=== PATIENT | male | born 1955 | race American Indian/Alaskan Native ===

== ENCOUNTER 2019-01-18 18:49 | Inpatient (IN) | payer MEDICARE, OTHER ==
--- NOTE | 2019-01-18 19:01 | Emergency Department Report ---
HPI - General Time Seen by Provider: 01/18/19 18:52 - HPI HPI: Charge nurse triage The patient is a 76-vich-[age]mu-year-old male presenting with chief complaint of right-sided weakness. Per EMS the patient's friend left the house at 08:00 and returned approximately 30 minutes prior to arrival find the patient with right- sided weakness and difficulty speaking. Her EMS the patient is unable to verbalize his answers but acknowledges his symptoms began around 13:00-14:00 today. Location: Right side Duration: [See above] Quality: Weakness Severity: Severe Modifying factors: [see above] Context: [see above] Mode of transportation: [not driving] ED Past Medical Hx - Past Medical History Hx Hypertension: Yes Hx Diabetes: Yes Additional medical history: Coronary artery disease - Family History Family history: no significant ED Review of Systems ROS: Stated complaint: CVA Other details as noted in HPI Comment: Unobtainable due to pts medical conditions Physical Exam - Physical Exam Physical Exam: GENERAL: The patient is well-developed well-nourished male lying on stretcher a phasic did not appear to be in acute distress. [] HEENT: Normocephalic. Atraumatic. Extraocular motions are intact. Patient has moist mucous membranes. NECK: Supple. Trachea midline CHEST/LUNGS: Clear to auscultation. There is no respiratory distress noted. HEART/CARDIOVASCULAR: Regular. There is no tachycardia. There is no gallop rub or murmur. ABDOMEN: Abdomen is soft, nontender. Patient has normal bowel sounds. There is no abdominal distention. SKIN: There is no rash. There is no edema. There is no diaphoresis. NEURO: The patient is awake and alert. The patient is cooperative. The patient has a dense right hemiparesis. The patient does not speak. MUSCULOSKELETAL: There is no evidence of acute injury. NIHSS= 18 LOC a. Alert= 0 Not alert but arousable to minor stimuli=1 Not alert requires repeated or strong stimuli to move= 2 Responds only reflex motor or unresponsive=3 b. asks month and age answers both correctly= 0 answers one correctly= 1 (+)answers neither correctly= 2 Best Gaze normal= 0 abnormal in one or both but forced deviation or total paresis absent= 1 forced deviation or total gaze paresis= 2 Visual no visual loss= 0 (+)partial hemianopia= 1 complete hemianopia= 2 bilateral hemianopia= 3 Facial Palsy normal= 0 minor paralysis= 1 partial paralysis= 2 complete paralysis= 3 Motor Arm no drift= 0 drift before 10 secs but doesnt hit bed= 1 some effort against gravity= 2 no effort against gravity= 3 (+)no movement= 4 Motor leg no drift= 0 drift before 5 secs but doesnt hit bed= 1 drifts to bed before 5 secs= 2 no effort against gravity= 3 (+)no movement= 4 Limb ataxia absent=0 present in one limb= 1 (+)present in two limbs= 2 Sensory normal= 0 mild sensory loss= 1 (+)severe (unaware of being touched)= 2 Best language mild/some loss of fluency= 1 severe= 2 (+)mute= 3 Dysarthria normal= 0 slurs some words= 1 severe/unintelligible= 2 Extinction and Inattention no abnormality= 0 visual, tactile, auditory or personal inattention= 1 profound (doesnt recognize own hand or orients to only one side= 2 ED Course - Consultations Consultation #1: 01/18/19 19:13 Case discussed with tele-neurologist - outside window for TPA. Recommend CTA brain and neck to rule out large vessel occlusion Consultation #2: 01/18/19 20:34 Case discussed with [facility] neurologist Dr. Nolan-awaiting CTAs 01/18/19 20:[address] Reich states patient is not a candidate for interv ention ED Medical Decision Making - Lab Data Result diagrams: 01/18/19 19:14 01/18/19 19:14 Laboratory Tests 01/18/19 01/18/19 01/18/19 19:14 19:14 19:14 WBC 17.2 H RBC 4.55 Hgb 14.2 Hct 43.7 MCV 96 H MCH 31 MCHC 33 RDW 15.5 H Plt Count 380 Lymph % (Auto) 7.9 L [place] % (Auto) 7.9 H Eos % (Auto) 0.0 Baso % (Auto) 0.7 Lymph # 1.4 [place] # 1.4 H Eos # 0.0 Baso # 0.1 Seg Neutrophils % 83.5 H Seg Neutrophils # 14.3 H PT 15.5 H INR 1.16 H APTT 31.7 Thrombin Time Sodium 153 H Potassium 3.4 L Chloride 103.1 Carbon Dioxide 26 Anion Gap 27 BUN 24 H Creatinine 1.0 Estimated GFR > 60 BUN/Creatinine Ratio 24 Glucose 159 H Calcium 10.3 H Troponin T 0.368 H* Triglycerides 140 Cholesterol 157 LDL Cholesterol Direct 98 HDL Cholesterol 35 L Cholesterol/HDL Ratio 4.48 01/18/19 19:14 WBC RBC Hgb Hct MCV MCH MCHC RDW Plt Count Lymph % (Auto) [place] % (Auto) Eos % (Auto) Baso % (Auto) Lymph # [place] # Eos # Baso # Seg Neutrophils % Seg Neutrophils # PT INR APTT Thrombin Time 16.2 Sodium Potassium Chloride Carbon Dioxide Anion Gap BUN Creatinine Estimated GFR BUN/Creatinine Ratio Glucose Calcium Troponin T Triglycerides Cholesterol LDL Cholesterol Direct HDL Cholesterol Cholesterol/HDL Ratio - EKG Data -: EKG Interpreted by Mo EKG shows normal: sinus rhythm Rate: normal (94 bpm) - EKG Data When compared to previous EKG there are: previous EKG unavailable Interpretation: nonspecific ST-T wave lisseth - Radiology Data Radiology results: pending (CT angiogram neck and brain), report reviewed (CT head), image reviewed (CT head) [place] [address] Cat Scan Report Signed with Addenda Patient: LESIA PHELPS MR#: [id number] : 1955 Acct:[id number] Age/Sex: 63 / M ADM Date: 01/18/19 Loc: ED Attending Dr: Ordering Physician: ANAID PARKER MD Date of Service: 01/18/19 Procedure(s): CT head/brain wo con Accession Number(s): [id number] cc: ANAID PARKER MD ADDENDUM ADDENDUM: Findings were discussed with Dr. Parker 7:34 PM EST on January 18, 2019 This document is electronically signed by Bolivar Delacruz MD., January 18 2019 07:35:46 PM ET Addendum Transcribed By: SILVESTRE Addendum Dictated By: MELINDA DELACRUZ MD Addendum Electronically Authenticated By: MELINDA DELACRUZ MD Addendum Signed Date/Time: 01/18/191937 DD/ TD/TT: 01/18/19 PROCEDURE: CT HEAD/BRAIN WO CON TECHNIQUE: CT head without contrast HISTORY: neuro deficits <6hrs or sx present upon awakening COMPARISONS: FINDINGS: There is focal hypodensity left posterior frontal/temporal region extending through the mckeon-white matter junction with effacement of adjacent sulci. No evidence for midline shift or mass effect. No acute intra or extra-axial hemorrhage identified. No evidence for midline shift or mass effect. Ventricles and sulci are within normal limits. There is patchy hypodensity supratentorial white matter most consistent with chronic small vessel ischemic change. IMPRESSION: Left frontal/temporal focal hypodensity most consistent in appearance with acute infarct which is likely acute to subacute. This document is electronically signed by Bolivar Delacruz MD., January 18 2019 07:29:55 PM ET Transcribed By: SILVESTRE Dictated By: MELINDA DELACRUZ MD Electronically Authenticated By: MELINDA DELACRUZ MD Signed Date/Time: 01/18/191931 DD/ 02 TD/TT: 01/18/191903 - Differential Diagnosis CVA, ICH Critical care attestation.: If time is entered above; I have spent that time in minutes in the direct care of this critically ill patient, excluding procedure time. ED Disposition Clinical Impression: CVA (cerebral vascular accident) Qualifiers: CVA mechanism: occlusion Precerebral and cerebral artery: middle cerebral artery Laterality of affected vessel: left Qualified Code(s): I63.512 - Cerebral infarction due to unspecified occlusion or stenosis of left middle cerebral artery Disposition: -09 OP ADMIT IP TO THIS HOSP Is pt being admited?: Yes Does the pt Need Aspirin: Yes Condition: Serious Time of Disposition: 21:26 (hospitalist notified (Dr. Sandra Braswell))
--- NOTE | 2019-01-18 19:02 | Consultation ---
History of Present Illness Consult date: 01/18/19 Reason for Consult: stroke Medications and Allergies Allergies Allergy/AdvReac Type Severity Reaction Status Date / Time Unable to Assess Allergy Unverified 01/18/19 18:52 - Level of Consciousness 1a. Level of Consciousness: alert/keenly responsive - LOC Questions 1b. LOC Questions: aphasic - LOC Command 1c. LOC Commands: performs no tasks correctly - Best Gaze 2. Best Gaze: normal - Visual 3. Visual: complete hemianopia - Facial Palsy 4. Facial Palsy: minor paralysis - Motor Arm 5a. Motor Arm Left: no drift 5b. Motor Arm Right: no movement - Motor Leg 6a. Motor Leg Left: no drift 6b. Motor Leg Right: no movement - Limb Ataxia 7. Limb Ataxia: absent - Sensory 8. Sensory: severe/total sensory loss - Best Language 9. Best Language: mute/global aphasia - Dysarthria 10. Dysarthria: mute/anarrthric - Extinction and Inattention 11. Extinction/Inattention: no abnormality - Scoring Total Score: 22 Stroke Severity: Severe Stroke Assessment and Plan Date of Service 01/18/2019 [facility] Consult Services Comments: Last time known well: _ unclear but more than 5 hours prior to presentation, last seen well was 8AM, patient somehow communicated to EMS that symptoms started 5-6 hours prior to their arrival (is globally aphasic in the ER so this information cannot be confirmed) Door time: _ 1847 [facility] contacted: _ 1844 [facility] at bedside: _1846 NIHSS assessment time: _1849 consult end time: _1911 Impression: Consistent with Acute Ischemic Stroke Does meet Large Vessel Occlusion (LVO) screening criteria (aphasia, neglect, gaze deviation, dense hemiparesis, or visual field deficits on exam), therefore advanced imaging (CTA head and neck and CTP brain) is indicated. Differential Diagnosis: 1. Cardioembolic stroke 2. Small vessel disease/ lacune 3. Thromboembolic, [id number] mechanism 4. Hypercoagulable state-related infarct 5. Transient ischemic attack 6. Thrombotic mechanism, large artery disease ------- ---- tPA decision and other recommendations: _ Patient is not a tPA candidate Head CT did not show any acute hemorrhage. reviewed report (if available) and images; head CT already shows a large hypodensity in left MCA territory Reason: _ last time known well>4.5 hours ago If Large Vessel Occlusion is proven on head CTA then should be transferred for CTP brain and possible mechanical thrombectomy Recommendations dysphagia screen ASA if no contraindications head of bed flat IV fluids NS Stroke work up with: noncontrast brain MRI, head and neck MRA (or CTA), 2D ECHO, lipid panel, HbA1c (Goal LDL<70, HbA1c<7) inpatient neurology consultation Inpatient stroke evaluation as per Neurology/ Internal Medicine Discussed with ED physician/medical staff Reason for Stroke Alert and History of Present Illness: _ Patient is a 63 years old male , with history of hypertension, Diabetes Mellitus last known well: unclear but more than 5 hours ago about 18:20 was found with right sided weakness, aphasia Blood Pressure:167/115 Review of Systems: Constitutional: Negative except as documented in history of present illness. Eye: Negative except as documented in history of present illness. Ear/Nose/Mouth/Throat: Negative except as documented in history of present illness. Respiratory: Negative except as documented in history of present illness. Cardiovascular: Negative except as documented in history of present illness. Gastrointestinal: Negative except as documented in history of present illness. Musculoskeletal: Negative except as documented in history of present illness. Neurologic: Negative except as documented in history of present illness. Examination: NIHSS Details documented below 22 Medical Decision Making: - Extensive number of diagnosis or management options are considered above. - Extensive amount of complex data reviewed. - High risk of complication and/or morbidity or mortality are associated with differential diagnostic considerations above. - There may be Uncertain outcome and increased probability of prolonged functional impairment or high probability of severe prolonged functional impairment associated with some of these differential diagnoses. Medical Data Reviewed: 1.Data reviewed include clinical labs, radiology, Medical Tests; 2.Tests results discussed w/performing or interpreting physician; 3.Obtaining/reviewing old medical records; 4.Obtaining case history from another source; 5.Independent review of image, tracing or specimen. When possible Patient/family were informed the Neurology Consult would happen via telehealth (remote video) and consented to receiving care in this manner. Case discussed with the Medical staff. Critical Care notation: I was called to see this critical patient emergently. I personally evaluated this critical patient for acute stroke evaluation and determining their eligibility for IV Alteplase and interventional therapies. I have spent approximately _26_ minutes with the patient, including time at bedside, time discussing the case with other physicians, reviewing plan of care, and time independently reviewing the records and scans. - Patient Problems (1) Stroke Status: Acute Qualifiers: CVA mechanism: occlusion Precerebral and cerebral artery: middle cerebral artery Laterality of affected vessel: left Qualified Code(s): I63.512 - Cerebral infarction due to unspecified occlusion or stenosis of left middle cerebral artery
[2019-01-18] MEDS ORDERED: ASPIRIN PR ONE (19:12)
--- NOTE | 2019-01-18 19:32 | Cat Scan Report ---
PROCEDURE: CT HEAD/BRAIN WO CON TECHNIQUE: CT head without contrast HISTORY: neuro deficits <6hrs or sx present upon awakening COMPARISONS: FINDINGS: There is focal hypodensity left posterior frontal/temporal region extending through the mckeon-white ma tter junction with effacement of adjacent sulci. No evidence for midline shift or mass effect. No acute intra or extra-axial hemorrhage identified. No evidence for midline shift or mass effect. Ve ntricles and sulci are within normal limits. There is patchy hypodensity supratentorial white matter most consistent with chronic small vessel ischemic change. IMPRESSION: Left frontal/temporal focal hypodensity most consistent in appearance with acute infarct which is lik marco acute to subacute. This document is electronically signed by Bolivar Cartagena MD., January 18 2019 07:29:55 PM ET
[2019-01-18 19:37] LABS: Basophils # (Auto) 0.1 K/mm3 (0.0-0.1); Basophils % (Auto) 0.7 % (0.0-1.8); Hematocrit 43.7 % (35.5-45.6); Hemoglobin 14.2 gm/dl (11.8-15.2); Lymphocytes # (Auto) 1.4 K/mm3 (1.2-5.4); Lymphocytes % (Auto) 7.9 % (13.4-35.0); Mean Corpuscular HGB Conc 33 % (32-34); Mean Corpuscular Volume 96 fl (84-94); Monocytes # (Auto) 1.4 K/mm3 (0.0-0.8); Monocytes % (Auto) 7.9 % (0.0-7.3); Platelet Count 380 K/mm3 (140-440); Red Blood Count 4.55 M/mm3 (3.65-5.03); Red Cell Distribution Width 15.5 % (13.2-15.2)
[2019-01-18 19:48] LABS: INR 1.16 (0.87-1.13)
[2019-01-18 19:49] LABS: Partial Thromboplastin Time 31.7 Sec. (24.2-36.6)
[2019-01-18 19:54] LABS: BUN/Creatinine Ratio 24; Blood Urea Nitrogen 24 mg/dL (9-20); Calcium 10.3 mg/dL (8.4-10.2); Hemolysis Index 20
[2019-01-18] MEDS ORDERED: NACL 0.9% 1000 ML 1,000 ML IV ONE (19:54)
[2019-01-18 20:17] LABS: Chol/HDL Ratio 4.48 %; HDL Cholesterol 35 mg/dL (40-59); LDL Cholesterol,Direct 98 mg/dL (50-130)
--- NOTE | 2019-01-18 21:40 | Cat Scan Report ---
PROCEDURE: CT angiogram head with contrast. TECHNIQUE: Computerized tomographic angiography of the head was performed after the IV injection of iodinated nonionic contrast including image processing. The image data was postprocessed using 2-dim ensional multiplanar reformatted (MPR) and 3-dimensional (MIP and/or volume rendered) techniques. CT DOSE LENGTH PRODUCT: Not provided mGycm HISTORY: aphasia, right hemiparesis COMPARISONS: None. FINDINGS: Both distal internal carotid arteries are patent. Both anterior cerebral arteries are patent. The ant erior communicating artery is probably patent. Both middle cerebral arteries are patent. The posterio r communicating arteries are not definitely present. Both distal vertebral arteries are patent. Both posterior inferior cerebellar arteries are patent. The basilar artery is patent. The right anterior i nferior cerebellar artery is faintly visible. The left AICA is not definitely visible. Both superior cerebellar and both posterior cerebral arteries are patent. There are no signs of aneurysm disease. T here is no evidence of a vasculitis. There is an area of low-attenuation involving the lateral portio n of the left frontal lobe. This could represent a subacute infarct. There is no abnormal enhancement within the brain parenchyma. IMPRESSION: No significant arterial abnormality. Probable subacute infarct in the left frontal lobe. This document is electronically signed by Isaiah Major MD., January 18 2019 09:38:08 PM ET
--- NOTE | 2019-01-18 22:05 | Cat Scan Report ---
PROCEDURE: CT ANGIO NECK TECHNIQUE: Computerized tomographic angiography of the neck was performed after the IV injection of iodinated nonionic contrast including image processing. The image data was postprocessed using 2-dime nsional multiplanar reformatted (MPR) and 3-dimensional (MIP and/or volume rendered) techniques. CT DOSE LENGTH PRODUCT: mGycm HISTORY: aphasia, right hemiparesis COMPARISONS: None . Note: Assessment of carotid artery stenosis is based on measurement of the distal internal carotid a rtery diameter as the denominator for stenosis calculations and the [place] Symptomatic Caroti d Endarterectomy Trial (NASCET) stenosis criteria. FINDINGS: Aortic arch: There is calcified plaque in the thoracic aorta. There is no aneurysm or dissection. Right carotid artery: There is calcified and soft plaque of the right common carotid artery with mil d narrowing. There is no significant stenosis or dissection. The right carotid bulb is unremarkable. There is tortuous elongation of the right cervical internal carotid artery. There is a 6 mm diverticu lum or ulcerated plaque with calcification of the midportion of the right internal carotid artery. Th ere is no significant stenosis or evidence of dissection. Left carotid artery: There is calcified plaque and soft plaque of the left common carotid artery wit hout stenosis. The left carotid bulb is unremarkable. There is tortuous elongation of the left cervic al internal carotid artery without stenosis, dissection or occlusion. Vertebral arteries: Normal . IMPRESSION: There is calcified and soft plaque of the right common carotid artery with mild narrowing. There is n o significant stenosis or dissection. The right carotid bulb is unremarkable. There is tortuous elongation of the right cervical internal carotid artery. There is a 6 mm diverticu lum or ulcerated plaque with calcification of the midportion of the right internal carotid artery. Th ere is no significant stenosis or evidence of dissection. There is calcified plaque and soft plaque of the left common carotid artery without stenosis. The lef t carotid bulb is unremarkable. There is tortuous elongation of the left cervical internal carotid artery without stenosis, dissectio n or occlusion. The vertebral arteries are patent and normal in caliber. This document is electronically signed by Waylon Tolliver MD., January 18 2019 10:02:46 PM ET
[2019-01-18] MEDS ORDERED: ZOFRAN IV PRN (22:08)
[2019-01-18] MEDS ORDERED: SODIUM CHLORIDE FLUSH SYRINGE 10 ML IV PRN (22:08)
[2019-01-18] MEDS ORDERED: SODIUM CHLORIDE FLUSH SYRINGE 10 ML INJ PRN (22:08)
--- NOTE | 2019-01-18 22:17 | History and Physical Report ---
History of Present Illness Date of examination: 01/18/19 History of present illness: 63 year old man with no known medical problem, hasnt seen a physician in years was brought to the emergency room for evaluation of right-sided weakness and difficulty speaking. He was outside the window for TPA, review of system is on obtainable, patient is aphasic. Histories per the family at bedside PAST MEDICAL HISTORY:None PAST SURGICAL HISTORY: None SOCIAL HISTORY: + alcohol, no drugs, +tobacco FAMILY HISTORY: Hypertension Medications and Allergies Allergies Allergy/AdvReac Type Severity Reaction Status Date / Time Unable to Assess Allergy Unverified 01/18/19 18:52 Active Meds: Active Medications Acetaminophen (Tylenol) [address] Q4H PRN PRN Reason: Pain MILD(1-3)/Fever >100.5/PEARL Aspirin (Aspirin) [address] QDAY YESICA Enoxaparin Sodium (Lovenox) 30 mg SUB-Q QDAY YESICA Hydralazine HCl (Apresoline) 5 mg IV Q6H PRN PRN Reason: Hypertension Dextrose/Sodium Chloride (D5/0.45ns) 1,000 mls @ 100 mls/hr IV DIRECT YESICA Piperacillin Sod/Tazobactam Sod (Zosyn/Ns 3.375gm/50ml) 3.375 gm in 50 mls @ 100 mls/hr IV Q8HR YESICA Ondansetron HCl (Zofran) 4 mg IV Q4H PRN PRN Reason: Nausea And Vomiting Sodium Chloride (Sodium Chloride Flush Syringe 10 Ml) 10 ml IV BID YESICA Sodium Chloride (Sodium Chloride Flush Syringe 10 Ml) 10 ml IV PRN PRN PRN Reason: LINE FLUSH Sodium Chloride (Sodium Chloride Flush Syringe 10 Ml) 10 ml INJ PRN PRN PRN Reason: LINE FLUSH Exam - Physical Exam Narrative exam: General Apperance: The patient lying in bed, breathing comfortable HEENT: Normocephalic, atraumatic. Pupils equally round and reactive to light, EOMI, no sclericterus or JVD or thyromegaly or nodule. , no carotid bruit, mucous membranes moist, no exudate or erythema Heart: S1-S2, regular is rhythm Lungs: Clear to auscultation bilaterally, breathing comfortable Abdomen: Positive bowel sounds, soft, nontender, nondistended, no organomegaly Extremities:right leg larger than left, No edema cyanosis clubbing Skin: no rash, nodule, warm and dry Neuro:aphasic, right UE/LE 2/5, difficult to assess rest of neuro exam - Constitutional Vitals: Temp Pulse Resp BP Pulse Ox 97.7 F 94 H 16 187/99 97 01/18/19 19:16 01/18/19 19:16 01/18/19 19:53 01/18/19 19:16 01/18/19 19:53 Results - Labs CBC & Chem 7: 01/18/19 19:14 01/18/19 19:14 Labs: Abnormal lab results 01/18/19 01/18/19 01/18/19 Range/Units 19:14 19:14 19:14 WBC 17.2 H (4.5-11.0) K/mm3 MCV 96 H (84-94) fl RDW 15.5 H (13.2-15.2) % Lymph % (Auto) 7.9 L (13.4-35.0) % [place] % (Auto) 7.9 H (0.0-7.3) % [place] # 1.4 H (0.0-0.8) K/mm3 Seg Neutrophils % 83.5 H (40.0-70.0) % Seg Neutrophils # 14.3 H (1.8-7.7) K/mm3 PT 15.5 H (12.2-14.9) Sec. INR 1.16 H (0.87-1.13) Sodium 153 H (137-145) mmol/L Potassium 3.4 L (3.6-5.0) mmol/L BUN 24 H (9-20) mg/dL Glucose 159 H (75-100) mg/dL Calcium 10.3 H (8.4-10.2) mg/dL Troponin T 0.368 H* (0.00-0.029) ng/mL HDL Cholesterol 35 L (40-59) mg/dL - Imaging and Cardiology CT Scan - head: report reviewed Assessment and Plan CTA head and neck reviewed Assessment Acute CVA SIRS Hypernatremia Dehydration Abnormal cardiac enzymes Large right leg Plan Admit to medicine Obtain MRI of the head, echo Do neuro checks, swallo screen Start aspirin now, statin if pass swaloow eval Consult neurology, PT, OT and speech Start IV fluids, monitor sodium, start IV Zosyn Obtain blood cultures, chest x-ray, urinalysis DVT prophylaxis, check level of the lower extremity, rule out DVT
[2019-01-18] MEDS ORDERED: HABITROL TD ONE (22:24)
[2019-01-18] MEDS ORDERED: KCL 10MEQ/100ML 10 MEQ/100 ML BAG IV ONE ×2 (22:24→22:35)
[2019-01-18] MEDS ORDERED: APRESOLINE ONE (22:52)
[2019-01-18] MEDS: APRESOLINE IV PRN (22:54)
[2019-01-18 23:14] LABS: Creatine Kinase MB 3.1 ng/mL (0.0-4.0)
--- NOTE | 2019-01-18 23:17 | XRay Report ---
EXAM: XR CHEST 1V AP HISTORY: leukocytosis TECHNIQUE: AP CXR dated 01/18/2019 at 10:42 PM. COMPARISON: None available. FINDINGS: The heart size and mediastinum are within normal limits. The lung bo and costophrenic angles are clear. There is no acute parenchymal infiltrate, pleural effusion, or pneumothorax seen. The visua lized bony structures are within normal limits. IMPRESSION: 1. No evidence for acute cardiopulmonary disease seen. This document is electronically signed by Byron Strickland MD., January 18 2019 11:15:48 PM ET
[2019-01-19] MEDS: D5/0.45NS 1,000 ML IV SCH ×3 (00:23→21:32)
[2019-01-19] MEDS: ZOSYN/NS 3.375GM/50ML 3.375 GM/50 ML BAG IV SCH ×3 (00:23→21:29)
[2019-01-19] MEDS: APRESOLINE IV PRN ×3 (00:37→17:52)
[2019-01-19 01:13] LABS: BUN/Creatinine Ratio 31; Blood Urea Nitrogen 25 mg/dL (9-20); Calcium 9.8 mg/dL (8.4-10.2); Hemolysis Index 4
[2019-01-19 06:11] LABS: Creatine Kinase MB 3.2 ng/mL (0.0-4.0)
[2019-01-19] MEDS: ASPIRIN PR SCH (09:26)
[2019-01-19] MEDS: SODIUM CHLORIDE FLUSH SYRINGE 10 ML IV SCH ×2 (09:26→21:29)
[2019-01-19] MEDS ORDERED: LOVENOX SUB-Q SCH ×3 (10:00→22:00)
--- NOTE | 2019-01-19 15:06 | Progress Note ---
Assessment and Plan Assessment and plan: Acute CVA with right-sided weakness. CT scan reveals subacute left frontal lobe infarct. Neurology evaluation pending. Follow-up MRI/MRA head and echocardiogram. PT/OT/ST. SIRS. Patient meets criteria given the fever and tachycardia. No evidence of obvious infection. Continue empiric antibiotics with Zosyn. Follow blood cultures. Hypernatremia. Etiology likely secondary to dehydration/volume depletion. Continue D5 half normal saline IV fluids. Follow-up BMP in morning. Elevated troponin. Follow echocardiogram. Cardiology consultation. History Interval history: No new issues overnight. Patient still with right-sided weakness. Hospitalist Physical - Constitutional Vitals: Temp Pulse Resp BP Pulse Ox 98.1 F 95 H 14 166/90 99 01/19/19 12:00 01/19/19 13:11 01/19/19 13:11 01/19/19 13:11 01/19/19 13:43 General appearance: Present: no acute distress, well-nourished - EENT Eyes: Present: PERRL, EOM intact ENT: hearing intact, clear oral mucosa, dentition normal - Neck Neck: Present: supple, normal ROM - Respiratory Respiratory effort: normal Respiratory: bilateral: CTA - Cardiovascular Rhythm: regular Heart Sounds: Present: S1 & S2. Absent: gallop, rub - Extremities Extremities: no ischemia, No edema, Full ROM - Abdominal General gastrointestinal: soft, non-tender, non-distended, normal bowel sounds - Integumentary Integumentary: Present: clear, warm, dry - Neurologic Neurologic: CNII-XII intact, moves all extremities Results - Labs CBC & Chem 7: 01/18/19 19:14 01/19/19 00:15 Labs: Laboratory Last Values WBC 17.2 K/mm3 (4.5-11.0) H 01/18/19 19:14 RBC 4.55 M/mm3 (3.65-5.03) 01/18/19 19:14 Hgb 14.2 gm/dl (11.8-15.2) 01/18/19 19:14 Hct 43.7 % (35.5-45.6) 01/18/19 19:14 MCV 96 fl (84-94) H 01/18/19 19:14 MCH 31 pg (28-32) 01/18/19 19:14 MCHC 33 % (32-34) 01/18/19 19:14 RDW 15.5 % (13.2-15.2) H 01/18/19 19:14 Plt Count 380 K/mm3 (140-440) 01/18/19 19:14 Lymph % (Auto) 7.9 % (13.4-35.0) L 01/18/19 19:14 [place] % (Auto) 7.9 % (0.0-7.3) H 01/18/19 19:14 Eos % (Auto) 0.0 % (0.0-4.3) 01/18/19 19:14 Baso % (Auto) 0.7 % (0.0-1.8) 01/18/19 19:14 Lymph # 1.4 K/mm3 (1.2-5.4) 01/18/19 19:14 [place] # 1.4 K/mm3 (0.0-0.8) H 01/18/19 19:14 Eos # 0.0 K/mm3 (0.0-0.4) 01/18/19 19:14 Baso # 0.1 K/mm3 (0.0-0.1) 01/18/19 19:14 Seg Neutrophils % 83.5 % (40.0-70.0) H 01/18/19 19:14 Seg Neutrophils # 14.3 K/mm3 (1.8-7.7) H 01/18/19 19:14 PT 15.5 Sec. (12.2-14.9) H 01/18/19 19:14 INR 1.16 (0.87-1.13) H 01/18/19 19:14 APTT 31.7 Sec. (24.2-36.6) 01/18/19 19:14 Thrombin Time 16.2 Sec. (15.1-19.6) 01/18/19 19:14 Sodium 151 mmol/L (137-145) H 01/19/19 00:15 Potassium 3.2 mmol/L (3.6-5.0) L 01/19/19 00:15 Chloride 104.5 mmol/L (98-107) 01/19/19 00:15 Carbon Dioxide 24 mmol/L (22-30) 01/19/19 00:15 Anion Gap 26 mmol/L 01/19/19 00:15 BUN 25 mg/dL (9-20) H 01/19/19 00:15 Creatinine 0.8 mg/dL (0.8-1.5) 01/19/19 00:15 Estimated GFR > 60 ml/min 01/19/19 00:15 BUN/Creatinine Ratio 31 % 01/19/19 00:15 Glucose 130 mg/dL (75-100) H 01/19/19 00:15 Calcium 9.8 mg/dL (8.4-10.2) 01/19/19 00:15 Total Creatine Kinase 419 units/L (55-170) H 01/19/19 05:07 CK-MB (CK-2) 3.2 ng/mL (0.0-4.0) 01/19/19 05:07 CK-MB (CK-2) Rel Index 0.7 (0-4) 01/19/19 05:07 Troponin T 0.273 ng/mL (0.00-0.029) H* 01/19/19 05:07 Triglycerides 140 mg/dL (2-149) 01/18/19 19:14 Cholesterol 157 mg/dL (50-199) 01/18/19 19:14 LDL Cholesterol Direct 98 mg/dL (50-130) 01/18/19 19:14 HDL Cholesterol 35 mg/dL (40-59) L 01/18/19 19:14 Cholesterol/HDL Ratio 4.48 % 01/18/19 19:14 Active Medications - Current Medications Current Medications: Generic Name Dose Route Start Last Admin Trade Name Freq PRN Reason Stop Dose Admin Acetaminophen 650 mg 01/18/19 22:08 Tylenol NV Q4H PRN Pain MILD(1-3)/Fever >100.5/PEARL Aspirin 300 mg 01/19/19 10:00 01/19/19 09:26 Aspirin NV 300 mg QDAY YESICA Administration Enoxaparin Sodium 40 mg 01/19/19 10:00 01/19/19 09:25 Lovenox SUB-Q 40 mg QDAY@1000 YESICA Administration Hydralazine HCl 5 mg 01/18/19 22:13 01/19/19 06:14 Apresoline IV 5 mg Q6H PRN Administration Hypertension Dextrose/Sodium Chloride 1,000 mls @ 100 mls/hr 01/18/19 23:00 01/19/19 11:49 D5/0.45ns IV 100 mls/hr DIRECT YESICA Administration Piperacillin Sod/Tazobactam Sod 3.375 gm in 50 mls @ 100 mls/hr 01/18/19 23:00 01/19/19 13:33 Zosyn/Ns 3.375gm/50ml IV 100 mls/hr Q8HR YESICA Administration Ondansetron HCl 4 mg 01/18/19 22:08 Zofran IV Q4H PRN Nausea And Vomiting Sodium Chloride 10 ml 01/19/19 10:00 01/19/19 09:26 Sodium Chloride Flush Syringe 10 Ml IV 10 ml BID YESICA Administration Sodium Chloride 10 ml 01/18/19 22:08 Sodium Chloride Flush Syringe 10 Ml IV PRN PRN LINE FLUSH Nutrition/Malnutrition Assess - Dietary Evaluation Nutrition/Malnutrition Findings: Nutrition Notes Start: 01/19/19 13:52 Freq: Status: Active Protocol: Document 01/19/19 13:52 RD (Rec: 01/19/19 14:25 RD [email or web address]) Co-Sign 01/19/19 13:52 RM Nutrition Notes Need for Assessment generated from: manager of clinical Initial or Follow up Assessment Other Pertinent Diagnosis stroke, CVA Current Diet NPO Labs/Tests Na 151 BUN 25 Pertinent Medications Reviewed Height 5 ft 10 in Weight 70.76 kg [place] Body Weight (kg) 75.45 BMI 22.4 Subjective/Other Information RD screen for Hx difficulty chewing and skin risk assessment. David score = 17. Observed swallow eval, per Speech pt will remain NPO for now. Percent of energy/protein needs met: 0%/0% Burn Absent Trauma Absent #1 Nutrition Diagnosis Inadequate oral intake Etiology Swallowing difficulty As Evidenced by Signs and Symptoms NPO status, failed swallow eval Is patient on ventilator? No Is Patient Ambulatory and/or Out of Bed No REE-([facility]-confined to bed) 9030.700 Calculation Used for Recommendations [facility] Additional Notes Protein needs: (1-1.2g/kg) 71- 85g Fluid needs: 1mL/kcal Nutrition Intervention Change Diet Order: Per speech therapy Goal #1 Advance diet when medically feasible Anticipated Discharge Needs: Unable to determine at this time. Follow-Up By: 01/23/19 Additional Comments f/u: speech eval
--- NOTE | 2019-01-19 15:38 | Vascular Lab Report ---
PROCEDURE: VL VENOUS DUPLEX LE BILAT TECHNIQUE: Grayscale and color and spectral doppler ultrasound imaging of the bilateral lower extrem ity venous system was performed. HISTORY: eval for dvt COMPARISONS: None. 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 The right common femoral and superficial femoral veins are patent with normal compressibility and normal color flow. Left lower extremity: Thrombus is seen within one of the posterior tibial veins and peroneal vein. No evidence of thrombus within the left common femoral, superficial femoral and popliteal veins. IMPRESSION: Positive for bilateral lower extremity DVT. Findings were discussed with WALT Rushing at 12:32 pm PST on 01/19/2019. This document is electronically signed by Shea Haynes., January 19 2019 03:35:39 PM ET
--- NOTE | 2019-01-19 18:13 | Consultation ---
History of Present Illness Consult date: 01/19/19 Requesting physician: GALI CHAVEZ Reason for Consult: stroke Chief complaint: stroke History of present illness: This 63-year-old -Filipino male cannot give a history due to aphasia. However he was apparently able to state that his symptoms have begun around 1:30 yesterday in the afternoon. He was outside the TPA window. He had a right hemiplegia. He seems to nod his head yes to the question of headache but shakes his head no to dizziness. CT scan shows large acute left mid frontal and temporal lobe stroke, old cerebellar infarcts left and perhaps right. Echocardiogram shows enlarged left ventricle with only 25-30% ejection fraction but negative bubble study. CT angiogram of the neck showed ulceration in the right internal carotid artery with elongated artery and left ICA showed just elongated artery. CT angiogram head is negative or normal. Past History Past Medical History: other (cannot give past medical history or surgical history) Past Surgical History: No surgical history (cannot be obtained) Social history: smoking (seems to indicate about a pack a day of cigarettes), alcohol abuse (indicates she does drink alcohol), IV drug use (unknown, seems to indicate yes to use of cocaine). denies: prescription drug abuse Family history: other (cannot obtain) Medications and Allergies Allergies Allergy/AdvReac Type Severity Reaction Status Date / Time Unable to Assess Allergy Unverified 01/18/19 18:52 Active Meds: Active Medications Acetaminophen (Tylenol) 650 mg [place] Q4H PRN PRN Reason: Pain MILD(1-3)/Fever >100.5/PEARL Aspirin (Aspirin) 300 mg [place] QDAY YESICA Last Admin: 01/19/19 09:26 Dose: 300 mg Documented by: Enoxaparin Sodium (Lovenox) 70 mg 1 mg/kg (70 mg) SUB-Q Q12HR YESICA Hydralazine HCl (Apresoline) 5 mg IV Q6H PRN PRN Reason: Hypertension Last Admin: 01/19/19 17:52 Dose: 5 mg Documented by: Dextrose/Sodium Chloride (D5/0.45ns) 1,000 mls @ 100 mls/hr IV DIRECT YESICA Last Admin: 01/19/19 11:49 Dose: 100 mls/hr Documented by: Piperacillin Sod/Tazobactam Sod (Zosyn/Ns 3.375gm/50ml) 3.375 gm in 50 mls @ 100 mls/hr IV Q8HR [facility] Last Admin: 01/19/19 13:33 Dose: 100 mls/hr Documented by: Ondansetron HCl (Zofran) 4 mg IV Q4H PRN PRN Reason: Nausea And Vomiting Sodium Chloride (Sodium Chloride Flush Syringe 10 Ml) 10 ml IV BID [facility] Last Admin: 01/19/19 09:26 Dose: 10 ml Documented by: Sodium Chloride (Sodium Chloride Flush Syringe 10 Ml) 10 ml IV PRN PRN PRN Reason: LINE FLUSH Review of Systems ROS unobtainable: due to mental status Physical Examination - Vital Signs Vital Signs: Vital Signs BP 187/99 01/18/19 19:05 - Physical Exam Narrative exam: General Appearance: well developed well nourished (per BMI) early 60s - Filipino male in [facility]. HEENT: atraumatic, normocephalic; no bruits, 2+ Rafy without soreness or induration or enlargement, sclerae nonicteric. Oropharynx pink and moist. No TMJ click, no TMJ or sinus soreness to pressure or percussion. Neck: supple, no bruits. Heart: no murmur or extra sounds. Extremities: no clubbing, cyanosis or edema. 2+ posterior tibial/dorsalis pedis pulses bilaterally. Neurologic Exam: Mental Status: Awake, alert, not oriented to multiple choice questions by nodding his head or shaking his head though he says "yeah" when asked to be knows where he is unable to nod appropriately to hospital versus school, speech is confined to "yeah", cannot name pen or count fingers or nod to multiple oices for president. Cranial Nerves: bo show right field cut, no papilledema, SVPs present, PERR LA, EOMs full without nystagmus or diplopia, facial sensation intact to pinprick and light touch, I'll do right facial weakness, Hanna is midline, palate rises symmetrically to phonation OR gags are positive, shoulder shrug is 5 X 2, tongue protrudes midline. Cerebellar: finger to nose intact left without tremor but cannot do on the right, cannot do heel to quiroz. Sensory: Cannot assess light touch, pinprick and vibrations are intact. Double simultaneous stimulation is intact. Motor Exam Upper Extremities: no drift or pronation, Zackery intact. Mathematics Professor are 4+ to 5- left but plegic on the right, tone is increased on the right. No atrophy or fasciculations are noted visually. Motor Exam Lower Extremities: Plegic on the right; iliopsoas is 4, quadriceps is 4-, anterior tibials and gastrocnemius are apraxic but 3+ to 4- on the left. Zackery intact for toe wiggling on the left but no motion on the right. Tone is normal. No atrophy or fasciculations are noted visually. Reflexes: Palmomental is slightly positive on the left, snout and jaw jerk are negative. Triceps are 2 right and trace left, biceps are 3 right and trace left and brachioradialis are 2 right and trace left bilaterally. Gio's is positive right and negative left. Knee jerks are 1+ right and 2 left and ankle jerks are trace right and 1 left without clonus. Toes are mute right and downgoing left to Babinski testing. Results - Laboratory Findings CBC and BMP: 01/18/19 19:14 01/19/19 00:15 Abnormal Lab Findings: Abnormal Labs 01/18/19 01/18/19 01/18/19 19:14 19:14 19:14 WBC 17.2 H MCV 96 H RDW 15.5 H Lymph % (Auto) 7.9 L [facility] % (Auto) 7.9 H [facility] # 1.4 H Seg Neutrophils % 83.5 H Seg Neutrophils # 14.3 H PT 15.5 H INR 1.16 H Sodium 153 H Potassium 3.4 L BUN 24 H Glucose 159 H Calcium 10.3 H Total Creatine Kinase Troponin T 0.368 H* HDL Cholesterol 35 L 01/18/19 01/19/19 01/19/19 22:33 00:15 05:07 WBC MCV RDW Lymph % (Auto) [facility] % (Auto) [facility] # Seg Neutrophils % Seg Neutrophils # PT INR Sodium 151 H Potassium 3.2 L BUN 25 H Glucose 130 H Calcium Total Creatine Kinase 491 H 419 H Troponin T 0.291 H* D 0.273 H* HDL Cholesterol Assessment and Plan Impression: 1. Left MCA stroke, embolic 2. Cardiomyopathy Plan: 1. Should be on aspirin or clopidogrel. 2. After 2 weeks, could begin warfarin buildup starting with perhaps 5 mg, based on cardiomyopathy, unless he has hemorrhagic transformation of his stroke. 3. If choices made to give him a NOAC would wait 3 weeks before starting since those are quicker acting. 4. Should elevate right arm and leg above heart. Should get Isotoner glove on the right from OT to reduce edema and pneumatic TEDs. 5. Later learned he has bilateral DVT. Suggest vena caval filter since too early for anticoagulation. Spoke to Dr. Chavez regarding this recommendation. 50 minutes spent including discussion with Dr. Chavez as above and review of multiple CT scan images. Thank you for an interesting consultation on this unfortunate early 60s male. Someone should try to get further history from family as to whether cocaine was being used or not. No toxic screen was done.
[2019-01-20] MEDS: APRESOLINE IV PRN ×2 (04:43→21:11)
[2019-01-20] MEDS: ZOSYN/NS 3.375GM/50ML 3.375 GM/50 ML BAG IV SCH ×3 (05:09→22:12)
[2019-01-20] MEDS: ASPIRIN PR SCH (10:03)
--- NOTE | 2019-01-20 12:40 | Consultation ---
History of Present Illness - Reason for Consult Consult date: 01/20/19 IVC filter - History of Present Illness 63-year-old -[place] male cannot give a history due to aphasia. However he was apparently able to state that his symptoms have begun around 1:30 yesterday in the afternoon. He was outside the TPA window. He had a right hemiplegia. He seems to nod his head yes to the question of headache but shakes his head no to dizziness. CT scan shows large acute left mid frontal and temporal lobe stroke, old cerebellar infarcts left and perhaps right. Echocardiogram shows enlarged left ventricle with only 25-30% ejection fraction but negative bubble study. CT angiogram of the neck showed ulceration in the right internal carotid artery with elongated artery and left ICA showed just elongated artery. CT angiogram head is negative or normal. The patient was found to have DVT of the bilateral lower extremities with extension to the popliteal vein. Patient cannot be anticoagulated due to recent stroke. Past History Past Medical History: other (cannot give past medical history or surgical history) Past Surgical History: No surgical history (cannot be obtained) Social history: smoking (seems to indicate about a pack a day of cigarettes), alcohol abuse (indicates she does drink alcohol), IV drug use (unknown, seems to indicate yes to use of cocaine). denies: prescription drug abuse Family history: other (cannot obtain) Medications and Allergies Allergies Allergy/AdvReac Type Severity Reaction Status Date / Time Unable to Assess Allergy Unverified 01/18/19 18:52 Active Meds: Active Medications Acetaminophen (Tylenol) 650 mg [place] Q4H PRN PRN Reason: Pain MILD(1-3)/Fever >100.5/PEARL Aspirin (Aspirin) 300 mg [place] QDAY YESICA Last Admin: 01/20/19 10:03 Dose: 300 mg Documented by: Hydralazine HCl (Apresoline) 5 mg IV Q6H PRN PRN Reason: Hypertension Last Admin: 01/20/19 04:43 Dose: 5 mg Documented by: Dextrose/Sodium Chloride (D5/0.45ns) 1,000 mls @ 100 mls/hr IV DIRECT YESICA Last Admin: 01/19/19 21:32 Dose: 100 mls/hr Documented by: Piperacillin Sod/Tazobactam Sod (Zosyn/Ns 3.375gm/50ml) 3.375 gm in 50 mls @ 100 mls/hr IV Q8HR [facility] Last Admin: 01/20/19 05:09 Dose: 100 mls/hr Documented by: Ondansetron HCl (Zofran) 4 mg IV Q4H PRN PRN Reason: Nausea And Vomiting Sodium Chloride (Sodium Chloride Flush Syringe 10 Ml) 10 ml IV BID [facility] Last Admin: 01/19/19 21:29 Dose: 10 ml Documented by: Sodium Chloride (Sodium Chloride Flush Syringe 10 Ml) 10 ml IV PRN PRN PRN Reason: LINE FLUSH Review of Systems All systems: negative (see HPI) Exam - Constitutional Vitals: Temp Pulse Resp BP Pulse Ox 98.2 F 78 27 H 184/78 98 01/19/19 18:13 01/20/19 04:43 01/20/19 04:00 01/20/19 04:43 01/20/19 10:00 Results - Labs CBC & Chem 7: 01/18/19 19:14 01/19/19 00:15 Assessment and Plan 63-year-old male who suffered ischemic stroke with lower extremity DVTs and inability to anticoagulate. IVC filter requested by neurology. We'll place IVC filter later today. Discussed with family that anticoagulation should be commenced as soon as cleared by neurology to prevent extension from the lower extremity DVT. Recommend OTILIA hose to prevent extension of DVT. Provided card. Discussed with family that we should remove the IVC filter in 3 months.
--- NOTE | 2019-01-20 12:59 | Consultation ---
History of Present Illness Consult date: 01/20/19 Consult reason: elevated troponin History of present illness: Patient is a 63 year old male with a history of hypertension, diabetes and hyperlipidemia. Patient also smokes tobacco. He was is admitted 01/18 with embolic CVA and has right sided hemiplegia. Echocardiogram shows enlarged left ventricle with only 25-30% ejection fraction but negative bubble study. The duration of his cardiomyopathy is uncertain. History taking is limited due to a phagia. Patient has been evaluated by neurology who has recommended anticoagulation with warfarin after 2 weeks. He nod his head no to the question of chest pain and shortness of breath. 12 lead ECG shows sinus rhythm with ST abnormalities. There is no prior ECG for comparison. Past History Past Medical History: other (cannot give past medical history or surgical history) Past Surgical History: No surgical history (cannot be obtained) Social history: smoking (seems to indicate about a pack a day of cigarettes), alcohol abuse (indicates she does drink alcohol), IV drug use (unknown, seems to indicate yes to use of cocaine). denies: prescription drug abuse Family history: other (cannot obtain) Medications and Allergies Allergies Allergy/AdvReac Type Severity Reaction Status Date / Time Unable to Assess Allergy Unverified 01/18/19 18:52 Active Meds: Active Medications Acetaminophen (Tylenol) 650 mg [place] Q4H PRN PRN Reason: Pain MILD(1-3)/Fever >100.5/PEARL Aspirin (Aspirin) 300 mg [place] QDAY [facility] Last Admin: 01/20/19 10:03 Dose: 300 mg Documented by: Hydralazine HCl (Apresoline) 5 mg IV Q6H PRN PRN Reason: Hypertension Last Admin: 01/20/19 04:43 Dose: 5 mg Documented by: Dextrose/Sodium Chloride (D5/0.45ns) 1,000 mls @ 100 mls/hr IV DIRECT [facility] Last Admin: 01/19/19 21:32 Dose: 100 mls/hr Documented by: Piperacillin Sod/Tazobactam Sod (Zosyn/Ns 3.375gm/50ml) 3.375 gm in 50 mls @ 100 mls/hr IV Q8HR YESICA Last Admin: 01/20/19 05:09 Dose: 100 mls/hr Documented by: Ondansetron HCl (Zofran) 4 mg IV Q4H PRN PRN Reason: Nausea And Vomiting Sodium Chloride (Sodium Chloride Flush Syringe 10 Ml) 10 ml IV BID YESICA Last Admin: 01/19/19 21:29 Dose: 10 ml Documented by: Sodium Chloride (Sodium Chloride Flush Syringe 10 Ml) 10 ml IV PRN PRN PRN Reason: LINE FLUSH Physical Examination Vital Signs BP 187/99 01/18/19 19:05 Results 01/18/19 19:14 01/19/19 00:15 Assessment and Plan Embolic CVA -pt has been evaluated by neurology who has recommended anticoagu lation with warfarin after 2 weeks. Hhypertension Diabetes Hyperlipidemia Tobacco abuse Elevated troponin Echocardiogram shows enlarged left ventricle with only 25-30% ejection fraction but negative bubble study. The duration of his cardiomyopathy is uncertain.
--- NOTE | 2019-01-20 13:06 | Progress Note ---
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 CT scan reveals subacute left frontal lobe infarct. Neurology evaluation pending. Follow-up MRI/MRA head and echocardiogram shows enlarged left ventricle with only 25-30% ejection fraction but negative bubble study. CT angiogram of the neck showed ulceration in the right internal carotid artery with elongated artery and left ICA showed just elongated artery. CT angiogram head is negative or normal.. PT/OT/ST. Accelerated hypertension. Start hydralazine 25 mg 3 times a day Bilateral lower extremity DVT. IR consultation for IVC filter placement. SIRS. Patient meets criteria given the fever and tachycardia. No evidence of obvious infection. Continue empiric antibiotics with Zosyn. Follow blood cultures. Hypernatremia. Etiology likely secondary to dehydration/volume depletion. Continue D5 half normal saline IV fluids. Follow-up BMP in morning. Elevated troponin. Cardiology consultation pending. History Interval history: No new issues overnight. Patient still with right-sided weakness. Hospitalist Physical - Constitutional Vitals: Temp Pulse Resp BP Pulse Ox 98.2 F 78 27 H 184/78 98 01/19/19 18:13 01/20/19 04:43 01/20/19 04:00 01/20/19 04:43 01/20/19 10:00 General appearance: Present: no acute distress, well-nourished - EENT Eyes: Present: PERRL, EOM intact ENT: hearing intact, clear oral mucosa, dentition normal - Neck Neck: Present: supple, normal ROM - Respiratory Respiratory effort: normal Respiratory: bilateral: CTA - Cardiovascular Rhythm: regular Heart Sounds: Present: S1 & S2. Absent: gallop, rub - Extremities Extremities: no ischemia, No edema, Full ROM - Abdominal General gastrointestinal: soft, non-tender, non-distended, normal bowel sounds - Integumentary Integumentary: Present: clear, warm, dry - Neurologic Neurologic: CNII-XII intact, moves all extremities Results - Labs CBC & Chem 7: 01/18/19 19:14 01/19/19 00:15 Labs: Laboratory Last Values WBC 17.2 K/mm3 (4.5-11.0) H 01/18/19 19:14 RBC 4.55 M/mm3 (3.65-5.03) 01/18/19 19:14 Hgb 14.2 gm/dl (11.8-15.2) 01/18/19 19:14 Hct 43.7 % (35.5-45.6) 01/18/19 19:14 MCV 96 fl (84-94) H 01/18/19 19:14 MCH 31 pg (28-32) 01/18/19 19:14 MCHC 33 % (32-34) 01/18/19 19:14 RDW 15.5 % (13.2-15.2) H 01/18/19 19:14 Plt Count 380 K/mm3 (140-440) 01/18/19 19:14 Lymph % (Auto) 7.9 % (13.4-35.0) L 01/18/19 19:14 Emmons % (Auto) 7.9 % (0.0-7.3) H 01/18/19 19:14 Eos % (Auto) 0.0 % (0.0-4.3) 01/18/19 19:14 Baso % (Auto) 0.7 % (0.0-1.8) 01/18/19 19:14 Lymph # 1.4 K/mm3 (1.2-5.4) 01/18/19 19:14 Emmons # 1.4 K/mm3 (0.0-0.8) H 01/18/19 19:14 Eos # 0.0 K/mm3 (0.0-0.4) 01/18/19 19:14 Baso # 0.1 K/mm3 (0.0-0.1) 01/18/19 19:14 Seg Neutrophils % 83.5 % (40.0-70.0) H 01/18/19 19:14 Seg Neutrophils # 14.3 K/mm3 (1.8-7.7) H 01/18/19 19:14 PT 15.5 Sec. (12.2-14.9) H 01/18/19 19:14 INR 1.16 (0.87-1.13) H 01/18/19 19:14 APTT 31.7 Sec. (24.2-36.6) 01/18/19 19:14 Thrombin Time 16.2 Sec. (15.1-19.6) 01/18/19 19:14 Sodium 151 mmol/L (137-145) H 01/19/19 00:15 Potassium 3.2 mmol/L (3.6-5.0) L 01/19/19 00:15 Chloride 104.5 mmol/L (98-107) 01/19/19 00:15 Carbon Dioxide 24 mmol/L (22-30) 01/19/19 00:15 Anion Gap 26 mmol/L 01/19/19 00:15 BUN 25 mg/dL (9-20) H 01/19/19 00:15 Creatinine 0.8 mg/dL (0.8-1.5) 01/19/19 00:15 Estimated GFR > 60 ml/min 01/19/19 00:15 BUN/Creatinine Ratio 31 % 01/19/19 00:15 Glucose 130 mg/dL (75-100) H 01/19/19 00:15 Calcium 9.8 mg/dL (8.4-10.2) 01/19/19 00:15 Total Creatine Kinase 419 units/L (55-170) H 01/19/19 05:07 CK-MB (CK-2) 3.2 ng/mL (0.0-4.0) 01/19/19 05:07 CK-MB (CK-2) Rel Index 0.7 (0-4) 01/19/19 05:07 Troponin T 0.273 ng/mL (0.00-0.029) H* 01/19/19 05:07 Triglycerides 140 mg/dL (2-149) 01/18/19 19:14 Cholesterol 157 mg/dL (50-199) 01/18/19 19:14 LDL Cholesterol Direct 98 mg/dL (50-130) 01/18/19 19:14 HDL Cholesterol 35 mg/dL (40-59) L 01/18/19 19:14 Cholesterol/HDL Ratio 4.48 % 01/18/19 19:14 Active Medications - Current Medications Current Medications: Generic Name Dose Route Start Last Admin Trade Name Freq PRN Reason Stop Dose Admin Acetaminophen 650 mg 01/18/19 22:08 Tylenol MD Q4H PRN Pain MILD(1-3)/Fever >100.5/PEARL Aspirin 300 mg 01/19/19 10:00 01/20/19 10:03 Aspirin MD 300 mg QDAY YESICA Administration Hydralazine HCl 5 mg 01/18/19 22:13 01/20/19 04:43 Apresoline IV 5 mg Q6H PRN Administration Hypertension Dextrose/Sodium Chloride 1,000 mls @ 100 mls/hr 01/18/19 23:00 01/19/19 21:32 D5/0.45ns IV 100 mls/hr DIRECT YESICA Administration Piperacillin Sod/Tazobactam Sod 3.375 gm in 50 mls @ 100 mls/hr 01/18/19 23:00 01/20/19 05:09 Zosyn/Ns 3.375gm/50ml IV 100 mls/hr Q8HR YESICA Administration Ondansetron HCl 4 mg 01/18/19 22:08 Zofran IV Q4H PRN Nausea And Vomiting Sodium Chloride 10 ml 01/19/19 10:00 01/19/19 21:29 Sodium Chloride Flush Syringe 10 Ml IV 10 ml BID YESICA Administration Sodium Chloride 10 ml 01/18/19 22:08 Sodium Chloride Flush Syringe 10 Ml IV PRN PRN LINE FLUSH Nutrition/Malnutrition Assess - Dietary Evaluation Nutrition/Malnutrition Findings: Nutrition Notes Start: 01/19/19 13:52 Freq: Status: Active Protocol: Document 01/19/19 13:52 RD (Rec: 01/19/19 14:25 RD [email or web address]) Co-Sign 01/19/19 13:52 RM Nutrition Notes 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 David score = 17. Observed swallow eval, per Speech pt will remain NPO for now. Percent of energy/protein needs met: 0%/0% Burn Absent Trauma Absent #1 Nutrition Diagnosis Inadequate oral intake Etiology Swallowing difficulty As Evidenced by Signs and Symptoms NPO status, failed swallow eval Is patient on ventilator? No Is Patient Ambulatory and/or Out of Bed No REE-([facility]-confined to bed) 0990.513 Calculation Used for Recommendations [facility] Additional Notes Protein needs: (1-1.2g/kg) 71- 85g Fluid needs: 1mL/kcal Nutrition Intervention Change Diet Order: Per speech therapy Goal #1 Advance diet when medically feasible Anticipated Discharge Needs: Unable to determine at this time. Follow-Up By: 01/23/19 Additional Comments f/u: speech eval
--- NOTE | 2019-01-20 14:31 | Magnetic Resonance Report ---
MRI OF THE BRAIN WITHOUT CONTRAST: HISTORY: Stroke PROCEDURE: Multiplanar, multisequence MR imaging of the brain without IV contrast was performed. FINDINGS: Compared to the CT head performed 01/18/19. MRI demonstrates a moderate-sized area of diffusion restriction in the left MCA distribution measuring 6.0 x 4.0 cm in axial plane. There is subtle petechial hemorrhage in this area on the T1 images but no uncontained hemorrhage is identified. There is a questionable punctate focus of diffusion restriction in the right posterior frontal lobe on diffusion image 25. This may represent a second focal area of subacute ischemia. Diffuse volume loss and chronic white matter changes are identified. Chronic infarct is appreciated. No extra-axial fluid collection. The midline structures are central. The basal cisterns are patent. Normal ventricular size. The orbital cavities and sella turcica demonstrate no abnormality. The visualized paranasal sinuses and mastoid air cells are well aerated. IMPRESSION: Subacute left MCA infarct as described above with evidence of petechial hemorrhage. Questionable punctate focus of diffusion restriction in the right posterior frontal lobe. Volume loss. Chronic white matter changes.
[2019-01-20] MEDS ORDERED: HEPARIN/NS 5000 UNIT/500ML(CATH LAB) 500 ML IR ONE (14:48)
[2019-01-20] MEDS ORDERED: XYLOCAINE 2% INFILTRATI ONE (14:48)
[2019-01-20] MEDS ORDERED: XYLOCAINE 1%/ EPI 1:100,000 INFILTRATI ONE (15:02)
[2019-01-20] MEDS ORDERED: NACL 0.9% 500 ML 500 ML ONE (15:04)
[2019-01-20] MEDS ORDERED: ANCEF/STERILE WATER 2 GM/20 ML 2 GM/20 ML SYRINGE IV ONE (15:07)
[2019-01-20] MEDS: VERSED ONE ×3 (15:22→15:34)
[2019-01-20] MEDS: SUBLIMAZE ONE ×3 (15:22→15:34)
--- NOTE | 2019-01-20 15:42 | Operative Report ---
Operative Report Operative Report: EXAM: 1. Ultrasound guided access of the right internal jugular 2. IVC filter placement and inferior venacava venography DATE: 01/20/19 INDICATION: Stroke with inability to anticoagulate and DVTs. MEDICATIONS: Continuous cardiopulmonary monitoring was performed during this procedure. Please review the nursing record for a list of all medications. DEVICES: Retrievable Bard [place] IVC filter. ENTRY MANAGER: JUAN JOSÉ HUBER MD CONTRAST: Please see medical lab assistant report for full details. PROCEDURE: The risks, benefits, and alternatives were discussed; written informed consent was obtained. The patient was transported to the angiography suite in stable condition. The patient was transported on the table and the right internal jugular was assessed with ultrasound to ensure patency. The patient was prepped and draped in a sterile fashion. The right internal jugular vein was accessed with an 21-gauge needle under direct ultrasound guidance. 0.018 inch wire was advanced through the needle and the needle was exchanged for a transitional dilation. Inner dilator and wire was removed. 0.035 inch wire was passed into the inferior vena cava. The transitional dilator was exchanged for a 5 Palauan sheath and a 5 Palauan pigtail catheter was advanced over the wire and passed into the inferior vena cava. The table was locked. Digital subtraction venography was performed. The pigtail was removed over a 0.035 inch wire and the sheath was removed over the wire. The IVC filter sheath and introducer were advanced over the wire under direct fluoroscopic guidance. The wire and introducer were removed. The IVC filter deployment system was advanced through the sheath and properly positioned under fluoroscopic guidance. The IVC filter was deployed under direct fluoroscopic guidance. Venography was performed through the sheath to confirm position. The deployment system, and sheath were removed. Pressure was held until hemostasis was achieved. The patient was transferred from the angiography suite in stable condition. FIINDINGS: 1. Under direct ultrasound guidance, the right internal jugular vein was accessed with a 21-gauge needle. Right internal jugular vein is patent. 2. Digital subtraction venography of the inferior vena cava demonstrates no evidence of inferior vena cava thrombus. The inferior vena cava is normal in size. Renal vein inflow is visualized. The inferior vena cava is adequate to accommodate an IVC filter. 3. [place] IVC filter is properly positioned, below the renal veins and above the iliocaval confluence. IMPRESSION: Successful placement of a retrievable [place] IVC filter. No evidence of caval thrombus.
[2019-01-20] MEDS: APRESOLINE PO SCH (19:04)
[2019-01-20] MEDS ORDERED: PROzac FEEDTUBE ONE (20:00)
--- NOTE | 2019-01-20 20:41 | Progress Note ---
Assessment and Plan Impression: 1. Left MCA stroke, presumably embolic 2. Petechial cortical hemorrhage 3. Cardiomyopathy Plan: 1. See my previous recommendations regarding anticoagulation. 2. Vena cava filter has been placed. 3. Ordered repeat CT to check for post stroke edema Wednesday. May need 3% saline perhaps 100 ml per day if severe enough. 4. Call Dr. Ora Mcdonnell Wednesday after CT is available, for further instructions. 5. Dobhoff feeding tube ordered by me for meds, could be used for tube feeds. May need PEG tube since swallowing recovery likely to take months. 6. Ordered liquid fluoxetine via the feeding tube, to help motor and perhaps speech recovery. Later memantine could be added or even modafinil. Would avoid donepezil and stronger stimulants such as methylphenidate or dexedrine due to risk of seizures, geena with the petechial cortical hemorrhage. 30 min spent including review of hundreds of MRI images. Subjective Date of service: 01/20/19 Principal diagnosis: stroke Interval history: HPI: This 63-year-old -[place] male is seen in follow-up for moderate size left middle cerebral artery territory frontotemporal stroke. MRI shows no significant edema as yet but does show a layer of petechial hemorrhage at the cortical surface (seen as white stippling on T1, can't be seen on GRE yet) as confirmed for me by Dr. Mane of radiology. Due to this and due to the size of the stroke, I advised Dr. Chavez to arrange for a vena cava filter since it is too soon for him to be anticoagulated for his cardiomyopathy as likely source of a clot causing the stroke. He cannot seem to understand to nod yes or no for headache though the nurse states he makes more "noises" though not words. General appearance: well-developed well-nourished (per BMI) early 60s - [place] male in NAD. Neurologic Exam: Mental Status: But not oriented, cannot nod yes or no to location being school versus hospital, speech is mumbling and incoherent but perhaps says "yeah" once, cannot name pen or count fingers though tries to obey some commands by imitation. Cranial Nerves: Right field cut to threat, PERRL, EOMs full without nystagmus or diplopia, right facial weakness with delayed forehead wrinkle on the right, cannot assess hearing well though he seems to respond to voice, cannot cooperate for shoulder shrug testing, apraxic for tongue protrusion. Cerebellar: finger to nose intact by imitation on the left but plegic on the right, cannot cooperate for [id number] testing on the left and plegic on the right. Motor Exam Upper Extremities: Plegic on the right with increased tone, court deputy is 3+ to 4- on the left but no court deputy on the right. Cannot cooperate for rapid alternating movements on the left and plegic on the right. Motor Exam Lower Extremities: lifts left leg well off the bed spontaneously, anterior tibials 4+ on the left and gastrocnemius is 4+ on the left but cannot do on the right. Withdraws right knee to plantar stimulation however. Cannot cooperate for rapid alternating movements on the left and plegic on the right. Objective - Vital Sign Vital Signs - 12hr 01/20/19 01/20/19 01/20/19 08:41 08:50 09:00 Temperature Pulse Rate 93 H 88 89 Pulse Rate [ From Monitor] Respiratory 23 18 19 Rate Blood Pressure 170/91 170/91 179/77 O2 Sat by Pulse 99 99 99 Oximetry 01/20/19 01/20/19 01/20/19 09:11 09:21 09:31 Temperature Pulse Rate 87 89 87 Pulse Rate [ From Monitor] Respiratory 23 25 H 21 Rate Blood Pressure 170/91 170/91 170/91 O2 Sat by Pulse 100 98 99 Oximetry 01/20/19 01/20/19 01/20/19 09:41 09:51 10:00 Temperature Pulse Rate 76 98 H 90 Pulse Rate [ From Monitor] Respiratory 25 H 24 25 H Rate Blood Pressure 170/91 170/91 155/82 O2 Sat by Pulse 100 97 99 Oximetry 01/20/19 01/20/19 01/20/19 10:11 10:21 10:31 Temperature Pulse Rate 88 86 91 H Pulse Rate [ From Monitor] Respiratory 21 19 21 Rate Blood Pressure 179/77 179/77 179/77 O2 Sat by Pulse 99 100 100 Oximetry 01/20/19 01/20/19 01/20/19 10:41 10:51 11:00 Temperature Pulse Rate 98 H 99 H 103 H Pulse Rate [ From Monitor] Respiratory 22 20 24 Rate Blood Pressure 179/77 179/77 165/90 O2 Sat by Pulse 100 98 100 Oximetry 01/20/19 01/20/19 01/20/19 11:11 11:21 11:31 Temperature Pulse Rate 112 H 106 H 93 H Pulse Rate [ From Monitor] Respiratory 27 H 20 17 Rate Blood Pressure 155/82 155/82 155/82 O2 Sat by Pulse 100 100 Oximetry 01/20/19 01/20/19 01/20/19 11:41 11:51 12:00 Temperature Pulse Rate 98 H 104 H 89 Pulse Rate [ 90 From Monitor] Respiratory 20 19 24 Rate Blood Pressure 165/90 165/90 165/90 O2 Sat by Pulse 100 100 100 Oximetry 01/20/19 01/20/19 01/20/19 12:11 12:21 12:31 Temperature Pulse Rate 95 H 94 H 101 H Pulse Rate [ From Monitor] Respiratory 22 16 22 Rate Blood Pressure 147/91 147/91 147/91 O2 Sat by Pulse 100 100 100 Oximetry 01/20/19 01/20/19 01/20/19 12:41 12:51 16:00 Temperature Pulse Rate 101 H 95 H Pulse Rate [ 97 H From Monitor] Respiratory 19 21 20 Rate Blood Pressure 147/91 147/91 O2 Sat by Pulse 100 98 100 Oximetry 01/20/19 01/20/19 01/20/19 16:21 16:31 16:41 Temperature Pulse Rate 107 H 96 H 107 H Pulse Rate [ From Monitor] Respiratory 31 H 30 H 22 Rate Blood Pressure 167/77 167/77 167/77 O2 Sat by Pulse 98 97 Oximetry 01/20/19 01/20/19 01/20/19 16:51 17:00 17:11 Temperature Pulse Rate 103 H 102 H 103 H Pulse Rate [ From Monitor] Respiratory 27 H 36 H 27 H Rate Blood Pressure 167/77 165/89 165/89 O2 Sat by Pulse 99 98 Oximetry 01/20/19 01/20/19 01/20/19 17:21 17:31 17:41 Temperature Pulse Rate 105 H 105 H Pulse Rate [ From Monitor] Respiratory 19 34 H Rate Blood Pressure 165/89 165/89 165/89 O2 Sat by Pulse 98 95 97 Oximetry 01/20/19 01/20/19 01/20/19 17:51 18:00 18:11 Temperature Pulse Rate 100 H 102 H 100 H Pulse Rate [ From Monitor] Respiratory 28 H 27 H 21 Rate Blood Pressure 165/89 157/97 157/97 O2 Sat by Pulse 98 99 99 Oximetry 01/20/19 01/20/19 01/20/19 18:21 18:31 18:41 Temperature Pulse Rate 98 H 94 H 87 Pulse Rate [ From Monitor] Respiratory 26 H 28 H 29 H Rate Blood Pressure 157/97 157/97 157/97 O2 Sat by Pulse 99 97 97 Oximetry 01/20/19 01/20/19 01/20/19 18:51 19:00 19:04 Temperature Pulse Rate 88 90 89 Pulse Rate [ From Monitor] Respiratory 13 30 H Rate Blood Pressure 157/97 160/89 174/83 O2 Sat by Pulse 98 97 Oximetry 01/20/19 01/20/19 01/20/19 19:11 19:21 19:54 Temperature 98.8 F Pulse Rate 99 H 91 H Pulse Rate [ From Monitor] Respiratory 18 28 H Rate Blood Pressure 160/89 160/89 O2 Sat by Pulse 98 98 Oximetry - Laboratory Findings CBC and BMP: 01/18/19 19:14 01/19/19 00:15 Abnormal Lab Findings: Abnormal Labs 01/18/19 01/18/19 01/18/19 19:14 19:14 19:14 WBC 17.2 H MCV 96 H RDW 15.5 H Lymph % (Auto) 7.9 L Cascade % (Auto) 7.9 H Cascade # 1.4 H Seg Neutrophils % 83.5 H Seg Neutrophils # 14.3 H PT 15.5 H INR 1.16 H Sodium 153 H Potassium 3.4 L BUN 24 H Glucose 159 H Calcium 10.3 H Total Creatine Kinase Troponin T 0.368 H* HDL Cholesterol 35 L 01/18/19 01/19/19 01/19/19 22:33 00:15 05:07 WBC MCV RDW Lymph % (Auto) Cascade % (Auto) Cascade # Seg Neutrophils % Seg Neutrophils # PT INR Sodium 151 H Potassium 3.2 L BUN 25 H Glucose 130 H Calcium Total Creatine Kinase 491 H 419 H Troponin T 0.291 H* D 0.273 H* HDL Cholesterol
[2019-01-20] MEDS: D5/0.45NS 1,000 ML IV SCH (21:26)
[2019-01-20] MEDS: SODIUM CHLORIDE FLUSH SYRINGE 10 ML IV SCH (22:16)
--- NOTE | 2019-01-21 00:53 | XRay Report ---
PROCEDURE: XR ABDOMEN 1V AP TECHNIQUE: Abdominal radiograph, single view. HISTORY: dobbhoff/placement COMPARISONS: None . FINDINGS: Bowel gas pattern: Nonobstructive . Masses or calcifications: There is an inferior vena cava filter noted . Bony structures: No significant abnormality . Other: The feeding tube appears to be curled in the mid esophagus. The tip is not identified . IMPRESSION: The feeding tube appears to be curled within the mid esophagus. The tip is not identifie d. This tube will need to be repositioned before use. This document is electronically signed by Shanelle Guerin DO., January 21 2019 12:51:30 AM ET
[2019-01-21] MEDS: APRESOLINE PO SCH ×3 (02:54→15:32)
[2019-01-21] MEDS: APRESOLINE IV PRN ×2 (06:23→15:30)
[2019-01-21] MEDS: ZOSYN/NS 3.375GM/50ML 3.375 GM/50 ML BAG IV SCH ×3 (06:23→22:35)
[2019-01-21] MEDS: ASPIRIN PR SCH (11:01)
--- NOTE | 2019-01-21 12:09 | Progress Note ---
Assessment and Plan 1. Acute embolic left sided CVA with right hemiplegia. 2. Dilated cardiomyopathy with severe left ventricular global hypokinesis LVEF 25-30% 3. Essential hypertension 4. Type 2 diabetes mellitus 5. Hyperlipidemia Plan. Patient on pre-and after load reduction. Anticoagulation as pain recommendation Subjective Date of service: 01/21/19 Principal diagnosis: stroke Interval history: Non verbal or communicative Objective Vital Signs Temp Pulse Pulse Resp BP Pulse Ox 01/21/19 06:23 84 183/82 01/21/19 06:00 70 25 H 183/82 01/21/19 05:51 83 27 H 183/85 01/21/19 05:41 87 23 183/85 01/21/19 05:31 88 19 183/85 01/21/19 05:21 88 17 183/85 01/21/19 05:11 80 17 183/85 01/21/19 05:00 78 22 183/85 01/21/19 04:51 86 23 159/83 01/21/19 04:41 85 28 H 159/83 01/21/19 04:31 87 14 159/83 01/21/19 04:21 85 22 159/83 01/21/19 04:11 86 17 184/85 01/21/19 04:00 97.8 F 83 87 19 184/85 96 01/21/19 03:51 85 20 159/83 01/21/19 03:41 84 21 159/83 01/21/19 03:31 90 12 159/83 01/21/19 03:21 95 H 25 H 159/83 96 01/21/19 03:11 91 H 14 159/83 97 01/21/19 03:00 92 H 21 159/83 94 01/21/19 02:51 92 H 27 H 160/78 97 01/21/19 02:41 91 H 25 H 160/78 98 01/21/19 02:31 92 H 25 H 160/78 96 01/21/19 02:21 89 22 160/78 97 01/21/19 02:11 94 H 26 H 160/78 96 01/21/19 02:00 93 H 27 H 160/78 95 01/21/19 01:51 96 H 18 161/82 99 01/21/19 01:41 88 19 161/82 98 01/21/19 01:31 95 H 18 161/82 97 01/21/19 01:21 95 H 21 161/82 98 01/21/19 01:11 94 H 23 161/82 97 01/21/19 01:00 95 H 23 161/82 94 01/21/19 00:51 96 H 25 H 153/74 98 01/21/19 00:41 97 H 20 153/74 98 01/21/19 00:31 98 H 24 153/74 98 01/21/19 00:21 98 H 21 153/74 98 01/21/19 00:11 96 H 23 153/74 98 01/21/19 00:00 95 H 92 H 26 H 153/74 96 01/20/19 23:51 101 H 20 158/89 96 01/20/19 23:41 95 H 20 158/89 97 01/20/19 23:31 96 H 17 158/89 98 01/20/19 23:27 98.6 F 01/20/19 23:21 101 H 18 158/89 98 01/20/19 23:11 103 H 23 169/83 98 01/20/19 23:00 102 H 22 169/83 95 01/20/19 22:50 86 20 158/89 99 01/20/19 22:40 89 22 158/89 99 01/20/19 22:31 91 H 23 158/89 97 01/20/19 22:21 92 H 18 158/89 98 01/20/19 22:11 86 22 158/89 98 01/20/19 22:00 90 25 H 190/85 98 01/20/19 21:50 85 25 H 190/85 98 01/20/19 21:41 99 H 22 190/85 98 01/20/19 21:31 91 H 21 190/85 98 01/20/19 21:21 81 27 H 190/85 99 01/20/19 21:11 78 190/85 01/20/19 21:10 91 H 33 H 190/85 98 01/20/19 21:00 78 26 H 190/85 95 01/20/19 20:51 89 28 H 169/99 97 01/20/19 20:41 83 26 H 169/99 99 01/20/19 20:31 81 30 H 169/99 99 01/20/19 20:21 90 23 169/99 97 01/20/19 20:11 85 26 H 169/99 99 01/20/19 20:00 91 H 88 26 H 169/99 98 01/20/19 19:54 98.8 F 01/20/19 19:51 91 H 30 H 160/89 97 01/20/19 19:41 96 H 33 H 160/89 99 01/20/19 19:31 85 28 H 160/89 98 01/20/19 19:27 88 26 H 160/89 98 01/20/19 19:21 91 H 28 H 160/89 98 01/20/19 19:12 95 H 35 H 160/89 99 01/20/19 19:11 99 H 18 160/89 98 01/20/19 19:04 89 174/83 01/20/19 19:00 90 30 H 160/89 97 01/20/19 18:51 88 13 157/97 98 01/20/19 18:41 87 29 H 157/97 97 01/20/19 18:31 94 H 28 H 157/97 97 01/20/19 18:21 98 H 26 H 157/97 99 01/20/19 18:11 100 H 21 157/97 99 01/20/19 18:00 102 H 27 H 157/97 99 01/20/19 17:51 100 H 28 H 165/89 98 01/20/19 17:41 105 H 34 H 165/89 97 01/20/19 17:31 165/89 95 01/20/19 17:21 105 H 19 165/89 98 01/20/19 17:11 103 H 27 H 165/89 98 01/20/19 17:00 102 H 36 H 165/89 01/20/19 16:51 103 H 27 H 167/77 99 01/20/19 16:41 107 H 22 167/77 97 01/20/19 16:31 96 H 30 H 167/77 98 01/20/19 16:21 107 H 31 H 167/77 01/20/19 16:00 97 H 20 100 01/20/19 12:51 95 H 21 147/91 98 01/20/19 12:41 101 H 19 147/91 100 01/20/19 12:31 101 H 22 147/91 100 01/20/19 12:21 94 H 16 147/91 100 01/20/19 12:11 95 H 22 147/91 100 - Physical Examination General: Appears Well, No Apparent Distress HEENT: Positive: PERRL. Negative: Normocephaly Neck: Positive: neck supple, trachea midline. Negative: JVD/HJR Cardiac: Positive: Reg Rate and Rhythm, Regular Rate, S1/S2, S3, PMI, Dilated, Laterally Displaced Lungs: Positive: clear to auscultation, No Wheeze, Rales, Rhonchi Neuro: Positive: Other (aphasia, right hemiplegia) Abdomen: Positive: Unremarkable, Active Bowel Sounds Extremities: Absent: edema
--- NOTE | 2019-01-21 12:30 | Progress Note ---
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 CT scan reveals subacute left frontal lobe infarct. Neurology evaluation pending. Follow-up MRI/MRA head and echocardiogram shows enlarged left ventricle with only 25-30% ejection fraction but negative bubble study. CT angiogram of the neck showed ulceration in the right internal carotid artery with elongated artery and left ICA showed just elongated artery. CT angiogram head is negative or normal. PT/OT/ST. Dilated cardiomyopathy with severe left ventricular global hypokinesis. EF 25- 30% as noted above. No anticoagulation given increased risk for hemorrhagic conversion with CVA. Accelerated hypertension. Increase hydralazine to 100 mg 3 times a day. Bilateral lower extremity DVT. IVC filter placement. No anticoagulation given increased risk for hemorrhagic conversion with CVA. SIRS. Patient meets criteria given the fever and tachycardia. No evidence of obvious infection. Continue empiric antibiotics with Zosyn. Follow blood cultures. Hypernatremia. Etiology likely secondary to dehydration/volume depletion. Continue D5 half normal saline IV fluids. Follow-up BMP in morning. Elevated troponin. Cardiology following History Interval history: No new issues overnight. Patient still with right-sided weakness. Hospitalist Physical - Constitutional Vitals: Temp Pulse Resp BP Pulse Ox 97.8 F 84 25 H 183/82 96 01/21/19 04:00 01/21/19 06:23 01/21/19 06:00 01/21/19 06:23 01/21/19 04:00 General appearance: Present: no acute distress, well-nourished - EENT Eyes: Present: PERRL, EOM intact ENT: hearing intact, clear oral mucosa, dentition normal - Neck Neck: Present: supple, normal ROM - Respiratory Respiratory effort: normal Respiratory: bilateral: CTA - Cardiovascular Rhythm: regular Heart Sounds: Present: S1 & S2. Absent: gallop, rub - Extremities Extremities: no ischemia, No edema, Full ROM - Abdominal General gastrointestinal: soft, non-tender, non-distended, normal bowel sounds - Integumentary Integumentary: Present: clear, warm, dry - Neurologic Neurologic: CNII-XII intact, moves all extremities Results - Labs CBC & Chem 7: 01/18/19 19:14 01/19/19 00:15 Labs: Laboratory Last Values WBC 17.2 K/mm3 (4.5-11.0) H 01/18/19 19:14 RBC 4.55 M/mm3 (3.65-5.03) 01/18/19 19:14 Hgb 14.2 gm/dl (11.8-15.2) 01/18/19 19:14 Hct 43.7 % (35.5-45.6) 01/18/19 19:14 MCV 96 fl (84-94) H 01/18/19 19:14 MCH 31 pg (28-32) 01/18/19 19:14 MCHC 33 % (32-34) 01/18/19 19:14 RDW 15.5 % (13.2-15.2) H 01/18/19 19:14 Plt Count 380 K/mm3 (140-440) 01/18/19 19:14 Lymph % (Auto) 7.9 % (13.4-35.0) L 01/18/19 19:14 [place] % (Auto) 7.9 % (0.0-7.3) H 01/18/19 19:14 Eos % (Auto) 0.0 % (0.0-4.3) 01/18/19 19:14 Baso % (Auto) 0.7 % (0.0-1.8) 01/18/19 19:14 Lymph # 1.4 K/mm3 (1.2-5.4) 01/18/19 19:14 [place] # 1.4 K/mm3 (0.0-0.8) H 01/18/19 19:14 Eos # 0.0 K/mm3 (0.0-0.4) 01/18/19 19:14 Baso # 0.1 K/mm3 (0.0-0.1) 01/18/19 19:14 Seg Neutrophils % 83.5 % (40.0-70.0) H 01/18/19 19:14 Seg Neutrophils # 14.3 K/mm3 (1.8-7.7) H 01/18/19 19:14 PT 15.5 Sec. (12.2-14.9) H 01/18/19 19:14 INR 1.16 (0.87-1.13) H 01/18/19 19:14 APTT 31.7 Sec. (24.2-36.6) 01/18/19 19:14 Thrombin Time 16.2 Sec. (15.1-19.6) 01/18/19 19:14 Sodium 151 mmol/L (137-145) H 01/19/19 00:15 Potassium 3.2 mmol/L (3.6-5.0) L 01/19/19 00:15 Chloride 104.5 mmol/L (98-107) 01/19/19 00:15 Carbon Dioxide 24 mmol/L (22-30) 01/19/19 00:15 Anion Gap 26 mmol/L 01/19/19 00:15 BUN 25 mg/dL (9-20) H 01/19/19 00:15 Creatinine 0.8 mg/dL (0.8-1.5) 01/19/19 00:15 Estimated GFR > 60 ml/min 01/19/19 00:15 BUN/Creatinine Ratio 31 % 01/19/19 00:15 Glucose 130 mg/dL (75-100) H 01/19/19 00:15 Calcium 9.8 mg/dL (8.4-10.2) 01/19/19 00:15 Total Creatine Kinase 419 units/L (55-170) H 01/19/19 05:07 CK-MB (CK-2) 3.2 ng/mL (0.0-4.0) 01/19/19 05:07 CK-MB (CK-2) Rel Index 0.7 (0-4) 01/19/19 05:07 Troponin T 0.273 ng/mL (0.00-0.029) H* 01/19/19 05:07 Triglycerides 140 mg/dL (2-149) 01/18/19 19:14 Cholesterol 157 mg/dL (50-199) 01/18/19 19:14 LDL Cholesterol Direct 98 mg/dL (50-130) 01/18/19 19:14 HDL Cholesterol 35 mg/dL (40-59) L 01/18/19 19:14 Cholesterol/HDL Ratio 4.48 % 01/18/19 19:14 Active Medications - Current Medications Current Medications: Generic Name Dose Route Start Last Admin Trade Name Freq PRN Reason Stop Dose Admin Acetaminophen 650 mg 01/18/19 22:08 Tylenol [place] Q4H PRN Pain MILD(1-3)/Fever >100.5/PEARL Aspirin 300 mg 01/19/19 10:00 01/21/19 11:01 Aspirin GA Not Given QDAY YESICA Hydralazine HCl 5 mg 01/18/19 22:13 01/21/19 06:23 Apresoline IV 5 mg Q6H PRN Administration Hypertension Hydralazine HCl 50 mg 01/20/19 14:00 01/21/19 07:06 Apresoline PO Not Given Q8HR YESICA Dextrose/Sodium Chloride 1,000 mls @ 100 mls/hr 01/18/19 23:00 01/20/19 21:26 D5/0.45ns IV 100 mls/hr DIRECT YESICA Administration Piperacillin Sod/Tazobactam Sod 3.375 gm in 50 mls @ 100 mls/hr 01/18/19 23:00 01/21/19 06:23 Zosyn/Ns 3.375gm/50ml IV 100 mls/hr Q8HR YESICA Administration Ondansetron HCl 4 mg 01/18/19 22:08 Zofran IV Q4H PRN Nausea And Vomiting Sodium Chloride 10 ml 01/19/19 10:00 01/20/19 22:16 Sodium Chloride Flush Syringe 10 Ml IV 10 ml BID YESICA Administration Sodium Chloride 10 ml 01/18/19 22:08 Sodium Chloride Flush Syringe 10 Ml IV PRN PRN LINE FLUSH Nutrition/Malnutrition Assess - Dietary Evaluation Nutrition/Malnutrition Findings: Nutrition Notes Start: 01/19/19 13:52 Freq: Status: Active Protocol: Document 01/19/19 13:52 RD (Rec: 01/19/19 14:25 RD [email or web address]) Co-Sign 01/19/19 13:52 RM Nutrition Notes Need for Assessment generated from: transonic engineer Initial or Follow up Assessment Other Pertinent Diagnosis stroke, CVA Current Diet NPO Labs/Tests Na 151 BUN 25 Pertinent Medications Reviewed Height 5 ft 10 in Weight 70.76 kg [place] Body Weight (kg) 75.45 BMI 22.4 Subjective/Other Information RD screen for Hx difficulty chewing and skin risk assessment. David score = 17. Observed swallow eval, per Speech pt will remain NPO for now. Percent of energy/protein needs met: 0%/0% Burn Absent Trauma Absent #1 Nutrition Diagnosis Inadequate oral intake Etiology Swallowing difficulty As Evidenced by Signs and Symptoms NPO status, failed swallow eval Is patient on ventilator? No Is Patient Ambulatory and/or Out of Bed No REE-([facility]-confined to bed) 9745.816 Calculation Used for Recommendations [facility] Additional Notes Protein needs: (1-1.2g/kg) 71- 85g Fluid needs: 1mL/kcal Nutrition Intervention Change Diet Order: Per speech therapy Goal #1 Advance diet when medically feasible Anticipated Discharge Needs: Unable to determine at this time. Follow-Up By: 01/23/19 Additional Comments f/u: speech eval
[2019-01-21] MEDS: SODIUM CHLORIDE FLUSH SYRINGE 10 ML IV SCH ×2 (15:31→15:32)
[2019-01-22] MEDS: APRESOLINE PO SCH ×2 (02:38→18:27)
[2019-01-22] MEDS: SODIUM CHLORIDE FLUSH SYRINGE 10 ML IV SCH ×2 (02:39→10:50)
[2019-01-22] MEDS: D5/0.45NS 1,000 ML IV SCH (02:40)
[2019-01-22 06:02] LABS: Basophils # (Auto) 0.1 K/mm3 (0.0-0.1); Basophils % (Auto) 0.8 % (0.0-1.8); Eosinophils # (Auto) 0.2 K/mm3 (0.0-0.4); Eosinophils % (Auto) 1.5 % (0.0-4.3); Hematocrit 35.9 % (35.5-45.6); Hemoglobin 11.8 gm/dl (11.8-15.2); Lymphocytes # (Auto) 1.1 K/mm3 (1.2-5.4); Lymphocytes % (Auto) 8.6 % (13.4-35.0); Mean Corpuscular HGB Conc 33 % (32-34); Mean Corpuscular Volume 96 fl (84-94); Monocytes # (Auto) 1.1 K/mm3 (0.0-0.8); Monocytes % (Auto) 9.1 % (0.0-7.3); Platelet Count 278 K/mm3 (140-440); Red Blood Count 3.75 M/mm3 (3.65-5.03); Red Cell Distribution Width 15.6 % (13.2-15.2)
[2019-01-22 06:23] LABS: BUN/Creatinine Ratio 13; Blood Urea Nitrogen 12 mg/dL (9-20); Calcium 9.1 mg/dL (8.4-10.2); Hemolysis Index 0
[2019-01-22] MEDS: ZOSYN/NS 3.375GM/50ML 3.375 GM/50 ML BAG IV SCH ×3 (07:07→22:34)
--- NOTE | 2019-01-22 10:48 | Progress Note ---
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 CT scan reveals subacute left frontal lobe infarct. Neurology evaluation pending. Follow-up MRI/MRA head and echocardiogram shows enlarged left ventricle with only 25-30% ejection fraction but negative bubble study. CT angiogram of the neck showed ulceration in the right internal carotid artery with elongated artery and left ICA showed just elongated artery. CT angiogram head is negative or normal. PT/OT/ST. Dilated cardiomyopathy with severe left ventricular global hypokinesis. EF 25- 30% as noted above. No anticoagulation given increased risk for hemorrhagic conversion with CVA. Accelerated hypertension. Increase hydralazine to 100 mg 3 times a day. Bilateral lower extremity DVT. IVC filter placement. No anticoagulation given increased risk for hemorrhagic conversion with CVA. SIRS. Patient meets criteria given the fever and tachycardia. No evidence of obvious infection. Continue empiric antibiotics with Zosyn. Follow blood cultures. Hypernatremia. Etiology likely secondary to dehydration/volume depletion. Change D5 half normal saline IV fluids to D5 W with 40 mEq KCl. Follow-up BMP in morning. Hypokalemia. Replete potassium as noted above. Elevated troponin. Cardiology following History Interval history: No new issues overnight. Patient still with right-sided weakness. Hospitalist Physical - Constitutional Vitals: Temp Pulse Resp BP Pulse Ox 98.5 F 72 32 H 178/71 99 01/22/19 07:00 01/22/19 10:40 01/22/19 10:40 01/22/19 10:40 01/22/19 10:40 General appearance: Present: no acute distress, well-nourished - EENT Eyes: Present: PERRL, EOM intact ENT: hearing intact, clear oral mucosa, dentition normal - Neck Neck: Present: supple, normal ROM - Respiratory Respiratory effort: normal Respiratory: bilateral: CTA - Cardiovascular Rhythm: regular Heart Sounds: Present: S1 & S2. Absent: gallop, rub - Extremities Extremities: no ischemia, No edema, Full ROM - Abdominal General gastrointestinal: soft, non-tender, non-distended, normal bowel sounds - Integumentary Integumentary: Present: clear, warm, dry - Neurologic Neurologic: CNII-XII intact, moves all extremities Results - Labs CBC & Chem 7: 01/22/19 05:16 01/22/19 05:16 Labs: Laboratory Last Values WBC 12.5 K/mm3 (4.5-11.0) H 01/22/19 05:16 RBC 3.75 M/mm3 (3.65-5.03) 01/22/19 05:16 Hgb 11.8 gm/dl (11.8-15.2) 01/22/19 05:16 Hct 35.9 % (35.5-45.6) 01/22/19 05:16 MCV 96 fl (84-94) H 01/22/19 05:16 MCH 31 pg (28-32) 01/22/19 05:16 MCHC 33 % (32-34) 01/22/19 05:16 RDW 15.6 % (13.2-15.2) H 01/22/19 05:16 Plt Count 278 K/mm3 (140-440) 01/22/19 05:16 Lymph % (Auto) 8.6 % (13.4-35.0) L 01/22/19 05:16 [place] % (Auto) 9.1 % (0.0-7.3) H 01/22/19 05:16 Eos % (Auto) 1.5 % (0.0-4.3) 01/22/19 05:16 Baso % (Auto) 0.8 % (0.0-1.8) 01/22/19 05:16 Lymph # 1.1 K/mm3 (1.2-5.4) L 01/22/19 05:16 [place] # 1.1 K/mm3 (0.0-0.8) H 01/22/19 05:16 Eos # 0.2 K/mm3 (0.0-0.4) 01/22/19 05:16 Baso # 0.1 K/mm3 (0.0-0.1) 01/22/19 05:16 Seg Neutrophils % 80.0 % (40.0-70.0) H 01/22/19 05:16 Seg Neutrophils # 10.0 K/mm3 (1.8-7.7) H 01/22/19 05:16 PT 15.5 Sec. (12.2-14.9) H 01/18/19 19:14 INR 1.16 (0.87-1.13) H 01/18/19 19:14 APTT 31.7 Sec. (24.2-36.6) 01/18/19 19:14 Thrombin Time 16.2 Sec. (15.1-19.6) 01/18/19 19:14 Sodium 156 mmol/L (137-145) H 01/22/19 05:16 Potassium 2.8 mmol/L (3.6-5.0) L* 01/22/19 05:16 Chloride 118.5 mmol/L (98-107) H 01/22/19 05:16 Carbon Dioxide 24 mmol/L (22-30) 01/22/19 05:16 Anion Gap 16 mmol/L 01/22/19 05:16 BUN 12 mg/dL (9-20) 01/22/19 05:16 Creatinine 0.9 mg/dL (0.8-1.5) 01/22/19 05:16 Estimated GFR > 60 ml/min 01/22/19 05:16 BUN/Creatinine Ratio 13 % 01/22/19 05:16 Glucose 159 mg/dL (75-100) H 01/22/19 05:16 Calcium 9.1 mg/dL (8.4-10.2) 01/22/19 05:16 Total Creatine Kinase 419 units/L (55-170) H 01/19/19 05:07 CK-MB (CK-2) 3.2 ng/mL (0.0-4.0) 01/19/19 05:07 CK-MB (CK-2) Rel Index 0.7 (0-4) 01/19/19 05:07 Troponin T 0.273 ng/mL (0.00-0.029) H* 01/19/19 05:07 Triglycerides 140 mg/dL (2-149) 01/18/19 19:14 Cholesterol 157 mg/dL (50-199) 01/18/19 19:14 LDL Cholesterol Direct 98 mg/dL (50-130) 01/18/19 19:14 HDL Cholesterol 35 mg/dL (40-59) L 01/18/19 19:14 Cholesterol/HDL Ratio 4.48 % 01/18/19 19:14 Active Medications - Current Medications Current Medications: Generic Name Dose Route Start Last Admin Trade Name Freq PRN Reason Stop Dose Admin Acetaminophen 650 mg 01/18/19 22:08 Tylenol [place] Q4H PRN Pain MILD(1-3)/Fever >100.5/PEARL Aspirin 300 mg 01/19/19 10:00 01/21/19 11:01 Aspirin [place] Not Given QDAY YESICA Hydralazine HCl 5 mg 01/18/19 22:13 01/21/19 15:30 Apresoline IV 5 mg Q6H PRN Administration Hypertension Hydralazine HCl 100 mg 01/21/19 14:00 01/22/19 02:38 Apresoline PO Not Given Q8HR YESICA Dextrose/Sodium Chloride 1,000 mls @ 100 mls/hr 01/18/19 23:00 01/22/19 02:40 D5/0.45ns IV 100 mls/hr DIRECT YESICA Administration Piperacillin Sod/Tazobactam Sod 3.375 gm in 50 mls @ 100 mls/hr 01/18/19 23:00 01/22/19 07:07 Zosyn/Ns 3.375gm/50ml IV 100 mls/hr Q8HR YESICA Administration Ondansetron HCl 4 mg 01/18/19 22:08 Zofran IV Q4H PRN Nausea And Vomiting Sodium Chloride 10 ml 01/19/19 10:00 01/22/19 02:39 Sodium Chloride Flush Syringe 10 Ml IV Not Given BID YESICA Sodium Chloride 10 ml 01/18/19 22:08 Sodium Chloride Flush Syringe 10 Ml IV PRN PRN LINE FLUSH Nutrition/Malnutrition Assess - Dietary Evaluation Nutrition/Malnutrition Findings: Nutrition Notes Start: 01/19/19 13:52 Freq: Status: Active Protocol: Document 01/19/19 13:52 RD (Rec: 01/19/19 14:25 RD [email or web address]) Co-Sign 01/19/19 13:52 RM Nutrition Notes Need for Assessment generated from: prosthetic lab technician Initial or Follow up Assessment Other Pertinent Diagnosis stroke, CVA Current Diet NPO Labs/Tests Na 151 BUN 25 Pertinent Medications Reviewed Height 5 ft 10 in Weight 70.76 kg [place] Body Weight (kg) 75.45 BMI 22.4 Subjective/Other Information RD screen for Hx difficulty chewing and skin risk assessment. David score = 17. Observed swallow eval, per Speech pt will remain NPO for now. Percent of energy/protein needs met: 0%/0% Burn Absent Trauma Absent #1 Nutrition Diagnosis Inadequate oral intake Etiology Swallowing difficulty As Evidenced by Signs and Symptoms NPO status, failed swallow eval Is patient on ventilator? No Is Patient Ambulatory and/or Out of Bed No REE-([facility]-confined to bed) 9565.816 Calculation Used for Recommendations [facility] Additional Notes Protein needs: (1-1.2g/kg) 71- 85g Fluid needs: 1mL/kcal Nutrition Intervention Change Diet Order: Per speech therapy Goal #1 Advance diet when medically feasible Anticipated Discharge Needs: Unable to determine at this time. Follow-Up By: 01/23/19 Additional Comments f/u: speech eval
[2019-01-22] MEDS: ASPIRIN PR SCH (10:50)
[2019-01-22] MEDS: APRESOLINE IV PRN (13:34)
[2019-01-22] MEDS: KCL 40 MEQ in D5W 1,000 ML IV SCH (13:34)
--- NOTE | 2019-01-22 13:56 | Progress Note ---
Assessment and Plan 1. Acute embolic left sided CVA with right hemiplegia. 2. Dilated cardiomyopathy with severe left ventricular global hypokinesis LVEF 25-30% 3. Essential hypertension 4. Type 2 diabetes mellitus 5. Hyperlipidemia Plan. Patient on pre-and after load reduction. Anticoagulation as per Neuro recommendation Subjective Date of service: 01/22/19 Principal diagnosis: stroke Interval history: Non verbal or communicative Objective Vital Signs Temp Pulse Pulse Resp BP Pulse Ox 01/22/19 13:34 83 193/97 01/22/19 12:00 98.6 F 01/22/19 10:40 72 32 H 178/71 99 01/22/19 10:30 75 26 H 178/71 100 01/22/19 10:20 79 19 178/71 100 01/22/19 10:10 84 23 178/71 100 01/22/19 10:00 70 16 178/71 98 01/22/19 09:50 67 23 182/67 100 01/22/19 09:40 83 25 H 182/67 100 01/22/19 09:30 84 25 H 182/67 100 01/22/19 09:20 70 26 H 182/67 99 01/22/19 09:10 71 25 H 182/67 99 01/22/19 09:00 81 25 H 150/60 98 01/22/19 08:50 116 H 19 150/60 100 01/22/19 08:40 76 21 150/60 100 01/22/19 08:30 83 30 H 150/60 100 01/22/19 08:20 86 33 H 150/60 100 01/22/19 08:10 83 20 150/60 01/22/19 08:00 74 84 13 159/89 97 01/22/19 07:50 70 24 159/89 92 01/22/19 07:40 84 15 159/89 01/22/19 07:30 90 18 100 01/22/19 07:20 82 15 159/89 97 01/22/19 07:10 78 21 159/89 59 L 01/22/19 07:00 98.5 F 83 26 H 159/89 64 L 01/22/19 06:51 81 29 H 192/99 66 L 01/22/19 06:41 70 14 192/99 01/22/19 06:31 82 27 H 192/99 01/22/19 06:21 79 23 192/99 01/22/19 06:11 79 27 H 192/99 01/22/19 06:00 79 18 192/99 01/22/19 05:51 77 24 178/97 01/22/19 05:41 66 19 178/97 01/22/19 05:31 70 24 178/97 01/22/19 05:21 81 21 178/97 01/22/19 05:11 69 27 H 178/97 01/22/19 05:01 81 15 178/97 01/22/19 04:51 82 32 H 184/89 01/22/19 04:41 75 19 184/89 01/22/19 04:31 83 28 H 184/89 01/22/19 04:21 70 30 H 184/89 01/22/19 04:11 75 25 H 184/89 01/22/19 04:00 81 84 27 H 184/89 97 01/22/19 03:51 85 20 176/90 01/22/19 03:41 77 23 176/90 01/22/19 03:31 87 19 176/90 01/22/19 03:21 74 20 176/90 01/22/19 03:11 85 14 176/90 01/22/19 03:01 88 22 176/90 01/22/19 02:51 83 19 162/70 01/22/19 02:41 80 17 162/70 01/22/19 02:31 83 17 162/70 01/22/19 02:21 84 21 169/73 01/22/19 02:11 85 26 H 169/73 01/22/19 02:00 81 22 169/73 01/22/19 01:51 84 17 162/70 01/22/19 01:41 86 30 H 162/70 01/22/19 01:31 85 25 H 162/70 01/22/19 01:21 87 13 162/70 99 01/22/19 01:11 83 24 162/70 98 01/22/19 01:00 80 22 162/70 95 01/22/19 00:51 82 29 H 175/75 100 01/22/19 00:41 90 26 H 175/75 98 01/22/19 00:31 82 28 H 175/75 99 01/22/19 00:21 82 18 175/75 69 L 01/22/19 00:11 81 25 H 175/75 01/22/19 00:00 99.7 F H 85 81 26 H 175/75 97 01/21/19 23:51 81 24 179/74 01/21/19 23:41 89 17 179/74 01/21/19 23:31 78 26 H 179/74 01/21/19 23:21 77 26 H 179/74 01/21/19 23:17 88 17 179/74 01/21/19 23:11 89 29 H 179/74 01/21/19 23:00 80 20 179/74 01/21/19 22:51 93 H 20 177/74 01/21/19 22:41 79 18 177/74 01/21/19 22:31 84 26 H 177/74 01/21/19 22:21 85 29 H 177/74 01/21/19 22:10 84 23 177/74 01/21/19 22:00 74 26 H 177/74 01/21/19 21:51 80 23 180/85 01/21/19 21:41 89 24 180/85 01/21/19 21:31 90 17 180/85 01/21/19 21:20 93 H 18 180/85 01/21/19 21:11 89 26 H 180/85 01/21/19 21:09 99 01/21/19 21:00 87 20 180/85 01/21/19 20:51 88 20 167/69 01/21/19 20:41 84 25 H 167/69 01/21/19 20:31 89 22 167/69 01/21/19 20:21 84 22 167/69 01/21/19 20:11 85 18 167/69 01/21/19 20:00 99.6 F 87 89 16 167/69 97 01/21/19 19:51 87 13 169/67 01/21/19 19:41 86 19 169/67 01/21/19 19:31 83 14 169/67 01/21/19 19:21 72 26 H 169/67 01/21/19 19:11 71 26 H 169/67 01/21/19 19:01 69 25 H 169/67 01/21/19 18:51 68 21 137/81 01/21/19 18:41 75 25 H 137/81 01/21/19 18:31 72 17 137/81 03/23/19 18:21 91 H 18 137/81 01/21/19 18:11 72 24 137/81 01/21/19 18:00 89 26 H 137/81 01/21/19 17:51 89 27 H 144/68 01/21/19 17:41 90 13 144/68 01/21/19 17:31 81 15 144/68 01/21/19 17:21 85 24 144/68 01/21/19 17:11 81 19 144/68 01/21/19 17:00 89 29 H 154/65 01/21/19 16:51 87 19 191/94 01/21/19 16:41 86 24 191/94 01/21/19 16:31 82 22 191/94 01/21/19 16:21 88 25 H 191/94 01/21/19 16:11 83 19 191/94 01/21/19 16:00 82 87 19 154/65 96 01/21/19 15:51 87 23 191/94 01/21/19 15:41 88 26 H 191/94 01/21/19 15:31 84 17 191/94 01/21/19 15:21 80 21 191/94 01/21/19 15:11 79 19 191/94 01/21/19 15:00 77 17 191/94 01/21/19 14:51 68 21 173/89 01/21/19 14:41 79 26 H 173/89 01/21/19 14:31 64 24 173/89 01/21/19 14:21 64 28 H 173/89 01/21/19 14:11 83 26 H 173/89 01/21/19 14:01 68 20 173/89 - Physical Examination General: Appears Well, No Apparent Distress HEENT: Positive: PERRL. Negative: Normocephaly Neck: Positive: neck supple, trachea midline. Negative: JVD/HJR Cardiac: Positive: Regular Rate, S1/S2, PMI, Laterally Displaced Lungs: Positive: clear to auscultation, No Wheeze, Rales, Rhonchi Neuro: Positive: Other (aphasia, right hemiplegia) Abdomen: Positive: Unremarkable, Active Bowel Sounds Extremities: Absent: edema - Labs and Meds CBC 01/22/19 Range/Units 05:16 WBC 12.5 H (4.5-11.0) K/mm3 RBC 3.75 (3.65-5.03) M/mm3 Hgb 11.8 (11.8-15.2) gm/dl Hct 35.9 (35.5-45.6) % Plt Count 278 (140-440) K/mm3 Lymph # 1.1 L (1.2-5.4) K/mm3 [place] # 1.1 H (0.0-0.8) K/mm3 Eos # 0.2 (0.0-0.4) K/mm3 Baso # 0.1 (0.0-0.1) K/mm3 Comprehensive Metabolic Panel 01/22/19 Range/Units 05:16 Sodium 156 H (137-145) mmol/L Potassium 2.8 L* (3.6-5.0) mmol/L Chloride 118.5 H (98-107) mmol/L Carbon Dioxide 24 (22-30) mmol/L BUN 12 (9-20) mg/dL Creatinine 0.9 (0.8-1.5) mg/dL Glucose 159 H (75-100) mg/dL Calcium 9.1 (8.4-10.2) mg/dL
[2019-01-23] MEDS: KCL 40 MEQ in D5W 1,000 ML IV SCH ×2 (02:28→16:26)
[2019-01-23] MEDS: APRESOLINE PO SCH ×4 (02:30→22:16)
[2019-01-23 04:38] LABS: Basophils # (Auto) 0.1 K/mm3 (0.0-0.1); Basophils % (Auto) 0.7 % (0.0-1.8); Eosinophils # (Auto) 0.1 K/mm3 (0.0-0.4); Eosinophils % (Auto) 0.8 % (0.0-4.3); Hematocrit 36.9 % (35.5-45.6); Hemoglobin 12.1 gm/dl (11.8-15.2); Lymphocytes # (Auto) 0.9 K/mm3 (1.2-5.4); Lymphocytes % (Auto) 6.2 % (13.4-35.0); Mean Corpuscular HGB Conc 33 % (32-34); Mean Corpuscular Volume 95 fl (84-94); Monocytes # (Auto) 1.3 K/mm3 (0.0-0.8); Monocytes % (Auto) 9.1 % (0.0-7.3); Platelet Count 281 K/mm3 (140-440); Red Cell Distribution Width 15.5 % (13.2-15.2)
[2019-01-23 04:57] LABS: BUN/Creatinine Ratio 11; Blood Urea Nitrogen 10 mg/dL (9-20); Calcium 9.3 mg/dL (8.4-10.2); Hemolysis Index 6
[2019-01-23] MEDS: ZOSYN/NS 3.375GM/50ML 3.375 GM/50 ML BAG IV SCH ×4 (06:19→22:18)
[2019-01-23] MEDS: ASPIRIN PR SCH (11:40)
[2019-01-23] MEDS: SODIUM CHLORIDE FLUSH SYRINGE 10 ML IV SCH ×2 (11:42→22:24)
--- NOTE | 2019-01-23 12:14 | Cat Scan Report ---
CT HEAD WITHOUT CONTRAST: HISTORY: . TECHNIQUE: Sequential 2.5mm CT images. COMPARISON: 01/20/19, 12/2618. FINDINGS: Cerebral Parenchyma: The ischemic infarct in the left MCA distribution is evolving. The infarct appears unchanged in size since the previous MR brain measuring approximately 6 x 4 cm in axial plane. The previously described subtle petechial hemorrhage seen on MRI is not demonstrated on CT. No uncontained hemorrhage is present on today's exam. No new areas of diminished attenuation of developed. The remaining brain parenchyma demonstrates mild cortical volume loss and mild nonspecific chronic white matter changes. Cerebellum: Within normal limits. Brainstem: Within normal limits. Ventricles: Normal. Sella: Normal. Extra-axial spaces: Normal. Basal Cisterns: Normal. Intracranial Hemorrhage: None. Midline Shift: None. Calvarium: Normal. Sinuses: Normal. Mastoid Air Cells: Normal. Visualized Orbits: Normal. IMPRESSION: Evolving left MCA infarct as described. No evidence for hemorrhage on CT.
[2019-01-23] MEDS ORDERED: PROVENTIL IH ONE (12:36)
--- NOTE | 2019-01-23 12:42 | Progress Note ---
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 Hypertension Diabetes Hyperlipidemia Tobacco abuse Elevated troponin Dilated cardiomyopathy Echocardiogram shows enlarged left ventricle with only 25-30% ejection fraction but negative bubble study. The duration of his cardiomyopathy is uncertain. Recommendations: Medical therapy for dilated cardiomyopathy. Eventual cardiac ischemic evaluation as outpatient. Start anticoagulation with coumadin in 2 weeks or DOAC in 3 weeks per neuro recommendations. Otherwise, conservative management. Subjective Date of service: 01/23/19 Principal diagnosis: stroke Interval history: No cardiac events overnight. Objective Vital Signs Temp Pulse Pulse Resp BP Pulse Ox 01/23/19 08:20 93 H 11 L 175/92 100 01/23/19 08:10 91 H 17 175/92 100 01/23/19 08:00 84 24 175/92 97 01/23/19 07:50 78 30 H 174/99 98 01/23/19 07:40 86 18 174/99 99 01/23/19 07:30 87 21 174/99 99 01/23/19 07:20 89 24 174/99 99 01/23/19 07:10 87 24 174/99 100 01/23/19 07:00 88 35 H 174/99 97 01/23/19 06:50 94 H 27 H 177/91 100 01/23/19 06:40 90 15 177/91 99 01/23/19 06:30 80 29 H 177/91 100 01/23/19 06:20 83 21 177/91 100 01/23/19 06:10 92 H 25 H 177/91 97 01/23/19 06:00 86 25 H 177/91 98 01/23/19 05:50 89 19 170/92 98 01/23/19 05:40 83 21 170/92 99 01/23/19 05:30 85 13 170/92 98 01/23/19 05:20 89 23 170/92 100 01/23/19 05:10 92 H 24 170/92 99 01/23/19 05:00 109 H 32 H 168/71 99 01/23/19 04:50 100 H 30 H 168/71 97 01/23/19 04:40 108 H 29 H 168/71 99 01/23/19 04:30 99 H 37 H 168/71 99 01/23/19 04:20 94 H 19 168/71 99 01/23/19 04:10 95 H 26 H 161/88 98 01/23/19 04:00 100.0 F H 93 H 95 H 25 H 168/71 100 01/23/19 03:50 104 H 17 168/71 99 01/23/19 03:40 99 H 18 168/71 99 01/23/19 03:30 99 H 13 168/71 99 01/23/19 03:20 93 H 22 168/71 99 01/23/19 03:10 96 H 26 H 168/71 99 01/23/19 03:00 98 H 21 206/103 99 01/23/19 02:50 99 H 19 206/103 90 01/23/19 02:40 104 H 26 H 206/103 100 01/23/19 02:30 100 H 27 H 206/103 99 01/23/19 02:20 99 H 25 H 170/74 99 01/23/19 02:10 87 23 170/74 100 01/23/19 02:00 91 H 21 187/95 95 01/23/19 01:50 92 H 25 H 170/74 99 01/23/19 01:40 92 H 14 170/74 100 01/23/19 01:30 84 15 172/72 99 01/23/19 01:20 91 H 23 172/72 99 01/23/19 01:10 94 H 16 172/72 99 01/23/19 01:00 87 23 170/74 99 01/23/19 00:50 90 15 172/72 100 01/23/19 00:40 93 H 22 172/72 100 01/23/19 00:30 84 13 172/72 100 01/23/19 00:20 94 H 13 172/72 99 01/23/19 00:10 87 28 H 172/72 99 01/23/19 00:00 100.2 F H 85 83 26 H 172/72 97 01/22/19 23:50 91 H 23 169/77 100 01/22/19 23:40 94 H 21 169/77 99 01/22/19 23:30 95 H 23 169/77 99 01/22/19 23:20 105 H 13 169/77 99 01/22/19 23:10 104 H 16 169/77 100 01/22/19 23:00 94 H 15 169/77 95 01/22/19 22:50 100 H 17 188/97 01/22/19 22:40 94 H 17 188/97 99 01/22/19 22:30 90 21 188/97 99 01/22/19 22:20 79 18 202/89 100 01/22/19 22:10 81 20 171/80 100 01/22/19 22:00 83 24 186/124 97 01/22/19 21:50 83 22 179/73 100 01/22/19 21:40 82 14 179/73 100 01/22/19 21:30 82 16 179/73 100 01/22/19 21:20 81 10 L 179/73 100 01/22/19 21:10 78 12 179/73 99 01/22/19 21:00 82 12 179/73 100 01/22/19 20:50 79 30 H 179/73 99 01/22/19 20:40 76 15 179/73 100 01/22/19 20:30 84 33 H 179/73 100 01/22/19 20:20 85 22 179/73 100 01/22/19 20:10 86 23 179/73 99 01/22/19 20:00 100.0 F H 72 88 22 179/73 97 01/22/19 19:50 80 18 176/83 100 01/22/19 19:40 87 28 H 176/83 99 01/22/19 19:30 84 21 176/83 100 01/22/19 19:20 75 24 176/83 100 01/22/19 19:10 89 11 L 176/83 100 01/22/19 19:00 78 27 H 176/83 99 01/22/19 18:50 70 25 H 173/69 100 01/22/19 18:40 84 22 173/69 100 01/22/19 18:30 92 H 15 173/69 98 01/22/19 18:20 90 22 178/97 100 01/22/19 18:10 80 34 H 178/97 99 01/22/19 18:00 84 28 H 178/97 98 01/22/19 16:40 71 28 H 161/79 99 01/22/19 16:30 83 30 H 161/79 100 01/22/19 16:20 82 29 H 161/79 100 01/22/19 16:10 86 18 161/79 99 01/22/19 16:00 89 84 30 H 161/79 97 01/22/19 15:50 85 24 181/77 97 01/22/19 15:40 92 H 15 181/77 99 01/22/19 15:30 89 18 181/77 99 01/22/19 15:20 85 19 181/77 100 01/22/19 15:10 87 26 H 181/77 99 01/22/19 15:00 98.9 F 79 26 H 181/77 97 01/22/19 14:50 75 27 H 175/93 100 01/22/19 14:40 77 18 175/93 100 01/22/19 14:30 91 H 30 H 175/93 100 01/22/19 14:20 76 27 H 175/93 99 01/22/19 14:10 82 18 175/93 100 01/22/19 14:00 90 36 H 175/93 98 01/22/19 13:50 74 32 H 177/87 99 01/22/19 13:40 69 33 H 177/87 100 01/22/19 13:34 83 193/97 01/22/19 13:30 74 22 177/87 99 01/22/19 13:20 82 24 177/87 100 01/22/19 13:10 77 17 177/87 99 01/22/19 13:00 75 23 177/87 98 01/22/19 12:50 78 26 H 164/93 100 - Physical Examination General: No Apparent Distress HEENT: Positive: PERRL Neck: Positive: trachea midline Cardiac: Positive: Reg Rate and Rhythm Lungs: Positive: Decreased Breath Sounds Neuro: Positive: Other (aphasia, right hemiplegia) Extremities: Absent: edema - Labs and Meds CBC 01/23/19 Range/Units 04:27 WBC 13.9 H (4.5-11.0) K/mm3 RBC 3.90 (3.65-5.03) M/mm3 Hgb 12.1 (11.8-15.2) gm/dl Hct 36.9 (35.5-45.6) % Plt Count 281 (140-440) K/mm3 Lymph # 0.9 L (1.2-5.4) K/mm3 [place] # 1.3 H (0.0-0.8) K/mm3 Eos # 0.1 (0.0-0.4) K/mm3 Baso # 0.1 (0.0-0.1) K/mm3 Comprehensive Metabolic Panel 01/23/19 Range/Units 04:27 Sodium 151 H (137-145) mmol/L Potassium 3.5 L D (3.6-5.0) mmol/L Chloride 113.8 H (98-107) mmol/L Carbon Dioxide 25 (22-30) mmol/L BUN 10 (9-20) mg/dL Creatinine 0.9 (0.8-1.5) mg/dL Glucose 163 H (75-100) mg/dL Calcium 9.3 (8.4-10.2) mg/dL
[2019-01-23] MEDS ORDERED: AMIDATE IV ONE (13:05)
[2019-01-23] MEDS ORDERED: QUELICIN ONE (13:05)
[2019-01-23] MEDS ORDERED: VERSED IV ONE (13:05)
--- NOTE | 2019-01-23 13:41 | Event Note ---
Date: 01/23/19 (ICU Intubation) Called to ICU regarding patient with acute CVA now with worsening mentation and concern for impending respiratory failure. On arrival, patient spontaneously ventilating with RT assisting with AMBU, SpO2 100%, low grade tachycardia and hypertension. GRIDDLE COOK and MD at bedside. Anesthesia induced with etomidate 10mg IV and succinylcholine 80mg IV. Intubation achieved with glidescope 3, grade 2 view with BURP maneuver, 8.0 oETT secured at 24cm @ the lip. 1 attempt, atruamatic. Placement confirmed with bilateral breath sounds, +CO2 color change. Placed on ventilator by RT. CXR ordered. VS stable throughout. Times 1315 - 1323.
--- NOTE | 2019-01-23 13:59 | Progress Note ---
Assessment and Plan Assessment and plan: Acute hypoxic respiratory failure. Patient emergently intubated secondary to labored respirations/airway protection. Pulmonary consultation. ? Aspiration. Follow-up chest x-ray post intubation. Mucus plugging. Continue suction. 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 CT scan reveals subacute left frontal lobe infarct. Neurology following. MRI head reveals subacute left MCA infarct with evidence of petechial hemorrhage. Echocardiogram shows enlarged left ventricle with only 25-30% ejection fraction but negative bubble study. CT angiogram of the neck showed ulceration in the right internal carotid artery with elongated artery and left ICA showed just elongated artery. CT angiogram head is negative or normal. PT/OT/ST. repeat CT head pending. Dilated cardiomyopathy with severe left ventricular global hypokinesis. EF 25- 30% as noted above. No anticoagulation given increased risk for hemorrhagic conversion with CVA. Accelerated hypertension. Increase hydralazine to 100 mg 3 times a day. Bilateral lower extremity DVT. IVC filter placement. No anticoagulation given increased risk for hemorrhagic conversion with CVA. SIRS. No evidence of obvious infection. Continue empiric antibiotics with Zosyn. Follow blood cultures. Hypernatremia. Etiology likely secondary to dehydration/volume depletion. Change D5 half normal saline IV fluids to D5 W with 40 mEq KCl. Follow-up BMP in morning. Hypokalemia. Replete potassium as noted above. Elevated troponin. Cardiology following History Interval history: Patient went down for repeat CT scan this morning and developed labored respirations. Patient was suctioned with thick mucous plugs. Decision was made to intubate to protect airway and labor breathing. Anesthesiology intubated without difficulty. Hospitalist Physical - Constitutional Vitals: Temp Pulse Resp BP Pulse Ox 99.5 F 93 H 11 L 175/92 100 01/23/19 12:00 01/23/19 08:20 01/23/19 08:20 01/23/19 08:20 01/23/19 08:20 General appearance: Present: severe distress, well-nourished, other (accessory muscle use with respirations) - EENT Eyes: Present: PERRL, EOM intact ENT: hearing intact, clear oral mucosa, dentition normal - Neck Neck: Present: supple, normal ROM - Respiratory Respiratory effort: labored, accessory muscle use Respiratory: bilateral: CTA - Cardiovascular Rhythm: regular Heart Sounds: Present: S1 & S2. Absent: gallop, rub - Extremities Extremities: no ischemia, No edema, Full ROM - Abdominal General gastrointestinal: soft, non-tender, non-distended, normal bowel sounds - Integumentary Integumentary: Present: clear, warm, dry - Neurologic Neurologic: CNII-XII intact, moves all extremities Results - Labs CBC & Chem 7: 01/23/19 04:27 01/23/19 04:27 Labs: Laboratory Last Values WBC 13.9 K/mm3 (4.5-11.0) H 01/23/19 04:27 RBC 3.90 M/mm3 (3.65-5.03) 01/23/19 04:27 Hgb 12.1 gm/dl (11.8-15.2) 01/23/19 04:27 Hct 36.9 % (35.5-45.6) 01/23/19 04:27 MCV 95 fl (84-94) H 01/23/19 04:27 MCH 31 pg (28-32) 01/23/19 04:27 MCHC 33 % (32-34) 01/23/19 04:27 RDW 15.5 % (13.2-15.2) H 01/23/19 04:27 Plt Count 281 K/mm3 (140-440) 01/23/19 04:27 Lymph % (Auto) 6.2 % (13.4-35.0) L 01/23/19 04:27 [place] % (Auto) 9.1 % (0.0-7.3) H 01/23/19 04:27 Eos % (Auto) 0.8 % (0.0-4.3) 01/23/19 04:27 Baso % (Auto) 0.7 % (0.0-1.8) 01/23/19 04:27 Lymph # 0.9 K/mm3 (1.2-5.4) L 01/23/19 04:27 [place] # 1.3 K/mm3 (0.0-0.8) H 01/23/19 04:27 Eos # 0.1 K/mm3 (0.0-0.4) 01/23/19 04:27 Baso # 0.1 K/mm3 (0.0-0.1) 01/23/19 04:27 Seg Neutrophils % 83.2 % (40.0-70.0) H 01/23/19 04:27 Seg Neutrophils # 11.6 K/mm3 (1.8-7.7) H 01/23/19 04:27 PT 15.5 Sec. (12.2-14.9) H 01/18/19 19:14 INR 1.16 (0.87-1.13) H 01/18/19 19:14 APTT 31.7 Sec. (24.2-36.6) 01/18/19 19:14 Thrombin Time 16.2 Sec. (15.1-19.6) 01/18/19 19:14 POC ABG pH 7.395 (7.35-7.45) 01/23/19 13:11 POC ABG pCO2 40.3 (35-45) 01/23/19 13:11 POC ABG pO2 282 (80-105) H 01/23/19 13:11 POC ABG HCO3 24.7 (22-26 mml/L) 01/23/19 13:11 POC ABG Total CO2 26 (23-27mmol/L) 01/23/19 13:11 POC ABG O2 Sat 100 01/23/19 13:11 POC ABG Base Excess 0 ((-2) - (+3)mmol/L) 01/23/19 13:11 FiO2 100 % 01/23/19 13:11 Sodium 151 mmol/L (137-145) H 01/23/19 04:27 Potassium 3.5 mmol/L (3.6-5.0) L D 01/23/19 04:27 Chloride 113.8 mmol/L (98-107) H 01/23/19 04:27 Carbon Dioxide 25 mmol/L (22-30) 01/23/19 04:27 Anion Gap 16 mmol/L 01/23/19 04:27 BUN 10 mg/dL (9-20) 01/23/19 04:27 Creatinine 0.9 mg/dL (0.8-1.5) 01/23/19 04:27 Estimated GFR > 60 ml/min 01/23/19 04:27 BUN/Creatinine Ratio 11 % 01/23/19 04:27 Glucose 163 mg/dL (75-100) H 01/23/19 04:27 Calcium 9.3 mg/dL (8.4-10.2) 01/23/19 04:27 Total Creatine Kinase 419 units/L (55-170) H 01/19/19 05:07 CK-MB (CK-2) 3.2 ng/mL (0.0-4.0) 01/19/19 05:07 CK-MB (CK-2) Rel Index 0.7 (0-4) 01/19/19 05:07 Troponin T 0.273 ng/mL (0.00-0.029) H* 01/19/19 05:07 Triglycerides 140 mg/dL (2-149) 01/18/19 19:14 Cholesterol 157 mg/dL (50-199) 01/18/19 19:14 LDL Cholesterol Direct 98 mg/dL (50-130) 01/18/19 19:14 HDL Cholesterol 35 mg/dL (40-59) L 01/18/19 19:14 Cholesterol/HDL Ratio 4.48 % 01/18/19 19:14 Active Medications - Current Medications Current Medications: Generic Name Dose Route Start Last Admin Trade Name Freq PRN Reason Stop Dose Admin Acetaminophen 650 mg 01/18/19 22:08 Tylenol MI Q4H PRN Pain MILD(1-3)/Fever >100.5/PEARL Aspirin 300 mg 01/19/19 10:00 01/23/19 11:40 Aspirin MI 300 mg QDAY YESICA Administration Hydralazine HCl 5 mg 01/18/19 22:13 01/22/19 13:34 Apresoline IV 5 mg Q6H PRN Administration Hypertension Hydralazine HCl 100 mg 01/21/19 14:00 01/23/19 06:16 Apresoline PO Not Given Q8HR YESICA Piperacillin Sod/Tazobactam Sod 3.375 gm in 50 mls @ 100 mls/hr 01/18/19 23:00 01/23/19 06:27 Zosyn/Ns 3.375gm/50ml IV 100 mls/hr Q8HR YESICA Administration Potassium Chloride 40 meq/ 1,020 mls @ 75 mls/hr 01/22/19 12:30 01/23/19 02:28 Dextrose IV 75 mls/hr DIRECT YESICA Administration Ondansetron HCl 4 mg 01/18/19 22:08 Zofran IV Q4H PRN Nausea And Vomiting Sodium Chloride 10 ml 01/19/19 10:00 01/23/19 11:42 Sodium Chloride Flush Syringe 10 Ml IV 10 ml BID YESICA Administration Sodium Chloride 10 ml 01/18/19 22:08 Sodium Chloride Flush Syringe 10 Ml IV PRN PRN LINE FLUSH Nutrition/Malnutrition Assess - Dietary Evaluation Nutrition/Malnutrition Findings: Nutrition Notes Start: 01/19/19 13:52 Freq: Status: Active Protocol: Document 01/19/19 13:52 RD (Rec: 01/19/19 14:25 RD [email or web address]) Co-Sign 01/19/19 13:52 RM Nutrition Notes 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 David score = 17. Observed swallow eval, per Speech pt will remain NPO for now. Percent of energy/protein needs met: 0%/0% Burn Absent Trauma Absent #1 Nutrition Diagnosis Inadequate oral intake Etiology Swallowing difficulty As Evidenced by Signs and Symptoms NPO status, failed swallow eval Is patient on ventilator? No Is Patient Ambulatory and/or Out of Bed No REE-([facility]-confined to bed) 4507.466 Calculation Used for Recommendations [facility] Additional Notes Protein needs: (1-1.2g/kg) 71- 85g Fluid needs: 1mL/kcal Nutrition Intervention Change Diet Order: Per speech therapy Goal #1 Advance diet when medically feasible Anticipated Discharge Needs: Unable to determine at this time. Follow-Up By: 01/23/19 Additional Comments f/u: speech eval
--- NOTE | 2019-01-23 14:21 | XRay Report ---
AP CHEST: HISTORY: intubation AP view of the chest demonstrates a normal mediastinal and cardiac contour with clear lungs and normal bony and soft tissue structures.The intubation tube terminates 4 cm superior to the car. IMPRESSION: Unremarkable AP chest.
--- NOTE | 2019-01-23 17:04 | XRay Report ---
PROCEDURE: XR ABDOMEN 1V AP TECHNIQUE: Single frontal view of the upper abdomen HISTORY: dobhoff confirmation COMPARISONS: 01/20/2019 FINDINGS: Enteric tube is not visualized within the field of view and may be within the upper esophagus. Inferi or vena cava filter is in place. No acute bony or soft tissue abnormality. IMPRESSION: Enteric tube is not visualized within the field of view and may be within the upper esophagus. This document is electronically signed by Linette Valentine MD., January 23 2019 05:02:46 PM ET
[2019-01-23] MEDS: APRESOLINE IV PRN (19:15)
[2019-01-24] MEDS: ZOSYN/NS 3.375GM/50ML 3.375 GM/50 ML BAG IV SCH ×5 (05:14→22:15)
[2019-01-24] MEDS: APRESOLINE PO SCH ×3 (06:35→21:42)
[2019-01-24 08:09] LABS: BUN/Creatinine Ratio 14; Blood Urea Nitrogen 14 mg/dL (9-20); Calcium 8.9 mg/dL (8.4-10.2); Hemolysis Index 6
[2019-01-24] MEDS: KCL 40 MEQ in D5W 1,000 ML IV SCH ×2 (08:30→21:41)
[2019-01-24] MEDS: ASPIRIN PR SCH (09:40)
[2019-01-24] MEDS: PEPCID IV SCH ×3 (09:40→21:58)
[2019-01-24] MEDS: SODIUM CHLORIDE FLUSH SYRINGE 10 ML IV SCH ×2 (10:16→21:43)
--- NOTE | 2019-01-24 12:43 | Consultation ---
History of Present Illness Consult date: 01/24/19 Requesting physician: GALI LEVIN Reason for consult: other (Inability to protect airway) History of present illness: 63 y/o male with recent acute MCA stroke, developed respiratory distress secondary to thick secretions. Patient with muscular weakness and decreased muscle tone from stroke so not able to clear airway. Patient intubated for airway protection. Past History Past Medical History: other (cannot give past medical history or surgical history) Past Surgical History: No surgical history (cannot be obtained) Social history: smoking (seems to indicate about a pack a day of cigarettes), alcohol abuse (indicates she does drink alcohol), IV drug use (unknown, seems to indicate yes to use of cocaine). denies: prescription drug abuse Family history: other (cannot obtain) Medications and Allergies Allergies Allergy/AdvReac Type Severity Reaction Status Date / Time No Known Allergies Allergy Verified 01/21/19 07:09 Home Medications Medication Instructions Recorded Confirmed Last Taken Type No Known Home Medications [No 01/21/19 01/21/19 Unknown History Reported Home Medications] Active Meds: Active Medications Acetaminophen (Tylenol) 650 mg TN Q4H PRN PRN Reason: Pain MILD(1-3)/Fever >100.5/PEARL Albuterol (Proventil) 2.5 mg IH Q4HRT PRN PRN Reason: Shortness Of Breath Aspirin (Aspirin) 300 mg TN QDAY [facility] Last Admin: 01/24/19 09:40 Dose: 300 mg Documented by: Atorvastatin Calcium (Lipitor) 40 mg PO QHS [facility] Famotidine (Pepcid) 20 mg IV BID [facility] Last Admin: 01/24/19 09:40 Dose: 20 mg Documented by: Hydralazine HCl (Apresoline) 5 mg IV Q6H PRN PRN Reason: Hypertension Last Admin: 01/23/19 19:15 Dose: 5 mg Documented by: Hydralazine HCl (Apresoline) 100 mg PO Q8HR [facility] Last Admin: 01/24/19 06:35 Dose: Not Given Documented by: Piperacillin Sod/Tazobactam Sod (Zosyn/Ns 3.375gm/50ml) 3.375 gm in 50 mls @ 100 mls/hr IV Q8HR [facility] Last Admin: 01/24/19 05:14 Dose: 100 mls/hr Documented by: Potassium Chloride 40 meq/ (Dextrose) 1,020 mls @ 75 mls/hr IV DIRECT [facility] Last Admin: 01/24/19 08:30 Dose: 75 mls/hr Documented by: Ondansetron HCl (Zofran) 4 mg IV Q4H PRN PRN Reason: Nausea And Vomiting Sodium Chloride (Sodium Chloride Flush Syringe 10 Ml) 10 ml IV BID [facility] Last Admin: 01/23/19 22:24 Dose: 10 ml Documented by: Sodium Chloride (Sodium Chloride Flush Syringe 10 Ml) 10 ml IV PRN PRN PRN Reason: LINE FLUSH Review of Systems ROS unobtainable: due to endotracheal tube Physical Examination Vital signs: Vital Signs BP 187/99 01/18/19 19:05 General appearance: no acute distress, alert Eyes: non-icteric ENT: other (orally intubated, not on sedation) Neck: supple Effort: normal Ascultation: Bilateral: clear Percussion: Bilateral: not dull Cardiovascular: regular rate and rhythm Gastrointestinal: normoactive bowel sounds Extremities: no edema other (weakness of right) Results - Laboratory Findings CBC and BMP: 01/23/19 04:27 01/24/19 07:41 ABG POC ABG pH 7.418 (7.35-7.45) 01/24/19 04:17 POC ABG pCO2 36.8 (35-45) 01/24/19 04:17 POC ABG pO2 148 (80-105) H 01/24/19 04:17 POC ABG HCO3 23.7 (22-26 mml/L) 01/24/19 04:17 POC ABG Total CO2 25 (23-27mmol/L) 01/24/19 04:17 POC ABG O2 Sat 99 01/24/19 04:17 PT/INR, D-dimer PT 15.5 Sec. (12.2-14.9) H 01/18/19 19:14 INR 1.16 (0.87-1.13) H 01/18/19 19:14 Abnormal lab findings: Abnormal Labs 01/18/19 01/18/19 01/18/19 19:14 19:14 19:14 WBC 17.2 H MCV 96 H RDW 15.5 H Lymph % (Auto) 7.9 L [place] % (Auto) 7.9 H Lymph # Kerr # 1.4 H Seg Neutrophils % 83.5 H Seg Neutrophils # 14.3 H PT 15.5 H INR 1.16 H POC ABG pO2 Sodium 153 H Potassium 3.4 L Chloride BUN 24 H Glucose 159 H POC Glucose Calcium 10.3 H Total Creatine Kinase Troponin T 0.368 H* HDL Cholesterol 35 L 01/18/19 01/19/19 01/19/19 22:33 00:15 05:07 WBC MCV RDW Lymph % (Auto) Kerr % (Auto) Lymph # Kerr # Seg Neutrophils % Seg Neutrophils # PT INR POC ABG pO2 Sodium 151 H Potassium 3.2 L Chloride BUN 25 H Glucose 130 H POC Glucose Calcium Total Creatine Kinase 491 H 419 H Troponin T 0.291 H* D 0.273 H* HDL Cholesterol 01/22/19 01/22/19 01/23/19 05:16 05:16 04:27 WBC 12.5 H 13.9 H MCV 96 H 95 H RDW 15.6 H 15.5 H Lymph % (Auto) 8.6 L 6.2 L Kerr % (Auto) 9.1 H 9.1 H Lymph # 1.1 L 0.9 L Kerr # 1.1 H 1.3 H Seg Neutrophils % 80.0 H 83.2 H Seg Neutrophils # 10.0 H 11.6 H PT INR POC ABG pO2 Sodium 156 H Potassium 2.8 L* Chloride 118.5 H BUN Glucose 159 H POC Glucose Calcium Total Creatine Kinase Troponin T HDL Cholesterol 01/23/19 01/23/19 01/23/19 04:27 13:11 14:59 WBC MCV RDW Lymph % (Auto) Kerr % (Auto) Lymph # Kerr # Seg Neutrophils % Seg Neutrophils # PT INR POC ABG pO2 282 H 205 H Sodium 151 H Potassium 3.5 L D Chloride 113.8 H BUN Glucose 163 H POC Glucose Calcium Total Creatine Kinase Troponin T HDL Cholesterol 01/23/19 01/24/19 01/24/19 18:36 04:17 07:41 WBC MCV RDW Lymph % (Auto) Kerr % (Auto) Lymph # Kerr # Seg Neutrophils % Seg Neutrophils # PT INR POC ABG pO2 148 H Sodium 149 H Potassium Chloride 113.5 H BUN Glucose 153 H POC Glucose 141 H Calcium Total Creatine Kinase Troponin T HDL Cholesterol Assessment and Plan 63 y/o male with acute respiratory failure secondary to inability to protect airway secondary to stroke. 1. Continue mechanical vent support for now. Secretions have improved but remain thick. Hold on anticholinergic therapy for now. Secreations are huang, but no green or blood 2. PSV trials and leave on as tolerated 3. PT 4. Will likely attempt extubation tomorrow 5. Nursing to attempt smaller OG tube placement and feed CCT 31 minutes.
--- NOTE | 2019-01-24 14:17 | Progress Note ---
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 Hypertension Diabetes Hyperlipidemia Tobacco abuse Elevated troponin Dilated cardiomyopathy Echocardiogram shows enlarged left ventricle with only 25-30% ejection fraction but negative bubble study. The duration of his cardiomyopathy is uncertain. Recommendations: Medical therapy for dilated cardiomyopathy. Eventual cardiac ischemic evaluation as outpatient. Start anticoagulation with coumadin in 2 weeks or DOAC in 3 weeks per neuro recommendations. Conservative management. Subjective Date of service: 01/24/19 Principal diagnosis: stroke Interval history: Patient developed respiratory distress transferred to CCU. Currently he is sedated, intubated on the vent. Objective Vital Signs Temp Pulse Pulse Resp BP Pulse Ox 01/24/19 14:00 64 20 134/73 100 01/24/19 13:51 67 19 137/80 100 01/24/19 13:41 74 15 137/80 100 01/24/19 13:30 67 12 137/80 100 01/24/19 13:21 67 21 138/79 100 01/24/19 13:11 65 19 138/79 100 01/24/19 13:00 67 24 138/79 100 01/24/19 12:51 67 24 143/84 100 01/24/19 12:41 73 21 143/84 100 01/24/19 12:30 71 17 143/84 100 01/24/19 12:21 67 15 145/83 100 01/24/19 12:11 65 20 145/83 100 01/24/19 12:00 98.3 F 74 74 21 145/83 100 01/24/19 11:51 61 20 142/81 100 01/24/19 11:41 63 20 142/81 100 01/24/19 11:32 68 142/81 100 01/24/19 11:30 71 19 142/81 100 01/24/19 11:21 76 21 140/79 100 01/24/19 11:11 70 20 140/79 100 01/24/19 11:00 71 20 140/79 100 01/24/19 10:51 74 19 131/75 100 01/24/19 10:41 68 20 131/75 100 01/24/19 10:30 75 21 131/75 100 01/24/19 10:21 76 21 127/70 100 01/24/19 10:11 73 21 127/70 100 01/24/19 10:00 80 12 127/70 100 01/24/19 09:51 76 8 L 138/73 100 01/24/19 09:41 75 18 138/73 100 01/24/19 09:30 76 21 138/73 100 01/24/19 09:21 78 22 122/73 100 01/24/19 09:11 81 21 122/73 100 01/24/19 09:00 79 20 122/73 100 01/24/19 08:51 81 25 H 128/78 100 01/24/19 08:41 81 21 128/78 100 01/24/19 08:30 78 20 128/78 100 01/24/19 08:21 82 22 138/71 100 01/24/19 08:11 80 20 138/71 100 01/24/19 08:00 98.0 F 84 84 24 136/77 100 01/24/19 07:51 84 24 138/71 100 01/24/19 07:41 79 22 138/71 100 01/24/19 07:30 79 22 138/71 100 01/24/19 07:21 81 22 125/72 100 01/24/19 07:11 83 21 125/72 100 01/24/19 07:00 80 20 134/71 100 01/24/19 06:51 80 25 H 125/72 100 01/24/19 06:41 80 22 125/72 100 01/24/19 06:30 77 24 125/72 100 01/24/19 06:21 81 22 130/68 100 01/24/19 06:11 80 21 130/68 100 01/24/19 06:00 77 20 130/68 100 01/24/19 05:59 100 01/24/19 05:51 82 21 131/67 100 01/24/19 05:41 80 22 131/67 100 01/24/19 05:30 83 22 131/67 100 01/24/19 05:21 81 20 129/69 100 01/24/19 05:11 86 27 H 129/69 100 01/24/19 05:00 80 22 129/69 100 01/24/19 04:51 83 21 136/71 100 01/24/19 04:41 83 20 136/71 100 01/24/19 04:30 86 22 136/71 100 01/24/19 04:21 81 22 132/72 100 01/24/19 04:12 78 132/72 100 01/24/19 04:11 78 22 132/72 100 01/24/19 04:00 79 20 132/72 100 01/24/19 03:51 79 22 141/75 100 01/24/19 03:41 81 22 141/75 100 01/24/19 03:33 100.9 F H 01/24/19 03:30 83 21 141/75 100 01/24/19 03:21 76 20 132/73 100 01/24/19 03:15 79 100 01/24/19 03:11 79 20 132/73 100 01/24/19 03:00 84 22 132/73 100 01/24/19 02:51 88 16 141/79 100 01/24/19 02:41 91 H 22 141/79 100 01/24/19 02:30 92 H 23 141/79 100 01/24/19 02:21 84 22 136/72 100 01/24/19 02:11 86 21 136/72 100 01/24/19 02:00 85 21 136/72 100 01/24/19 01:51 88 22 126/72 100 01/24/19 01:41 81 22 126/72 100 01/24/19 01:30 86 22 126/72 100 01/24/19 01:25 75 100 01/24/19 01:21 86 21 142/76 100 01/24/19 01:11 81 16 142/76 100 01/24/19 01:00 88 13 142/76 100 01/24/19 00:51 85 20 134/74 100 01/24/19 00:41 78 14 134/74 100 01/24/19 00:30 70 21 134/74 100 01/24/19 00:21 75 20 128/73 100 01/24/19 00:15 77 23 128/73 100 01/24/19 00:11 75 23 128/73 100 01/24/19 00:01 83 22 128/73 100 01/23/19 23:51 69 20 141/76 100 01/23/19 23:41 74 20 141/76 100 01/23/19 23:40 76 141/76 100 01/23/19 23:30 70 19 141/76 100 01/23/19 23:21 71 20 135/75 100 01/23/19 23:11 70 20 135/75 100 01/23/19 23:00 74 20 135/75 100 01/23/19 22:58 99.7 F H 01/23/19 22:51 76 18 154/79 100 01/23/19 22:41 71 20 154/79 100 01/23/19 22:30 77 18 154/79 100 01/23/19 22:21 73 19 135/78 100 01/23/19 22:11 77 20 135/78 100 01/23/19 22:01 72 20 135/78 100 01/23/19 21:51 74 19 136/75 100 01/23/19 21:41 79 17 136/75 100 01/23/19 21:30 79 20 136/75 100 01/23/19 21:21 87 18 134/84 100 01/23/19 21:11 84 21 134/84 100 01/23/19 21:00 79 20 134/84 100 01/23/19 20:51 78 20 143/69 100 01/23/19 20:41 82 18 143/69 100 01/23/19 20:30 78 22 143/69 100 01/23/19 20:21 77 19 142/76 100 01/23/19 20:11 79 20 142/76 100 01/23/19 20:00 76 19 142/76 100 01/23/19 19:59 98.2 F 01/23/19 19:52 79 139/79 100 01/23/19 19:51 82 20 100 01/23/19 19:41 79 20 100 01/23/19 19:36 81 21 100 01/23/19 19:25 81 100 01/23/19 19:00 20 130/69 100 01/23/19 18:00 19 168/85 100 01/23/19 17:00 20 154/76 100 01/23/19 16:33 80 40 H 01/23/19 16:00 99.3 F 100 01/23/19 14:59 80 126/76 100 - Physical Examination General: Other (intubated on the vent) Cardiac: Positive: Reg Rate and Rhythm - Labs and Meds Comprehensive Metabolic Panel 01/24/19 Range/Units 07:41 Sodium 149 H (137-145) mmol/L Potassium 3.6 (3.6-5.0) mmol/L Chloride 113.5 H (98-107) mmol/L Carbon Dioxide 22 (22-30) mmol/L BUN 14 (9-20) mg/dL Creatinine 1.0 (0.8-1.5) mg/dL Glucose 153 H (75-100) mg/dL Calcium 8.9 (8.4-10.2) mg/dL
[2019-01-24] MEDS ORDERED: SIMPLE SYRUP FEEDTUBE PRN ×2 (15:00)
[2019-01-24] MEDS ORDERED: PANCREAZE DR 10,500 UNIT FEEDTUBE PRN (15:00)
[2019-01-24] MEDS ORDERED: SODIUM BICARBONATE FEEDTUBE PRN (15:00)
--- NOTE | 2019-01-24 16:30 | Progress Note ---
Assessment and Plan Assessment and plan: Acute hypoxic respiratory failure. Patient emergently intubated secondary to labored respirations/airway protection. Pulmonary consultation. Aspiration Vs mucus plug. Mucus plugging. Continue suction. 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 CT scan reveals subacute left frontal lobe infarct. Neurology following. MRI head reveals subacute left MCA infarct with evidence of petechial hemorrhage. Echocardiogram shows enlarged left ventricle with only 25-30% ejection fraction but negative bubble study. CT angiogram of the neck showed ulceration in the right internal carotid artery wit h elongated artery and left ICA showed just elongated artery. CT angiogram head is negative or normal. PT/OT/ST. repeat CT head pending. Dilated cardiomyopathy with severe left ventricular global hypokinesis. EF 25- 30% as noted above. No anticoagulation given increased risk for hemorrhagic conversion with CVA. Accelerated hypertension. Increase hydralazine to 100 mg 3 times a day. Bilateral lower extremity DVT. IVC filter placement. No anticoagulation given increased risk for hemorrhagic conversion with CVA. SIRS. No evidence of obvious infection. Continue empiric antibiotics with Zosyn. Follow blood cultures. Hypernatremia. Etiology likely secondary to dehydration/volume depletion. Change D5 half normal saline IV fluids to D5 W with 40 mEq KCl. Follow-up BMP in morning. Hypokalemia. Replete potassium as noted above. Elevated troponin. Cardiology following History Interval history: Patient was seen during morning rounds, patient was intubated, and was not able to talk but was alert. Hospitalist Physical - Physical exam Narrative exam: Patient was intubated, and on breathing trial. The patient appeared well nourished and normally developed. Vital signs as documented. Head exam is unremarkable. No scleral icterus . Neck is without jugular venous distension, thyromegaly, or carotid bruits. Lungs are clear to auscultation. Cardiac exam reveals regular rate and Rhythm. Abdominal exam reveals normal bowel sounds. Extremities are nonedematous. CTC OPERATOR: Alert. right sided weakness. - Constitutional Vitals: Temp Pulse Resp BP Pulse Ox 98.3 F 73 24 132/77 100 01/24/19 12:00 01/24/19 16:00 01/24/19 16:00 01/24/19 16:00 01/24/19 16:00 General appearance: Present: severe distress, well-nourished, other (accessory muscle use with respirations) Results - Labs CBC & Chem 7: 01/23/19 04:27 01/24/19 07:41 Labs: Laboratory Last Values WBC 13.9 K/mm3 (4.5-11.0) H 01/23/19 04:27 RBC 3.90 M/mm3 (3.65-5.03) 01/23/19 04:27 Hgb 12.1 gm/dl (11.8-15.2) 01/23/19 04:27 Hct 36.9 % (35.5-45.6) 01/23/19 04:27 MCV 95 fl (84-94) H 01/23/19 04:27 MCH 31 pg (28-32) 01/23/19 04:27 MCHC 33 % (32-34) 01/23/19 04:27 RDW 15.5 % (13.2-15.2) H 01/23/19 04:27 Plt Count 281 K/mm3 (140-440) 01/23/19 04:27 Lymph % (Auto) 6.2 % (13.4-35.0) L 01/23/19 04:27 [place] % (Auto) 9.1 % (0.0-7.3) H 01/23/19 04:27 Eos % (Auto) 0.8 % (0.0-4.3) 01/23/19 04:27 Baso % (Auto) 0.7 % (0.0-1.8) 01/23/19 04:27 Lymph # 0.9 K/mm3 (1.2-5.4) L 01/23/19 04:27 [place] # 1.3 K/mm3 (0.0-0.8) H 01/23/19 04:27 Eos # 0.1 K/mm3 (0.0-0.4) 01/23/19 04:27 Baso # 0.1 K/mm3 (0.0-0.1) 01/23/19 04:27 Seg Neutrophils % 83.2 % (40.0-70.0) H 01/23/19 04:27 Seg Neutrophils # 11.6 K/mm3 (1.8-7.7) H 01/23/19 04:27 PT 15.5 Sec. (12.2-14.9) H 01/18/19 19:14 INR 1.16 (0.87-1.13) H 01/18/19 19:14 APTT 31.7 Sec. (24.2-36.6) 01/18/19 19:14 [place] Time 16.2 Sec. (15.1-19.6) 01/18/19 19:14 POC ABG pH 7.418 (7.35-7.45) 01/24/19 04:17 POC ABG pCO2 36.8 (35-45) 01/24/19 04:17 POC ABG pO2 148 (80-105) H 01/24/19 04:17 POC ABG HCO3 23.7 (22-26 mml/L) 01/24/19 04:17 POC ABG Total CO2 25 (23-27mmol/L) 01/24/19 04:17 POC ABG O2 Sat 99 01/24/19 04:17 POC ABG Base Excess -1 ((-2) - (+3)mmol/L) 01/24/19 04:17 FiO2 30 % 01/24/19 04:17 Sodium 149 mmol/L (137-145) H 01/24/19 07:41 Potassium 3.6 mmol/L (3.6-5.0) 01/24/19 07:41 Chloride 113.5 mmol/L (98-107) H 01/24/19 07:41 Carbon Dioxide 22 mmol/L (22-30) 01/24/19 07:41 Anion Gap 17 mmol/L 01/24/19 07:41 BUN 14 mg/dL (9-20) 01/24/19 07:41 Creatinine 1.0 mg/dL (0.8-1.5) 01/24/19 07:41 Estimated GFR > 60 ml/min 01/24/19 07:41 BUN/Creatinine Ratio 14 % 01/24/19 07:41 Glucose 153 mg/dL (75-100) H 01/24/19 07:41 POC Glucose 141 (70-105) H 01/23/19 18:36 Calcium 8.9 mg/dL (8.4-10.2) 01/24/19 07:41 Total Creatine Kinase 419 units/L (55-170) H 01/19/19 05:07 CK-MB (CK-2) 3.2 ng/mL (0.0-4.0) 01/19/19 05:07 CK-MB (CK-2) Rel Index 0.7 (0-4) 01/19/19 05:07 Troponin T 0.273 ng/mL (0.00-0.029) H* 01/19/19 05:07 Triglycerides 140 mg/dL (2-149) 01/18/19 19:14 Cholesterol 157 mg/dL (50-199) 01/18/19 19:14 LDL Cholesterol Direct 98 mg/dL (50-130) 01/18/19 19:14 HDL Cholesterol 35 mg/dL (40-59) L 01/18/19 19:14 Cholesterol/HDL Ratio 4.48 % 01/18/19 19:14 Active Medications - Current Medications Current Medications: Generic Name Dose Route Start Last Admin Trade Name Freq PRN Reason Stop Dose Admin Acetaminophen 650 mg 01/18/19 22:08 Tylenol [place] Q4H PRN Pain MILD(1-3)/Fever >100.5/PEARL Albuterol 2.5 mg 01/23/19 15:41 Proventil IH Q4HRT PRN Shortness Of Breath Lipase/Protease/Amylase 1 each 01/24/19 15:00 Pancreaze 10,500 Unit FEEDTUBE PRN PRN For Clogged Feeding Tube Aspirin 300 mg 01/19/19 10:00 01/24/19 09:40 Aspirin [place] 300 mg QDAY YESICA Administration Atorvastatin Calcium 40 mg 01/24/19 22:00 Lipitor PO QHS YESICA Famotidine 20 mg 01/24/19 10:00 01/24/19 09:40 Pepcid IV 20 mg BID YESICA Administration Hydralazine HCl 5 mg 01/18/19 22:13 01/23/19 19:15 Apresoline IV 5 mg Q6H PRN Administration Hypertension Hydralazine HCl 100 mg 01/21/19 14:00 01/24/19 14:17 Apresoline PO Not Given Q8HR YESICA Piperacillin Sod/Tazobactam Sod 3.375 gm in 50 mls @ 100 mls/hr 01/18/19 23:00 01/24/19 14:13 Zosyn/Ns 3.375gm/50ml IV 100 mls/hr Q8HR YESICA Administration Potassium Chloride 40 meq/ 1,020 mls @ 75 mls/hr 01/22/19 12:30 01/24/19 08:30 Dextrose IV 75 mls/hr DIRECT YESICA Administration Ondansetron HCl 4 mg 01/18/19 22:08 Zofran IV Q4H PRN Nausea And Vomiting Simple Syrup 15 ml 01/24/19 15:00 Simple Syrup FEEDTUBE PRN PRN Hypoglycemia Simple Syrup 30 ml 01/24/19 15:00 Simple Syrup FEEDTUBE PRN PRN Hypoglycemia Sodium Bicarbonate 325 mg 01/24/19 15:00 Sodium Bicarbonate FEEDTUBE PRN PRN For Clogged Feeding Tube Sodium Chloride 10 ml 01/19/19 10:00 01/24/19 10:16 Sodium Chloride Flush Syringe 10 Ml IV 10 ml BID YESICA Administration Sodium Chloride 10 ml 01/18/19 22:08 01/24/19 14:17 Sodium Chloride Flush Syringe 10 Ml IV 10 ml PRN PRN Administration LINE FLUSH Nutrition/Malnutrition Assess - Dietary Evaluation Nutrition/Malnutrition Findings: Nutrition Notes Start: 01/19/19 13:52 Freq: Status: Active Protocol: Document 01/24/19 10:11 CP (Rec: 01/24/19 10:12 CP [id number]) Co-Sign 01/24/19 10:11 LP Nutrition Notes Need for Assessment generated from: MD Order Initial or Follow up Reassessment Current Diagnosis Diabetes,Hypertension, Respiratory Failure,Stroke, Hyperlipidemia Other Pertinent Diagnosis SIRS, bilateral lower extremity DVT Current Diet NPO Labs/Tests Na 149 BG 153 Pertinent Medications Reviewed Height 5 ft 10 in Weight 77.8 kg [place] Body Weight (kg) 75.45 BMI 24.6 Subjective/Other Information MD screen for TF. Awaiting NG tube/dobhoff placement to start TF as discussed in rounds. Percent of energy/protein needs met: 0%/0% Burn Absent Trauma Absent #1 Nutrition Diagnosis Inadequate oral intake As Evidenced by Signs and Symptoms pt NPO Diagnosis Progress(for reassessment Continues documentation) Is patient on ventilator? Yes Is Patient Ambulatory and/or Out of Bed No REE-([facility] Jevt-confined to bed) [phone] Calculation Used for Recommendations [facility] Additional Notes Pro needs 1.2-2g/k-142g/ day Fluid needs 1ml/kcal Nutrition Intervention Change Diet Order: Start TF Nutrition Support: Vital AF at 65 mL/hr Kcal 1,872 Protein (gm) 117 Fluid (mL) 1,265 Goal #1 TF to start Goal #2 TF tolerance Anticipated Discharge Needs: Unable to identify at this time Follow-Up By: 01/26/19 Additional Comments F/U: TF to start/TF tolerance
[2019-01-25 04:52] LABS: Basophils # (Auto) 0.1 K/mm3 (0.0-0.1); Basophils % (Auto) 0.8 % (0.0-1.8); Eosinophils # (Auto) 0.2 K/mm3 (0.0-0.4); Hematocrit 32.7 % (35.5-45.6); Hemoglobin 10.8 gm/dl (11.8-15.2); Mean Corpuscular HGB Conc 33 % (32-34); Mean Corpuscular Volume 95 fl (84-94); Monocytes # (Auto) 1.1 K/mm3 (0.0-0.8); Monocytes % (Auto) 10.5 % (0.0-7.3); Platelet Count 239 K/mm3 (140-440); Red Blood Count 3.46 M/mm3 (3.65-5.03); Red Cell Distribution Width 15.3 % (13.2-15.2)
[2019-01-25 05:14] LABS: BUN/Creatinine Ratio 13; Blood Urea Nitrogen 12 mg/dL (9-20); Calcium 9.1 mg/dL (8.4-10.2); Hemolysis Index 10
[2019-01-25] MEDS: ZOSYN/NS 3.375GM/50ML 3.375 GM/50 ML BAG IV SCH ×2 (05:21→21:57)
[2019-01-25] MEDS: APRESOLINE PO SCH ×3 (06:11→21:54)
[2019-01-25] MEDS: ASPIRIN PR SCH (11:15)
[2019-01-25] MEDS: PEPCID IV SCH ×2 (11:15→22:00)
[2019-01-25] MEDS: SODIUM CHLORIDE FLUSH SYRINGE 10 ML IV SCH (11:16)
--- NOTE | 2019-01-25 11:23 | Gastroenterology Consultation ---
History of Present Illness - Reason for Consult Consult date: 01/25/19 NG/OG tube placement, possible obstruction Requesting physician: VINNIE CALI - History of Present Illness Patient is a 63 y/o male who presented to ED with right-sided weakness and difficulty speaking. Upon admission, Head CT revealed subacute left frontal lobe infarct to which he was admitted. He is currently in ICU on vent after beingng intubated on 01/23 for respiratory distress/airway protection due to thick secretions and inability to clear airway from muscular weakness/decreased muscle tone s/p CVA. GI has been consulted for evaluation of obstruction and assistance in placing NG/OG tube after multiple failed attempts. According to chart review, patient was previously having dysphagia s/p CVA with PATTERN FILER evaluation pending, however it was unable to be completed prior to intubation. This morning patient was resting in bed on vent w/o acute distress. Noted to be alert and able to node head yes or no to questions. No evidence of abd pain or N/V. Spoke with patient's sister Adelaida over the phone who states she is not aware of a prior hx of dysphagia before recent stroke or an esophageal stricture. Past History Past Medical History: diabetes, hypertension, hyperlipidemia Past Surgical History: No surgical history (cannot be obtained) Social history: smoking, IV drug use (unknown, seems to indicate yes to use of cocaine), other (+alcohol, +cocaine?). denies: prescription drug abuse Family history: other (cannot obtain) Medications and Allergies Allergies Allergy/AdvReac Type Severity Reaction Status Date / Time No Known Allergies Allergy Verified 01/21/19 07:09 Home Medications Medication Instructions Recorded Confirmed Last Taken Type No Known Home Medications [No 01/21/19 01/21/19 Unknown History Reported Home Medications] Active Meds: Active Medications Acetaminophen (Tylenol) 650 mg OR Q4H PRN PRN Reason: Pain MILD(1-3)/Fever >100.5/PEARL Albuterol (Proventil) 2.5 mg IH Q4HRT PRN PRN Reason: Shortness Of Breath Lipase/Protease/Amylase (Leoncio Dorado 10,500 Unit) 1 each FEEDTUBE PRN PRN PRN Reason: For Clogged Feeding Tube Aspirin (Aspirin) 300 mg OR QDAY [facility] Last Admin: 01/25/19 11:15 Dose: 300 mg Documented by: Atorvastatin Calcium (Lipitor) 40 mg PO QHS [facility] Last Admin: 01/24/19 21:58 Dose: Not Given Documented by: Famotidine (Pepcid) 20 mg IV BID [facility] Last Admin: 01/25/19 11:15 Dose: 20 mg Documented by: Hydralazine HCl (Apresoline) 5 mg IV Q6H PRN PRN Reason: Hypertension Last Admin: 01/23/19 19:15 Dose: 5 mg Documented by: Hydralazine HCl (Apresoline) 100 mg PO Q8HR [facility] Last Admin: 01/25/19 06:11 Dose: Not Given Documented by: Potassium Chloride 40 meq/ (Dextrose) 1,020 mls @ 75 mls/hr IV DIRECT [facility] Last Admin: 01/24/19 21:41 Dose: 75 mls/hr Documented by: Ondansetron HCl (Zofran) 4 mg IV Q4H PRN PRN Reason: Nausea And Vomiting Simple Syrup (Simple Syrup) 15 ml FEEDTUBE PRN PRN PRN Reason: Hypoglycemia Simple Syrup (Simple Syrup) 30 ml FEEDTUBE PRN PRN PRN Reason: Hypoglycemia Sodium Bicarbonate (Sodium Bicarbonate) 325 mg FEEDTUBE PRN PRN PRN Reason: For Clogged Feeding Tube Sodium Chloride (Sodium Chloride Flush Syringe 10 Ml) 10 ml IV BID [facility] Last Admin: 01/25/19 11:16 Dose: 10 ml Documented by: Sodium Chloride (Sodium Chloride Flush Syringe 10 Ml) 10 ml IV PRN PRN PRN Reason: LINE FLUSH Last Admin: 01/24/19 14:17 Dose: 10 ml Documented by: medications reviewed/updated as required Review of Systems - Review of Systems ROS unobtainable: due to endotracheal tube Exam - Constitutional Vital Signs: Temp Pulse Resp BP Pulse Ox 98.4 F 62 21 143/75 100 01/25/19 08:00 01/25/19 09:30 01/25/19 09:30 01/25/19 09:30 01/25/19 09:30 General appearance: no acute distress, other (on vent, alert) - Respiratory Respiratory: bilateral: CTA (anterior) - Cardiovascular Rhythm: regular Extremity abnormal: other (right-sided weakness) - Gastrointestinal General gastrointestinal: Present: soft, non-distended, normal bowel sounds - Labs CBC & Chem 7: 01/25/19 04:07 01/25/19 04:07 Lab Results: Laboratory Results - last 24 hr 01/24/19 01/25/19 01/25/19 23:40 04:07 04:07 WBC 10.7 RBC 3.46 L Hgb 10.8 L Hct 32.7 L MCV 95 H MCH 31 MCHC 33 RDW 15.3 H Plt Count 239 Lymph % (Auto) 9.0 L [place] % (Auto) 10.5 H Eos % (Auto) 2.0 Baso % (Auto) 0.8 Lymph # 1.0 L [place] # 1.1 H Eos # 0.2 Baso # 0.1 Seg Neutrophils % 77.7 H Seg Neutrophils # 8.3 H POC ABG pH POC ABG pCO2 POC ABG pO2 POC ABG HCO3 POC ABG Total CO2 POC ABG O2 Sat POC ABG Base Excess FiO2 Sodium 147 H Potassium 3.8 Chloride 111.1 H Carbon Dioxide 22 Anion Gap 18 BUN 12 Creatinine 0.9 Estimated GFR > 60 BUN/Creatinine Ratio 13 Glucose 150 H POC Glucose 130 H Calcium 9.1 01/25/19 01/25/19 04:34 05:36 WBC RBC Hgb Hct MCV MCH MCHC RDW Plt Count Lymph % (Auto) [place] % (Auto) Eos % (Auto) Baso % (Auto) Lymph # [place] # Eos # Baso # Seg Neutrophils % Seg Neutrophils # POC ABG pH 7.406 POC ABG pCO2 34.3 L POC ABG pO2 110 H POC ABG HCO3 21.5 POC ABG Total CO2 23 POC ABG O2 Sat 98 POC ABG Base Excess -3 FiO2 25 Sodium Potassium Chloride Carbon Dioxide Anion Gap BUN Creatinine Estimated GFR BUN/Creatinine Ratio Glucose POC Glucose 147 H Calcium Assessment and Plan 1.NG/OG tube placement (obstruction?) -will schedule for EGD today for further evaluation and endoscopic placement of NG/OG tube if possible (called and spoke with patient's sister Adelaida ([phone]) who is agreeable to proceed with procedure) -Keep NPO -continue supportive care -will follow 2.acute respiratory failure-on vent 3.s/p embolic left MCA CVA with right hemiplegia 4.dilated cardiomyopathy (EF 25-30%) 5.HTN 6.bilateral lower extremity DVT- s/p IVC filter placement
--- NOTE | 2019-01-25 11:50 | Progress Note ---
Assessment and Plan 63 y/o male with acute respiratory failure secondary to inability to protect airway secondary to stroke. 1. Continue mechanical vent support for now. Secretions have improved but remain thick. Hold on anticholinergic therapy for now. Secreations are huang, but no green or blood 2. PSV continues 3. Spoke with GI and they have agreed to see the patient today. May possibly need tube placed endoscopically. 4. Hold on extubation until feeding mechanism placed. CCT 31 minutes. Subjective Date of service: 01/25/19 Principal diagnosis: stroke Interval history: No acute event. Awake and alert. Nursing unable to pass feeding mechanism. Objective Vital Signs - 12hr 01/24/19 01/25/19 01/25/19 23:51 00:00 00:11 Temperature 100.4 F H Pulse Rate 69 68 70 Pulse Rate [ From Monitor] Pulse Rate [ Right Dorsalis Pedis] Respiratory 22 20 17 Rate Blood Pressure 136/71 129/69 129/69 O2 Sat by Pulse 100 100 100 Oximetry 01/25/19 01/25/19 01/25/19 00:21 00:30 00:41 Temperature Pulse Rate 68 70 67 Pulse Rate [ From Monitor] Pulse Rate [ Right Dorsalis Pedis] Respiratory 21 20 19 Rate Blood Pressure 129/69 143/80 O2 Sat by Pulse 100 100 100 Oximetry 01/25/19 01/25/19 01/25/19 00:51 01:00 01:11 Temperature Pulse Rate 69 67 65 Pulse Rate [ From Monitor] Pulse Rate [ Right Dorsalis Pedis] Respiratory 22 21 21 Rate Blood Pressure 143/80 141/72 141/72 O2 Sat by Pulse 100 100 100 Oximetry 01/25/19 01/25/19 01/25/19 01:21 01:30 01:41 Temperature Pulse Rate 66 69 67 Pulse Rate [ From Monitor] Pulse Rate [ Right Dorsalis Pedis] Respiratory 20 20 20 Rate Blood Pressure 141/72 139/74 139/74 O2 Sat by Pulse 100 100 100 Oximetry 01/25/19 01/25/19 01/25/19 01:51 02:00 02:11 Temperature Pulse Rate 68 68 67 Pulse Rate [ From Monitor] Pulse Rate [ Right Dorsalis Pedis] Respiratory 20 20 20 Rate Blood Pressure 139/74 142/75 142/75 O2 Sat by Pulse 100 100 100 Oximetry 01/25/19 01/25/19 01/25/19 02:21 02:30 02:41 Temperature Pulse Rate 65 66 64 Pulse Rate [ From Monitor] Pulse Rate [ Right Dorsalis Pedis] Respiratory 18 20 20 Rate Blood Pressure 142/75 141/75 141/75 O2 Sat by Pulse 100 100 100 Oximetry 01/25/19 01/25/19 01/25/19 02:51 03:00 03:11 Temperature Pulse Rate 64 61 62 Pulse Rate [ From Monitor] Pulse Rate [ Right Dorsalis Pedis] Respiratory 20 20 20 Rate Blood Pressure 141/75 144/75 144/75 O2 Sat by Pulse 100 100 100 Oximetry 01/25/19 01/25/19 01/25/19 03:21 03:30 03:41 Temperature Pulse Rate 60 64 69 Pulse Rate [ From Monitor] Pulse Rate [ Right Dorsalis Pedis] Respiratory 20 20 20 Rate Blood Pressure 144/75 135/73 135/73 O2 Sat by Pulse 100 100 100 Oximetry 01/25/19 01/25/19 01/25/19 03:51 04:00 04:11 Temperature 99.3 F Pulse Rate 66 69 65 Pulse Rate [ 69 From Monitor] Pulse Rate [ 69 Right Dorsalis Pedis] Respiratory 20 20 20 Rate Blood Pressure 135/73 153/78 135/73 O2 Sat by Pulse 100 100 100 Oximetry 01/25/19 01/25/19 01/25/19 04:21 04:30 04:31 Temperature Pulse Rate 65 66 67 Pulse Rate [ From Monitor] Pulse Rate [ Right Dorsalis Pedis] Respiratory 20 20 Rate Blood Pressure 135/73 129/75 153/78 O2 Sat by Pulse 100 100 100 Oximetry 01/25/19 01/25/19 01/25/19 04:41 04:51 05:00 Temperature Pulse Rate 66 66 69 Pulse Rate [ From Monitor] Pulse Rate [ Right Dorsalis Pedis] Respiratory 21 16 18 Rate Blood Pressure 129/75 129/75 135/77 O2 Sat by Pulse 100 100 100 Oximetry 01/25/19 01/25/19 01/25/19 05:11 05:21 05:30 Temperature Pulse Rate 65 64 68 Pulse Rate [ From Monitor] Pulse Rate [ Right Dorsalis Pedis] Respiratory 20 20 20 Rate Blood Pressure 129/75 129/75 143/76 O2 Sat by Pulse 100 100 100 Oximetry 01/25/19 01/25/19 01/25/19 05:41 05:51 06:00 Temperature Pulse Rate 66 66 65 Pulse Rate [ From Monitor] Pulse Rate [ Right Dorsalis Pedis] Respiratory 20 20 20 Rate Blood Pressure 135/77 135/77 135/72 O2 Sat by Pulse 100 100 100 Oximetry 01/25/19 01/25/19 01/25/19 06:11 06:21 06:30 Temperature Pulse Rate 63 63 60 Pulse Rate [ From Monitor] Pulse Rate [ Right Dorsalis Pedis] Respiratory 20 20 20 Rate Blood Pressure 135/72 135/72 131/72 O2 Sat by Pulse 100 100 100 Oximetry 01/25/19 01/25/19 01/25/19 06:41 06:51 07:00 Temperature Pulse Rate 67 63 66 Pulse Rate [ From Monitor] Pulse Rate [ Right Dorsalis Pedis] Respiratory 20 20 21 Rate Blood Pressure 131/72 131/72 141/77 O2 Sat by Pulse 100 100 100 Oximetry 01/25/19 01/25/19 01/25/19 07:11 07:21 07:30 Temperature Pulse Rate 61 66 64 Pulse Rate [ From Monitor] Pulse Rate [ Right Dorsalis Pedis] Respiratory 20 20 20 Rate Blood Pressure 131/72 131/72 142/76 O2 Sat by Pulse 100 100 100 Oximetry 01/25/19 01/25/19 01/25/19 07:41 07:51 08:00 Temperature 98.4 F Pulse Rate 68 62 61 Pulse Rate [ 61 From Monitor] Pulse Rate [ 61 Right Dorsalis Pedis] Respiratory 21 20 20 Rate Blood Pressure 142/76 142/76 142/74 O2 Sat by Pulse 100 100 100 Oximetry 01/25/19 01/25/19 01/25/19 08:11 08:21 08:28 Temperature Pulse Rate 57 L 65 66 Pulse Rate [ From Monitor] Pulse Rate [ Right Dorsalis Pedis] Respiratory 20 20 20 Rate Blood Pressure 142/74 142/74 142/76 O2 Sat by Pulse 100 100 100 Oximetry 01/25/19 01/25/19 01/25/19 08:30 08:41 08:51 Temperature Pulse Rate 64 63 65 Pulse Rate [ From Monitor] Pulse Rate [ Right Dorsalis Pedis] Respiratory 20 19 19 Rate Blood Pressure 142/76 142/76 142/76 O2 Sat by Pulse 100 100 100 Oximetry 01/25/19 01/25/19 01/25/19 09:00 09:11 09:21 Temperature Pulse Rate 63 66 62 Pulse Rate [ From Monitor] Pulse Rate [ Right Dorsalis Pedis] Respiratory 18 18 15 Rate Blood Pressure 138/75 138/75 138/75 O2 Sat by Pulse 100 100 100 Oximetry 01/25/19 09:30 Temperature Pulse Rate 62 Pulse Rate [ From Monitor] Pulse Rate [ Right Dorsalis Pedis] Respiratory 21 Rate Blood Pressure 143/75 O2 Sat by Pulse 100 Oximetry Constitutional: no acute distress, alert Eyes: non-icteric ENT: other (orally intubated, not on sedation) Neck: supple Effort: normal Ascultation: Bilateral: clear Percussion: Bilateral: not dull Cardiovascular: regular rate and rhythm Gastrointestinal: normoactive bowel sounds Extremities: no edema Neurologic: other (weakness of right) CBC and BMP: 01/25/19 04:07 01/25/19 04:07 ABG, PT/INR, D-dimer: ABG POC ABG pH 7.406 (7.35-7.45) 01/25/19 04:34 POC ABG pCO2 34.3 (35-45) L 01/25/19 04:34 POC ABG pO2 110 (80-105) H 01/25/19 04:34 POC ABG HCO3 21.5 (22-26 mml/L) 01/25/19 04:34 POC ABG Total CO2 23 (23-27mmol/L) 01/25/19 04:34 POC ABG O2 Sat 98 01/25/19 04:34 PT/INR, D-dimer PT 15.5 Sec. (12.2-14.9) H 01/18/19 19:14 INR 1.16 (0.87-1.13) H 01/18/19 19:14 Abnormal lab findings: Abnormal Labs 01/18/19 01/18/19 01/18/19 19:14 19:14 19:14 WBC 17.2 H RBC Hgb Hct MCV 96 H RDW 15.5 H Lymph % (Auto) 7.9 L [place] % (Auto) 7.9 H Lymph # [place] # 1.4 H Seg Neutrophils % 83.5 H Seg Neutrophils # 14.3 H PT 15.5 H INR 1.16 H POC ABG pCO2 POC ABG pO2 Sodium 153 H Potassium 3.4 L Chloride BUN 24 H Glucose 159 H POC Glucose Calcium 10.3 H Total Creatine Kinase Troponin T 0.368 H* HDL Cholesterol 35 L 01/18/19 01/19/19 01/19/19 22:33 00:15 05:07 WBC RBC Hgb Hct MCV RDW Lymph % (Auto) [place] % (Auto) Lymph # [place] # Seg Neutrophils % Seg Neutrophils # PT INR POC ABG pCO2 POC ABG pO2 Sodium 151 H Potassium 3.2 L Chloride BUN 25 H Glucose 130 H POC Glucose Calcium Total Creatine Kinase 491 H 419 H Troponin T 0.291 H* D 0.273 H* HDL Cholesterol 01/22/19 01/22/19 01/23/19 05:16 05:16 04:27 WBC 12.5 H 13.9 H RBC Hgb Hct MCV 96 H 95 H RDW 15.6 H 15.5 H Lymph % (Auto) 8.6 L 6.2 L [place] % (Auto) 9.1 H 9.1 H Lymph # 1.1 L 0.9 L [place] # 1.1 H 1.3 H Seg Neutrophils % 80.0 H 83.2 H Seg Neutrophils # 10.0 H 11.6 H PT INR POC ABG pCO2 POC ABG pO2 Sodium 156 H Potassium 2.8 L* Chloride 118.5 H BUN Glucose 159 H POC Glucose Calcium Total Creatine Kinase Troponin T HDL Cholesterol 01/23/19 01/23/19 01/23/19 04:27 13:11 14:59 WBC RBC Hgb Hct MCV RDW Lymph % (Auto) [place] % (Auto) Lymph # [place] # Seg Neutrophils % Seg Neutrophils # PT INR POC ABG pCO2 POC ABG pO2 282 H 205 H Sodium 151 H Potassium 3.5 L D Chloride 113.8 H BUN Glucose 163 H POC Glucose Calcium Total Creatine Kinase Troponin T HDL Cholesterol 01/23/19 01/24/19 01/24/19 18:36 04:17 07:41 WBC RBC Hgb Hct MCV RDW Lymph % (Auto) [place] % (Auto) Lymph # [place] # Seg Neutrophils % Seg Neutrophils # PT INR POC ABG pCO2 POC ABG pO2 148 H Sodium 149 H Potassium Chloride 113.5 H BUN Glucose 153 H POC Glucose 141 H Calcium Total Creatine Kinase Troponin T HDL Cholesterol 01/24/19 01/25/19 01/25/19 23:40 04:07 04:07 WBC RBC 3.46 L Hgb 10.8 L Hct 32.7 L MCV 95 H RDW 15.3 H Lymph % (Auto) 9.0 L [place] % (Auto) 10.5 H Lymph # 1.0 L [place] # 1.1 H Seg Neutrophils % 77.7 H Seg Neutrophils # 8.3 H PT INR POC ABG pCO2 POC ABG pO2 Sodium 147 H Potassium Chloride 111.1 H BUN Glucose 150 H POC Glucose 130 H Calcium Total Creatine Kinase Troponin T HDL Cholesterol 01/25/19 01/25/19 04:34 05:36 WBC RBC Hgb Hct MCV RDW Lymph % (Auto) [place] % (Auto) Lymph # [place] # Seg Neutrophils % Seg Neutrophils # PT INR POC ABG pCO2 34.3 L POC ABG pO2 110 H Sodium Potassium Chloride BUN Glucose POC Glucose 147 H Calcium Total Creatine Kinase Troponin T HDL Cholesterol
--- NOTE | 2019-01-25 12:31 | Progress Note ---
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 Hypertension Diabetes Hyperlipidemia Tobacco abuse Elevated troponin Dilated cardiomyopathy Echocardiogram shows enlarged left ventricle with only 25-30% ejection fraction but negative bubble study. The duration of his cardiomyopathy is uncertain. Recommendations: Continue medical therapy for dilated cardiomyopathy. Conservative management. Subjective Date of service: 01/25/19 Principal diagnosis: stroke Interval history: Patient is alert but remains intubated on the vent. Objective Vital Signs Temp Pulse Pulse Pulse Resp BP Pulse Ox 01/25/19 09:30 62 21 143/75 100 01/25/19 09:21 62 15 138/75 100 01/25/19 09:11 66 18 138/75 100 01/25/19 09:00 63 18 138/75 100 01/25/19 08:51 65 19 142/76 100 01/25/19 08:41 63 19 142/76 100 01/25/19 08:30 64 20 142/76 100 01/25/19 08:28 66 20 142/76 100 01/25/19 08:21 65 20 142/74 100 01/25/19 08:11 57 L 20 142/74 100 01/25/19 08:00 98.4 F 61 61 61 20 142/74 100 01/25/19 07:51 62 20 142/76 100 01/25/19 07:41 68 21 142/76 100 01/25/19 07:30 64 20 142/76 100 01/25/19 07:21 66 20 131/72 100 01/25/19 07:11 61 20 131/72 100 01/25/19 07:00 66 21 141/77 100 01/25/19 06:51 63 20 131/72 100 01/25/19 06:41 67 20 131/72 100 01/25/19 06:30 60 20 131/72 100 01/25/19 06:21 63 20 135/72 100 01/25/19 06:11 63 20 135/72 100 01/25/19 06:00 65 20 135/72 100 01/25/19 05:51 66 20 135/77 100 01/25/19 05:41 66 20 135/77 100 01/25/19 05:30 68 20 143/76 100 01/25/19 05:21 64 20 129/75 100 01/25/19 05:11 65 20 129/75 100 01/25/19 05:00 69 18 135/77 100 01/25/19 04:51 66 16 129/75 100 01/25/19 04:41 66 21 129/75 100 01/25/19 04:31 67 153/78 100 01/25/19 04:30 66 20 129/75 100 01/25/19 04:21 65 20 135/73 100 01/25/19 04:11 65 20 135/73 100 01/25/19 04:00 99.3 F 69 69 69 20 153/78 100 01/25/19 03:51 66 20 135/73 100 01/25/19 03:41 69 20 135/73 100 01/25/19 03:30 64 20 135/73 100 01/25/19 03:21 60 20 144/75 100 01/25/19 03:11 62 20 144/75 100 01/25/19 03:00 61 20 144/75 100 01/25/19 02:51 64 20 141/75 100 01/25/19 02:41 64 20 141/75 100 01/25/19 02:30 66 20 141/75 100 01/25/19 02:21 65 18 142/75 100 01/25/19 02:11 67 20 142/75 100 01/25/19 02:00 68 20 142/75 100 01/25/19 01:51 68 20 139/74 100 01/25/19 01:41 67 20 139/74 100 01/25/19 01:30 69 20 139/74 100 01/25/19 01:21 66 20 141/72 100 01/25/19 01:11 65 21 141/72 100 01/25/19 01:00 67 21 141/72 100 01/25/19 00:51 69 22 143/80 100 01/25/19 00:41 67 19 100 01/25/19 00:30 70 20 143/80 100 01/25/19 00:21 68 21 129/69 100 01/25/19 00:11 70 17 129/69 100 01/25/19 00:00 100.4 F H 68 20 129/69 100 01/24/19 23:51 69 22 136/71 100 01/24/19 23:45 69 142/70 100 01/24/19 23:43 67 20 136/71 100 01/24/19 23:41 66 21 136/71 100 01/24/19 23:30 67 20 136/71 100 01/24/19 23:21 71 20 142/70 100 01/24/19 23:11 65 20 142/70 100 01/24/19 23:00 69 21 142/70 100 01/24/19 22:59 72 72 20 100 01/24/19 22:51 65 20 146/71 100 01/24/19 22:41 68 21 146/71 100 01/24/19 22:30 68 21 146/71 100 01/24/19 22:21 69 24 140/69 100 01/24/19 22:11 72 22 140/69 100 01/24/19 22:00 69 22 140/69 100 01/24/19 21:51 75 16 150/76 100 01/24/19 21:41 69 20 150/76 100 01/24/19 21:30 69 20 150/76 100 01/24/19 21:21 71 22 147/71 100 01/24/19 21:11 70 21 147/71 100 01/24/19 21:00 75 23 147/71 100 01/24/19 20:51 71 22 159/87 100 01/24/19 20:47 70 19 159/87 100 01/24/19 20:41 70 19 159/87 100 01/24/19 20:30 71 18 159/87 100 01/24/19 20:21 83 15 147/75 100 01/24/19 20:11 67 20 147/75 100 01/24/19 20:00 98.9 F 66 69 69 16 147/75 100 01/24/19 19:51 70 25 H 142/78 100 01/24/19 19:41 67 23 142/78 100 01/24/19 19:30 68 13 142/78 100 01/24/19 19:21 71 25 H 148/84 100 01/24/19 19:11 72 21 148/84 100 01/24/19 19:00 63 18 148/84 100 01/24/19 18:50 69 21 148/86 100 01/24/19 18:41 70 19 148/86 100 01/24/19 18:30 71 22 148/86 100 01/24/19 18:21 66 14 135/83 100 01/24/19 18:11 66 21 135/83 100 01/24/19 18:00 69 24 135/83 100 01/24/19 17:51 68 23 143/76 100 01/24/19 17:41 69 20 143/76 100 01/24/19 17:30 66 14 143/76 100 01/24/19 17:21 68 21 148/78 100 01/24/19 17:11 72 20 148/78 100 01/24/19 17:00 64 19 148/78 100 01/24/19 16:51 67 22 145/83 100 01/24/19 16:41 64 22 145/83 100 01/24/19 16:30 72 25 H 145/83 100 01/24/19 16:21 69 18 132/77 100 01/24/19 16:11 72 20 132/77 100 01/24/19 16:00 99.9 F H 73 24 132/77 100 01/24/19 15:59 72 24 100 01/24/19 15:51 69 21 140/78 100 01/24/19 15:50 74 23 140/78 100 01/24/19 15:41 75 25 H 140/78 100 01/24/19 15:30 68 16 140/78 100 01/24/19 15:21 71 23 133/81 100 01/24/19 15:11 62 19 133/81 100 01/24/19 15:00 70 19 133/81 100 01/24/19 14:51 65 19 143/78 100 01/24/19 14:41 67 17 143/78 100 01/24/19 14:30 70 21 143/78 100 01/24/19 14:21 69 21 134/73 100 01/24/19 14:11 62 20 134/73 100 01/24/19 14:00 64 20 134/73 100 01/24/19 13:51 67 19 137/80 100 01/24/19 13:41 74 15 137/80 100 01/24/19 13:30 67 12 137/80 100 01/24/19 13:21 67 21 138/79 100 01/24/19 13:11 65 19 138/79 100 01/24/19 13:00 67 24 138/79 100 01/24/19 12:51 67 24 143/84 100 01/24/19 12:41 73 21 143/84 100 - Physical Examination General: Other (intubated on the vent) HEENT: Positive: PERRL Cardiac: Positive: Reg Rate and Rhythm Neuro: Positive: Other (right hemiplegia) Extremities: Absent: edema - Labs and Meds CBC 01/25/19 Range/Units 04:07 WBC 10.7 (4.5-11.0) K/mm3 RBC 3.46 L (3.65-5.03) M/mm3 Hgb 10.8 L (11.8-15.2) gm/dl Hct 32.7 L (35.5-45.6) % Plt Count 239 (140-440) K/mm3 Lymph # 1.0 L (1.2-5.4) K/mm3 [place] # 1.1 H (0.0-0.8) K/mm3 Eos # 0.2 (0.0-0.4) K/mm3 Baso # 0.1 (0.0-0.1) K/mm3 Comprehensive Metabolic Panel 01/25/19 Range/Units 04:07 Sodium 147 H (137-145) mmol/L Potassium 3.8 (3.6-5.0) mmol/L Chloride 111.1 H (98-107) mmol/L Carbon Dioxide 22 (22-30) mmol/L BUN 12 (9-20) mg/dL Creatinine 0.9 (0.8-1.5) mg/dL Glucose 150 H (75-100) mg/dL Calcium 9.1 (8.4-10.2) mg/dL
[2019-01-25] MEDS: KCL 40 MEQ in D5W 1,000 ML IV SCH (12:48)
[2019-01-25] MEDS ORDERED: WATER FOR IRRIG STERILE IR ONE (13:26)
[2019-01-25] MEDS ORDERED: VERSED ONE (13:47)
[2019-01-25] MEDS ORDERED: DIPRIVAN 10 MG/ML IV ONE (13:47)
[2019-01-25] MEDS ORDERED: ZOFRAN ONE (13:51)
[2019-01-25] MEDS ORDERED: AMIDATE IV ONE (13:51)
[2019-01-25] MEDS ORDERED: ZEMURON IV ONE (13:52)
[2019-01-25] MEDS ORDERED: SUBLIMAZE ONE (13:53)
--- NOTE | 2019-01-25 14:39 | Post Operative Note ---
Pre-op diagnosis: Neurogenic Dysphagia Post-op diagnosis: other (Possible zenckers, blood in oropharynx, successful Dobhoff placement) Findings: 1. Blood in oropharynx from prior NG tube attempts 2. Possible zenckers in hypopharynx 3. EGD complete to duodenum (2nd portion) 4. Able to advance dobhoff with combination of snare/pulsion beside scope to antrum of stomach Procedure: EGD with Dobhoff placement Anesthesia: MAC Surgeon: REGGIE GUNN Estimated blood loss: minimal Pathology: none Specimen disposition: other (N/A) Condition: stable Disposition: ICU (Recs: 1. Check KUB prior to Dobhoff feeds. 2. Barium swallow to assess for zenckers when clinically improved. 3. OK to use tube immediately if KUB OK.)
--- NOTE | 2019-01-25 14:56 | Anesthesia Day of Surgery ---
Anesthesia Day of Surgery - Day of Surgery Patient Examined: Yes Patient H&P Reviewed: Yes Patient is NPO: Yes
--- NOTE | 2019-01-25 15:03 | Anesthesia Consultation ---
Anesthesia Consult and Med Hx Date of service: 01/25/19 - Airway Anesthetic Teeth Evaluation: Good ROM Head & Neck: Adequate Mental/Hyoid Distance: Adequate Mallampati Class: Class III Intubation Access Assessment: Good - Pulmonary Exam CTA: Yes - Cardiac Exam Cardiac Exam: No Murmur - Pre-Operative Health Status ASA Pre-Surgery Classification: ASA3 Proposed Anesthetic Plan: General - Pulmonary Hx Asthma: No COPD: No Hx Pneumonia: No - Cardiovascular System Hx Hypertension: Yes Hx Coronary Artery Disease: Yes - Central Nervous System CVA: Yes Hx Psychiatric Problems: No - Endocrine Hx End Stage Renal Disease: No
--- NOTE | 2019-01-25 15:24 | Operative Report ---
ENDOSCOPY DOCUMENT PROCEDURE PERFORMED: Esophagogastroduodenoscopy with Dobbhoff tube placement. PREOPERATIVE DIAGNOSIS: Neurogenic dysphagia and inability to pass nasogastric tube or orogastric tube at the bedside. POSTOPERATIVE DIAGNOSES: Possible Zenker's, blood in the oropharynx, successful Dobbhoff tube placement. ENDOSCOPIST: Desean Dutton MD INSTRUMENT: Jin-Magicn video endoscope. MEDICATIONS: The patient was on a ventilator, but not sedated and MAC. ANESTHESIA: Used by Anesthesia Services throughout the procedure. SPECIMENS: None. ESTIMATED BLOOD LOSS: Minimal. IMPLANTS: Dobhoff feeding tube was threaded through the nose and into the lumen of the stomach during this procedure and affixed on the nose using tape. CONDITION ON COMPLETION: Critical but stable without significant change from prior to the procedure. TECHNIQUE: The patient's family was informed of the risks and benefits of the procedure. They signed the informed consent to proceed given the patient's underlying debilitated medical state. After consent was obtained, he was placed in the supine position. The above sedative medications were given. His vital signs remained stable throughout the procedure. The instrument was advanced from the mouth to the ampulla from the mouth to the second portion of the duodenum under direct visualization. At that point, the bowel was insufflated and the endoscope was slowly withdrawn. We withdrew the scope into the oropharynx area. We then threaded the Dobbhoff tube through the right naris and used the endoscope and a snare device to guide the tip of the Dobbhoff through the upper esophageal sphincter and into the lumen of the esophagus. At that point, it was easy to thread the Dobbhoff tube to the antrum of the stomach. The external portion was fixed to the nose using adhesive tape and the endoscope was slowly withdrawn. There was no evidence of buckling of the tube on the oropharynx after withdrawal of the scope and the procedure was terminated. FINDINGS: 1. Blood in the oropharynx from prior nasogastric and orogastric tube placement attempts, but no significant mucosal trauma was noted. 2. There was a possible Zenker's diverticulum noted in the hypopharynx, but visualization was impaired. 3. The upper endoscopy was complete to the second portion of the duodenum without significant findings noted. 4. Dobhoff feeding tube was advanced through the right naris, through the upper esophageal sphincter, and into the antrum of the stomach during this procedure. RECOMMENDATIONS: 1. Abdominal x-ray to confirm placement of the Dobbhoff tube. 2. Okay to use a Dobbhoff tube immediately if the abdominal x-ray is okay. 3. Barium swallow to assess for possible Zenker's with the patient is clinically improved. JOB# [id number] DANA/NTS
--- NOTE | 2019-01-25 16:02 | Progress Note ---
Assessment and Plan Assessment and plan: Acute hypoxic respiratory failure. Patient emergently intubated secondary to labored respirations/airway protection. Pulmonary consultation. Aspiration Vs mucus plug. Mucus plugging. Continue suction. 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 CT scan reveals subacute left frontal lobe infarct. Neurology following. MRI head reveals subacute left MCA infarct with evidence of petechial hemorrhage. Echocardiogram shows enlarged left ventricle with only 25-30% ejection fraction but negative bubble study. CT angiogram of the neck showed ulceration in the right internal carotid artery wit h elongated artery and left ICA showed just elongated artery. CT angiogram head is negative or normal. PT/OT/ST. repeat CT head pending. Dilated cardiomyopathy with severe left ventricular global hypokinesis. EF 25- 30% as noted above. No anticoagulation given increased risk for hemorrhagic conversion with CVA. Accelerated hypertension. Increase hydralazine to 100 mg 3 times a day. Bilateral lower extremity DVT. IVC filter placement. No anticoagulation given increased risk for hemorrhagic conversion with CVA. SIRS. No evidence of obvious infection. Continue empiric antibiotics with Zosyn. Follow blood cultures. Hypernatremia. Etiology likely secondary to dehydration/volume depletion. Change D5 half normal saline IV fluids to D5 W with 40 mEq KCl. Follow-up BMP in morning. Hypokalemia. Replete potassium as noted above. Elevated troponin. Cardiology following Difficult dubhoof placement; GI placed Dubhoof this afternoon. History Interval history: Patient was seen during morning rounds, patient was intubated, and was not able to talk but was alert. Hospitalist Physical - Physical exam Narrative exam: Patient was intubated, and on breathing trial. The patient appeared well nourished and normally developed. Vital signs as documented. Head exam is unremarkable. No scleral icterus . Neck is without jugular venous distension, thyromegaly, or carotid bruits. Lungs are clear to auscultation. Cardiac exam reveals regular rate and Rhythm. Abdominal exam reveals normal bowel sounds. Extremities are nonedematous. LENS GRINDER: Alert. right sided weakness. - Constitutional Vitals: Temp Pulse Resp BP Pulse Ox 98.4 F 64 22 152/79 100 01/25/19 15:25 01/25/19 15:25 01/25/19 15:25 01/25/19 15:25 01/25/19 15:25 General appearance: Present: severe distress, well-nourished, other (accessory muscle use with respirations) Results - Labs CBC & Chem 7: 01/25/19 04:07 01/25/19 04:07 Labs: Laboratory Last Values WBC 10.7 K/mm3 (4.5-11.0) 01/25/19 04:07 RBC 3.46 M/mm3 (3.65-5.03) L 01/25/19 04:07 Hgb 10.8 gm/dl (11.8-15.2) L 01/25/19 04:07 Hct 32.7 % (35.5-45.6) L 01/25/19 04:07 MCV 95 fl (84-94) H 01/25/19 04:07 MCH 31 pg (28-32) 01/25/19 04:07 MCHC 33 % (32-34) 01/25/19 04:07 RDW 15.3 % (13.2-15.2) H 01/25/19 04:07 Plt Count 239 K/mm3 (140-440) 01/25/19 04:07 Lymph % (Auto) 9.0 % (13.4-35.0) L 01/25/19 04:07 Hand % (Auto) 10.5 % (0.0-7.3) H 01/25/19 04:07 Eos % (Auto) 2.0 % (0.0-4.3) 01/25/19 04:07 Baso % (Auto) 0.8 % (0.0-1.8) 01/25/19 04:07 Lymph # 1.0 K/mm3 (1.2-5.4) L 01/25/19 04:07 Hand # 1.1 K/mm3 (0.0-0.8) H 01/25/19 04:07 Eos # 0.2 K/mm3 (0.0-0.4) 01/25/19 04:07 Baso # 0.1 K/mm3 (0.0-0.1) 01/25/19 04:07 Seg Neutrophils % 77.7 % (40.0-70.0) H 01/25/19 04:07 Seg Neutrophils # 8.3 K/mm3 (1.8-7.7) H 01/25/19 04:07 PT 15.5 Sec. (12.2-14.9) H 01/18/19 19:14 INR 1.16 (0.87-1.13) H 01/18/19 19:14 APTT 31.7 Sec. (24.2-36.6) 01/18/19 19:14 Thrombin Time 16.2 Sec. (15.1-19.6) 01/18/19 19:14 POC ABG pH 7.406 (7.35-7.45) 01/25/19 04:34 POC ABG pCO2 34.3 (35-45) L 01/25/19 04:34 POC ABG pO2 110 (80-105) H 01/25/19 04:34 POC ABG HCO3 21.5 (22-26 mml/L) 01/25/19 04:34 POC ABG Total CO2 23 (23-27mmol/L) 01/25/19 04:34 POC ABG O2 Sat 98 01/25/19 04:34 POC ABG Base Excess -3 ((-2) - (+3)mmol/L) 01/25/19 04:34 FiO2 25 % 01/25/19 04:34 Sodium 147 mmol/L (137-145) H 01/25/19 04:07 Potassium 3.8 mmol/L (3.6-5.0) 01/25/19 04:07 Chloride 111.1 mmol/L (98-107) H 01/25/19 04:07 Carbon Dioxide 22 mmol/L (22-30) 01/25/19 04:07 Anion Gap 18 mmol/L 01/25/19 04:07 BUN 12 mg/dL (9-20) 01/25/19 04:07 Creatinine 0.9 mg/dL (0.8-1.5) 01/25/19 04:07 Estimated GFR > 60 ml/min 01/25/19 04:07 BUN/Creatinine Ratio 13 % 01/25/19 04:07 Glucose 150 mg/dL (75-100) H 01/25/19 04:07 POC Glucose 162 (70-105) H 01/25/19 11:53 Calcium 9.1 mg/dL (8.4-10.2) 01/25/19 04:07 Total Creatine Kinase 419 units/L (55-170) H 01/19/19 05:07 CK-MB (CK-2) 3.2 ng/mL (0.0-4.0) 01/19/19 05:07 CK-MB (CK-2) Rel Index 0.7 (0-4) 01/19/19 05:07 Troponin T 0.273 ng/mL (0.00-0.029) H* 01/19/19 05:07 Triglycerides 140 mg/dL (2-149) 01/18/19 19:14 Cholesterol 157 mg/dL (50-199) 01/18/19 19:14 LDL Cholesterol Direct 98 mg/dL (50-130) 01/18/19 19:14 HDL Cholesterol 35 mg/dL (40-59) L 01/18/19 19:14 Cholesterol/HDL Ratio 4.48 % 01/18/19 19:14 Active Medications - Current Medications Current Medications: Generic Name Dose Route Start Last Admin Trade Name Freq PRN Reason Stop Dose Admin Acetaminophen 650 mg 01/18/19 22:08 Tylenol WI Q4H PRN Pain MILD(1-3)/Fever >100.5/PEARL Albuterol 2.5 mg 01/23/19 15:41 Proventil IH Q4HRT PRN Shortness Of Breath Lipase/Protease/Amylase 1 each 01/24/19 15:00 Pancreradha Dorado 10,500 Unit FEEDTUBE PRN PRN For Clogged Feeding Tube Aspirin 300 mg 01/19/19 10:00 01/25/19 11:15 Aspirin WI 300 mg QDAY YESICA Administration Atorvastatin Calcium 40 mg 01/24/19 22:00 01/24/19 21:58 Lipitor PO Not Given QHS YESICA Famotidine 20 mg 01/24/19 10:00 01/25/19 11:15 Pepcid IV 20 mg BID YESICA Administration Hydralazine HCl 5 mg 01/18/19 22:13 01/23/19 19:15 Apresoline IV 5 mg Q6H PRN Administration Hypertension Hydralazine HCl 100 mg 01/21/19 14:00 01/25/19 06:11 Apresoline PO Not Given Q8HR YESICA Potassium Chloride 40 meq/ 1,020 mls @ 75 mls/hr 01/22/19 12:30 01/25/19 12:48 Dextrose IV 75 mls/hr DIRECT YESICA Administration Ondansetron HCl 4 mg 01/18/19 22:08 Zofran IV Q4H PRN Nausea And Vomiting Simple Syrup 15 ml 01/24/19 15:00 Simple Syrup FEEDTUBE PRN PRN Hypoglycemia Simple Syrup 30 ml 01/24/19 15:00 Simple Syrup FEEDTUBE PRN PRN Hypoglycemia Sodium Bicarbonate 325 mg 01/24/19 15:00 Sodium Bicarbonate FEEDTUBE PRN PRN For Clogged Feeding Tube Sodium Chloride 10 ml 01/19/19 10:00 01/25/19 11:16 Sodium Chloride Flush Syringe 10 Ml IV 10 ml BID YESICA Administration Sodium Chloride 10 ml 01/18/19 22:08 01/24/19 14:17 Sodium Chloride Flush Syringe 10 Ml IV 10 ml PRN PRN Administration LINE FLUSH Nutrition/Malnutrition Assess - Dietary Evaluation Nutrition/Malnutrition Findings: Nutrition Notes Start: 01/19/19 13:52 Freq: Status: Active Protocol: Document 01/24/19 10:11 CP (Rec: 01/24/19 10:12 CP [id number]) Co-Sign 01/24/19 10:11 LP Nutrition Notes Need for Assessment generated from: MD Order Initial or Follow up Reassessment Current Diagnosis Diabetes,Hypertension, Respiratory Failure,Stroke, Hyperlipidemia Other Pertinent Diagnosis SIRS, bilateral lower extremity DVT Current Diet NPO Labs/Tests Na 149 BG 153 Pertinent Medications Reviewed Height 5 ft 10 in Weight 77.8 kg Slemp Body Weight (kg) 75.45 BMI 24.6 Subjective/Other Information MD screen for TF. Awaiting NG tube/dobhoff placement to start TF as discussed in rounds. Percent of energy/protein needs met: 0%/0% Burn Absent Trauma Absent #1 Nutrition Diagnosis Inadequate oral intake As Evidenced by Signs and Symptoms pt NPO Diagnosis Progress(for reassessment Continues documentation) Is patient on ventilator? Yes Is Patient Ambulatory and/or Out of Bed No REE-([facility]-confined to bed) 1900.212 Calculation Used for Recommendations [facility] Additional Notes Pro needs 1.2-2g/k-142g/ day Fluid needs 1ml/kcal Nutrition Intervention Change Diet Order: Start TF Nutrition Support: Vital AF at 65 mL/hr Kcal 1,872 Protein (gm) 117 Fluid (mL) 1,265 Goal #1 TF to start Goal #2 TF tolerance Anticipated Discharge Needs: Unable to identify at this time Follow-Up By: 01/26/19 Additional Comments F/U: TF to start/TF tolerance
--- NOTE | 2019-01-25 19:00 | XRay Report ---
PROCEDURE: XR ABDOMEN 1V AP TECHNIQUE: Frontal view of the mid and lower chest and upper abdomen HISTORY: Dobhoff placement COMPARISONS: X-ray abdomen dated January 23, 2019 FINDINGS: There has been interval placement of a Dobbhoff feeding tube with the tip projected in the region of the duodenum. An IVC filter is again demonstrated. IMPRESSION: 1. Interval placement of Dobbhoff feeding tube with tip projected in the region of the duodenum. This document is electronically signed by Sandra Arellano MD., January 25 2019 06:58:20 PM ET
[2019-01-26] MEDS: KCL 40 MEQ in D5W 1,000 ML IV SCH (02:25)
[2019-01-26] MEDS: SODIUM CHLORIDE FLUSH SYRINGE 10 ML IV SCH ×3 (04:32→22:42)
[2019-01-26 05:35] LABS: Basophils % (Auto) 0.3 % (0.0-1.8); Hematocrit 30.9 % (35.5-45.6); Hemoglobin 10.2 gm/dl (11.8-15.2); Lymphocytes # (Auto) 0.7 K/mm3 (1.2-5.4); Lymphocytes % (Auto) 6.4 % (13.4-35.0); Mean Corpuscular HGB Conc 33 % (32-34); Mean Corpuscular Volume 94 fl (84-94); Monocytes # (Auto) 0.6 K/mm3 (0.0-0.8); Monocytes % (Auto) 5.8 % (0.0-7.3); Red Blood Count 3.27 M/mm3 (3.65-5.03)
[2019-01-26 05:39] LABS: Platelet Count 231 K/mm3 (140-440)
[2019-01-26] MEDS: APRESOLINE PO SCH ×3 (05:44→22:42)
[2019-01-26 06:04] LABS: BUN/Creatinine Ratio 21; Blood Urea Nitrogen 17 mg/dL (9-20); Calcium 8.8 mg/dL (8.4-10.2); Hemolysis Index 5
--- NOTE | 2019-01-26 09:50 | Progress Note ---
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 Hypertension Diabetes Hyperlipidemia Tobacco abuse Elevated troponin Dilated cardiomyopathy, duration of his cardiomyopathy is uncertain. Echocardiogram shows enlarged left ventricle with only 25-30% ejection fraction but negative bubble study. Recommendations: Continue medical therapy for dilated cardiomyopathy. Conservative management. Subjective Date of service: 01/26/19 Principal diagnosis: stroke Interval history: Patient is alert but remains intubated on the vent. Objective Vital Signs Temp Pulse Pulse Pulse Pulse Resp BP 01/26/19 09:11 65 22 138/76 01/26/19 09:00 70 20 138/76 01/26/19 08:51 65 22 131/72 01/26/19 08:41 63 23 134/70 01/26/19 08:31 69 23 134/70 01/26/19 08:21 63 20 130/72 01/26/19 08:13 66 22 130/72 01/26/19 08:11 65 24 130/72 01/26/19 08:00 97.6 F 64 70 70 24 130/72 01/26/19 07:51 64 25 H 130/69 01/26/19 07:41 68 25 H 139/78 01/26/19 07:30 68 25 H 134/74 01/26/19 07:21 61 21 139/78 01/26/19 07:11 61 21 136/77 01/26/19 07:00 68 25 H 136/77 01/26/19 06:51 60 21 128/70 01/26/19 06:41 62 22 129/71 01/26/19 06:30 62 21 129/71 01/26/19 06:21 63 20 131/69 01/26/19 06:11 65 22 132/67 01/26/19 06:00 65 22 135/70 01/26/19 05:51 67 24 132/67 01/26/19 05:41 68 23 137/73 01/26/19 05:30 74 21 137/73 01/26/19 05:21 68 25 H 138/72 01/26/19 05:11 72 25 H 136/69 01/26/19 05:01 75 21 136/69 01/26/19 04:51 74 27 H 132/68 01/26/19 04:41 75 28 H 131/65 01/26/19 04:30 74 27 H 131/65 01/26/19 04:21 71 28 H 131/73 01/26/19 04:14 72 134/69 01/26/19 04:11 73 28 H 134/69 01/26/19 04:00 98.8 F 70 70 70 27 H 134/69 01/26/19 03:51 75 27 H 125/64 01/26/19 03:41 75 28 H 124/74 01/26/19 03:30 78 21 124/74 01/26/19 03:21 77 26 H 128/64 01/26/19 03:11 79 25 H 139/70 01/26/19 03:00 75 24 139/70 01/26/19 02:51 74 24 135/67 01/26/19 02:41 75 24 137/69 01/26/19 02:30 75 27 H 137/69 01/26/19 02:21 73 21 138/67 01/26/19 02:11 80 20 136/71 01/26/19 02:00 83 26 H 129/68 01/26/19 01:51 87 30 H 136/71 01/26/19 01:41 83 29 H 135/67 01/26/19 01:30 85 30 H 135/67 01/26/19 01:21 86 30 H 136/71 01/26/19 01:11 86 30 H 132/71 01/26/19 01:00 88 32 H 135/72 01/26/19 00:50 86 28 H 132/71 01/26/19 00:41 88 29 H 144/63 01/26/19 00:30 87 30 H 135/70 01/26/19 00:21 88 29 H 137/67 01/26/19 00:11 87 31 H 132/70 01/26/19 00:00 99.0 F 81 64 64 64 28 H 134/68 01/25/19 23:51 77 29 H 144/63 01/25/19 23:45 91 H 135/72 01/25/19 23:41 81 25 H 135/72 01/25/19 23:30 89 31 H 135/72 01/25/19 23:21 85 32 H 132/70 01/25/19 23:11 82 25 H 131/63 01/25/19 23:01 76 30 H 131/63 01/25/19 22:51 70 27 H 131/67 01/25/19 22:41 67 24 151/78 01/25/19 22:30 69 26 H 151/78 01/25/19 22:21 72 28 H 154/71 01/25/19 22:11 73 29 H 148/70 01/25/19 22:00 75 31 H 148/70 01/25/19 21:59 75 28 H 147/69 01/25/19 21:51 77 22 147/69 01/25/19 21:41 71 28 H 154/71 01/25/19 21:30 76 31 H 154/71 01/25/19 21:21 72 28 H 148/70 01/25/19 21:11 70 27 H 147/73 01/25/19 21:00 68 24 147/73 01/25/19 20:51 67 24 144/70 01/25/19 20:41 68 26 H 149/81 01/25/19 20:30 69 19 149/81 01/25/19 20:21 70 18 152/83 01/25/19 20:11 66 32 H 155/84 01/25/19 20:02 68 26 H 155/84 01/25/19 20:00 99.3 F 67 27 H 155/84 01/25/19 19:51 68 27 H 152/85 01/25/19 19:42 65 65 22 01/25/19 19:41 67 20 154/83 01/25/19 19:30 68 28 H 154/83 01/25/19 19:21 64 27 H 153/80 01/25/19 19:11 65 28 H 152/87 01/25/19 19:00 73 37 H 152/87 01/25/19 18:50 66 24 156/85 01/25/19 18:41 67 23 164/86 01/25/19 18:30 66 25 H 164/86 01/25/19 18:21 64 23 156/85 01/25/19 18:11 71 32 H 168/82 01/25/19 18:00 66 24 168/82 01/25/19 17:51 66 24 160/86 01/25/19 17:41 68 28 H 160/86 01/25/19 17:30 66 22 160/86 01/25/19 17:21 65 23 160/84 01/25/19 17:11 70 22 158/84 01/25/19 17:00 65 20 158/84 01/25/19 16:51 65 22 158/83 01/25/19 16:41 69 19 154/82 01/25/19 16:30 67 20 154/82 01/25/19 16:21 67 22 157/84 01/25/19 16:11 72 20 143/85 01/25/19 16:00 99.2 F 71 71 71 25 H 143/85 01/25/19 15:50 72 28 H 152/84 01/25/19 15:41 72 25 H 152/84 01/25/19 15:31 70 27 H 152/84 01/25/19 15:25 98.4 F 64 22 152/79 01/25/19 15:21 68 25 H 156/87 01/25/19 15:11 72 33 H 169/91 01/25/19 15:01 69 28 H 169/91 01/25/19 15:00 67 28 H 169/91 01/25/19 14:55 64 22 152/88 01/25/19 14:51 65 26 H 156/87 01/25/19 14:50 66 24 156/87 01/25/19 14:45 65 26 H 153/84 01/25/19 14:41 62 26 H 153/84 01/25/19 14:40 98.4 F 64 22 152/79 01/25/19 14:31 67 20 167/90 01/25/19 14:20 76 16 171/99 01/25/19 14:11 80 17 161/99 01/25/19 14:01 64 20 153/87 01/25/19 13:51 64 20 152/79 01/25/19 13:41 63 21 152/79 01/25/19 13:30 62 17 152/79 01/25/19 13:21 66 23 145/82 01/25/19 13:11 69 20 145/82 01/25/19 13:00 67 21 145/82 01/25/19 12:51 69 24 150/79 01/25/19 12:41 65 24 150/79 01/25/19 12:30 64 16 150/79 01/25/19 12:21 65 13 131/65 03/27/19 12:11 63 21 149/78 01/25/19 12:01 67 23 149/78 01/25/19 12:00 98.9 F 63 63 21 01/25/19 11:51 65 21 131/65 01/25/19 11:41 70 16 131/65 01/25/19 11:30 67 17 131/65 01/25/19 11:21 66 18 137/65 01/25/19 11:11 66 24 137/65 01/25/19 11:00 68 19 137/65 01/25/19 10:51 73 24 146/85 01/25/19 10:41 68 15 146/85 01/25/19 10:31 75 16 141/69 01/25/19 10:21 74 18 146/85 01/25/19 10:11 70 24 146/85 01/25/19 10:00 64 21 146/85 01/25/19 09:51 63 14 143/75 Pulse Ox 01/26/19 09:11 100 01/26/19 09:00 100 01/26/19 08:51 100 01/26/19 08:41 100 01/26/19 08:31 100 01/26/19 08:21 100 01/26/19 08:13 100 01/26/19 08:11 100 01/26/19 08:00 100 01/26/19 07:51 100 01/26/19 07:41 100 01/26/19 07:30 100 01/26/19 07:21 100 01/26/19 07:11 100 01/26/19 07:00 100 01/26/19 06:51 100 01/26/19 06:41 100 01/26/19 06:30 100 01/26/19 06:21 100 01/26/19 06:11 100 01/26/19 06:00 100 01/26/19 05:51 100 01/26/19 05:41 100 01/26/19 05:30 100 01/26/19 05:21 100 01/26/19 05:11 100 01/26/19 05:01 100 01/26/19 04:51 100 01/26/19 04:41 100 01/26/19 04:30 100 01/26/19 04:21 100 01/26/19 04:14 100 01/26/19 04:11 100 01/26/19 04:00 100 01/26/19 03:51 100 01/26/19 03:41 100 01/26/19 03:30 100 01/26/19 03:21 100 01/26/19 03:11 100 01/26/19 03:00 100 01/26/19 02:51 100 01/26/19 02:41 100 01/26/19 02:30 100 01/26/19 02:21 100 01/26/19 02:11 100 01/26/19 02:00 100 01/26/19 01:51 100 01/26/19 01:41 100 01/26/19 01:30 100 01/26/19 01:21 100 01/26/19 01:11 100 01/26/19 01:00 100 01/26/19 00:50 100 01/26/19 00:41 100 01/26/19 00:30 100 01/26/19 00:21 100 01/26/19 00:11 100 01/26/19 00:00 100 01/25/19 23:51 100 01/25/19 23:45 100 01/25/19 23:41 100 01/25/19 23:30 100 01/25/19 23:21 100 01/25/19 23:11 100 01/25/19 23:01 100 01/25/19 22:51 100 01/25/19 22:41 100 01/25/19 22:30 100 01/25/19 22:21 100 01/25/19 22:11 100 01/25/19 22:00 100 01/25/19 21:59 100 01/25/19 21:51 100 01/25/19 21:41 100 01/25/19 21:30 100 01/25/19 21:21 100 01/25/19 21:11 100 01/25/19 21:00 100 01/25/19 20:51 100 01/25/19 20:41 100 01/25/19 20:30 100 01/25/19 20:21 100 01/25/19 20:11 100 01/25/19 20:02 100 01/25/19 20:00 100 01/25/19 19:51 100 01/25/19 19:42 100 01/25/19 19:41 100 01/25/19 19:30 100 01/25/19 19:21 100 01/25/19 19:11 100 01/25/19 19:00 100 01/25/19 18:50 100 01/25/19 18:41 100 01/25/19 18:30 100 01/25/19 18:21 100 01/25/19 18:11 100 01/25/19 18:00 100 01/25/19 17:51 100 01/25/19 17:41 100 01/25/19 17:30 100 01/25/19 17:21 100 01/25/19 17:11 100 01/25/19 17:00 100 01/25/19 16:51 100 01/25/19 16:41 100 01/25/19 16:30 100 01/25/19 16:21 100 01/25/19 16:11 100 01/25/19 16:00 100 01/25/19 15:50 100 01/25/19 15:41 100 01/25/19 15:31 100 01/25/19 15:25 100 01/25/19 15:21 100 01/25/19 15:11 100 01/25/19 15:01 100 01/25/19 15:00 100 01/25/19 14:55 100 01/25/19 14:51 100 01/25/19 14:50 100 01/25/19 14:45 100 01/25/19 14:41 100 01/25/19 14:40 100 01/25/19 14:31 100 01/25/19 14:20 100 01/25/19 14:11 100 01/25/19 14:01 100 01/25/19 13:51 100 01/25/19 13:41 100 01/25/19 13:30 100 01/25/19 13:21 100 01/25/19 13:11 100 01/25/19 13:00 100 01/25/19 12:51 100 01/25/19 12:41 100 01/25/19 12:30 100 01/25/19 12:21 100 01/25/19 12:11 100 01/25/19 12:01 100 01/25/19 12:00 100 01/25/19 11:51 100 01/25/19 11:41 98 01/25/19 11:30 100 01/25/19 11:21 100 01/25/19 11:11 100 01/25/19 11:00 99 01/25/19 10:51 99 01/25/19 10:41 99 01/25/19 10:31 100 01/25/19 10:21 100 01/25/19 10:11 100 01/25/19 10:00 100 01/25/19 09:51 100 - Physical Examination General: Other (intubated on the vent) HEENT: Positive: PERRL Cardiac: Positive: Reg Rate and Rhythm Neuro: Positive: Other (right hemiplegia) - Labs and Meds CBC 01/26/19 Range/Units 04:40 WBC 10.9 (4.5-11.0) K/mm3 RBC 3.27 L (3.65-5.03) M/mm3 Hgb 10.2 L (11.8-15.2) gm/dl Hct 30.9 L (35.5-45.6) % Plt Count 231 (140-440) K/mm3 Lymph # 0.7 L (1.2-5.4) K/mm3 Crowley # 0.6 (0.0-0.8) K/mm3 Eos # 0.0 (0.0-0.4) K/mm3 Baso # 0.0 (0.0-0.1) K/mm3 Comprehensive Metabolic Panel 01/26/19 Range/Units 04:40 Sodium 141 (137-145) mmol/L Potassium 4.6 D (3.6-5.0) mmol/L Chloride 107.4 H (98-107) mmol/L Carbon Dioxide 21 L (22-30) mmol/L BUN 17 (9-20) mg/dL Creatinine 0.8 (0.8-1.5) mg/dL Glucose 251 H (75-100) mg/dL Calcium 8.8 (8.4-10.2) mg/dL
[2019-01-26] MEDS: PEPCID IV SCH ×2 (10:12→22:43)
[2019-01-26] MEDS: ASPIRIN PR SCH (10:12)
--- NOTE | 2019-01-26 11:47 | Gastroenterology Progress Note ---
Assessment and Plan 1.NG/OG tube placement (obstruction?) -s/p EGD yesterday with dobhoff placement in to the stomach (also noted blood in oropharynx from prior NG tube attempts, and possible zenckers in hypopharynx) -currently tolerating TFs w/o evidence of abd pain or N/V -continue supportive care -recommend barium swallow to assess for zenckers when clinically improved -no further GI recommendations at this time -will sign off, please call back if PEG needed in the future based on progress 2.acute respiratory failure-on vent 3.s/p embolic left MCA CVA with right hemiplegia 4.dilated cardiomyopathy (EF 25-30%) 5.HTN 6.bilateral lower extremity DVT- s/p IVC filter placement Subjective Date of service: 01/26/19 Principal diagnosis: NG tube placement Interval history: Patient remains in ICU on vent. Tolerating TFs via Dobhoff per nursing. No evidence of abd pain or N/V. Objective - Constitutional Vitals: Temp Pulse Resp BP Pulse Ox 97.6 F 59 L 20 139/68 100 01/26/19 08:00 01/26/19 11:00 01/26/19 11:00 01/26/19 11:00 01/26/19 11:00 General appearance: no acute distress, other (in ICU on vent) - EENT ENT: other (+dobhoff) - Respiratory Respiratory: bilateral: CTA - Cardiovascular Rhythm: regular - Gastrointestinal General gastrointestinal: Present: soft, non-distended, normal bowel sounds - Neurologic Neurological: other (alert) - Labs CBC & Chem 7: 01/26/19 04:40 01/26/19 04:40 Labs: Laboratory Results - last 24 hr 01/25/19 01/25/19 01/25/19 11:53 18:12 23:44 WBC RBC Hgb Hct MCV MCH MCHC RDW Plt Count Lymph % (Auto) Wilkinson % (Auto) Eos % (Auto) Baso % (Auto) Lymph # Wilkinson # Eos # Baso # Seg Neutrophils % Seg Neutrophils # POC ABG pH POC ABG pCO2 POC ABG pO2 POC ABG HCO3 POC ABG Total CO2 POC ABG O2 Sat POC ABG Base Excess FiO2 Sodium Potassium Chloride Carbon Dioxide Anion Gap BUN Creatinine Estimated GFR BUN/Creatinine Ratio Glucose POC Glucose 162 H 211 H 210 H Calcium 0301/26/19 01/26/19 04:13 04:40 04:40 WBC 10.9 RBC 3.27 L Hgb 10.2 L Hct 30.9 L MCV 94 MCH 31 MCHC 33 RDW 15.0 Plt Count 231 Lymph % (Auto) 6.4 L Wilkinson % (Auto) 5.8 Eos % (Auto) 0.0 Baso % (Auto) 0.3 Lymph # 0.7 L Wilkinson # 0.6 Eos # 0.0 Baso # 0.0 Seg Neutrophils % 87.5 H Seg Neutrophils # 9.5 H POC ABG pH 7.434 POC ABG pCO2 33.6 L POC ABG pO2 96 POC ABG HCO3 22.5 POC ABG Total CO2 23 POC ABG O2 Sat 98 POC ABG Base Excess -2 FiO2 25 Sodium 141 Potassium 4.6 D Chloride 107.4 H Carbon Dioxide 21 L Anion Gap 17 BUN 17 Creatinine 0.8 Estimated GFR > 60 BUN/Creatinine Ratio 21 Glucose 251 H POC Glucose Calcium 8.8 01/26/19 05:27 WBC RBC Hgb Hct MCV MCH MCHC RDW Plt Count Lymph % (Auto) Wilkinson % (Auto) Eos % (Auto) Baso % (Auto) Lymph # Wilkinson # Eos # Baso # Seg Neutrophils % Seg Neutrophils # POC ABG pH POC ABG pCO2 POC ABG pO2 POC ABG HCO3 POC ABG Total CO2 POC ABG O2 Sat POC ABG Base Excess FiO2 Sodium Potassium Chloride Carbon Dioxide Anion Gap BUN Creatinine Estimated GFR BUN/Creatinine Ratio Glucose POC Glucose 230 H Calcium
--- NOTE | 2019-01-26 13:30 | Progress Note ---
Assessment and Plan 63 y/o male with acute respiratory failure secondary to inability to protect airway secondary to stroke. 1. Extubate 2. NT suctioning q2hrs PRN 3. Do not remove NG 4. Speech consult 5. Transfer back to [facility] CCT 31 minutes. Subjective Date of service: 01/26/19 Principal diagnosis: NG tube placement Interval history: Appreciate GI help yesterday and thank them for scoping and placing NG tube. STable pulm status. Will extubate today. Objective Vital Signs - 12hr 01/26/19 01/26/19 01/26/19 01:30 01:41 01:51 Temperature Pulse Rate 85 83 87 Pulse Rate [ From Monitor] Pulse Rate [ Right Dorsalis Pedis] Respiratory 30 H 29 H 30 H Rate Blood Pressure 135/67 135/67 136/71 O2 Sat by Pulse 100 100 100 Oximetry 01/26/19 01/26/19 01/26/19 02:00 02:11 02:21 Temperature Pulse Rate 83 80 73 Pulse Rate [ From Monitor] Pulse Rate [ Right Dorsalis Pedis] Respiratory 26 H 20 21 Rate Blood Pressure 129/68 136/71 138/67 O2 Sat by Pulse 100 100 100 Oximetry 01/26/19 01/26/19 01/26/19 02:30 02:41 02:51 Temperature Pulse Rate 75 75 74 Pulse Rate [ From Monitor] Pulse Rate [ Right Dorsalis Pedis] Respiratory 27 H 24 24 Rate Blood Pressure 137/69 137/69 135/67 O2 Sat by Pulse 100 100 100 Oximetry 01/26/19 01/26/19 01/26/19 03:00 03:11 03:21 Temperature Pulse Rate 75 79 77 Pulse Rate [ From Monitor] Pulse Rate [ Right Dorsalis Pedis] Respiratory 24 25 H 26 H Rate Blood Pressure 139/70 139/70 128/64 O2 Sat by Pulse 100 100 100 Oximetry 01/26/19 01/26/19 01/26/19 03:30 03:41 03:51 Temperature Pulse Rate 78 75 75 Pulse Rate [ From Monitor] Pulse Rate [ Right Dorsalis Pedis] Respiratory 21 28 H 27 H Rate Blood Pressure 124/74 124/74 125/64 O2 Sat by Pulse 100 100 100 Oximetry 01/26/19 01/26/19 01/26/19 04:00 04:11 04:14 Temperature 98.8 F Pulse Rate 70 73 72 Pulse Rate [ 70 From Monitor] Pulse Rate [ 70 Right Dorsalis Pedis] Respiratory 27 H 28 H Rate Blood Pressure 134/69 134/69 134/69 O2 Sat by Pulse 100 100 100 Oximetry 01/26/19 01/26/19 01/26/19 04:21 04:30 04:41 Temperature Pulse Rate 71 74 75 Pulse Rate [ From Monitor] Pulse Rate [ Right Dorsalis Pedis] Respiratory 28 H 27 H 28 H Rate Blood Pressure 131/73 131/65 131/65 O2 Sat by Pulse 100 100 100 Oximetry 01/26/19 01/26/19 01/26/19 04:51 05:01 05:11 Temperature Pulse Rate 74 75 72 Pulse Rate [ From Monitor] Pulse Rate [ Right Dorsalis Pedis] Respiratory 27 H 21 25 H Rate Blood Pressure 132/68 136/69 136/69 O2 Sat by Pulse 100 100 100 Oximetry 01/26/19 01/26/19 01/26/19 05:21 05:30 05:41 Temperature Pulse Rate 68 74 68 Pulse Rate [ From Monitor] Pulse Rate [ Right Dorsalis Pedis] Respiratory 25 H 21 23 Rate Blood Pressure 138/72 137/73 137/73 O2 Sat by Pulse 100 100 100 Oximetry 01/26/19 01/26/19 01/26/19 05:51 06:00 06:11 Temperature Pulse Rate 67 65 65 Pulse Rate [ From Monitor] Pulse Rate [ Right Dorsalis Pedis] Respiratory 24 22 22 Rate Blood Pressure 132/67 135/70 132/67 O2 Sat by Pulse 100 100 100 Oximetry 01/26/19 01/26/19 01/26/19 06:21 06:30 06:41 Temperature Pulse Rate 63 62 62 Pulse Rate [ From Monitor] Pulse Rate [ Right Dorsalis Pedis] Respiratory 20 21 22 Rate Blood Pressure 131/69 129/71 129/71 O2 Sat by Pulse 100 100 100 Oximetry 01/26/19 01/26/19 01/26/19 06:51 07:00 07:11 Temperature Pulse Rate 60 68 61 Pulse Rate [ From Monitor] Pulse Rate [ Right Dorsalis Pedis] Respiratory 21 25 H 21 Rate Blood Pressure 128/70 136/77 136/77 O2 Sat by Pulse 100 100 100 Oximetry 01/26/19 01/26/19 01/26/19 07:21 07:30 07:41 Temperature Pulse Rate 61 68 68 Pulse Rate [ From Monitor] Pulse Rate [ Right Dorsalis Pedis] Respiratory 21 25 H 25 H Rate Blood Pressure 139/78 134/74 139/78 O2 Sat by Pulse 100 100 100 Oximetry 01/26/19 01/26/19 01/26/19 07:51 08:00 08:11 Temperature 97.6 F Pulse Rate 64 64 65 Pulse Rate [ 70 From Monitor] Pulse Rate [ 70 Right Dorsalis Pedis] Respiratory 25 H 24 24 Rate Blood Pressure 130/69 130/72 130/72 O2 Sat by Pulse 100 100 100 Oximetry 01/26/19 01/26/19 01/26/19 08:13 08:21 08:31 Temperature Pulse Rate 66 63 69 Pulse Rate [ From Monitor] Pulse Rate [ Right Dorsalis Pedis] Respiratory 22 20 23 Rate Blood Pressure 130/72 130/72 134/70 O2 Sat by Pulse 100 100 100 Oximetry 01/26/19 01/26/19 01/26/19 08:41 08:51 09:00 Temperature Pulse Rate 63 65 70 Pulse Rate [ From Monitor] Pulse Rate [ Right Dorsalis Pedis] Respiratory 23 22 20 Rate Blood Pressure 134/70 131/72 138/76 O2 Sat by Pulse 100 100 100 Oximetry 01/26/19 01/26/19 01/26/19 09:11 09:21 09:30 Temperature Pulse Rate 65 62 62 Pulse Rate [ From Monitor] Pulse Rate [ Right Dorsalis Pedis] Respiratory 22 19 21 Rate Blood Pressure 138/76 133/74 135/71 O2 Sat by Pulse 100 100 100 Oximetry 01/26/19 01/26/19 01/26/19 09:41 09:51 10:00 Temperature Pulse Rate 66 64 66 Pulse Rate [ From Monitor] Pulse Rate [ Right Dorsalis Pedis] Respiratory 18 20 20 Rate Blood Pressure 135/71 140/74 143/72 O2 Sat by Pulse 100 100 100 Oximetry 01/26/19 01/26/19 01/26/19 10:11 10:21 10:30 Temperature Pulse Rate 65 66 66 Pulse Rate [ From Monitor] Pulse Rate [ Right Dorsalis Pedis] Respiratory 19 17 24 Rate Blood Pressure 143/72 140/74 136/72 O2 Sat by Pulse 100 100 100 Oximetry 01/26/19 01/26/19 01/26/19 10:41 10:51 11:00 Temperature Pulse Rate 64 62 59 L Pulse Rate [ From Monitor] Pulse Rate [ Right Dorsalis Pedis] Respiratory 20 21 20 Rate Blood Pressure 136/72 133/69 139/68 O2 Sat by Pulse 100 100 100 Oximetry 01/26/19 01/26/19 01/26/19 11:11 11:21 11:31 Temperature Pulse Rate 74 66 63 Pulse Rate [ From Monitor] Pulse Rate [ Right Dorsalis Pedis] Respiratory 13 19 22 Rate Blood Pressure 139/68 138/69 122/56 O2 Sat by Pulse 100 100 100 Oximetry 01/26/19 01/26/19 01/26/19 11:41 11:51 12:00 Temperature 98.3 F Pulse Rate 65 61 59 L Pulse Rate [ From Monitor] Pulse Rate [ Right Dorsalis Pedis] Respiratory 20 19 21 Rate Blood Pressure 122/56 122/66 130/70 O2 Sat by Pulse 100 100 100 Oximetry 01/26/19 12:11 Temperature Pulse Rate 71 Pulse Rate [ From Monitor] Pulse Rate [ Right Dorsalis Pedis] Respiratory 22 Rate Blood Pressure 130/70 O2 Sat by Pulse 100 Oximetry Constitutional: no acute distress, alert Eyes: non-icteric ENT: other (orally intubated, not on sedation) Neck: supple Effort: normal Ascultation: Bilateral: clear Percussion: Bilateral: not dull Cardiovascular: regular rate and rhythm Gastrointestinal: normoactive bowel sounds Extremities: no edema Neurologic: other (weakness of right) CBC and BMP: 01/26/19 04:40 01/26/19 04:40 ABG, PT/INR, D-dimer: ABG POC ABG pH 7.434 (7.35-7.45) 01/26/19 04:13 POC ABG pCO2 33.6 (35-45) L 01/26/19 04:13 POC ABG pO2 96 (80-105) 01/26/19 04:13 POC ABG HCO3 22.5 (22-26 mml/L) 01/26/19 04:13 POC ABG Total CO2 23 (23-27mmol/L) 01/26/19 04:13 POC ABG O2 Sat 98 01/26/19 04:13 PT/INR, D-dimer PT 15.5 Sec. (12.2-14.9) H 01/18/19 19:14 INR 1.16 (0.87-1.13) H 01/18/19 19:14 Abnormal lab findings: Abnormal Labs 01/18/19 01/18/19 01/18/19 19:14 19:14 19:14 WBC 17.2 H RBC Hgb Hct MCV 96 H RDW 15.5 H Lymph % (Auto) 7.9 L [place] % (Auto) 7.9 H Lymph # [place] # 1.4 H Seg Neutrophils % 83.5 H Seg Neutrophils # 14.3 H PT 15.5 H INR 1.16 H POC ABG pCO2 POC ABG pO2 Sodium 153 H Potassium 3.4 L Chloride Carbon Dioxide BUN 24 H Glucose 159 H POC Glucose Calcium 10.3 H Total Creatine Kinase Troponin T 0.368 H* HDL Cholesterol 35 L 01/18/19 01/19/19 01/19/19 22:33 00:15 05:07 WBC RBC Hgb Hct MCV RDW Lymph % (Auto) [place] % (Auto) Lymph # [place] # Seg Neutrophils % Seg Neutrophils # PT INR POC ABG pCO2 POC ABG pO2 Sodium 151 H Potassium 3.2 L Chloride Carbon Dioxide BUN 25 H Glucose 130 H POC Glucose Calcium Total Creatine Kinase 491 H 419 H Troponin T 0.291 H* D 0.273 H* HDL Cholesterol 01/22/19 01/22/19 01/23/19 05:16 05:16 04:27 WBC 12.5 H 13.9 H RBC Hgb Hct MCV 96 H 95 H RDW 15.6 H 15.5 H Lymph % (Auto) 8.6 L 6.2 L [place] % (Auto) 9.1 H 9.1 H Lymph # 1.1 L 0.9 L [place] # 1.1 H 1.3 H Seg Neutrophils % 80.0 H 83.2 H Seg Neutrophils # 10.0 H 11.6 H PT INR POC ABG pCO2 POC ABG pO2 Sodium 156 H Potassium 2.8 L* Chloride 118.5 H Carbon Dioxide BUN Glucose 159 H POC Glucose Calcium Total Creatine Kinase Troponin T HDL Cholesterol 01/23/19 01/23/19 01/23/19 04:27 13:11 14:59 WBC RBC Hgb Hct MCV RDW Lymph % (Auto) [place] % (Auto) Lymph # [place] # Seg Neutrophils % Seg Neutrophils # PT INR POC ABG pCO2 POC ABG pO2 282 H 205 H Sodium 151 H Potassium 3.5 L D Chloride 113.8 H Carbon Dioxide BUN Glucose 163 H POC Glucose Calcium Total Creatine Kinase Troponin T HDL Cholesterol 01/23/19 01/24/19 01/24/19 18:36 04:17 07:41 WBC RBC Hgb Hct MCV RDW Lymph % (Auto) [place] % (Auto) Lymph # [place] # Seg Neutrophils % Seg Neutrophils # PT INR POC ABG pCO2 POC ABG pO2 148 H Sodium 149 H Potassium Chloride 113.5 H Carbon Dioxide BUN Glucose 153 H POC Glucose 141 H Calcium Total Creatine Kinase Troponin T HDL Cholesterol 01/24/19 01/25/19 01/25/19 23:40 04:07 04:07 WBC RBC 3.46 L Hgb 10.8 L Hct 32.7 L MCV 95 H RDW 15.3 H Lymph % (Auto) 9.0 L [place] % (Auto) 10.5 H Lymph # 1.0 L [place] # 1.1 H Seg Neutrophils % 77.7 H Seg Neutrophils # 8.3 H PT INR POC ABG pCO2 POC ABG pO2 Sodium 147 H Potassium Chloride 111.1 H Carbon Dioxide BUN Glucose 150 H POC Glucose 130 H Calcium Total Creatine Kinase Troponin T HDL Cholesterol 01/25/19 01/25/19 01/25/19 04:34 05:36 11:53 WBC RBC Hgb Hct MCV RDW Lymph % (Auto) [place] % (Auto) Lymph # [place] # Seg Neutrophils % Seg Neutrophils # PT INR POC ABG pCO2 34.3 L POC ABG pO2 110 H Sodium Potassium Chloride Carbon Dioxide BUN Glucose POC Glucose 147 H 162 H Calcium Total Creatine Kinase Troponin T HDL Cholesterol 01/25/19 01/25/19 01/26/19 18:12 23:44 04:13 WBC RBC Hgb Hct MCV RDW Lymph % (Auto) [place] % (Auto) Lymph # [place] # Seg Neutrophils % Seg Neutrophils # PT INR POC ABG pCO2 33.6 L POC ABG pO2 Sodium Potassium Chloride Carbon Dioxide BUN Glucose POC Glucose 211 H 210 H Calcium Total Creatine Kinase Troponin T HDL Cholesterol 01/26/19 01/26/19 01/26/19 04:40 04:40 05:27 WBC RBC 3.27 L Hgb 10.2 L Hct 30.9 L MCV RDW Lymph % (Auto) 6.4 L [place] % (Auto) Lymph # 0.7 L [place] # Seg Neutrophils % 87.5 H Seg Neutrophils # 9.5 H PT INR POC ABG pCO2 POC ABG pO2 Sodium Potassium Chloride 107.4 H Carbon Dioxide 21 L BUN Glucose 251 H POC Glucose 230 H Calcium Total Creatine Kinase Troponin T HDL Cholesterol
--- NOTE | 2019-01-26 16:57 | Progress Note ---
Assessment and Plan Assessment and plan: Acute hypoxic respiratory failure. Patient emergently intubated secondary to labored respirations/airway protection. Pulmonary consultation. Aspiration Vs mucus plug. Mucus plugging. Continue suction. 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 CT scan reveals subacute left frontal lobe infarct. Neurology following. MRI head reveals subacute left MCA infarct with evidence of petechial hemorrhage. Echocardiogram shows enlarged left ventricle with only 25-30% ejection fraction but negative bubble study. CT angiogram of the neck showed ulceration in the right internal carotid artery wit h elongated artery and left ICA showed just elongated artery. CT angiogram head is negative or normal. PT/OT/ST. repeat CT head pending. Dilated cardiomyopathy with severe left ventricular global hypokinesis. EF 25- 30% as noted above. No anticoagulation given increased risk for hemorrhagic conversion with CVA. Accelerated hypertension. Increase hydralazine to 100 mg 3 times a day. Bilateral lower extremity DVT. IVC filter placement. No anticoagulation given increased risk for hemorrhagic conversion with CVA. SIRS. No evidence of obvious infection. Continue empiric antibiotics with Zosyn. Follow blood cultures. Hypernatremia. Etiology likely secondary to dehydration/volume depletion. Change D5 half normal saline IV fluids to D5 W with 40 mEq KCl. Follow-up BMP in morning. Hypokalemia. Replete potassium as noted above. Elevated troponin. Cardiology following Difficult dubhoof placement; GI placed [place] and start on feeding Disposition; transfer to [facility]. History Interval history: Patient was seen during morning rounds, patient was intubated, and was not able to talk but was alert. Hospitalist Physical - Physical exam Narrative exam: Patient was intubated, and on breathing trial. The patient appeared well nourished and normally developed. Vital signs as documented. Head exam is unremarkable. No scleral icterus . Neck is without jugular venous distension, thyromegaly, or carotid bruits. Lungs are clear to auscultation. Cardiac exam reveals regular rate and Rhythm. Abdominal exam reveals normal bowel sounds. Extremities are nonedematous. [employer]: Alert. right sided weakness. - Constitutional Vitals: Temp Pulse Resp BP Pulse Ox 98.9 F 71 23 138/69 100 01/26/19 16:00 01/26/19 16:20 01/26/19 16:20 01/26/19 16:20 01/26/19 16:00 General appearance: Present: severe distress, well-nourished, other (accessory muscle use with respirations) Results - Labs CBC & Chem 7: 01/26/19 04:40 01/26/19 04:40 Labs: Laboratory Last Values WBC 10.9 K/mm3 (4.5-11.0) 01/26/19 04:40 RBC 3.27 M/mm3 (3.65-5.03) L 01/26/19 04:40 Hgb 10.2 gm/dl (11.8-15.2) L 01/26/19 04:40 Hct 30.9 % (35.5-45.6) L 01/26/19 04:40 MCV 94 fl (84-94) 01/26/19 04:40 MCH 31 pg (28-32) 01/26/19 04:40 MCHC 33 % (32-34) 01/26/19 04:40 RDW 15.0 % (13.2-15.2) 01/26/19 04:40 Plt Count 231 K/mm3 (140-440) 01/26/19 04:40 Lymph % (Auto) 6.4 % (13.4-35.0) L 01/26/19 04:40 [place] % (Auto) 5.8 % (0.0-7.3) 01/26/19 04:40 Eos % (Auto) 0.0 % (0.0-4.3) 01/26/19 04:40 Baso % (Auto) 0.3 % (0.0-1.8) 01/26/19 04:40 Lymph # 0.7 K/mm3 (1.2-5.4) L 01/26/19 04:40 [place] # 0.6 K/mm3 (0.0-0.8) 01/26/19 04:40 Eos # 0.0 K/mm3 (0.0-0.4) 01/26/19 04:40 Baso # 0.0 K/mm3 (0.0-0.1) 01/26/19 04:40 Seg Neutrophils % 87.5 % (40.0-70.0) H 01/26/19 04:40 Seg Neutrophils # 9.5 K/mm3 (1.8-7.7) H 01/26/19 04:40 PT 15.5 Sec. (12.2-14.9) H 01/18/19 19:14 INR 1.16 (0.87-1.13) H 01/18/19 19:14 APTT 31.7 Sec. (24.2-36.6) 01/18/19 19:14 Thrombin Time 16.2 Sec. (15.1-19.6) 01/18/19 19:14 POC ABG pH 7.434 (7.35-7.45) 01/26/19 04:13 POC ABG pCO2 33.6 (35-45) L 01/26/19 04:13 POC ABG pO2 96 (80-105) 01/26/19 04:13 POC ABG HCO3 22.5 (22-26 mml/L) 01/26/19 04:13 POC ABG Total CO2 23 (23-27mmol/L) 01/26/19 04:13 POC ABG O2 Sat 98 01/26/19 04:13 POC ABG Base Excess -2 ((-2) - (+3)mmol/L) 01/26/19 04:13 FiO2 25 % 01/26/19 04:13 Sodium 141 mmol/L (137-145) 01/26/19 04:40 Potassium 4.6 mmol/L (3.6-5.0) D 01/26/19 04:40 Chloride 107.4 mmol/L (98-107) H 01/26/19 04:40 Carbon Dioxide 21 mmol/L (22-30) L 01/26/19 04:40 Anion Gap 17 mmol/L 01/26/19 04:40 BUN 17 mg/dL (9-20) 01/26/19 04:40 Creatinine 0.8 mg/dL (0.8-1.5) 01/26/19 04:40 Estimated GFR > 60 ml/min 01/26/19 04:40 BUN/Creatinine Ratio 21 % 01/26/19 04:40 Glucose 251 mg/dL (75-100) H 01/26/19 04:40 POC Glucose 230 (70-105) H 01/26/19 05:27 Calcium 8.8 mg/dL (8.4-10.2) 01/26/19 04:40 Total Creatine Kinase 419 units/L (55-170) H 01/19/19 05:07 CK-MB (CK-2) 3.2 ng/mL (0.0-4.0) 01/19/19 05:07 CK-MB (CK-2) Rel Index 0.7 (0-4) 01/19/19 05:07 Troponin T 0.273 ng/mL (0.00-0.029) H* 01/19/19 05:07 Triglycerides 140 mg/dL (2-149) 01/18/19 19:14 Cholesterol 157 mg/dL (50-199) 01/18/19 19:14 LDL Cholesterol Direct 98 mg/dL (50-130) 01/18/19 19:14 HDL Cholesterol 35 mg/dL (40-59) L 01/18/19 19:14 Cholesterol/HDL Ratio 4.48 % 01/18/19 19:14 Active Medications - Current Medications Current Medications: Generic Name Dose Route Start Last Admin Trade Name Freq PRN Reason Stop Dose Admin Acetaminophen 650 mg 01/18/19 22:08 Tylenol PA Q4H PRN Pain MILD(1-3)/Fever >100.5/PEARL Albuterol 2.5 mg 01/23/19 15:41 Proventil IH Q4HRT PRN Shortness Of Breath Lipase/Protease/Amylase 1 each 01/24/19 15:00 Pancreradha [place] 10,500 Unit FEEDTUBE PRN PRN For Clogged Feeding Tube Aspirin 325 mg 01/27/19 10:00 Aspirin PO QDAY YESICA Atorvastatin Calcium 40 mg 01/24/19 22:00 01/25/19 22:00 Lipitor PO 40 mg QHS YESICA Administration Famotidine 20 mg 01/24/19 10:00 01/26/19 10:12 Pepcid IV 20 mg BID YESICA Administration Hydralazine HCl 5 mg 01/18/19 22:13 01/23/19 19:15 Apresoline IV 5 mg Q6H PRN Administration Hypertension Hydralazine HCl 100 mg 01/21/19 14:00 01/26/19 15:25 Apresoline PO 100 mg Q8HR YESICA Administration Insulin Human Lispro 0 unit 01/26/19 18:00 Humalog SUB-Q Q6HR YESICA Protocol Ondansetron HCl 4 mg 01/18/19 22:08 Zofran IV Q4H PRN Nausea And Vomiting Simple Syrup 15 ml 01/24/19 15:00 Simple Syrup FEEDTUBE PRN PRN Hypoglycemia Simple Syrup 30 ml 01/24/19 15:00 Simple Syrup FEEDTUBE PRN PRN Hypoglycemia Sodium Bicarbonate 325 mg 01/24/19 15:00 Sodium Bicarbonate FEEDTUBE PRN PRN For Clogged Feeding Tube Sodium Chloride 10 ml 01/19/19 10:00 01/26/19 10:12 Sodium Chloride Flush Syringe 10 Ml IV 10 ml BID YESICA Administration Sodium Chloride 10 ml 01/18/19 22:08 01/24/19 14:17 Sodium Chloride Flush Syringe 10 Ml IV 10 ml PRN PRN Administration LINE FLUSH Nutrition/Malnutrition Assess - Dietary Evaluation Nutrition/Malnutrition Findings: Nutrition Notes Start: 01/19/19 13:52 Freq: Status: Active Protocol: Document 01/26/19 09:21 CP (Rec: 01/26/19 09:23 CP [id number]) Co-Sign 01/26/19 09:21 LP Nutrition Notes Initial or Follow up Brief Note Current Diet Vital AF 1.2 at 65 mL/hr Subjective/Other Information TF infusing at 45 mL/hr during time of visit (09:00). Per nurse, pt is tolerating TF. Nutrition Intervention Follow-Up By: 01/30/19 Additional Comments F/U: TF tolerance
[2019-01-26] MEDS: HumaLOG SUB-Q SCH (18:00)
[2019-01-26] MEDS: TYLENOL PR PRN (22:56)
[2019-01-27] MEDS: HumaLOG SUB-Q SCH ×4 (01:11→19:58)
[2019-01-27 05:53] LABS: BUN/Creatinine Ratio 27; Blood Urea Nitrogen 19 mg/dL (9-20); Calcium 9.3 mg/dL (8.4-10.2); Hemolysis Index 9
[2019-01-27] MEDS: APRESOLINE PO SCH ×3 (06:10→22:42)
--- NOTE | 2019-01-27 09:28 | Progress Note ---
Assessment and Plan 63 y/o male with acute respiratory failure secondary to inability to protect airway secondary to stroke. 1. Speed Consult and follow up 2. continue NG tube 3. May need Peg 4. Continue suctioning until able to manage secretions better 5. Will see as needed over the weekend. Subjective Date of service: 01/27/19 Principal diagnosis: NG tube placement Interval history: Successful extubation on yesterday. Stable. NG in place and NT suctioning by RT and nursing. Objective Vital Signs - 12hr 01/26/19 01/26/19 01/26/19 21:30 21:40 21:50 Temperature Pulse Rate 64 70 71 Pulse Rate [ Right Dorsalis Pedis] Respiratory 21 21 22 Rate Blood Pressure 145/79 145/79 145/79 O2 Sat by Pulse 99 100 99 Oximetry 01/26/19 01/26/19 01/26/19 22:00 22:10 22:20 Temperature Pulse Rate 69 70 73 Pulse Rate [ Right Dorsalis Pedis] Respiratory 25 H 16 21 Rate Blood Pressure 148/80 148/80 148/80 O2 Sat by Pulse 100 100 99 Oximetry 01/26/19 01/26/19 01/26/19 22:30 22:40 22:50 Temperature Pulse Rate 72 75 73 Pulse Rate [ Right Dorsalis Pedis] Respiratory 22 24 20 Rate Blood Pressure 148/80 148/80 148/80 O2 Sat by Pulse 99 99 99 Oximetry 01/26/19 01/26/19 01/26/19 23:00 23:10 23:20 Temperature Pulse Rate 71 79 75 Pulse Rate [ Right Dorsalis Pedis] Respiratory 20 18 16 Rate Blood Pressure 141/72 141/72 141/72 O2 Sat by Pulse 99 99 100 Oximetry 01/26/19 01/26/19 01/26/19 23:30 23:40 23:50 Temperature Pulse Rate 72 88 79 Pulse Rate [ Right Dorsalis Pedis] Respiratory 18 23 16 Rate Blood Pressure 141/72 141/72 141/72 O2 Sat by Pulse 100 100 100 Oximetry 01/27/19 01/27/19 01/27/19 00:00 00:10 00:20 Temperature 97.9 F Pulse Rate 80 78 79 Pulse Rate [ 81 Right Dorsalis Pedis] Respiratory 20 20 20 Rate Blood Pressure 153/75 153/75 153/75 O2 Sat by Pulse 100 100 100 Oximetry 01/27/19 01/27/1919 00:30 00:40 00:50 Temperature Pulse Rate 82 81 82 Pulse Rate [ Right Dorsalis Pedis] Respiratory 20 17 23 Rate Blood Pressure 153/75 153/75 153/75 O2 Sat by Pulse 100 100 99 Oximetry 01/27/19 01/27/19 01/27/19 01:00 01:10 01:20 Temperature Pulse Rate 81 81 85 Pulse Rate [ Right Dorsalis Pedis] Respiratory 17 21 24 Rate Blood Pressure 151/77 151/77 151/77 O2 Sat by Pulse 99 100 100 Oximetry 01/27/19 01/27/19 01/27/19 01:30 01:40 01:50 Temperature Pulse Rate 83 77 84 Pulse Rate [ Right Dorsalis Pedis] Respiratory 19 17 22 Rate Blood Pressure 151/77 151/77 151/77 O2 Sat by Pulse 100 100 100 Oximetry 01/27/19 01/27/19 01/27/19 02:00 02:10 02:20 Temperature Pulse Rate 78 79 83 Pulse Rate [ Right Dorsalis Pedis] Respiratory 22 21 21 Rate Blood Pressure 153/72 153/72 153/72 O2 Sat by Pulse 100 100 Oximetry 01/27/19 01/27/19 01/27/19 02:30 02:40 02:50 Temperature Pulse Rate 86 82 81 Pulse Rate [ Right Dorsalis Pedis] Respiratory 25 H 17 16 Rate Blood Pressure 153/72 153/72 153/72 O2 Sat by Pulse Oximetry 01/27/19 01/27/19 01/27/19 03:00 03:10 03:20 Temperature Pulse Rate 77 82 77 Pulse Rate [ Right Dorsalis Pedis] Respiratory 21 21 21 Rate Blood Pressure 152/75 152/75 152/75 O2 Sat by Pulse Oximetry 01/27/19 01/27/19 01/27/19 03:30 03:40 03:50 Temperature Pulse Rate 81 81 79 Pulse Rate [ Right Dorsalis Pedis] Respiratory 22 25 H 25 H Rate Blood Pressure 152/75 152/75 152/75 O2 Sat by Pulse 96 Oximetry 01/27/19 01/27/19 01/27/19 04:00 04:10 04:20 Temperature 98.2 F Pulse Rate 75 80 77 Pulse Rate [ 81 Right Dorsalis Pedis] Respiratory 21 23 19 Rate Blood Pressure 157/75 157/75 157/75 O2 Sat by Pulse 99 98 100 Oximetry 01/27/19 01/27/19 01/27/19 04:30 04:40 04:50 Temperature Pulse Rate 76 74 75 Pulse Rate [ Right Dorsalis Pedis] Respiratory 15 18 19 Rate Blood Pressure 157/75 157/75 157/75 O2 Sat by Pulse 100 100 Oximetry 01/27/19 01/27/19 01/27/19 05:00 05:10 05:20 Temperature Pulse Rate 74 78 82 Pulse Rate [ Right Dorsalis Pedis] Respiratory 17 16 21 Rate Blood Pressure 147/79 147/79 147/79 O2 Sat by Pulse 100 100 100 Oximetry 01/27/19 01/27/19 01/27/19 05:30 05:40 05:50 Temperature Pulse Rate 79 70 73 Pulse Rate [ Right Dorsalis Pedis] Respiratory 24 18 21 Rate Blood Pressure 157/75 157/75 157/75 O2 Sat by Pulse 97 100 Oximetry 01/27/19 01/27/19 01/27/19 06:00 06:10 06:20 Temperature Pulse Rate 80 76 75 Pulse Rate [ Right Dorsalis Pedis] Respiratory 19 19 20 Rate Blood Pressure 153/76 153/76 153/76 O2 Sat by Pulse 100 100 100 Oximetry 01/27/19 01/27/19 01/27/19 06:30 06:40 06:50 Temperature Pulse Rate 71 81 80 Pulse Rate [ Right Dorsalis Pedis] Respiratory 17 23 19 Rate Blood Pressure 153/76 153/76 153/76 O2 Sat by Pulse 99 98 99 Oximetry 01/27/19 01/27/19 01/27/19 07:00 07:10 07:20 Temperature Pulse Rate 81 77 89 Pulse Rate [ Right Dorsalis Pedis] Respiratory 23 16 17 Rate Blood Pressure 130/67 130/67 130/67 O2 Sat by Pulse 97 99 99 Oximetry 01/27/19 01/27/19 07:30 07:40 Temperature Pulse Rate 84 82 Pulse Rate [ Right Dorsalis Pedis] Respiratory 20 21 Rate Blood Pressure 130/67 130/67 O2 Sat by Pulse Oximetry Constitutional: no acute distress, alert Eyes: non-icteric Neck: supple Effort: normal Ascultation: Bilateral: clear Percussion: Bilateral: not dull Cardiovascular: regular rate and rhythm Gastrointestinal: normoactive bowel sounds Extremities: no edema Neurologic: other (weakness of right) CBC and BMP: 01/26/19 04:40 01/27/19 04:39 ABG, PT/INR, D-dimer: ABG POC ABG pH 7.434 (7.35-7.45) 01/26/19 04:13 POC ABG pCO2 33.6 (35-45) L 01/26/19 04:13 POC ABG pO2 96 (80-105) 01/26/19 04:13 POC ABG HCO3 22.5 (22-26 mml/L) 01/26/19 04:13 POC ABG Total CO2 23 (23-27mmol/L) 01/26/19 04:13 POC ABG O2 Sat 98 01/26/19 04:13 PT/INR, D-dimer PT 15.5 Sec. (12.2-14.9) H 01/18/19 19:14 INR 1.16 (0.87-1.13) H 01/18/19 19:14 Abnormal lab findings: Abnormal Labs 01/18/19 01/18/19 01/18/19 19:14 19:14 19:14 WBC 17.2 H RBC Hgb Hct MCV 96 H RDW 15.5 H Lymph % (Auto) 7.9 L [place] % (Auto) 7.9 H Lymph # [place] # 1.4 H Seg Neutrophils % 83.5 H Seg Neutrophils # 14.3 H PT 15.5 H INR 1.16 H POC ABG pCO2 POC ABG pO2 Sodium 153 H Potassium 3.4 L Chloride Carbon Dioxide BUN 24 H Creatinine Glucose 159 H POC Glucose Calcium 10.3 H Total Creatine Kinase Troponin T 0.368 H* HDL Cholesterol 35 L 01/18/19 01/19/19 01/19/19 22:33 00:15 05:07 WBC RBC Hgb Hct MCV RDW Lymph % (Auto) [place] % (Auto) Lymph # [place] # Seg Neutrophils % Seg Neutrophils # PT INR POC ABG pCO2 POC ABG pO2 Sodium 151 H Potassium 3.2 L Chloride Carbon Dioxide BUN 25 H Creatinine Glucose 130 H POC Glucose Calcium Total Creatine Kinase 491 H 419 H Troponin T 0.291 H* D 0.273 H* HDL Cholesterol 01/22/19 01/22/19 01/23/19 05:16 05:16 04:27 WBC 12.5 H 13.9 H RBC Hgb Hct MCV 96 H 95 H RDW 15.6 H 15.5 H Lymph % (Auto) 8.6 L 6.2 L [place] % (Auto) 9.1 H 9.1 H Lymph # 1.1 L 0.9 L [place] # 1.1 H 1.3 H Seg Neutrophils % 80.0 H 83.2 H Seg Neutrophils # 10.0 H 11.6 H PT INR POC ABG pCO2 POC ABG pO2 Sodium 156 H Potassium 2.8 L* Chloride 118.5 H Carbon Dioxide BUN Creatinine Glucose 159 H POC Glucose Calcium Total Creatine Kinase Troponin T HDL Cholesterol 01/23/19 01/23/19 01/23/19 04:27 13:11 14:59 WBC RBC Hgb Hct MCV RDW Lymph % (Auto) [place] % (Auto) Lymph # [place] # Seg Neutrophils % Seg Neutrophils # PT INR POC ABG pCO2 POC ABG pO2 282 H 205 H Sodium 151 H Potassium 3.5 L D Chloride 113.8 H Carbon Dioxide BUN Creatinine Glucose 163 H POC Glucose Calcium Total Creatine Kinase Troponin T HDL Cholesterol 01/23/19 01/24/19 01/24/19 18:36 04:17 07:41 WBC RBC Hgb Hct MCV RDW Lymph % (Auto) [place] % (Auto) Lymph # [place] # Seg Neutrophils % Seg Neutrophils # PT INR POC ABG pCO2 POC ABG pO2 148 H Sodium 149 H Potassium Chloride 113.5 H Carbon Dioxide BUN Creatinine Glucose 153 H POC Glucose 141 H Calcium Total Creatine Kinase Troponin T HDL Cholesterol 01/24/19 01/25/19 01/25/19 23:40 04:07 04:07 WBC RBC 3.46 L Hgb 10.8 L Hct 32.7 L MCV 95 H RDW 15.3 H Lymph % (Auto) 9.0 L [place] % (Auto) 10.5 H Lymph # 1.0 L [place] # 1.1 H Seg Neutrophils % 77.7 H Seg Neutrophils # 8.3 H PT INR POC ABG pCO2 POC ABG pO2 Sodium 147 H Potassium Chloride 111.1 H Carbon Dioxide BUN Creatinine Glucose 150 H POC Glucose 130 H Calcium Total Creatine Kinase Troponin T HDL Cholesterol 01/25/19 01/25/19 01/25/19 04:34 05:36 11:53 WBC RBC Hgb Hct MCV RDW Lymph % (Auto) [place] % (Auto) Lymph # [place] # Seg Neutrophils % Seg Neutrophils # PT INR POC ABG pCO2 34.3 L POC ABG pO2 110 H Sodium Potassium Chloride Carbon Dioxide BUN Creatinine Glucose POC Glucose 147 H 162 H Calcium Total Creatine Kinase Troponin T HDL Cholesterol 01/25/19 01/25/19 01/26/19 18:12 23:44 04:13 WBC RBC Hgb Hct MCV RDW Lymph % (Auto) [place] % (Auto) Lymph # [place] # Seg Neutrophils % Seg Neutrophils # PT INR POC ABG pCO2 33.6 L POC ABG pO2 Sodium Potassium Chloride Carbon Dioxide BUN Creatinine Glucose POC Glucose 211 H 210 H Calcium Total Creatine Kinase Troponin T HDL Cholesterol 01/26/19 01/26/19 01/26/19 04:40 04:40 05:27 WBC RBC 3.27 L Hgb 10.2 L Hct 30.9 L MCV RDW Lymph % (Auto) 6.4 L [place] % (Auto) Lymph # 0.7 L [place] # Seg Neutrophils % 87.5 H Seg Neutrophils # 9.5 H PT INR POC ABG pCO2 POC ABG pO2 Sodium Potassium Chloride 107.4 H Carbon Dioxide 21 L BUN Creatinine Glucose 251 H POC Glucose 230 H Calcium Total Creatine Kinase Troponin T HDL Cholesterol 01/26/19 01/26/19 01/27/19 11:50 20:38 01:05 WBC RBC Hgb Hct MCV RDW Lymph % (Auto) [place] % (Auto) Lymph # [place] # Seg Neutrophils % Seg Neutrophils # PT INR POC ABG pCO2 POC ABG pO2 Sodium Potassium Chloride Carbon Dioxide BUN Creatinine Glucose POC Glucose 219 H 166 H 161 H Calcium Total Creatine Kinase Troponin T HDL Cholesterol 01/27/19 01/27/19 04:39 05:57 WBC RBC Hgb Hct MCV RDW Lymph % (Auto) [place] % (Auto) Lymph # [place] # Seg Neutrophils % Seg Neutrophils # PT INR POC ABG pCO2 POC ABG pO2 Sodium Potassium Chloride 108.0 H Carbon Dioxide 20 L BUN Creatinine 0.7 L Glucose 165 H POC Glucose 160 H Calcium Total Creatine Kinase Troponin T HDL Cholesterol
[2019-01-27] MEDS: PEPCID IV SCH ×2 (10:00→22:43)
[2019-01-27] MEDS: ASPIRIN PO SCH (10:00)
[2019-01-27] MEDS: SODIUM CHLORIDE FLUSH SYRINGE 10 ML IV SCH ×2 (10:01→22:43)
--- NOTE | 2019-01-27 10:33 | Progress Note ---
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 Event occured on January 18 Hypertension Diabetes Hyperlipidemia Tobacco abuse Elevated troponin Dilated cardiomyopathy, duration of his cardiomyopathy is uncertain. Echocardiogram shows enlarged left ventricle with only 25-30% ejection fraction but negative bubble study. Recommendations: Continue medical therapy for dilated cardiomyopathy. May need PEG tube due to failure to protect airways Conservative management. Subjective Date of service: 01/27/19 Principal diagnosis: NG tube placement Interval history: No cardiac events overnight Objective Vital Signs Temp Pulse Pulse Resp BP Pulse Ox 01/27/19 07:40 82 21 130/67 01/27/19 07:30 84 20 130/67 01/27/19 07:20 89 17 130/67 99 01/27/19 07:10 77 16 130/67 99 01/27/19 07:00 81 23 130/67 97 01/27/19 06:50 80 19 153/76 99 01/27/19 06:40 81 23 153/76 98 01/27/19 06:30 71 17 153/76 99 01/27/19 06:20 75 20 153/76 100 01/27/19 06:10 76 19 153/76 100 01/27/19 06:00 80 19 153/76 100 01/27/19 05:50 73 21 157/75 100 01/27/19 05:40 70 18 157/75 97 01/27/19 05:30 79 24 157/75 01/27/19 05:20 82 21 147/79 100 01/27/19 05:10 78 16 147/79 100 01/27/19 05:00 74 17 147/79 100 01/27/19 04:50 75 19 157/75 100 01/27/19 04:40 74 18 157/75 01/27/19 04:30 76 15 157/75 100 01/27/19 04:20 77 19 157/75 100 01/27/19 04:10 80 23 157/75 98 01/27/19 04:00 98.2 F 75 81 21 157/75 99 01/27/19 03:50 79 25 H 152/75 01/27/19 03:40 81 25 H 152/75 01/27/19 03:30 81 22 152/75 96 01/27/19 03:20 77 21 152/75 01/27/19 03:10 82 21 152/75 01/27/19 03:00 77 21 152/75 01/27/19 02:50 81 16 153/72 01/27/19 02:40 82 17 153/72 01/27/19 02:30 86 25 H 153/72 01/27/19 02:20 83 21 153/72 01/27/19 02:10 79 21 153/72 100 01/27/19 02:00 78 22 153/72 100 01/27/19 01:50 84 22 151/77 100 01/27/19 01:40 77 17 151/77 100 01/27/19 01:30 83 19 151/77 100 01/27/19 01:20 85 24 151/77 100 01/27/19 01:10 81 21 151/77 100 01/27/19 01:00 81 17 151/77 99 01/27/19 00:50 82 23 153/75 99 01/27/19 00:40 81 17 153/75 100 01/27/19 00:30 82 20 153/75 100 01/27/19 00:20 79 20 153/75 100 01/27/19 00:10 78 20 153/75 100 01/27/19 00:00 97.9 F 80 81 20 153/75 100 01/26/19 23:50 79 16 141/72 100 01/26/19 23:40 88 23 141/72 100 01/26/19 23:30 72 18 141/72 100 01/26/19 23:20 75 16 141/72 100 01/26/19 23:10 79 18 141/72 99 01/26/19 23:00 71 20 141/72 99 01/26/19 22:50 73 20 148/80 99 01/26/19 22:40 75 24 148/80 99 01/26/19 22:30 72 22 148/80 99 01/26/19 22:20 73 21 148/80 99 01/26/19 22:10 70 16 148/80 100 01/26/19 22:00 69 25 H 148/80 100 01/26/19 21:50 71 22 145/79 99 01/26/19 21:40 70 21 145/79 100 01/26/19 21:30 64 21 145/79 99 01/26/19 21:20 70 21 145/79 100 01/26/19 21:10 64 18 145/79 99 01/26/19 21:00 71 22 145/79 99 01/26/19 20:50 68 20 140/75 99 01/26/19 20:42 75 26 H 140/75 98 01/26/19 20:40 69 20 148/77 99 01/26/19 20:30 67 17 148/77 100 01/26/19 20:20 64 21 148/77 100 01/26/19 20:10 66 17 148/77 100 01/26/19 20:00 97.8 F 71 67 18 140/75 100 01/26/19 19:50 63 20 140/75 100 01/26/19 19:44 62 21 140/75 100 01/26/19 19:40 66 24 140/75 100 01/26/19 19:30 69 16 140/75 100 01/26/19 19:20 58 L 14 140/75 100 01/26/19 19:10 56 L 22 140/75 100 01/26/19 19:00 63 24 142/73 98 01/26/19 18:50 62 20 142/73 100 01/26/19 18:40 66 21 142/73 99 01/26/19 18:30 66 22 142/73 99 01/26/19 18:20 73 19 142/73 99 01/26/19 18:10 72 21 142/73 100 01/26/19 18:00 71 17 135/78 100 01/26/19 17:50 72 14 135/78 100 01/26/19 17:40 80 22 135/78 100 01/26/19 17:30 67 21 135/78 100 01/26/19 17:20 77 19 135/78 100 01/26/19 17:10 67 18 135/78 100 01/26/19 17:00 68 24 143/74 100 01/26/19 16:50 68 15 143/74 100 01/26/19 16:42 71 22 100 01/26/19 16:20 71 23 138/69 01/26/19 16:10 65 24 138/69 01/26/19 16:00 98.9 F 64 21 138/69 100 01/26/19 15:50 62 28 H 138/69 100 01/26/19 15:40 64 17 143/69 100 01/26/19 15:30 60 24 143/69 100 01/26/19 15:20 61 24 138/83 100 01/26/19 15:10 64 23 143/80 100 01/26/19 15:00 63 22 134/69 100 01/26/19 14:51 68 23 134/69 100 01/26/19 14:41 66 20 131/74 100 01/26/19 14:31 69 26 H 131/74 100 01/26/19 14:21 70 22 140/68 100 01/26/19 14:11 73 25 H 140/65 100 01/26/19 14:00 72 22 140/65 100 01/26/19 13:51 70 24 132/66 100 01/26/19 13:41 74 27 H 131/67 100 01/26/19 13:31 99 01/26/19 13:30 71 24 131/67 100 01/26/19 13:21 70 26 H 127/66 01/26/19 13:11 70 22 127/66 100 01/26/19 13:00 71 8 L 127/66 100 01/26/19 12:51 69 26 H 128/80 01/26/19 12:41 69 27 H 128/80 01/26/19 12:30 68 8 L 128/80 01/26/19 12:21 65 27 H 122/66 100 01/26/19 12:11 71 22 130/70 100 01/26/19 12:00 98.3 F 59 L 21 130/70 100 01/26/19 11:51 61 19 122/66 100 01/26/19 11:41 65 20 122/56 100 01/26/19 11:31 63 22 122/56 100 01/26/19 11:21 66 19 138/69 100 01/26/19 11:11 74 13 139/68 100 01/26/19 11:00 59 L 20 139/68 01/26/19 10:51 62 21 133/69 100 01/26/19 10:41 64 20 136/72 100 - Physical Examination General: Other (intubated on the vent) HEENT: Positive: PERRL Neck: Positive: trachea midline Cardiac: Positive: Reg Rate and Rhythm Lungs: Positive: Normal Exam Neuro: Positive: Other (right hemiplegia) Abdomen: Positive: Unremarkable, Active Bowel Sounds Extremities: Absent: edema - Labs and Meds Comprehensive Metabolic Panel 01/27/19 Range/Units 04:39 Sodium 141 (137-145) mmol/L Potassium 3.9 (3.6-5.0) mmol/L Chloride 108.0 H (98-107) mmol/L Carbon Dioxide 20 L (22-30) mmol/L BUN 19 (9-20) mg/dL Creatinine 0.7 L (0.8-1.5) mg/dL Glucose 165 H (75-100) mg/dL Calcium 9.3 (8.4-10.2) mg/dL
--- NOTE | 2019-01-27 16:08 | Progress Note ---
Assessment and Plan Assessment and plan: Acute hypoxic respiratory failure. Patient emergently intubated secondary to labored respirations/airway protection. Pulmonary consultation. Aspiration Vs mucus plug. Mucus plugging. Continue suction. 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 CT scan reveals subacute left frontal lobe infarct. Neurology following. MRI head reveals subacute left MCA infarct with evidence of petechial hemorrhage. Echocardiogram shows enlarged left ventricle with only 25-30% ejection fraction but negative bubble study. CT angiogram of the neck showed ulceration in the right internal carotid artery wit h elongated artery and left ICA showed just elongated artery. CT angiogram head is negative or normal. PT/OT/ST. repeat CT head pending. Dilated cardiomyopathy with severe left ventricular global hypokinesis. EF 25- 30% as noted above. No anticoagulation given increased risk for hemorrhagic conversion with CVA. Accelerated hypertension. Increase hydralazine to 100 mg 3 times a day. Bilateral lower extremity DVT. IVC filter placement. No anticoagulation given increased risk for hemorrhagic conversion with CVA. SIRS. No evidence of obvious infection. Continue empiric antibiotics with Zosyn. Follow blood cultures. Hypernatremia. Etiology likely secondary to dehydration/volume depletion. Change D5 half normal saline IV fluids to D5 W with 40 mEq KCl. Follow-up BMP in morning. Hypokalemia. Replete potassium as noted above. Elevated troponin. Cardiology following Difficult dubhoof placement; GI placed Dubhoof and start on feeding Disposition; continue IMCU care. History Interval history: Patient was seen during morning rounds, patient was intubated, and was not able to talk but was alert. Hospitalist Physical - Physical exam Narrative exam: Patient was extubated on 01/26/19. On NG tube feeding The patient appeared well nourished and normally developed. Vital signs as documented. Head exam is unremarkable. No scleral icterus . Neck is without jugular venous distension, thyromegaly, or carotid bruits. Lungs are clear to auscultation. Cardiac exam reveals regular rate and Rhythm. Abdominal exam reveals normal bowel sounds. Extremities are nonedematous. SENIOR STAFF PSYCHOLOGIST: Alert. right sided weakness. - Constitutional Vitals: Temp Pulse Resp BP Pulse Ox 97.7 F 82 21 130/67 100 01/27/19 12:00 01/27/19 07:40 01/27/19 07:40 01/27/19 07:40 01/27/19 10:00 General appearance: Present: severe distress, well-nourished, other (accessory muscle use with respirations) Results - Labs CBC & Chem 7: 01/26/19 04:40 01/27/19 04:39 Labs: Laboratory Last Values WBC 10.9 K/mm3 (4.5-11.0) 01/26/19 04:40 RBC 3.27 M/mm3 (3.65-5.03) L 01/26/19 04:40 Hgb 10.2 gm/dl (11.8-15.2) L 01/26/19 04:40 Hct 30.9 % (35.5-45.6) L 01/26/19 04:40 MCV 94 fl (84-94) 01/26/19 04:40 MCH 31 pg (28-32) 01/26/19 04:40 MCHC 33 % (32-34) 01/26/19 04:40 RDW 15.0 % (13.2-15.2) 01/26/19 04:40 Plt Count 231 K/mm3 (140-440) 01/26/19 04:40 Lymph % (Auto) 6.4 % (13.4-35.0) L 01/26/19 04:40 [place] % (Auto) 5.8 % (0.0-7.3) 01/26/19 04:40 Eos % (Auto) 0.0 % (0.0-4.3) 01/26/19 04:40 Baso % (Auto) 0.3 % (0.0-1.8) 01/26/19 04:40 Lymph # 0.7 K/mm3 (1.2-5.4) L 01/26/19 04:40 [place] # 0.6 K/mm3 (0.0-0.8) 01/26/19 04:40 Eos # 0.0 K/mm3 (0.0-0.4) 01/26/19 04:40 Baso # 0.0 K/mm3 (0.0-0.1) 01/26/19 04:40 Seg Neutrophils % 87.5 % (40.0-70.0) H 01/26/19 04:40 Seg Neutrophils # 9.5 K/mm3 (1.8-7.7) H 01/26/19 04:40 PT 15.5 Sec. (12.2-14.9) H 01/18/19 19:14 INR 1.16 (0.87-1.13) H 01/18/19 19:14 APTT 31.7 Sec. (24.2-36.6) 01/18/19 19:14 Thrombin Time 16.2 Sec. (15.1-19.6) 01/18/19 19:14 POC ABG pH 7.434 (7.35-7.45) 01/26/19 04:13 POC ABG pCO2 33.6 (35-45) L 01/26/19 04:13 POC ABG pO2 96 (80-105) 01/26/19 04:13 POC ABG HCO3 22.5 (22-26 mml/L) 01/26/19 04:13 POC ABG Total CO2 23 (23-27mmol/L) 01/26/19 04:13 POC ABG O2 Sat 98 01/26/19 04:13 POC ABG Base Excess -2 ((-2) - (+3)mmol/L) 01/26/19 04:13 FiO2 25 % 01/26/19 04:13 Sodium 141 mmol/L (137-145) 01/27/19 04:39 Potassium 3.9 mmol/L (3.6-5.0) 01/27/19 04:39 Chloride 108.0 mmol/L (98-107) H 01/27/19 04:39 Carbon Dioxide 20 mmol/L (22-30) L 01/27/19 04:39 Anion Gap 17 mmol/L 01/27/19 04:39 BUN 19 mg/dL (9-20) 01/27/19 04:39 Creatinine 0.7 mg/dL (0.8-1.5) L 01/27/19 04:39 Estimated GFR > 60 ml/min 01/27/19 04:39 BUN/Creatinine Ratio 27 % 01/27/19 04:39 Glucose 165 mg/dL (75-100) H 01/27/19 04:39 POC Glucose 196 (70-105) H 01/27/19 12:46 Calcium 9.3 mg/dL (8.4-10.2) 01/27/19 04:39 Total Creatine Kinase 419 units/L (55-170) H 01/19/19 05:07 CK-MB (CK-2) 3.2 ng/mL (0.0-4.0) 01/19/19 05:07 CK-MB (CK-2) Rel Index 0.7 (0-4) 01/19/19 05:07 Troponin T 0.273 ng/mL (0.00-0.029) H* 01/19/19 05:07 Triglycerides 140 mg/dL (2-149) 01/18/19 19:14 Cholesterol 157 mg/dL (50-199) 01/18/19 19:14 LDL Cholesterol Direct 98 mg/dL (50-130) 01/18/19 19:14 HDL Cholesterol 35 mg/dL (40-59) L 01/18/19 19:14 Cholesterol/HDL Ratio 4.48 % 01/18/19 19:14 Active Medications - Current Medications Current Medications: Generic Name Dose Route Start Last Admin Trade Name Freq PRN Reason Stop Dose Admin Acetaminophen 650 mg 01/18/19 22:08 01/26/19 22:56 Tylenol [place] 650 mg Q4H PRN Administration Pain MILD(1-3)/Fever >100.5/PEARL Albuterol 2.5 mg 01/23/19 15:41 Proventil IH Q4HRT PRN Shortness Of Breath Lipase/Protease/Amylase 1 each 01/24/19 15:00 Pancreaze 10,500 Unit FEEDTUBE PRN PRN For Clogged Feeding Tube Aspirin 325 mg 01/27/19 10:00 01/27/19 10:00 Aspirin PO 325 mg QDAY YESICA Administration Atorvastatin Calcium 40 mg 01/24/19 22:00 01/26/19 22:42 Lipitor PO 40 mg QHS YESICA Administration Famotidine 20 mg 01/24/19 10:00 01/27/19 10:00 Pepcid IV 20 mg BID YESICA Administration Hydralazine HCl 5 mg 01/18/19 22:13 01/23/19 19:15 Apresoline IV 5 mg Q6H PRN Administration Hypertension Hydralazine HCl 100 mg 01/21/19 14:00 01/27/19 13:38 Apresoline PO 100 mg Q8HR YESICA Administration Insulin Human Lispro 0 unit 01/26/19 18:00 01/27/19 13:38 Humalog SUB-Q 2 unit Q6HR YESICA Administration Protocol Ondansetron HCl 4 mg 01/18/19 22:08 Zofran IV Q4H PRN Nausea And Vomiting Simple Syrup 15 ml 01/24/19 15:00 Simple Syrup FEEDTUBE PRN PRN Hypoglycemia Simple Syrup 30 ml 01/24/19 15:00 Simple Syrup FEEDTUBE PRN PRN Hypoglycemia Sodium Bicarbonate 325 mg 01/24/19 15:00 Sodium Bicarbonate FEEDTUBE PRN PRN For Clogged Feeding Tube Sodium Chloride 10 ml 01/19/19 10:00 01/27/19 10:01 Sodium Chloride Flush Syringe 10 Ml IV 10 ml BID YESICA Administration Sodium Chloride 10 ml 01/18/19 22:08 01/24/19 14:17 Sodium Chloride Flush Syringe 10 Ml IV 10 ml PRN PRN Administration LINE FLUSH Nutrition/Malnutrition Assess - Dietary Evaluation Nutrition/Malnutrition Findings: Nutrition Notes Start: 01/19/19 13:52 Freq: Status: Active Protocol: Document 01/26/19 09:21 CP (Rec: 01/26/19 09:23 CP [id number]) Co-Sign 01/26/19 09:21 LP Nutrition Notes Initial or Follow up Brief Note Current Diet Vital AF 1.2 at 65 mL/hr Subjective/Other Information TF infusing at 45 mL/hr during time of visit (09:00). Per nurse, pt is tolerating TF. Nutrition Intervention Follow-Up By: 01/30/19 Additional Comments F/U: TF tolerance
[2019-01-28] MEDS: HumaLOG SUB-Q SCH ×4 (02:18→20:39)
[2019-01-28] MEDS: APRESOLINE PO SCH ×3 (05:35→21:38)
--- NOTE | 2019-01-28 10:22 | XRay Report ---
PROCEDURE: XR CHEST 1V AP TECHNIQUE: Chest, portable HISTORY: tachypnea COMPARISON: 01/23/2019 FINDINGS: Feeding tube extends at least to the GE junction region. The heart size is normal. There is no pulmonary vascular congestion seen. Mediastinal contours are normal. Lungs are clear. There is no pleural effusion seen. There is no pneumothorax seen. IMPRESSION: No acute abnormality identified. This document is electronically signed by Jocelyn Dunne MD., January 28 2019 10:20:46 AM ET
[2019-01-28] MEDS: PEPCID IV SCH ×2 (12:01→21:37)
[2019-01-28] MEDS: SODIUM CHLORIDE FLUSH SYRINGE 10 ML IV SCH ×2 (12:02→21:38)
[2019-01-28] MEDS: ASPIRIN PO SCH (12:02)
--- NOTE | 2019-01-28 13:30 | Progress Note ---
Assessment and Plan Assessment and plan: Acute hypoxic respiratory failure. Patient emergently intubated secondary to labored respirations/airway protection. Pulmonary consultation. Aspiration Vs mucus plug. Mucus plugging. Continue suction. 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 CT scan reveals subacute left frontal lobe infarct. Neurology following. MRI head reveals subacute left MCA infarct with evidence of petechial hemorrhage. Echocardiogram shows enlarged left ventricle with only 25-30% ejection fraction but negative bubble study. CT angiogram of the neck showed ulceration in the right internal carotid artery wit h elongated artery and left ICA showed just elongated artery. CT angiogram head is negative or normal. PT/OT/ST. repeat CT head pending. Dilated cardiomyopathy with severe left ventricular global hypokinesis. EF 25- 30% as noted above. No anticoagulation given increased risk for hemorrhagic conversion with CVA. Accelerated hypertension. Increase hydralazine to 100 mg 3 times a day. Bilateral lower extremity DVT. IVC filter placement. No anticoagulation given increased risk for hemorrhagic conversion with CVA. SIRS. No evidence of obvious infection. Cultures negative so far. Ant ibiotics discontinued Hypernatremia; treated and resolved Hypokalemia. Replete potassium as noted above. Elevated troponin. Cardiology following Difficult dubhoof placement; GI placed Dubhoof and currently on tube feeding. Patient failed swallow evaluation. Disposition; continue IMCU care. History Interval history: Patient was seen during morning rounds, patient was intubated, and was not able to talk but was alert. NG tube in place. Patient failed swallow evaluation. Hospitalist Physical - Physical exam Narrative exam: Patient was extubated on 01/26/19. On NG tube feeding The patient appeared well nourished and normally developed. Vital signs as documented. Head exam is unremarkable. No scleral icterus . Neck is without jugular venous distension, thyromegaly, or carotid bruits. Lungs are clear to auscultation. Cardiac exam reveals regular rate and Rhythm. Abdominal exam reveals normal bowel sounds. Extremities are nonedematous. 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 - Constitutional Vitals: Temp Pulse Resp BP Pulse Ox 99.9 F H 101 H 29 H 159/69 97 01/28/19 12:00 01/28/19 12:20 01/28/19 12:20 01/28/19 12:20 01/28/19 12:20 General appearance: Present: severe distress, well-nourished, other (accessory muscle use with respirations) Results - Labs CBC & Chem 7: 01/26/19 04:40 01/27/19 04:39 Labs: Laboratory Last Values WBC 10.9 K/mm3 (4.5-11.0) 01/26/19 04:40 RBC 3.27 M/mm3 (3.65-5.03) L 01/26/19 04:40 Hgb 10.2 gm/dl (11.8-15.2) L 01/26/19 04:40 Hct 30.9 % (35.5-45.6) L 01/26/19 04:40 MCV 94 fl (84-94) 01/26/19 04:40 MCH 31 pg (28-32) 01/26/19 04:40 MCHC 33 % (32-34) 01/26/19 04:40 RDW 15.0 % (13.2-15.2) 01/26/19 04:40 Plt Count 231 K/mm3 (140-440) 01/26/19 04:40 Lymph % (Auto) 6.4 % (13.4-35.0) L 01/26/19 04:40 [place] % (Auto) 5.8 % (0.0-7.3) 01/26/19 04:40 Eos % (Auto) 0.0 % (0.0-4.3) 01/26/19 04:40 Baso % (Auto) 0.3 % (0.0-1.8) 01/26/19 04:40 Lymph # 0.7 K/mm3 (1.2-5.4) L 01/26/19 04:40 [place] # 0.6 K/mm3 (0.0-0.8) 01/26/19 04:40 Eos # 0.0 K/mm3 (0.0-0.4) 01/26/19 04:40 Baso # 0.0 K/mm3 (0.0-0.1) 01/26/19 04:40 Seg Neutrophils % 87.5 % (40.0-70.0) H 01/26/19 04:40 Seg Neutrophils # 9.5 K/mm3 (1.8-7.7) H 01/26/19 04:40 PT 15.5 Sec. (12.2-14.9) H 01/18/19 19:14 INR 1.16 (0.87-1.13) H 01/18/19 19:14 APTT 31.7 Sec. (24.2-36.6) 01/18/19 19:14 Thrombin Time 16.2 Sec. (15.1-19.6) 01/18/19 19:14 POC ABG pH 7.434 (7.35-7.45) 01/26/19 04:13 POC ABG pCO2 33.6 (35-45) L 01/26/19 04:13 POC ABG pO2 96 (80-105) 01/26/19 04:13 POC ABG HCO3 22.5 (22-26 mml/L) 01/26/19 04:13 POC ABG Total CO2 23 (23-27mmol/L) 01/26/19 04:13 POC ABG O2 Sat 98 01/26/19 04:13 POC ABG Base Excess -2 ((-2) - (+3)mmol/L) 01/26/19 04:13 FiO2 25 % 01/26/19 04:13 Sodium 141 mmol/L (137-145) 01/27/19 04:39 Potassium 3.9 mmol/L (3.6-5.0) 01/27/19 04:39 Chloride 108.0 mmol/L (98-107) H 01/27/19 04:39 Carbon Dioxide 20 mmol/L (22-30) L 01/27/19 04:39 Anion Gap 17 mmol/L 01/27/19 04:39 BUN 19 mg/dL (9-20) 01/27/19 04:39 Creatinine 0.7 mg/dL (0.8-1.5) L 01/27/19 04:39 Estimated GFR > 60 ml/min 01/27/19 04:39 BUN/Creatinine Ratio 27 % 01/27/19 04:39 Glucose 165 mg/dL (75-100) H 01/27/19 04:39 POC Glucose 203 (70-105) H 01/28/19 12:13 Calcium 9.3 mg/dL (8.4-10.2) 01/27/19 04:39 Total Creatine Kinase 419 units/L (55-170) H 01/19/19 05:07 CK-MB (CK-2) 3.2 ng/mL (0.0-4.0) 01/19/19 05:07 CK-MB (CK-2) Rel Index 0.7 (0-4) 01/19/19 05:07 Troponin T 0.273 ng/mL (0.00-0.029) H* 01/19/19 05:07 Triglycerides 140 mg/dL (2-149) 01/18/19 19:14 Cholesterol 157 mg/dL (50-199) 01/18/19 19:14 LDL Cholesterol Direct 98 mg/dL (50-130) 01/18/19 19:14 HDL Cholesterol 35 mg/dL (40-59) L 01/18/19 19:14 Cholesterol/HDL Ratio 4.48 % 01/18/19 19:14 Active Medications - Current Medications Current Medications: Generic Name Dose Route Start Last Admin Trade Name Freq PRN Reason Stop Dose Admin Acetaminophen 650 mg 01/18/19 22:08 01/26/19 22:56 Tylenol [place] 650 mg Q4H PRN Administration Pain MILD(1-3)/Fever >100.5/PEARL Albuterol 2.5 mg 01/23/19 15:41 Proventil IH Q4HRT PRN Shortness Of Breath Lipase/Protease/Amylase 1 each 01/24/19 15:00 Pancreazaustin Dorado 10,500 Unit FEEDTUBE PRN PRN For Clogged Feeding Tube Aspirin 325 mg 01/27/19 10:00 01/28/19 12:02 Aspirin PO 325 mg QDAY YESICA Administration Atorvastatin Calcium 40 mg 01/24/19 22:00 01/27/19 22:43 Lipitor PO 40 mg QHS YESICA Administration Famotidine 20 mg 01/24/19 10:00 01/28/19 12:01 Pepcid IV 20 mg BID YESICA Administration Hydralazine HCl 5 mg 01/18/19 22:13 01/23/19 19:15 Apresoline IV 5 mg Q6H PRN Administration Hypertension Hydralazine HCl 100 mg 01/21/19 14:00 01/28/19 05:35 Apresoline PO 100 mg Q8HR YESICA Administration Insulin Human Lispro 0 unit 01/26/19 18:00 01/28/19 06:56 Humalog SUB-Q 3 unit Q6HR YESICA Administration Protocol Ondansetron HCl 4 mg 01/18/19 22:08 Zofran IV Q4H PRN Nausea And Vomiting Simple Syrup 15 ml 01/24/19 15:00 Simple Syrup FEEDTUBE PRN PRN Hypoglycemia Simple Syrup 30 ml 01/24/19 15:00 Simple Syrup FEEDTUBE PRN PRN Hypoglycemia Sodium Bicarbonate 325 mg 01/24/19 15:00 Sodium Bicarbonate FEEDTUBE PRN PRN For Clogged Feeding Tube Sodium Chloride 10 ml 01/19/19 10:00 01/28/19 12:02 Sodium Chloride Flush Syringe 10 Ml IV 10 ml BID YESICA Administration Sodium Chloride 10 ml 01/18/19 22:08 01/24/19 14:17 Sodium Chloride Flush Syringe 10 Ml IV 10 ml PRN PRN Administration LINE FLUSH Nutrition/Malnutrition Assess - Dietary Evaluation Nutrition/Malnutrition Findings: Nutrition Notes Start: 01/19/19 13:52 Freq: Status: Active Protocol: Document 01/26/19 09:21 CP (Rec: 01/26/19 09:23 CP [id number]) Co-Sign 01/26/19 09:21 LP Nutrition Notes Initial or Follow up Brief Note Current Diet Vital AF 1.2 at 65 mL/hr Subjective/Other Information TF infusing at 45 mL/hr during time of visit (09:00). Per nurse, pt is tolerating TF. Nutrition Intervention Follow-Up By: 01/30/19 Additional Comments F/U: TF tolerance
--- NOTE | 2019-01-28 14:54 | Progress Note ---
Assessment and Plan - Patient Problems (1) CVA (cerebral vascular accident) Current Visit: Yes Status: Acute Plan to address problem: Continue supportive management, medical therapy for heart failure and cardiomyopathy. Subjective Date of service: 01/28/19 Principal diagnosis: NG tube placement Interval history: Patient appears comfortable in no acute distress. Objective Vital Signs Temp Pulse Pulse Resp BP Pulse Ox 01/28/19 12:20 101 H 29 H 159/69 97 01/28/19 12:10 109 H 32 H 159/69 97 01/28/19 12:00 99.9 F H 111 H 103 H 27 H 159/69 97 01/28/19 11:50 110 H 28 H 149/75 98 01/28/19 11:40 110 H 25 H 149/75 98 01/28/19 11:30 111 H 21 149/75 98 01/28/19 11:20 104 H 29 H 149/75 98 01/28/19 11:10 103 H 18 149/75 96 01/28/19 11:00 109 H 30 H 149/75 98 01/28/19 10:50 101 H 28 H 154/81 98 01/28/19 10:40 105 H 26 H 154/81 98 01/28/19 10:30 108 H 23 154/81 98 01/28/19 10:20 107 H 24 154/81 97 01/28/19 10:10 107 H 26 H 154/81 98 01/28/19 10:00 104 H 33 H 154/81 98 01/28/19 09:50 109 H 28 H 159/77 97 01/28/19 09:40 106 H 24 159/77 98 01/28/19 09:30 109 H 30 H 159/77 98 01/28/19 09:20 110 H 26 H 159/77 98 01/28/19 09:10 119 H 32 H 159/77 97 01/28/19 09:06 98 01/28/19 09:00 117 H 27 H 159/77 96 01/28/19 08:50 116 H 29 H 160/79 97 01/28/19 08:40 117 H 30 H 160/79 98 01/28/19 08:30 115 H 25 H 160/79 98 01/28/19 08:20 116 H 28 H 160/79 98 01/28/19 08:10 115 H 28 H 160/79 98 01/28/19 08:00 99.4 F 114 H 100 H 21 160/79 98 01/28/19 07:50 111 H 25 H 162/76 97 01/28/19 07:40 112 H 28 H 162/76 97 01/28/19 07:30 110 H 25 H 170/81 97 01/28/19 07:20 116 H 26 H 170/81 97 01/28/19 07:10 112 H 30 H 170/81 98 01/28/19 07:00 112 H 28 H 162/76 97 01/28/19 06:50 114 H 29 H 170/81 97 01/28/19 06:40 114 H 28 H 170/81 97 01/28/19 06:30 112 H 31 H 170/81 98 01/28/19 06:20 111 H 28 H 170/81 98 01/28/19 06:10 109 H 29 H 170/81 98 01/28/19 06:00 110 H 28 H 170/81 98 01/28/19 05:50 109 H 30 H 163/89 98 01/28/19 05:40 112 H 32 H 163/89 97 01/28/19 05:30 115 H 16 163/89 97 01/28/19 05:20 112 H 25 H 163/89 98 01/28/19 05:10 113 H 32 H 163/89 98 01/28/19 05:00 112 H 28 H 163/89 97 01/28/19 04:50 111 H 25 H 155/80 98 01/28/19 04:40 113 H 29 H 155/80 97 01/28/19 04:30 112 H 15 155/80 98 01/28/19 04:20 115 H 29 H 155/80 97 01/28/19 04:10 112 H 28 H 155/80 99 01/28/19 04:00 97.8 F 113 H 113 H 27 H 155/80 98 01/28/19 03:50 117 H 24 155/77 97 01/28/19 03:40 116 H 21 155/77 98 01/28/19 03:30 113 H 26 H 155/77 98 01/28/19 03:20 113 H 23 155/77 98 01/28/19 03:10 113 H 26 H 98 01/28/19 03:00 113 H 21 155/77 98 01/28/19 02:50 110 H 24 155/77 98 01/28/19 02:40 113 H 24 155/77 99 01/28/19 02:30 111 H 27 H 155/77 97 01/28/19 02:20 109 H 22 155/77 97 01/28/19 02:10 109 H 25 H 155/77 96 01/28/19 02:00 110 H 21 155/77 96 01/28/19 01:50 110 H 24 151/80 97 01/28/19 01:40 106 H 23 151/80 96 01/28/19 01:30 110 H 23 151/80 96 01/28/19 01:20 107 H 22 151/80 97 01/28/19 01:10 111 H 24 151/80 96 01/28/19 01:00 107 H 23 181/76 97 01/28/19 00:50 110 H 20 181/76 96 01/28/19 00:40 108 H 23 181/76 95 01/28/19 00:30 108 H 26 H 181/76 98 01/28/19 00:20 110 H 21 181/76 97 01/28/19 00:10 111 H 25 H 181/76 97 01/28/19 00:00 98.7 F 107 H 111 H 25 H 181/76 99 01/27/19 23:50 116 H 20 172/80 100 01/27/19 23:40 105 H 20 172/80 100 01/27/19 23:30 96 H 21 172/80 100 01/27/19 23:20 96 H 22 172/80 100 01/27/19 23:10 91 H 19 172/80 100 01/27/19 23:00 92 H 22 172/80 99 01/27/19 22:50 95 H 19 178/85 100 01/27/19 22:40 95 H 24 178/85 100 01/27/19 22:30 88 20 178/85 100 01/27/19 22:20 92 H 17 178/85 100 01/27/19 22:10 79 22 178/85 100 01/27/19 22:00 81 23 178/85 99 01/27/19 21:50 92 H 25 H 168/88 100 01/27/19 21:40 89 24 168/88 100 01/27/19 21:30 82 20 168/88 100 01/27/19 21:20 91 H 21 168/88 100 01/27/19 21:10 82 21 168/88 100 01/27/19 21:00 91 H 22 168/88 100 01/27/19 20:50 94 H 25 H 177/79 100 01/27/19 20:40 90 21 177/79 100 01/27/19 20:30 93 H 24 177/79 100 01/27/19 20:20 87 18 177/79 100 01/27/19 20:10 90 22 177/79 100 01/27/19 20:05 98.7 F 01/27/19 20:00 82 79 20 177/79 100 01/27/19 19:50 89 24 175/79 99 01/27/19 19:40 93 H 20 175/79 99 01/27/19 19:30 87 18 175/79 01/27/19 19:20 92 H 20 175/79 01/27/19 19:10 84 26 H 175/79 01/27/19 19:00 86 20 175/79 01/27/19 18:50 86 19 165/89 01/27/19 18:40 84 25 H 165/89 100 01/27/19 18:30 81 23 165/89 100 01/27/19 18:20 89 22 165/89 100 01/27/19 18:10 80 19 165/89 01/27/19 17:00 88 20 165/82 01/27/19 16:50 84 20 169/79 01/27/19 16:40 91 H 22 169/79 01/27/19 16:30 92 H 24 169/79 01/27/19 16:20 77 26 H 169/79 01/27/19 16:10 73 25 H 169/79 01/27/19 16:00 98.6 F 74 79 19 169/79 99 01/27/19 15:50 80 24 156/86 01/27/19 15:40 79 22 156/86 01/27/19 15:30 84 26 H 156/86 01/27/19 15:20 86 24 156/86 01/27/19 15:10 87 22 156/86 100 01/27/19 15:00 86 23 156/86 97 - Physical Examination General: No Apparent Distress HEENT: Positive: PERRL Neck: Positive: trachea midline Cardiac: Positive: Reg Rate and Rhythm Lungs: Positive: Decreased Breath Sounds Neuro: Positive: Other (right hemiplegia) Abdomen: Positive: Unremarkable, Active Bowel Sounds Skin: Positive: Clear Extremities: Absent: edema
[2019-01-28] MEDS: PROVENTIL IH PRN (18:12)
[2019-01-29] MEDS: HumaLOG SUB-Q SCH ×4 (00:36→19:42)
[2019-01-29] MEDS: APRESOLINE PO SCH ×3 (05:19→22:30)
[2019-01-29] MEDS: PROVENTIL IH PRN (08:40)
[2019-01-29] MEDS: SODIUM CHLORIDE FLUSH SYRINGE 10 ML IV SCH ×2 (10:10→22:30)
[2019-01-29] MEDS: ASPIRIN PO SCH (10:10)
[2019-01-29] MEDS: PEPCID IV SCH ×2 (10:10→22:30)
--- NOTE | 2019-01-29 13:21 | Progress Note ---
Assessment and Plan Assessment and plan: Acute hypoxic respiratory failure. Patient emergently intubated secondary to labored respirations/airway protection. Pulmonary consultation. Aspiration Vs mucus plug. Mucus plugging. Continue frequent suction. 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 CT scan reveals subacute left frontal lobe infarct. Neurology following. MRI head reveals subacute left MCA infarct with evidence of petechial hemorrhage. Echocardiogram shows enlarged left ventricle with only 25-30% ejection fraction but negative bubble study. CT angiogram of the neck showed ulceration in the right internal carotid artery with elongated artery and left ICA showed just elongated artery. CT angiogram head is negative or normal. PT/OT/ST. repeat CT head pending. Dilated cardiomyopathy with severe left ventricular global hypokinesis. EF 25- 30% as noted above. No anticoagulation given increased risk for hemorrhagic conversion with CVA. Accelerated hypertension. Increase hydralazine to 100 mg 3 times a day. Bilateral lower extremity DVT. IVC filter placement. No anticoagulation given increased risk for hemorrhagic conversion with CVA. SIRS. No evidence of obvious infection. Cultures negative so far. Antibiotics discontinued Hypernatremia; treated and resolved Hypokalemia. Replete potassium as noted above. Elevated troponin. Cardiology following Difficult dubhoof placement; GI placed Dubhoof and currently on tube feeding. Patient failed swallow evaluation. Disposition; continue IMCU care. History Interval history: Patient was seen during morning rounds, NG tube in place. Patient failed swallow evaluation. patient has some difficulty of breathing that resolved after suction Hospitalist Physical - Physical exam Narrative exam: Patient was extubated on 01/26/19. On NG tube feeding The patient appeared well nourished and normally developed. Vital signs as documented. Head exam is unremarkable. No scleral icterus . Neck is without jugular venous distension, thyromegaly, or carotid bruits. Lungs are clear to auscultation. Cardiac exam reveals regular rate and Rhythm. Abdominal exam reveals normal bowel sounds. Extremities are nonedematous. 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 - Constitutional Vitals: Temp Pulse Resp BP Pulse Ox 98.5 F 89 19 162/72 100 01/29/19 12:00 01/29/19 11:20 01/29/19 11:20 01/29/19 11:20 01/29/19 11:20 General appearance: Present: severe distress, well-nourished, other (accessory muscle use with respirations) Results - Labs CBC & Chem 7: 01/26/19 04:40 01/27/19 04:39 Labs: Laboratory Last Values WBC 10.9 K/mm3 (4.5-11.0) 01/26/19 04:40 RBC 3.27 M/mm3 (3.65-5.03) L 01/26/19 04:40 Hgb 10.2 gm/dl (11.8-15.2) L 01/26/19 04:40 Hct 30.9 % (35.5-45.6) L 01/26/19 04:40 MCV 94 fl (84-94) 01/26/19 04:40 MCH 31 pg (28-32) 01/26/19 04:40 MCHC 33 % (32-34) 01/26/19 04:40 RDW 15.0 % (13.2-15.2) 01/26/19 04:40 Plt Count 231 K/mm3 (140-440) 01/26/19 04:40 Lymph % (Auto) 6.4 % (13.4-35.0) L 01/26/19 04:40 [place] % (Auto) 5.8 % (0.0-7.3) 01/26/19 04:40 Eos % (Auto) 0.0 % (0.0-4.3) 01/26/19 04:40 Baso % (Auto) 0.3 % (0.0-1.8) 01/26/19 04:40 Lymph # 0.7 K/mm3 (1.2-5.4) L 01/26/19 04:40 [place] # 0.6 K/mm3 (0.0-0.8) 01/26/19 04:40 Eos # 0.0 K/mm3 (0.0-0.4) 01/26/19 04:40 Baso # 0.0 K/mm3 (0.0-0.1) 01/26/19 04:40 Seg Neutrophils % 87.5 % (40.0-70.0) H 01/26/19 04:40 Seg Neutrophils # 9.5 K/mm3 (1.8-7.7) H 01/26/19 04:40 PT 15.5 Sec. (12.2-14.9) H 01/18/19 19:14 INR 1.16 (0.87-1.13) H 01/18/19 19:14 APTT 31.7 Sec. (24.2-36.6) 01/18/19 19:14 Thrombin Time 16.2 Sec. (15.1-19.6) 01/18/19 19:14 POC ABG pH 7.434 (7.35-7.45) 01/26/19 04:13 POC ABG pCO2 33.6 (35-45) L 01/26/19 04:13 POC ABG pO2 96 (80-105) 01/26/19 04:13 POC ABG HCO3 22.5 (22-26 mml/L) 01/26/19 04:13 POC ABG Total CO2 23 (23-27mmol/L) 01/26/19 04:13 POC ABG O2 Sat 98 01/26/19 04:13 POC ABG Base Excess -2 ((-2) - (+3)mmol/L) 01/26/19 04:13 FiO2 25 % 01/26/19 04:13 Sodium 141 mmol/L (137-145) 01/27/19 04:39 Potassium 3.9 mmol/L (3.6-5.0) 01/27/19 04:39 Chloride 108.0 mmol/L (98-107) H 01/27/19 04:39 Carbon Dioxide 20 mmol/L (22-30) L 01/27/19 04:39 Anion Gap 17 mmol/L 01/27/19 04:39 BUN 19 mg/dL (9-20) 01/27/19 04:39 Creatinine 0.7 mg/dL (0.8-1.5) L 01/27/19 04:39 Estimated GFR > 60 ml/min 01/27/19 04:39 BUN/Creatinine Ratio 27 % 01/27/19 04:39 Glucose 165 mg/dL (75-100) H 01/27/19 04:39 POC Glucose 231 (70-105) H 01/29/19 11:59 Lactic Acid 1.10 mmol/L (0.7-2.0) 01/28/19 18:10 Calcium 9.3 mg/dL (8.4-10.2) 01/27/19 04:39 Total Creatine Kinase 419 units/L (55-170) H 01/19/19 05:07 CK-MB (CK-2) 3.2 ng/mL (0.0-4.0) 01/19/19 05:07 CK-MB (CK-2) Rel Index 0.7 (0-4) 01/19/19 05:07 Troponin T 0.273 ng/mL (0.00-0.029) H* 01/19/19 05:07 Triglycerides 140 mg/dL (2-149) 01/18/19 19:14 Cholesterol 157 mg/dL (50-199) 01/18/19 19:14 LDL Cholesterol Direct 98 mg/dL (50-130) 01/18/19 19:14 HDL Cholesterol 35 mg/dL (40-59) L 01/18/19 19:14 Cholesterol/HDL Ratio 4.48 % 01/18/19 19:14 Active Medications - Current Medications Current Medications: Generic Name Dose Route Start Last Admin Trade Name Freq PRN Reason Stop Dose Admin Acetaminophen 650 mg 01/18/19 22:08 01/26/19 22:56 Tylenol [place] 650 mg Q4H PRN Administration Pain MILD(1-3)/Fever >100.5/PEARL Albuterol 2.5 mg 01/23/19 15:41 01/29/19 08:40 Proventil IH 2.5 mg Q4HRT PRN Administration Shortness Of Breath Albuterol 2.5 mg 01/29/19 14:00 Proventil IH Q6HRT YESICA Lipase/Protease/Amylase 1 each 01/24/19 15:00 Pancreradha [place] 10,500 Unit FEEDTUBE PRN PRN For Clogged Feeding Tube Aspirin 325 mg 01/27/19 10:00 01/29/19 10:10 Aspirin PO 325 mg QDAY YESICA Administration Atorvastatin Calcium 40 mg 01/24/19 22:00 01/28/19 21:37 Lipitor PO 40 mg QHS YESICA Administration Famotidine 20 mg 01/24/19 10:00 01/29/19 10:10 Pepcid IV 20 mg BID YESICA Administration Hydralazine HCl 5 mg 01/18/19 22:13 01/23/19 19:15 Apresoline IV 5 mg Q6H PRN Administration Hypertension Hydralazine HCl 100 mg 01/21/19 14:00 01/29/19 05:19 Apresoline PO 100 mg Q8HR YESICA Administration Insulin Human Lispro 0 unit 01/26/19 18:00 01/29/19 05:18 Humalog SUB-Q 4 unit Q6HR YESICA Administration Protocol Ondansetron HCl 4 mg 01/18/19 22:08 Zofran IV Q4H PRN Nausea And Vomiting Simple Syrup 15 ml 01/24/19 15:00 Simple Syrup FEEDTUBE PRN PRN Hypoglycemia Simple Syrup 30 ml 01/24/19 15:00 Simple Syrup FEEDTUBE PRN PRN Hypoglycemia Sodium Bicarbonate 325 mg 01/24/19 15:00 Sodium Bicarbonate FEEDTUBE PRN PRN For Clogged Feeding Tube Sodium Chloride 10 ml 01/19/19 10:00 01/29/19 10:10 Sodium Chloride Flush Syringe 10 Ml IV 10 ml BID YESICA Administration Sodium Chloride 10 ml 01/18/19 22:08 01/24/19 14:17 Sodium Chloride Flush Syringe 10 Ml IV 10 ml PRN PRN Administration LINE FLUSH Nutrition/Malnutrition Assess - Dietary Evaluation Nutrition/Malnutrition Findings: Nutrition Notes Start: 01/19/19 13:52 Freq: Status: Active Protocol: Document 01/26/19 09:21 CP (Rec: 01/26/19 09:23 CP [email or web address]) Co-Sign 01/26/19 09:21 LP Nutrition Notes Initial or Follow up Brief Note Current Diet Vital AF 1.2 at 65 mL/hr Subjective/Other Information TF infusing at 45 mL/hr during time of visit (09:00). Per nurse, pt is tolerating TF. Nutrition Intervention Follow-Up By: 01/30/19 Additional Comments F/U: TF tolerance
--- NOTE | 2019-01-29 13:46 | Progress Note ---
Assessment and Plan 63 y/o male with acute respiratory failure secondary to inability to protect airway secondary to stroke. 1. Frequent NT suctioning 2. Wean supplemental oxygen for sats >88% 3. Ok with PRN bipap as long as patient remains alert enough to do so 4. High risk for aspiration given absent swallow reflex. HOB must be at 45 degrees. Subjective Date of service: 01/29/19 Principal diagnosis: NG tube placement Interval history: Called about patient last night and tachypnea. Never desaturated. Awake. RT asking for bipap so we ordered it. Currently on 2 liters NC and stable. Wore it all night. Objective Vital Signs - 12hr 01/29/19 01/29/19 01/29/19 01:50 02:00 02:10 Temperature Pulse Rate 105 H 101 H 105 H Pulse Rate [ Anterior Bilateral Throughout] Pulse Rate [ From Monitor] Pulse Rate [ Right Dorsalis Pedis] Respiratory 24 15 16 Rate Respiratory Rate [Anterior Bilateral Throughout] Blood Pressure 133/70 140/67 133/70 O2 Sat by Pulse 100 100 99 Oximetry 01/29/19 01/29/19 01/29/19 02:20 02:30 02:40 Temperature Pulse Rate 104 H 100 H 104 H Pulse Rate [ Anterior Bilateral Throughout] Pulse Rate [ From Monitor] Pulse Rate [ Right Dorsalis Pedis] Respiratory 21 15 15 Rate Respiratory Rate [Anterior Bilateral Throughout] Blood Pressure 133/70 133/70 133/70 O2 Sat by Pulse 100 100 99 Oximetry 01/29/19 01/29/19 01/29/19 02:50 03:00 03:10 Temperature Pulse Rate 100 H 97 H 100 H Pulse Rate [ Anterior Bilateral Throughout] Pulse Rate [ From Monitor] Pulse Rate [ Right Dorsalis Pedis] Respiratory 17 21 22 Rate Respiratory Rate [Anterior Bilateral Throughout] Blood Pressure 133/70 140/67 137/74 O2 Sat by Pulse 99 99 99 Oximetry 01/29/19 01/29/19 01/29/19 03:20 03:30 03:40 Temperature Pulse Rate 96 H 98 H 94 H Pulse Rate [ Anterior Bilateral Throughout] Pulse Rate [ From Monitor] Pulse Rate [ Right Dorsalis Pedis] Respiratory 19 22 16 Rate Respiratory Rate [Anterior Bilateral Throughout] Blood Pressure 137/74 137/74 137/74 O2 Sat by Pulse 99 99 99 Oximetry 01/29/19 01/29/19 01/29/19 03:45 03:50 04:00 Temperature 98.9 F Pulse Rate 104 H 99 H 95 H Pulse Rate [ Anterior Bilateral Throughout] Pulse Rate [ 98 H From Monitor] Pulse Rate [ Right Dorsalis Pedis] Respiratory 22 19 15 Rate Respiratory Rate [Anterior Bilateral Throughout] Blood Pressure 143/77 137/74 138/81 O2 Sat by Pulse 99 99 99 Oximetry 01/29/19 01/29/19 01/29/19 04:10 04:20 04:30 Temperature Pulse Rate 92 H 99 H 98 H Pulse Rate [ Anterior Bilateral Throughout] Pulse Rate [ From Monitor] Pulse Rate [ Right Dorsalis Pedis] Respiratory 19 20 15 Rate Respiratory Rate [Anterior Bilateral Throughout] Blood Pressure 138/81 138/81 138/81 O2 Sat by Pulse 99 98 98 Oximetry 01/29/19 01/29/19 01/29/19 04:40 04:50 05:00 Temperature Pulse Rate 97 H 99 H 98 H Pulse Rate [ Anterior Bilateral Throughout] Pulse Rate [ From Monitor] Pulse Rate [ Right Dorsalis Pedis] Respiratory 20 21 19 Rate Respiratory Rate [Anterior Bilateral Throughout] Blood Pressure 138/81 138/81 155/87 O2 Sat by Pulse 99 99 99 Oximetry 01/29/19 01/29/19 01/29/19 05:10 05:20 05:30 Temperature Pulse Rate 99 H 99 H 100 H Pulse Rate [ Anterior Bilateral Throughout] Pulse Rate [ From Monitor] Pulse Rate [ Right Dorsalis Pedis] Respiratory 20 20 22 Rate Respiratory Rate [Anterior Bilateral Throughout] Blood Pressure 155/87 155/87 155/87 O2 Sat by Pulse 99 99 99 Oximetry 01/29/19 01/29/19 01/29/19 05:40 05:50 06:00 Temperature Pulse Rate 102 H 102 H 101 H Pulse Rate [ Anterior Bilateral Throughout] Pulse Rate [ From Monitor] Pulse Rate [ Right Dorsalis Pedis] Respiratory 13 22 17 Rate Respiratory Rate [Anterior Bilateral Throughout] Blood Pressure 155/87 155/87 143/77 O2 Sat by Pulse 99 98 99 Oximetry 01/29/19 01/29/19 01/29/19 06:10 06:20 06:30 Temperature Pulse Rate 105 H 105 H 101 H Pulse Rate [ Anterior Bilateral Throughout] Pulse Rate [ From Monitor] Pulse Rate [ Right Dorsalis Pedis] Respiratory 21 15 21 Rate Respiratory Rate [Anterior Bilateral Throughout] Blood Pressure 143/77 143/77 143/77 O2 Sat by Pulse 98 99 100 Oximetry 01/29/19 01/29/19 01/29/19 06:40 06:50 07:00 Temperature Pulse Rate 100 H 98 H 95 H Pulse Rate [ Anterior Bilateral Throughout] Pulse Rate [ From Monitor] Pulse Rate [ Right Dorsalis Pedis] Respiratory 20 20 15 Rate Respiratory Rate [Anterior Bilateral Throughout] Blood Pressure 143/77 143/77 143/77 O2 Sat by Pulse 100 100 100 Oximetry 01/29/19 01/29/19 01/29/19 07:10 07:20 07:30 Temperature Pulse Rate 100 H 90 96 H Pulse Rate [ Anterior Bilateral Throughout] Pulse Rate [ From Monitor] Pulse Rate [ Right Dorsalis Pedis] Respiratory 12 14 15 Rate Respiratory Rate [Anterior Bilateral Throughout] Blood Pressure 158/84 158/84 158/84 O2 Sat by Pulse 100 100 99 Oximetry 01/29/19 01/29/19 01/29/19 07:40 07:50 08:00 Temperature 98.7 F Pulse Rate 90 91 H 89 Pulse Rate [ Anterior Bilateral Throughout] Pulse Rate [ 96 H From Monitor] Pulse Rate [ 94 H Right Dorsalis Pedis] Respiratory 18 13 15 Rate Respiratory Rate [Anterior Bilateral Throughout] Blood Pressure 158/84 158/84 158/84 O2 Sat by Pulse 99 100 99 Oximetry 01/29/19 01/29/19 01/29/19 08:10 08:20 08:30 Temperature Pulse Rate 89 90 98 H Pulse Rate [ Anterior Bilateral Throughout] Pulse Rate [ From Monitor] Pulse Rate [ Right Dorsalis Pedis] Respiratory 11 L 18 19 Rate Respiratory Rate [Anterior Bilateral Throughout] Blood Pressure 158/83 158/83 158/83 O2 Sat by Pulse 100 100 99 Oximetry 01/29/19 01/29/19 01/29/19 08:40 08:50 09:00 Temperature Pulse Rate 91 H 97 H 98 H Pulse Rate [ Anterior Bilateral Throughout] Pulse Rate [ From Monitor] Pulse Rate [ Right Dorsalis Pedis] Respiratory 21 18 21 Rate Respiratory Rate [Anterior Bilateral Throughout] Blood Pressure 158/83 158/83 163/78 O2 Sat by Pulse 99 100 100 Oximetry 01/29/19 01/29/19 01/29/19 09:10 09:20 09:30 Temperature Pulse Rate 108 H 96 H 101 H Pulse Rate [ Anterior Bilateral Throughout] Pulse Rate [ From Monitor] Pulse Rate [ Right Dorsalis Pedis] Respiratory 14 22 24 Rate Respiratory Rate [Anterior Bilateral Throughout] Blood Pressure 163/78 163/78 163/78 O2 Sat by Pulse 98 99 99 Oximetry 01/29/19 01/29/19 01/29/19 09:40 09:45 09:50 Temperature Pulse Rate 97 H 104 H Pulse Rate [ 89 Anterior Bilateral Throughout] Pulse Rate [ From Monitor] Pulse Rate [ Right Dorsalis Pedis] Respiratory 16 18 Rate Respiratory 18 Rate [Anterior Bilateral Throughout] Blood Pressure 163/78 163/78 O2 Sat by Pulse 99 98 Oximetry 01/29/19 01/29/19 01/29/19 09:59 10:00 10:01 Temperature Pulse Rate 102 H Pulse Rate [ 88 Anterior Bilateral Throughout] Pulse Rate [ From Monitor] Pulse Rate [ Right Dorsalis Pedis] Respiratory 23 Rate Respiratory 18 Rate [Anterior Bilateral Throughout] Blood Pressure 143/77 O2 Sat by Pulse 99 98 Oximetry 01/29/19 01/29/19 01/29/19 10:06 10:10 10:20 Temperature Pulse Rate 104 H 96 H Pulse Rate [ Anterior Bilateral Throughout] Pulse Rate [ From Monitor] Pulse Rate [ Right Dorsalis Pedis] Respiratory 22 19 Rate Respiratory Rate [Anterior Bilateral Throughout] Blood Pressure 143/77 143/77 O2 Sat by Pulse 99 99 97 Oximetry 01/29/19 01/29/19 01/29/19 10:30 10:40 10:50 Temperature Pulse Rate 92 H 92 H 93 H Pulse Rate [ Anterior Bilateral Throughout] Pulse Rate [ From Monitor] Pulse Rate [ Right Dorsalis Pedis] Respiratory 23 21 23 Rate Respiratory Rate [Anterior Bilateral Throughout] Blood Pressure 143/77 143/77 143/77 O2 Sat by Pulse 99 99 100 Oximetry 01/29/19 01/29/19 01/29/19 11:00 11:10 11:20 Temperature Pulse Rate 94 H 91 H 89 Pulse Rate [ Anterior Bilateral Throughout] Pulse Rate [ From Monitor] Pulse Rate [ Right Dorsalis Pedis] Respiratory 20 19 19 Rate Respiratory Rate [Anterior Bilateral Throughout] Blood Pressure 162/72 162/72 162/72 O2 Sat by Pulse 99 100 100 Oximetry 01/29/19 12:00 Temperature 98.5 F Pulse Rate Pulse Rate [ Anterior Bilateral Throughout] Pulse Rate [ From Monitor] Pulse Rate [ Right Dorsalis Pedis] Respiratory Rate Respiratory Rate [Anterior Bilateral Throughout] Blood Pressure O2 Sat by Pulse Oximetry Constitutional: no acute distress, alert Eyes: non-icteric ENT: other (orally intubated, not on sedation) Neck: supple Effort: normal Ascultation: Bilateral: clear Percussion: Bilateral: not dull Cardiovascular: regular rate and rhythm Gastrointestinal: normoactive bowel sounds Extremities: no edema Neurologic: other (weakness of right) CBC and BMP: 01/26/19 04:40 01/27/19 04:39 ABG, PT/INR, D-dimer: ABG POC ABG pH 7.434 (7.35-7.45) 01/26/19 04:13 POC ABG pCO2 33.6 (35-45) L 01/26/19 04:13 POC ABG pO2 96 (80-105) 01/26/19 04:13 POC ABG HCO3 22.5 (22-26 mml/L) 01/26/19 04:13 POC ABG Total CO2 23 (23-27mmol/L) 01/26/19 04:13 POC ABG O2 Sat 98 01/26/19 04:13 PT/INR, D-dimer PT 15.5 Sec. (12.2-14.9) H 01/18/19 19:14 INR 1.16 (0.87-1.13) H 01/18/19 19:14 Abnormal lab findings: Abnormal Labs 01/18/19 01/18/19 01/18/19 19:14 19:14 19:14 WBC 17.2 H RBC Hgb Hct MCV 96 H RDW 15.5 H Lymph % (Auto) 7.9 L [place] % (Auto) 7.9 H Lymph # [place] # 1.4 H Seg Neutrophils % 83.5 H Seg Neutrophils # 14.3 H PT 15.5 H INR 1.16 H POC ABG pCO2 POC ABG pO2 Sodium 153 H Potassium 3.4 L Chloride Carbon Dioxide BUN 24 H Creatinine Glucose 159 H POC Glucose Calcium 10.3 H Total Creatine Kinase Troponin T 0.368 H* HDL Cholesterol 35 L 01/18/19 01/19/19 01/19/19 22:33 00:15 05:07 WBC RBC Hgb Hct MCV RDW Lymph % (Auto) [place] % (Auto) Lymph # [place] # Seg Neutrophils % Seg Neutrophils # PT INR POC ABG pCO2 POC ABG pO2 Sodium 151 H Potassium 3.2 L Chloride Carbon Dioxide BUN 25 H Creatinine Glucose 130 H POC Glucose Calcium Total Creatine Kinase 491 H 419 H Troponin T 0.291 H* D 0.273 H* HDL Cholesterol 01/22/19 01/22/19 01/23/19 05:16 05:16 04:27 WBC 12.5 H 13.9 H RBC Hgb Hct MCV 96 H 95 H RDW 15.6 H 15.5 H Lymph % (Auto) 8.6 L 6.2 L [place] % (Auto) 9.1 H 9.1 H Lymph # 1.1 L 0.9 L [place] # 1.1 H 1.3 H Seg Neutrophils % 80.0 H 83.2 H Seg Neutrophils # 10.0 H 11.6 H PT INR POC ABG pCO2 POC ABG pO2 Sodium 156 H Potassium 2.8 L* Chloride 118.5 H Carbon Dioxide BUN Creatinine Glucose 159 H POC Glucose Calcium Total Creatine Kinase Troponin T HDL Cholesterol 01/23/19 01/23/19 01/23/19 04:27 13:11 14:59 WBC RBC Hgb Hct MCV RDW Lymph % (Auto) [place] % (Auto) Lymph # [place] # Seg Neutrophils % Seg Neutrophils # PT INR POC ABG pCO2 POC ABG pO2 282 H 205 H Sodium 151 H Potassium 3.5 L D Chloride 113.8 H Carbon Dioxide BUN Creatinine Glucose 163 H POC Glucose Calcium Total Creatine Kinase Troponin T HDL Cholesterol 01/23/19 01/24/19 01/24/19 18:36 04:17 07:41 WBC RBC Hgb Hct MCV RDW Lymph % (Auto) [place] % (Auto) Lymph # [place] # Seg Neutrophils % Seg Neutrophils # PT INR POC ABG pCO2 POC ABG pO2 148 H Sodium 149 H Potassium Chloride 113.5 H Carbon Dioxide BUN Creatinine Glucose 153 H POC Glucose 141 H Calcium Total Creatine Kinase Troponin T HDL Cholesterol 01/24/19 01/25/19 01/25/19 23:40 04:07 04:07 WBC RBC 3.46 L Hgb 10.8 L Hct 32.7 L MCV 95 H RDW 15.3 H Lymph % (Auto) 9.0 L [place] % (Auto) 10.5 H Lymph # 1.0 L [place] # 1.1 H Seg Neutrophils % 77.7 H Seg Neutrophils # 8.3 H PT INR POC ABG pCO2 POC ABG pO2 Sodium 147 H Potassium Chloride 111.1 H Carbon Dioxide BUN Creatinine Glucose 150 H POC Glucose 130 H Calcium Total Creatine Kinase Troponin T HDL Cholesterol 01/25/19 01/25/19 01/25/19 04:34 05:36 11:53 WBC RBC Hgb Hct MCV RDW Lymph % (Auto) [place] % (Auto) Lymph # [place] # Seg Neutrophils % Seg Neutrophils # PT INR POC ABG pCO2 34.3 L POC ABG pO2 110 H Sodium Potassium Chloride Carbon Dioxide BUN Creatinine Glucose POC Glucose 147 H 162 H Calcium Total Creatine Kinase Troponin T HDL Cholesterol 01/25/19 01/25/19 01/26/19 18:12 23:44 04:13 WBC RBC Hgb Hct MCV RDW Lymph % (Auto) [place] % (Auto) Lymph # [place] # Seg Neutrophils % Seg Neutrophils # PT INR POC ABG pCO2 33.6 L POC ABG pO2 Sodium Potassium Chloride Carbon Dioxide BUN Creatinine Glucose POC Glucose 211 H 210 H Calcium Total Creatine Kinase Troponin T HDL Cholesterol 01/26/19 01/26/19 01/26/19 04:40 04:40 05:27 WBC RBC 3.27 L Hgb 10.2 L Hct 30.9 L MCV RDW Lymph % (Auto) 6.4 L [place] % (Auto) Lymph # 0.7 L [place] # Seg Neutrophils % 87.5 H Seg Neutrophils # 9.5 H PT INR POC ABG pCO2 POC ABG pO2 Sodium Potassium Chloride 107.4 H Carbon Dioxide 21 L BUN Creatinine Glucose 251 H POC Glucose 230 H Calcium Total Creatine Kinase Troponin T HDL Cholesterol 01/26/19 01/26/19 01/27/19 11:50 20:38 01:05 WBC RBC Hgb Hct MCV RDW Lymph % (Auto) [place] % (Auto) Lymph # [place] # Seg Neutrophils % Seg Neutrophils # PT INR POC ABG pCO2 POC ABG pO2 Sodium Potassium Chloride Carbon Dioxide BUN Creatinine Glucose POC Glucose 219 H 166 H 161 H Calcium Total Creatine Kinase Troponin T HDL Cholesterol 01/27/19 01/27/19 01/27/19 04:39 05:57 12:46 WBC RBC Hgb Hct MCV RDW Lymph % (Auto) [place] % (Auto) Lymph # [place] # Seg Neutrophils % Seg Neutrophils # PT INR POC ABG pCO2 POC ABG pO2 Sodium Potassium Chloride 108.0 H Carbon Dioxide 20 L BUN Creatinine 0.7 L Glucose 165 H POC Glucose 160 H 196 H Calcium Total Creatine Kinase Troponin T HDL Cholesterol 01/27/19 01/28/19 01/28/19 18:22 02:12 06:21 WBC RBC Hgb Hct MCV RDW Lymph % (Auto) [place] % (Auto) Lymph # [place] # Seg Neutrophils % Seg Neutrophils # PT INR POC ABG pCO2 POC ABG pO2 Sodium Potassium Chloride Carbon Dioxide BUN Creatinine Glucose POC Glucose 168 H 183 H 211 H Calcium Total Creatine Kinase Troponin T HDL Cholesterol 01/28/19 01/28/19 01/28/19 12:13 19:08 21:54 WBC RBC Hgb Hct MCV RDW Lymph % (Auto) [place] % (Auto) Lymph # [place] # Seg Neutrophils % Seg Neutrophils # PT INR POC ABG pCO2 POC ABG pO2 Sodium Potassium Chloride Carbon Dioxide BUN Creatinine Glucose POC Glucose 203 H 214 H 208 H Calcium Total Creatine Kinase Troponin T HDL Cholesterol 01/29/19 01/29/19 04:56 11:59 WBC RBC Hgb Hct MCV RDW Lymph % (Auto) [place] % (Auto) Lymph # [place] # Seg Neutrophils % Seg Neutrophils # PT INR POC ABG pCO2 POC ABG pO2 Sodium Potassium Chloride Carbon Dioxide BUN Creatinine Glucose POC Glucose 251 H 231 H Calcium Total Creatine Kinase Troponin T HDL Cholesterol
[2019-01-29] MEDS: PROVENTIL IH SCH ×2 (19:45→22:48)
[2019-01-30] MEDS: HumaLOG SUB-Q SCH ×3 (00:06→14:36)
[2019-01-30] MEDS: PROVENTIL IH SCH ×4 (01:37→20:06)
[2019-01-30] MEDS: APRESOLINE PO SCH ×3 (05:53→21:46)
[2019-01-30] MEDS: ASPIRIN PO SCH (10:00)
[2019-01-30] MEDS: PEPCID IV SCH (10:00)
[2019-01-30] MEDS: SODIUM CHLORIDE FLUSH SYRINGE 10 ML IV SCH ×2 (10:01→21:46)
--- NOTE | 2019-01-30 11:07 | Progress Note ---
Assessment and Plan Acute respiratory failure Stroke AMS Recommendations Aspiration precautions Suction as needed Monitor for fever or signs of pulmonary congestion DVT prophylaxis Physical therapy Subjective Date of service: 01/30/19 Principal diagnosis: stroke, respiratory failure Interval history: Appears lethargic, nonverbal. No family at the bedside Objective Vital Signs - 12hr 01/29/19 01/29/19 01/29/19 23:10 23:20 23:30 Temperature Pulse Rate 122 H 123 H 125 H Pulse Rate [ Anterior Bilateral Throughout] Pulse Rate [ From Monitor] Pulse Rate [ Right Dorsalis Pedis] Respiratory 32 H 34 H 30 H Rate Respiratory Rate [Anterior Bilateral Throughout] Blood Pressure 138/75 138/75 138/75 O2 Sat by Pulse 100 99 100 Oximetry 01/29/19 01/29/19 01/30/19 23:40 23:50 00:00 Temperature 98.6 F Pulse Rate 124 H 123 H 126 H Pulse Rate [ Anterior Bilateral Throughout] Pulse Rate [ 116 H From Monitor] Pulse Rate [ 125 H Right Dorsalis Pedis] Respiratory 29 H 35 H 34 H Rate Respiratory Rate [Anterior Bilateral Throughout] Blood Pressure 138/75 138/75 147/76 O2 Sat by Pulse 100 100 100 Oximetry 01/30/19 01/30/19 01/30/19 00:10 00:20 00:30 Temperature Pulse Rate 125 H 125 H 127 H Pulse Rate [ Anterior Bilateral Throughout] Pulse Rate [ From Monitor] Pulse Rate [ Right Dorsalis Pedis] Respiratory 28 H 37 H 34 H Rate Respiratory Rate [Anterior Bilateral Throughout] Blood Pressure 147/76 147/76 147/76 O2 Sat by Pulse 100 100 100 Oximetry 01/30/19 01/30/19 01/30/19 00:40 00:50 01:00 Temperature Pulse Rate 127 H 126 H 128 H Pulse Rate [ Anterior Bilateral Throughout] Pulse Rate [ From Monitor] Pulse Rate [ Right Dorsalis Pedis] Respiratory 28 H 36 H 36 H Rate Respiratory Rate [Anterior Bilateral Throughout] Blood Pressure 147/76 147/76 142/74 O2 Sat by Pulse 100 100 100 Oximetry 01/30/19 01/30/19 01/30/19 01:10 01:20 01:30 Temperature Pulse Rate 126 H 128 H 126 H Pulse Rate [ Anterior Bilateral Throughout] Pulse Rate [ From Monitor] Pulse Rate [ Right Dorsalis Pedis] Respiratory 33 H 38 H 40 H Rate Respiratory Rate [Anterior Bilateral Throughout] Blood Pressure 142/74 147/76 147/76 O2 Sat by Pulse 99 100 100 Oximetry 01/30/19 01/30/19 01/30/19 01:40 01:50 02:00 Temperature Pulse Rate 126 H 126 H 124 H Pulse Rate [ 126 H Anterior Bilateral Throughout] Pulse Rate [ From Monitor] Pulse Rate [ Right Dorsalis Pedis] Respiratory 33 H 39 H 33 H Rate Respiratory 22 Rate [Anterior Bilateral Throughout] Blood Pressure 147/76 147/76 147/76 O2 Sat by Pulse 100 100 100 Oximetry 01/30/19 01/30/19 01/30/19 02:10 02:20 02:30 Temperature Pulse Rate 125 H 122 H 122 H Pulse Rate [ Anterior Bilateral Throughout] Pulse Rate [ From Monitor] Pulse Rate [ Right Dorsalis Pedis] Respiratory 37 H 34 H 31 H Rate Respiratory Rate [Anterior Bilateral Throughout] Blood Pressure 149/75 149/75 149/75 O2 Sat by Pulse 100 100 100 Oximetry 01/30/19 01/30/19 01/30/19 02:40 02:50 03:00 Temperature Pulse Rate 122 H 120 H 121 H Pulse Rate [ Anterior Bilateral Throughout] Pulse Rate [ From Monitor] Pulse Rate [ Right Dorsalis Pedis] Respiratory 35 H 40 H 37 H Rate Respiratory Rate [Anterior Bilateral Throughout] Blood Pressure 149/75 149/75 146/76 O2 Sat by Pulse 100 100 100 Oximetry 01/30/19 01/30/19 01/30/19 03:10 03:20 03:30 Temperature Pulse Rate 120 H 120 H 118 H Pulse Rate [ Anterior Bilateral Throughout] Pulse Rate [ From Monitor] Pulse Rate [ Right Dorsalis Pedis] Respiratory 33 H 33 H 34 H Rate Respiratory Rate [Anterior Bilateral Throughout] Blood Pressure 146/76 146/76 146/76 O2 Sat by Pulse 100 100 100 Oximetry 01/30/19 01/30/19 01/30/19 03:40 03:50 04:00 Temperature 98.9 F Pulse Rate 118 H 118 H 118 H Pulse Rate [ Anterior Bilateral Throughout] Pulse Rate [ 116 H From Monitor] Pulse Rate [ 117 H Right Dorsalis Pedis] Respiratory 36 H 42 H 37 H Rate Respiratory Rate [Anterior Bilateral Throughout] Blood Pressure 146/76 146/76 149/81 O2 Sat by Pulse 100 100 98 Oximetry 01/30/19 01/30/19 01/30/19 04:10 04:20 04:30 Temperature Pulse Rate 118 H 116 H 113 H Pulse Rate [ Anterior Bilateral Throughout] Pulse Rate [ From Monitor] Pulse Rate [ Right Dorsalis Pedis] Respiratory 36 H 38 H 20 Rate Respiratory Rate [Anterior Bilateral Throughout] Blood Pressure 149/81 149/81 149/81 O2 Sat by Pulse 99 100 100 Oximetry 01/30/19 01/30/19 01/30/19 04:40 04:50 05:00 Temperature Pulse Rate 109 H 108 H 108 H Pulse Rate [ Anterior Bilateral Throughout] Pulse Rate [ From Monitor] Pulse Rate [ Right Dorsalis Pedis] Respiratory 26 H 29 H 29 H Rate Respiratory Rate [Anterior Bilateral Throughout] Blood Pressure 149/81 149/81 144/83 O2 Sat by Pulse 100 100 100 Oximetry 01/30/19 01/30/19 01/30/19 05:10 05:20 05:30 Temperature Pulse Rate 107 H 106 H 104 H Pulse Rate [ Anterior Bilateral Throughout] Pulse Rate [ From Monitor] Pulse Rate [ Right Dorsalis Pedis] Respiratory 29 H 32 H 26 H Rate Respiratory Rate [Anterior Bilateral Throughout] Blood Pressure 144/83 144/83 144/83 O2 Sat by Pulse 100 100 100 Oximetry 01/30/19 01/30/19 01/30/19 05:40 05:50 06:00 Temperature Pulse Rate 104 H 105 H 104 H Pulse Rate [ Anterior Bilateral Throughout] Pulse Rate [ From Monitor] Pulse Rate [ Right Dorsalis Pedis] Respiratory 25 H 29 H 33 H Rate Respiratory Rate [Anterior Bilateral Throughout] Blood Pressure 144/83 144/83 144/83 O2 Sat by Pulse 100 100 100 Oximetry 01/30/19 01/30/19 01/30/19 08:00 08:50 09:08 Temperature 98.6 F Pulse Rate Pulse Rate [ 92 H 87 Anterior Bilateral Throughout] Pulse Rate [ From Monitor] Pulse Rate [ Right Dorsalis Pedis] Respiratory Rate Respiratory 18 18 Rate [Anterior Bilateral Throughout] Blood Pressure O2 Sat by Pulse Oximetry 01/30/19 09:09 Temperature Pulse Rate Pulse Rate [ Anterior Bilateral Throughout] Pulse Rate [ From Monitor] Pulse Rate [ Right Dorsalis Pedis] Respiratory Rate Respiratory Rate [Anterior Bilateral Throughout] Blood Pressure O2 Sat by Pulse 100 Oximetry Constitutional: no acute distress Eyes: non-icteric Neck: supple Effort: normal Ascultation: Bilateral: clear Percussion: Bilateral: not dull Cardiovascular: regular rate and rhythm Gastrointestinal: normoactive bowel sounds Extremities: no edema Neurologic: other (weakness of right) CBC and BMP: 01/26/19 04:40 01/27/19 04:39 ABG, PT/INR, D-dimer: ABG POC ABG pH 7.434 (7.35-7.45) 01/26/19 04:13 POC ABG pCO2 33.6 (35-45) L 01/26/19 04:13 POC ABG pO2 96 (80-105) 01/26/19 04:13 POC ABG HCO3 22.5 (22-26 mml/L) 01/26/19 04:13 POC ABG Total CO2 23 (23-27mmol/L) 01/26/19 04:13 POC ABG O2 Sat 98 01/26/19 04:13 PT/INR, D-dimer PT 15.5 Sec. (12.2-14.9) H 01/18/19 19:14 INR 1.16 (0.87-1.13) H 01/18/19 19:14 Abnormal lab findings: Abnormal Labs 01/18/19 01/18/19 01/18/19 19:14 19:14 19:14 WBC 17.2 H RBC Hgb Hct MCV 96 H RDW 15.5 H Lymph % (Auto) 7.9 L Cassia % (Auto) 7.9 H Lymph # Cassia # 1.4 H Seg Neutrophils % 83.5 H Seg Neutrophils # 14.3 H PT 15.5 H INR 1.16 H POC ABG pCO2 POC ABG pO2 Sodium 153 H Potassium 3.4 L Chloride Carbon Dioxide BUN 24 H Creatinine Glucose 159 H POC Glucose Calcium 10.3 H Total Creatine Kinase Troponin T 0.368 H* HDL Cholesterol 35 L 01/18/19 01/19/19 01/19/19 22:33 00:15 05:07 WBC RBC Hgb Hct MCV RDW Lymph % (Auto) Cassia % (Auto) Lymph # Cassia # Seg Neutrophils % Seg Neutrophils # PT INR POC ABG pCO2 POC ABG pO2 Sodium 151 H Potassium 3.2 L Chloride Carbon Dioxide BUN 25 H Creatinine Glucose 130 H POC Glucose Calcium Total Creatine Kinase 491 H 419 H Troponin T 0.291 H* D 0.273 H* HDL Cholesterol 01/22/19 01/22/19 01/23/19 05:16 05:16 04:27 WBC 12.5 H 13.9 H RBC Hgb Hct MCV 96 H 95 H RDW 15.6 H 15.5 H Lymph % (Auto) 8.6 L 6.2 L Cassia % (Auto) 9.1 H 9.1 H Lymph # 1.1 L 0.9 L Cassia # 1.1 H 1.3 H Seg Neutrophils % 80.0 H 83.2 H Seg Neutrophils # 10.0 H 11.6 H PT INR POC ABG pCO2 POC ABG pO2 Sodium 156 H Potassium 2.8 L* Chloride 118.5 H Carbon Dioxide BUN Creatinine Glucose 159 H POC Glucose Calcium Total Creatine Kinase Troponin T HDL Cholesterol 01/23/19 01/23/19 01/23/19 04:27 13:11 14:59 WBC RBC Hgb Hct MCV RDW Lymph % (Auto) Cassia % (Auto) Lymph # Cassia # Seg Neutrophils % Seg Neutrophils # PT INR POC ABG pCO2 POC ABG pO2 282 H 205 H Sodium 151 H Potassium 3.5 L D Chloride 113.8 H Carbon Dioxide BUN Creatinine Glucose 163 H POC Glucose Calcium Total Creatine Kinase Troponin T HDL Cholesterol 01/23/19 01/24/19 01/24/19 18:36 04:17 07:41 WBC RBC Hgb Hct MCV RDW Lymph % (Auto) Cassia % (Auto) Lymph # Cassia # Seg Neutrophils % Seg Neutrophils # PT INR POC ABG pCO2 POC ABG pO2 148 H Sodium 149 H Potassium Chloride 113.5 H Carbon Dioxide BUN Creatinine Glucose 153 H POC Glucose 141 H Calcium Total Creatine Kinase Troponin T HDL Cholesterol 01/24/19 01/25/19 01/25/19 23:40 04:07 04:07 WBC RBC 3.46 L Hgb 10.8 L Hct 32.7 L MCV 95 H RDW 15.3 H Lymph % (Auto) 9.0 L Cassia % (Auto) 10.5 H Lymph # 1.0 L Cassia # 1.1 H Seg Neutrophils % 77.7 H Seg Neutrophils # 8.3 H PT INR POC ABG pCO2 POC ABG pO2 Sodium 147 H Potassium Chloride 111.1 H Carbon Dioxide BUN Creatinine Glucose 150 H POC Glucose 130 H Calcium Total Creatine Kinase Troponin T HDL Cholesterol 01/25/19 01/25/19 01/25/19 04:34 05:36 11:53 WBC RBC Hgb Hct MCV RDW Lymph % (Auto) Cassia % (Auto) Lymph # Cassia # Seg Neutrophils % Seg Neutrophils # PT INR POC ABG pCO2 34.3 L POC ABG pO2 110 H Sodium Potassium Chloride Carbon Dioxide BUN Creatinine Glucose POC Glucose 147 H 162 H Calcium Total Creatine Kinase Troponin T HDL Cholesterol 01/25/19 01/25/19 01/26/19 18:12 23:44 04:13 WBC RBC Hgb Hct MCV RDW Lymph % (Auto) Cassia % (Auto) Lymph # Cassia # Seg Neutrophils % Seg Neutrophils # PT INR POC ABG pCO2 33.6 L POC ABG pO2 Sodium Potassium Chloride Carbon Dioxide BUN Creatinine Glucose POC Glucose 211 H 210 H Calcium Total Creatine Kinase Troponin T HDL Cholesterol 01/26/19 01/26/19 01/26/19 04:40 04:40 05:27 WBC RBC 3.27 L Hgb 10.2 L Hct 30.9 L MCV RDW Lymph % (Auto) 6.4 L Cassia % (Auto) Lymph # 0.7 L Cassia # Seg Neutrophils % 87.5 H Seg Neutrophils # 9.5 H PT INR POC ABG pCO2 POC ABG pO2 Sodium Potassium Chloride 107.4 H Carbon Dioxide 21 L BUN Creatinine Glucose 251 H POC Glucose 230 H Calcium Total Creatine Kinase Troponin T HDL Cholesterol 01/26/19 01/26/19 01/27/19 11:50 20:38 01:05 WBC RBC Hgb Hct MCV RDW Lymph % (Auto) Cassia % (Auto) Lymph # Cassia # Seg Neutrophils % Seg Neutrophils # PT INR POC ABG pCO2 POC ABG pO2 Sodium Potassium Chloride Carbon Dioxide BUN Creatinine Glucose POC Glucose 219 H 166 H 161 H Calcium Total Creatine Kinase Troponin T HDL Cholesterol 01/27/19 01/27/19 01/27/19 04:39 05:57 12:46 WBC RBC Hgb Hct MCV RDW Lymph % (Auto) Cassia % (Auto) Lymph # Cassia # Seg Neutrophils % Seg Neutrophils # PT INR POC ABG pCO2 POC ABG pO2 Sodium Potassium Chloride 108.0 H Carbon Dioxide 20 L BUN Creatinine 0.7 L Glucose 165 H POC Glucose 160 H 196 H Calcium Total Creatine Kinase Troponin T HDL Cholesterol 01/27/19 01/28/19 01/28/19 18:22 02:12 06:21 WBC RBC Hgb Hct MCV RDW Lymph % (Auto) Cassia % (Auto) Lymph # Cassia # Seg Neutrophils % Seg Neutrophils # PT INR POC ABG pCO2 POC ABG pO2 Sodium Potassium Chloride Carbon Dioxide BUN Creatinine Glucose POC Glucose 168 H 183 H 211 H Calcium Total Creatine Kinase Troponin T HDL Cholesterol 01/28/19 01/28/19 01/28/19 12:13 19:08 21:54 WBC RBC Hgb Hct MCV RDW Lymph % (Auto) Cassia % (Auto) Lymph # Cassia # Seg Neutrophils % Seg Neutrophils # PT INR POC ABG pCO2 POC ABG pO2 Sodium Potassium Chloride Carbon Dioxide BUN Creatinine Glucose POC Glucose 203 H 214 H 208 H Calcium Total Creatine Kinase Troponin T HDL Cholesterol 01/29/19 01/29/19 01/29/19 04:56 11:59 18:14 WBC RBC Hgb Hct MCV RDW Lymph % (Auto) Cassia % (Auto) Lymph # Cassia # Seg Neutrophils % Seg Neutrophils # PT INR POC ABG pCO2 POC ABG pO2 Sodium Potassium Chloride Carbon Dioxide BUN Creatinine Glucose POC Glucose 251 H 231 H 225 H Calcium Total Creatine Kinase Troponin T HDL Cholesterol 01/29/19 01/30/19 23:53 06:02 WBC RBC Hgb Hct MCV RDW Lymph % (Auto) Cassia % (Auto) Lymph # Cassia # Seg Neutrophils % Seg Neutrophils # PT INR POC ABG pCO2 POC ABG pO2 Sodium Potassium Chloride Carbon Dioxide BUN Creatinine Glucose POC Glucose 198 H 229 H Calcium Total Creatine Kinase Troponin T HDL Cholesterol
--- NOTE | 2019-01-30 15:24 | Progress Note ---
Assessment and Plan 63 year old male with left MCA stroke, resultant aphasia and right hemiparesis. Currently in respiratory distress. Plan - consider re-intubation will follow neurologically Subjective Date of service: 01/30/19 Principal diagnosis: stroke, respiratory failure Interval history: This 63-year-old -[place] male is seen in follow-up from previous neurologist, Dr. Ruiz, for moderate size left middle cerebral artery territory frontotemporal stroke. MRI shows no significant edema. Most recent CT (01/23/19) showed no progression of the stroke nor increased edema. There was no sign of petechial hemorrhage. The patient most recently has been having respiratory difficulty. He is aphasic and unable to communicate. Objective - Exam Narrative Exam: Sitting up in bed. Breathing with accessory muscles at 40/min. On bipap. Appears extremely uncomfortable. Neurological exam - opens eyes to voice. Not following commands. spectrographic analyst - EOMs full, no nystagmus. mild facial asymmetry Motor - right plegia left - moves spontaneously Sensory - not withdrawing to pain on the right. - Vital Sign Vital Signs - 12hr 01/30/19 01/30/19 01/30/19 03:30 03:40 03:50 Temperature Pulse Rate 118 H 118 H 118 H Pulse Rate [ Anterior Bilateral Throughout] Pulse Rate [ From Monitor] Pulse Rate [ Right Dorsalis Pedis] Respiratory 34 H 36 H 42 H Rate Respiratory Rate [Anterior Bilateral Throughout] Blood Pressure 146/76 146/76 146/76 O2 Sat by Pulse 100 100 100 Oximetry 01/30/19 01/30/19 01/30/19 04:00 04:10 04:20 Temperature 98.9 F Pulse Rate 118 H 118 H 116 H Pulse Rate [ Anterior Bilateral Throughout] Pulse Rate [ 116 H From Monitor] Pulse Rate [ 117 H Right Dorsalis Pedis] Respiratory 37 H 36 H 38 H Rate Respiratory Rate [Anterior Bilateral Throughout] Blood Pressure 149/81 149/81 149/81 O2 Sat by Pulse 98 99 100 Oximetry 01/30/19 01/30/19 01/30/19 04:30 04:40 04:50 Temperature Pulse Rate 113 H 109 H 108 H Pulse Rate [ Anterior Bilateral Throughout] Pulse Rate [ From Monitor] Pulse Rate [ Right Dorsalis Pedis] Respiratory 20 26 H 29 H Rate Respiratory Rate [Anterior Bilateral Throughout] Blood Pressure 149/81 149/81 149/81 O2 Sat by Pulse 100 100 100 Oximetry 01/30/19 01/30/19 01/30/19 05:00 05:10 05:20 Temperature Pulse Rate 108 H 107 H 106 H Pulse Rate [ Anterior Bilateral Throughout] Pulse Rate [ From Monitor] Pulse Rate [ Right Dorsalis Pedis] Respiratory 29 H 29 H 32 H Rate Respiratory Rate [Anterior Bilateral Throughout] Blood Pressure 144/83 144/83 144/83 O2 Sat by Pulse 100 100 100 Oximetry 01/30/19 01/30/19 01/30/19 05:30 05:40 05:50 Temperature Pulse Rate 104 H 104 H 105 H Pulse Rate [ Anterior Bilateral Throughout] Pulse Rate [ From Monitor] Pulse Rate [ Right Dorsalis Pedis] Respiratory 26 H 25 H 29 H Rate Respiratory Rate [Anterior Bilateral Throughout] Blood Pressure 144/83 144/83 144/83 O2 Sat by Pulse 100 100 100 Oximetry 01/30/19 01/30/19 01/30/19 06:00 06:10 06:20 Temperature Pulse Rate 104 H 103 H 106 H Pulse Rate [ Anterior Bilateral Throughout] Pulse Rate [ From Monitor] Pulse Rate [ Right Dorsalis Pedis] Respiratory 33 H 26 H 28 H Rate Respiratory Rate [Anterior Bilateral Throughout] Blood Pressure 144/83 155/92 155/92 O2 Sat by Pulse 100 100 100 Oximetry 01/30/19 01/30/19 01/30/19 06:30 06:40 06:50 Temperature Pulse Rate 106 H 103 H 105 H Pulse Rate [ Anterior Bilateral Throughout] Pulse Rate [ From Monitor] Pulse Rate [ Right Dorsalis Pedis] Respiratory 26 H 26 H 32 H Rate Respiratory Rate [Anterior Bilateral Throughout] Blood Pressure 155/92 155/92 155/92 O2 Sat by Pulse 100 100 100 Oximetry 01/30/19 01/30/19 01/30/19 07:00 07:10 07:20 Temperature Pulse Rate 103 H 105 H 104 H Pulse Rate [ Anterior Bilateral Throughout] Pulse Rate [ From Monitor] Pulse Rate [ Right Dorsalis Pedis] Respiratory 24 26 H 25 H Rate Respiratory Rate [Anterior Bilateral Throughout] Blood Pressure 147/75 147/75 147/75 O2 Sat by Pulse 100 100 100 Oximetry 01/30/19 01/30/19 01/30/19 07:30 07:40 07:50 Temperature Pulse Rate 104 H 102 H 102 H Pulse Rate [ Anterior Bilateral Throughout] Pulse Rate [ From Monitor] Pulse Rate [ Right Dorsalis Pedis] Respiratory 28 H 22 25 H Rate Respiratory Rate [Anterior Bilateral Throughout] Blood Pressure 147/75 147/75 147/75 O2 Sat by Pulse 100 100 100 Oximetry 01/30/19 01/30/19 01/30/19 08:00 08:10 08:20 Temperature 98.6 F Pulse Rate 100 H 100 H 104 H Pulse Rate [ Anterior Bilateral Throughout] Pulse Rate [ 112 H From Monitor] Pulse Rate [ 112 H Right Dorsalis Pedis] Respiratory 21 24 30 H Rate Respiratory Rate [Anterior Bilateral Throughout] Blood Pressure 157/76 157/76 157/76 O2 Sat by Pulse 100 100 100 Oximetry 01/30/19 01/30/19 01/30/19 08:30 08:40 08:50 Temperature Pulse Rate 103 H 105 H 106 H Pulse Rate [ 92 H Anterior Bilateral Throughout] Pulse Rate [ From Monitor] Pulse Rate [ Right Dorsalis Pedis] Respiratory 33 H 31 H 36 H Rate Respiratory 18 Rate [Anterior Bilateral Throughout] Blood Pressure 157/76 157/76 157/76 O2 Sat by Pulse 100 100 99 Oximetry 01/30/19 01/30/19 01/30/19 09:00 09:08 09:09 Temperature Pulse Rate 110 H Pulse Rate [ 87 Anterior Bilateral Throughout] Pulse Rate [ From Monitor] Pulse Rate [ Right Dorsalis Pedis] Respiratory 36 H Rate Respiratory 18 Rate [Anterior Bilateral Throughout] Blood Pressure 153/82 O2 Sat by Pulse 99 100 Oximetry 01/30/19 01/30/19 01/30/19 09:10 09:20 09:30 Temperature Pulse Rate 113 H 114 H 115 H Pulse Rate [ Anterior Bilateral Throughout] Pulse Rate [ From Monitor] Pulse Rate [ Right Dorsalis Pedis] Respiratory 42 H 42 H 46 H Rate Respiratory Rate [Anterior Bilateral Throughout] Blood Pressure 153/82 153/82 153/82 O2 Sat by Pulse 98 98 98 Oximetry 01/30/19 01/30/19 01/30/19 09:40 09:50 10:00 Temperature Pulse Rate 118 H 114 H 113 H Pulse Rate [ Anterior Bilateral Throughout] Pulse Rate [ From Monitor] Pulse Rate [ Right Dorsalis Pedis] Respiratory 40 H 34 H 39 H Rate Respiratory Rate [Anterior Bilateral Throughout] Blood Pressure 153/82 153/82 144/82 O2 Sat by Pulse 97 98 97 Oximetry 01/30/19 01/30/1901/30/19 10:10 10:20 10:30 Temperature Pulse Rate 113 H 113 H 113 H Pulse Rate [ Anterior Bilateral Throughout] Pulse Rate [ From Monitor] Pulse Rate [ Right Dorsalis Pedis] Respiratory 35 H 35 H 24 Rate Respiratory Rate [Anterior Bilateral Throughout] Blood Pressure 144/82 144/82 144/82 O2 Sat by Pulse 98 98 99 Oximetry 01/30/19 01/30/19 01/30/19 10:40 10:50 11:00 Temperature Pulse Rate 114 H 113 H 112 H Pulse Rate [ Anterior Bilateral Throughout] Pulse Rate [ From Monitor] Pulse Rate [ Right Dorsalis Pedis] Respiratory 28 H 36 H 34 H Rate Respiratory Rate [Anterior Bilateral Throughout] Blood Pressure 144/82 144/82 149/78 O2 Sat by Pulse 98 99 99 Oximetry 01/30/19 01/30/19 01/30/19 11:10 11:20 11:30 Temperature Pulse Rate 109 H 108 H 109 H Pulse Rate [ Anterior Bilateral Throughout] Pulse Rate [ From Monitor] Pulse Rate [ Right Dorsalis Pedis] Respiratory 38 H 28 H 33 H Rate Respiratory Rate [Anterior Bilateral Throughout] Blood Pressure 149/78 149/78 149/78 O2 Sat by Pulse 99 100 100 Oximetry 01/30/19 01/30/19 01/30/19 11:40 11:50 12:00 Temperature 98.9 F Pulse Rate 112 H 109 H 106 H Pulse Rate [ Anterior Bilateral Throughout] Pulse Rate [ 113 H From Monitor] Pulse Rate [ 113 H Right Dorsalis Pedis] Respiratory 37 H 27 H 28 H Rate Respiratory Rate [Anterior Bilateral Throughout] Blood Pressure 149/78 149/78 151/72 O2 Sat by Pulse 99 100 100 Oximetry 01/30/19 01/30/19 01/30/19 12:10 12:20 12:30 Temperature Pulse Rate 107 H 111 H 106 H Pulse Rate [ Anterior Bilateral Throughout] Pulse Rate [ From Monitor] Pulse Rate [ Right Dorsalis Pedis] Respiratory 31 H 36 H 25 H Rate Respiratory Rate [Anterior Bilateral Throughout] Blood Pressure 151/72 151/72 151/72 O2 Sat by Pulse 100 99 99 Oximetry 01/30/19 01/30/19 01/30/19 12:40 12:50 13:00 Temperature Pulse Rate 108 H 111 H 106 H Pulse Rate [ Anterior Bilateral Throughout] Pulse Rate [ From Monitor] Pulse Rate [ Right Dorsalis Pedis] Respiratory 31 H 44 H 30 H Rate Respiratory Rate [Anterior Bilateral Throughout] Blood Pressure 151/72 151/72 136/82 O2 Sat by Pulse 100 98 100 Oximetry 01/30/19 01/30/19 01/30/19 13:10 13:20 13:30 Temperature Pulse Rate 109 H 106 H 109 H Pulse Rate [ Anterior Bilateral Throughout] Pulse Rate [ From Monitor] Pulse Rate [ Right Dorsalis Pedis] Respiratory 30 H 33 H 44 H Rate Respiratory Rate [Anterior Bilateral Throughout] Blood Pressure 136/82 136/82 136/82 O2 Sat by Pulse 97 97 96 Oximetry 01/30/19 01/30/19 01/30/19 13:40 13:50 14:00 Temperature Pulse Rate 105 H 107 H 107 H Pulse Rate [ Anterior Bilateral Throughout] Pulse Rate [ From Monitor] Pulse Rate [ Right Dorsalis Pedis] Respiratory 28 H 33 H 39 H Rate Respiratory Rate [Anterior Bilateral Throughout] Blood Pressure 136/82 136/82 133/77 O2 Sat by Pulse 97 96 96 Oximetry 01/30/19 01/30/19 01/30/19 14:10 14:20 14:30 Temperature Pulse Rate 108 H 109 H 107 H Pulse Rate [ 104 H Anterior Bilateral Throughout] Pulse Rate [ From Monitor] Pulse Rate [ Right Dorsalis Pedis] Respiratory 42 H 29 H 43 H Rate Respiratory 33 H Rate [Anterior Bilateral Throughout] Blood Pressure 133/77 133/77 133/77 O2 Sat by Pulse 95 95 98 Oximetry 01/30/19 01/30/19 01/30/19 14:40 14:45 14:50 Temperature Pulse Rate 110 H 106 H Pulse Rate [ 105 H Anterior Bilateral Throughout] Pulse Rate [ From Monitor] Pulse Rate [ Right Dorsalis Pedis] Respiratory 21 35 H Rate Respiratory 33 H Rate [Anterior Bilateral Throughout] Blood Pressure 133/77 133/77 O2 Sat by Pulse 98 100 Oximetry 01/30/19 15:00 Temperature Pulse Rate 110 H Pulse Rate [ Anterior Bilateral Throughout] Pulse Rate [ From Monitor] Pulse Rate [ Right Dorsalis Pedis] Respiratory 37 H Rate Respiratory Rate [Anterior Bilateral Throughout] Blood Pressure 125/83 O2 Sat by Pulse 100 Oximetry - Laboratory Findings CBC and BMP: 01/26/19 04:40 01/27/19 04:39 Abnormal Lab Findings: Abnormal Labs 01/18/19 01/18/19 01/18/19 19:14 19:14 19:14 WBC 17.2 H RBC Hgb Hct MCV 96 H RDW 15.5 H Lymph % (Auto) 7.9 L [place] % (Auto) 7.9 H Lymph # [place] # 1.4 H Seg Neutrophils % 83.5 H Seg Neutrophils # 14.3 H PT 15.5 H INR 1.16 H POC ABG pCO2 POC ABG pO2 Sodium 153 H Potassium 3.4 L Chloride Carbon Dioxide BUN 24 H Creatinine Glucose 159 H POC Glucose Calcium 10.3 H Total Creatine Kinase Troponin T 0.368 H* HDL Cholesterol 35 L 01/18/19 01/19/19 01/19/19 22:33 00:15 05:07 WBC RBC Hgb Hct MCV RDW Lymph % (Auto) [place] % (Auto) Lymph # [place] # Seg Neutrophils % Seg Neutrophils # PT INR POC ABG pCO2 POC ABG pO2 Sodium 151 H Potassium 3.2 L Chloride Carbon Dioxide BUN 25 H Creatinine Glucose 130 H POC Glucose Calcium Total Creatine Kinase 491 H 419 H Troponin T 0.291 H* D 0.273 H* HDL Cholesterol 01/22/19 01/22/19 01/23/19 05:16 05:16 04:27 WBC 12.5 H 13.9 H RBC Hgb Hct MCV 96 H 95 H RDW 15.6 H 15.5 H Lymph % (Auto) 8.6 L 6.2 L [place] % (Auto) 9.1 H 9.1 H Lymph # 1.1 L 0.9 L [place] # 1.1 H 1.3 H Seg Neutrophils % 80.0 H 83.2 H Seg Neutrophils # 10.0 H 11.6 H PT INR POC ABG pCO2 POC ABG pO2 Sodium 156 H Potassium 2.8 L* Chloride 118.5 H Carbon Dioxide BUN Creatinine Glucose 159 H POC Glucose Calcium Total Creatine Kinase Troponin T HDL Cholesterol 01/23/19 01/23/19 01/23/19 04:27 13:11 14:59 WBC RBC Hgb Hct MCV RDW Lymph % (Auto) [place] % (Auto) Lymph # [place] # Seg Neutrophils % Seg Neutrophils # PT INR POC ABG pCO2 POC ABG pO2 282 H 205 H Sodium 151 H Potassium 3.5 L D Chloride 113.8 H Carbon Dioxide BUN Creatinine Glucose 163 H POC Glucose Calcium Total Creatine Kinase Troponin T HDL Cholesterol 01/23/19 01/24/19 01/24/19 18:36 04:17 07:41 WBC RBC Hgb Hct MCV RDW Lymph % (Auto) [place] % (Auto) Lymph # [place] # Seg Neutrophils % Seg Neutrophils # PT INR POC ABG pCO2 POC ABG pO2 148 H Sodium 149 H Potassium Chloride 113.5 H Carbon Dioxide BUN Creatinine Glucose 153 H POC Glucose 141 H Calcium Total Creatine Kinase Troponin T HDL Cholesterol 01/24/19 01/25/19 01/25/19 23:40 04:07 04:07 WBC RBC 3.46 L Hgb 10.8 L Hct 32.7 L MCV 95 H RDW 15.3 H Lymph % (Auto) 9.0 L [place] % (Auto) 10.5 H Lymph # 1.0 L [place] # 1.1 H Seg Neutrophils % 77.7 H Seg Neutrophils # 8.3 H PT INR POC ABG pCO2 POC ABG pO2 Sodium 147 H Potassium Chloride 111.1 H Carbon Dioxide BUN Creatinine Glucose 150 H POC Glucose 130 H Calcium Total Creatine Kinase Troponin T HDL Cholesterol 01/25/19 01/25/19 01/25/19 04:34 05:36 11:53 WBC RBC Hgb Hct MCV RDW Lymph % (Auto) [place] % (Auto) Lymph # [place] # Seg Neutrophils % Seg Neutrophils # PT INR POC ABG pCO2 34.3 L POC ABG pO2 110 H Sodium Potassium Chloride Carbon Dioxide BUN Creatinine Glucose POC Glucose 147 H 162 H Calcium Total Creatine Kinase Troponin T HDL Cholesterol 01/25/19 01/25/19 01/26/19 18:12 23:44 04:13 WBC RBC Hgb Hct MCV RDW Lymph % (Auto) [place] % (Auto) Lymph # [place] # Seg Neutrophils % Seg Neutrophils # PT INR POC ABG pCO2 33.6 L POC ABG pO2 Sodium Potassium Chloride Carbon Dioxide BUN Creatinine Glucose POC Glucose 211 H 210 H Calcium Total Creatine Kinase Troponin T HDL Cholesterol 01/26/19 01/26/19 01/26/19 04:40 04:40 05:27 WBC RBC 3.27 L Hgb 10.2 L Hct 30.9 L MCV RDW Lymph % (Auto) 6.4 L [place] % (Auto) Lymph # 0.7 L [place] # Seg Neutrophils % 87.5 H Seg Neutrophils # 9.5 H PT INR POC ABG pCO2 POC ABG pO2 Sodium Potassium Chloride 107.4 H Carbon Dioxide 21 L BUN Creatinine Glucose 251 H POC Glucose 230 H Calcium Total Creatine Kinase Troponin T HDL Cholesterol 01/26/19 01/26/19 01/27/19 11:50 20:38 01:05 WBC RBC Hgb Hct MCV RDW Lymph % (Auto) [place] % (Auto) Lymph # [place] # Seg Neutrophils % Seg Neutrophils # PT INR POC ABG pCO2 POC ABG pO2 Sodium Potassium Chloride Carbon Dioxide BUN Creatinine Glucose POC Glucose 219 H 166 H 161 H Calcium Total Creatine Kinase Troponin T HDL Cholesterol 01/27/19 01/27/19 01/27/19 04:39 05:57 12:46 WBC RBC Hgb Hct MCV RDW Lymph % (Auto) [place] % (Auto) Lymph # [place] # Seg Neutrophils % Seg Neutrophils # PT INR POC ABG pCO2 POC ABG pO2 Sodium Potassium Chloride 108.0 H Carbon Dioxide 20 L BUN Creatinine 0.7 L Glucose 165 H POC Glucose 160 H 196 H Calcium Total Creatine Kinase Troponin T HDL Cholesterol 01/27/19 01/28/19 01/28/19 18:22 02:12 06:21 WBC RBC Hgb Hct MCV RDW Lymph % (Auto) [place] % (Auto) Lymph # [place] # Seg Neutrophils % Seg Neutrophils # PT INR POC ABG pCO2 POC ABG pO2 Sodium Potassium Chloride Carbon Dioxide BUN Creatinine Glucose POC Glucose 168 H 183 H 211 H Calcium Total Creatine Kinase Troponin T HDL Cholesterol 01/28/19 01/28/19 01/28/19 12:13 19:08 21:54 WBC RBC Hgb Hct MCV RDW Lymph % (Auto) [place] % (Auto) Lymph # [place] # Seg Neutrophils % Seg Neutrophils # PT INR POC ABG pCO2 POC ABG pO2 Sodium Potassium Chloride Carbon Dioxide BUN Creatinine Glucose POC Glucose 203 H 214 H 208 H Calcium Total Creatine Kinase Troponin T HDL Cholesterol 01/29/19 01/29/19 01/29/19 04:56 11:59 18:14 WBC RBC Hgb Hct MCV RDW Lymph % (Auto) [place] % (Auto) Lymph # [place] # Seg Neutrophils % Seg Neutrophils # PT INR POC ABG pCO2 POC ABG pO2 Sodium Potassium Chloride Carbon Dioxide BUN Creatinine Glucose POC Glucose 251 H 231 H 225 H Calcium Total Creatine Kinase Troponin T HDL Cholesterol 01/29/19 01/30/19 01/30/19 23:53 06:02 12:10 WBC RBC Hgb Hct MCV RDW Lymph % (Auto) [place] % (Auto) Lymph # [place] # Seg Neutrophils % Seg Neutrophils # PT INR POC ABG pCO2 POC ABG pO2 Sodium Potassium Chloride Carbon Dioxide BUN Creatinine Glucose POC Glucose 198 H 229 H 286 H Calcium Total Creatine Kinase Troponin T HDL Cholesterol
--- NOTE | 2019-01-30 17:20 | XRay Report ---
PROCEDURE: XR CHEST 1V AP TECHNIQUE: Chest single AP HISTORY: chest pain COMPARISONS: Comparison is January 23, 2019 FINDINGS: Feeding tube present. Distal end overlying the body the stomach. No focal pulmonary infiltrate identi fied. No pleural fluid collection seen. Pulmonary vasculature is unremarkable. Cardiac and mediastina l contours are within normal limits. IMPRESSION: Feeding tube noted No acute findings in the chest. This document is electronically signed by Bolivar Cartagena MD., January 30 2019 05:18:42 PM ET
[2019-01-30] MEDS ORDERED: SUBLIMAZE IV ONE (17:34)
[2019-01-30] MEDS ORDERED: ARTIFICIAL TEARS OPHTH OINT OU PRN (17:36)
[2019-01-30] MEDS ORDERED: VASELINE LIP THERAPY TP PRN (17:36)
[2019-01-30] MEDS ORDERED: SUBLIMAZE IV PRN (17:36)
--- NOTE | 2019-01-30 17:44 | Progress Note ---
Assessment and Plan Assessment and plan: Acute hypoxic respiratory failure. Patient emergently intubated secondary to labored respirations/airway protection. Pulmonary consultation. Aspiration Vs mucus plug. Mucus plugging. Continue frequent suction. 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 CT scan reveals subacute left frontal lobe infarct. Neurology following. MRI head reveals subacute left MCA infarct with evidence of petechial hemorrhage. Echocardiogram shows enlarged left ventricle with only 25-30% ejection fraction but negative bubble study. CT angiogram of the neck showed ulceration in the right internal carotid artery with elongated artery and left ICA showed just elongated artery. CT angiogram head is negative or normal. PT/OT/ST. repeat CT head pending. Dilated cardiomyopathy with severe left ventricular global hypokinesis. EF 25- 30% as noted above. No anticoagulation given increased risk for hemorrhagic conversion with CVA. Accelerated hypertension. Increase hydralazine to 100 mg 3 times a day. Bilateral lower extremity DVT. IVC filter placement. No anticoagulation given increased risk for hemorrhagic conversion with CVA. SIRS. No evidence of obvious infection. Cultures negative so far. Antibiotics discontinued Hypernatremia; treated and resolved Hypokalemia. Replete potassium as noted above. Elevated troponin. Cardiology following Difficult dubhoof placement; GI placed Dubhoof and currently on tube feeding. Patient failed swallow evaluation. Disposition; continue IMCU care. Discussed with family, and also with Receiving Clerk, Patient with tachypena, 40bpm, lethargic and sluggish response. Will electively reintubate. Obatain ABG, CHEST XRAY POST INTUBATION OBTAIN CT head to ensure no hemorragic conversion The high probability of a clinically significant, sudden or life threatening deterioration of the [pulmonary, neurol] system(s) required my full and direct attention, intervention and personal management. The aggregate critical care time was [55] minutes. This time is in addition to time spent performing reported procedures but includes the following: [x] Data Review and interpretation [x] Patient assessment and monitoring of vital signs [x] Documentation [x] Medication orders and management History Interval history: Patient seen and examined today, in moderate acute distress and not following commands Hospitalist Physical - Physical exam Narrative exam: Patient was extubated on 01/26/19. On NG tube feeding The patient appeared well nourished and normally developed. Vital signs as documented. Head exam is unremarkable. No scleral icterus . Neck is without jugular venous distension, thyromegaly, or carotid bruits. Lungs are clear to auscultation.tacypnea and shallow Cardiac exam reveals regular rate and Rhythm. Abdominal exam reveals normal bowel sounds. Extremities are nonedematous. 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 not following commands - Constitutional Vitals: Temp Pulse Resp BP Pulse Ox 99.8 F H 115 H 39 H 146/68 99 01/30/19 16:00 01/30/19 17:23 01/30/19 17:23 01/30/19 17:23 01/30/19 17:23 General appearance: Present: severe distress, well-nourished, other (accessory muscle use with respirations) Results - Labs CBC & Chem 7: 01/31/19 04:07 01/31/19 04:07 Labs: Laboratory Last Values WBC 10.9 K/mm3 (4.5-11.0) 01/26/19 04:40 RBC 3.27 M/mm3 (3.65-5.03) L 01/26/19 04:40 Hgb 10.2 gm/dl (11.8-15.2) L 01/26/19 04:40 Hct 30.9 % (35.5-45.6) L 01/26/19 04:40 MCV 94 fl (84-94) 01/26/19 04:40 MCH 31 pg (28-32) 01/26/19 04:40 MCHC 33 % (32-34) 01/26/19 04:40 RDW 15.0 % (13.2-15.2) 01/26/19 04:40 Plt Count 231 K/mm3 (140-440) 01/26/19 04:40 Lymph % (Auto) 6.4 % (13.4-35.0) L 01/26/19 04:40 [place] % (Auto) 5.8 % (0.0-7.3) 01/26/19 04:40 Eos % (Auto) 0.0 % (0.0-4.3) 01/26/19 04:40 Baso % (Auto) 0.3 % (0.0-1.8) 01/26/19 04:40 Lymph # 0.7 K/mm3 (1.2-5.4) L 01/26/19 04:40 [place] # 0.6 K/mm3 (0.0-0.8) 01/26/19 04:40 Eos # 0.0 K/mm3 (0.0-0.4) 01/26/19 04:40 Baso # 0.0 K/mm3 (0.0-0.1) 01/26/19 04:40 Seg Neutrophils % 87.5 % (40.0-70.0) H 01/26/19 04:40 Seg Neutrophils # 9.5 K/mm3 (1.8-7.7) H 01/26/19 04:40 PT 15.5 Sec. (12.2-14.9) H 01/18/19 19:14 INR 1.16 (0.87-1.13) H 01/18/19 19:14 APTT 31.7 Sec. (24.2-36.6) 01/18/19 19:14 Thrombin Time 16.2 Sec. (15.1-19.6) 01/18/19 19:14 POC ABG pH 7.447 (7.35-7.45) 01/30/19 15:31 POC ABG pCO2 37.2 (35-45) 01/30/19 15:31 POC ABG pO2 100 (80-105) 01/30/19 15:31 POC ABG HCO3 25.7 (22-26 mml/L) 01/30/19 15:31 POC ABG Total CO2 27 (23-27mmol/L) 01/30/19 15:31 POC ABG O2 Sat 98 01/30/19 15:31 POC ABG Base Excess 2 ((-2) - (+3)mmol/L) 01/30/19 15:31 FiO2 2 % 01/30/19 15:31 Sodium 141 mmol/L (137-145) 01/27/19 04:39 Potassium 3.9 mmol/L (3.6-5.0) 01/27/19 04:39 Chloride 108.0 mmol/L (98-107) H 01/27/19 04:39 Carbon Dioxide 20 mmol/L (22-30) L 01/27/19 04:39 Anion Gap 17 mmol/L 01/27/19 04:39 BUN 19 mg/dL (9-20) 01/27/19 04:39 Creatinine 0.7 mg/dL (0.8-1.5) L 01/27/19 04:39 Estimated GFR > 60 ml/min 01/27/19 04:39 BUN/Creatinine Ratio 27 % 01/27/19 04:39 Glucose 165 mg/dL (75-100) H 01/27/19 04:39 POC Glucose 286 (70-105) H 01/30/19 12:10 Lactic Acid 1.10 mmol/L (0.7-2.0) 01/28/19 18:10 Calcium 9.3 mg/dL (8.4-10.2) 01/27/19 04:39 Total Creatine Kinase 419 units/L (55-170) H 01/19/19 05:07 CK-MB (CK-2) 3.2 ng/mL (0.0-4.0) 01/19/19 05:07 CK-MB (CK-2) Rel Index 0.7 (0-4) 01/19/19 05:07 Troponin T 0.273 ng/mL (0.00-0.029) H* 01/19/19 05:07 Triglycerides 140 mg/dL (2-149) 01/18/19 19:14 Cholesterol 157 mg/dL (50-199) 01/18/19 19:14 LDL Cholesterol Direct 98 mg/dL (50-130) 01/18/19 19:14 HDL Cholesterol 35 mg/dL (40-59) L 01/18/19 19:14 Cholesterol/HDL Ratio 4.48 % 01/18/19 19:14 Active Medications - Current Medications Current Medications: Generic Name Dose Route Start Last Admin Trade Name Freq PRN Reason Stop Dose Admin Acetaminophen 650 mg 01/18/19 22:08 01/26/19 22:56 Tylenol SC 650 mg Q4H PRN Administration Pain MILD(1-3)/Fever >100.5/PEARL Albuterol 2.5 mg 01/23/19 15:41 01/29/19 08:40 Proventil IH 2.5 mg Q4HRT PRN Administration Shortness Of Breath Albuterol 2.5 mg 01/29/19 14:00 01/30/19 14:41 Proventil IH 2.5 mg Q6HRT YESICA Administration Lipase/Protease/Amylase 1 each 01/24/19 15:00 Pancreradha Dor[place] 10,500 Unit FEEDTUBE PRN PRN For Clogged Feeding Tube Aspirin 325 mg 01/27/19 10:00 01/30/19 10:00 Aspirin PO 325 mg QDAY YESICA Administration Atorvastatin Calcium 40 mg 01/24/19 22:00 01/29/19 22:30 Lipitor PO 40 mg QHS YESICA Administration Famotidine 20 mg 01/30/19 22:00 Pepcid PO BID YESICA Hydralazine HCl 5 mg 01/18/19 22:13 01/23/19 19:15 Apresoline IV 5 mg Q6H PRN Administration Hypertension Hydralazine HCl 100 mg 01/21/19 14:00 01/30/19 14:36 Apresoline PO 100 mg Q8HR YESICA Administration Insulin Human Lispro 0 unit 01/26/19 18:00 01/30/19 14:36 Humalog SUB-Q 4 unit Q6HR YESICA Administration Protocol Midazolam HCl 5 mg 01/30/19 18:00 Versed IV 01/30/19 23:59 ONCE NR Ondansetron HCl 4 mg 01/18/19 22:08 Zofran IV Q4H PRN Nausea And Vomiting Simple Syrup 15 ml 01/24/19 15:00 Simple Syrup FEEDTUBE PRN PRN Hypoglycemia Simple Syrup 30 ml 01/24/19 15:00 Simple Syrup FEEDTUBE PRN PRN Hypoglycemia Sodium Bicarbonate 325 mg 01/24/19 15:00 Sodium Bicarbonate FEEDTUBE PRN PRN For Clogged Feeding Tube Sodium Chloride 10 ml 01/19/19 10:00 01/30/19 10:01 Sodium Chloride Flush Syringe 10 Ml IV 10 ml BID YESICA Administration Sodium Chloride 10 ml 01/18/19 22:08 01/24/19 14:17 Sodium Chloride Flush Syringe 10 Ml IV 10 ml PRN PRN Administration LINE FLUSH Nutrition/Malnutrition Assess - Dietary Evaluation Nutrition/Malnutrition Findings: Nutrition Notes Start: 01/19/19 13:52 Freq: Status: Active Protocol: Document 01/30/19 16:19 OL (Rec: 01/30/19 16:22 OL [id number]) Nutrition Notes Initial or Follow up Reassessment Current Diagnosis Diabetes,Hypertension, Respiratory Failure,Stroke, Hyperlipidemia Current Diet Vital AF at 65mL/hr Labs/Tests Reviewed Pertinent Medications Reviewed Height 5 ft 10 in Weight 77.8 kg [place] Body Weight (kg) 75.45 BMI 24.6 Subjective/Other Information TF on hold at time of visit. RN reports pt. with respiratory distress. Pt. to have chest x-ray to rule at aspiration. Feeding on hold until tomorrow. Burn Absent Trauma Absent #1 Nutrition Diagnosis Inadequate oral intake Diagnosis Progress(for reassessment Continues documentation) Is patient on ventilator? No Is Patient Ambulatory and/or Out of Bed No REE-([facility]-confined to bed) [phone] Calculation Used for Recommendations [facility] Additional Notes Pro needs 1.2-1.5/k-117g/ day Fluid needs 1ml/kcal Nutrition Intervention Change Diet Order: TF restart when medically feasible Nutrition Support: Vital AF at 65 mL/hr. 100mL flush q4h or per MD Kcal 1,872 Protein (gm) 117 Fluid (mL) 1,265 Goal #1 TF restart Anticipated Discharge Needs: Unable to identify at this time Follow-Up By: 02/01/19 Additional Comments f/u: TF restart
[2019-01-30] MEDS ORDERED: DIPRIVAN 10 MG/ML 1,000 MG/100 ML BOTTLE IV SCH (18:00)
[2019-01-30] MEDS ORDERED: VERSED IV NR (18:00)
[2019-01-30] MEDS ORDERED: fentaNYL DRIP Premix 2,000 MCG/100 ML BAG IV SCH (18:00)
[2019-01-30] MEDS ORDERED: AMIDATE IV ONE ×2 (18:11→22:17)
--- NOTE | 2019-01-30 19:56 | XRay Report ---
PROCEDURE: XR CHEST 1V AP TECHNIQUE: Single AP view of the chest all HISTORY: ETT placement COMPARISONS: FINDINGS: ET tube present. Tip is midway between thoracic inlet and the car. There is a feeding tube distal tip not visualized descending below the diaphragm Cardiac and mediastinal contours are unremarkable. No focal pulmonary infiltrate identified. No pleur al fluid collection seen. Pulmonary vasculature is unremarkable. IMPRESSION: ET tube appears in satisfactory position. This document is electronically signed by Bolivar Cartagena MD., January 30 2019 07:54:36 PM ET
--- NOTE | 2019-01-30 20:11 | Cat Scan Report ---
PROCEDURE: CT HEAD/BRAIN WO CON TECHNIQUE: Spiral imaging of the brain was obtained without IV contrast. HISTORY: Follow-up ischemic infarction. COMPARISONS: Prior CT scan of the brain 01/23/2019 FINDINGS: Ventricle sulcal pattern and fissures are prominent consistent with mild diffuse atrophy. Decreased d ensity without mass effect seen in the periventricular white matter. This is unchanged from the prior study. An asymmetric area of decreased density is seen in the posterior inferior aspect of the left frontal lobe, anterior aspect left parietal lobe and also involving a portion of the insular cortex a nd left periventricular white matter. This shows improved definition since the prior study consistent with evolving infarction. Adjacent fissures and sulcal pattern are better defined on the prior study , edematous changes are decreasing. No new areas of ischemic infarction are seen. No evidence of intracranial hemorrhage. No evidence of skull fracture. Mastoid air cells and visualized portions of the paranasal sinuses appear clear. IMPRESSION: Evolving ischemic infarct as described above. This involves the left middle cerebral artery distribut ion. No new areas of ischemic infarction or hemorrhage are seen. There is evidence of mild atrophy and gliosis.. This document is electronically signed by Jose Luis Kurtz MD., January 30 2019 08:09:49 PM ET
[2019-01-30] MEDS: PEPCID PO SCH (21:46)
[2019-01-31] MEDS: TYLENOL PR PRN (00:28)
[2019-01-31] MEDS: PROVENTIL IH SCH ×4 (02:27→20:10)
[2019-01-31 05:22] LABS: Hematocrit 27.5 % (35.5-45.6); Mean Corpuscular HGB Conc 33 % (32-34); Mean Corpuscular Volume 94 fl (84-94); Platelet Count 394 K/mm3 (140-440); Red Blood Count 2.94 M/mm3 (3.65-5.03); Red Cell Distribution Width 15.4 % (13.2-15.2)
[2019-01-31] MEDS: APRESOLINE PO SCH ×3 (05:25→22:26)
[2019-01-31 05:46] LABS: BUN/Creatinine Ratio 40; Blood Urea Nitrogen 32 mg/dL (9-20); Calcium 9.4 mg/dL (8.4-10.2); Hemolysis Index 0
--- NOTE | 2019-01-31 09:12 | Progress Note ---
Assessment and Plan Acute respiratory failure . Deteriorated last evening requiring intubation and mechanical ventilation support. Concerns for aspiration noted but no evidence of tenderness on chest x-rays Stroke. Evolving per head CT scan report AMS Leukocytosis, cause unknown. Patient not on steroids Recommendations Aspiration precautions. No findings on x-rays Follow-up ventilator protocol orders Watch for fever Restart tube feeding Check neurology follow-up recommendations regarding any additional intervention Proceed with weaning, SPT evaluation after the above DVT prophylaxis Physical therapy Critical care time was 31 minutes of [id number] evaluation and coordination of care Subjective Date of service: 01/31/19 Principal diagnosis: stroke, respiratory failure Interval history: Intubated Objective Vital Signs - 12hr 01/30/19 01/30/19 01/30/19 22:00 23:14 23:19 Temperature 102.5 F H Pulse Rate 122 H 121 H Pulse Rate [ Anterior Bilateral Throughout] Pulse Rate [ From Monitor] Respiratory Rate Respiratory Rate [Anterior Bilateral Throughout] Blood Pressure 142/76 O2 Sat by Pulse 100 Oximetry 01/31/19 01/31/19 01/31/19 00:00 00:55 01:00 Temperature Pulse Rate 117 H 117 H Pulse Rate [ Anterior Bilateral Throughout] Pulse Rate [ 107 H From Monitor] Respiratory 23 30 H 33 H Rate Respiratory Rate [Anterior Bilateral Throughout] Blood Pressure 111/69 111/69 O2 Sat by Pulse 100 100 100 Oximetry 01/31/19 01/31/19 01/31/19 01:10 01:20 01:30 Temperature Pulse Rate 118 H 120 H 113 H Pulse Rate [ Anterior Bilateral Throughout] Pulse Rate [ From Monitor] Respiratory 27 H 33 H 29 H Rate Respiratory Rate [Anterior Bilateral Throughout] Blood Pressure 145/79 145/74 O2 Sat by Pulse 100 100 100 Oximetry 01/31/19 01/31/19 01/31/19 01:40 01:50 02:00 Temperature Pulse Rate 111 H 109 H 107 H Pulse Rate [ Anterior Bilateral Throughout] Pulse Rate [ From Monitor] Respiratory 28 H 26 H 26 H Rate Respiratory Rate [Anterior Bilateral Throughout] Blood Pressure 112/70 139/72 116/69 O2 Sat by Pulse 100 100 100 Oximetry 01/31/19 01/31/19 01/31/19 02:10 02:20 02:28 Temperature Pulse Rate 103 H 102 H Pulse Rate [ 98 H Anterior Bilateral Throughout] Pulse Rate [ From Monitor] Respiratory 18 19 Rate Respiratory 23 Rate [Anterior Bilateral Throughout] Blood Pressure 139/72 139/72 O2 Sat by Pulse 100 Oximetry 01/31/19 01/31/19 01/31/19 02:30 02:40 02:43 Temperature Pulse Rate 98 H 99 H Pulse Rate [ 100 H Anterior Bilateral Throughout] Pulse Rate [ From Monitor] Respiratory 23 25 H Rate Respiratory 23 Rate [Anterior Bilateral Throughout] Blood Pressure 123/68 116/69 O2 Sat by Pulse 100 100 Oximetry 01/31/19 01/31/19 01/31/19 02:50 03:00 03:10 Temperature Pulse Rate 100 H 100 H 100 H Pulse Rate [ Anterior Bilateral Throughout] Pulse Rate [ From Monitor] Respiratory 24 24 25 H Rate Respiratory Rate [Anterior Bilateral Throughout] Blood Pressure 124/74 127/69 127/69 O2 Sat by Pulse 100 100 100 Oximetry 01/31/19 01/31/19 01/31/19 03:20 03:30 03:35 Temperature Pulse Rate 101 H 101 H 105 H Pulse Rate [ Anterior Bilateral Throughout] Pulse Rate [ From Monitor] Respiratory 23 25 H Rate Respiratory Rate [Anterior Bilateral Throughout] Blood Pressure 127/76 128/76 138/76 O2 Sat by Pulse 100 100 100 Oximetry 01/31/19 01/31/19 01/31/19 03:40 03:50 04:00 Temperature 98.9 F Pulse Rate 101 H 103 H 104 H Pulse Rate [ Anterior Bilateral Throughout] Pulse Rate [ 105 H From Monitor] Respiratory 23 23 24 Rate Respiratory Rate [Anterior Bilateral Throughout] Blood Pressure 127/76 132/74 138/76 O2 Sat by Pulse 100 100 100 Oximetry 01/31/19 01/31/19 01/31/19 04:10 04:20 04:30 Temperature Pulse Rate 105 H 106 H 107 H Pulse Rate [ Anterior Bilateral Throughout] Pulse Rate [ From Monitor] Respiratory 25 H 30 H 25 H Rate Respiratory Rate [Anterior Bilateral Throughout] Blood Pressure 138/76 142/78 142/78 O2 Sat by Pulse 100 100 100 Oximetry 01/31/19 01/31/19 01/31/19 04:40 04:50 05:00 Temperature Pulse Rate 108 H 105 H 107 H Pulse Rate [ Anterior Bilateral Throughout] Pulse Rate [ From Monitor] Respiratory 26 H 23 19 Rate Respiratory Rate [Anterior Bilateral Throughout] Blood Pressure 142/78 142/76 135/78 O2 Sat by Pulse 100 100 100 Oximetry 04/0201/31/19 01/31/19 05:10 05:20 05:30 Temperature Pulse Rate 106 H 106 H 101 H Pulse Rate [ Anterior Bilateral Throughout] Pulse Rate [ From Monitor] Respiratory 22 24 20 Rate Respiratory Rate [Anterior Bilateral Throughout] Blood Pressure 135/78 132/79 131/65 O2 Sat by Pulse 100 100 100 Oximetry 01/31/19 01/31/19 01/31/19 05:40 05:50 06:00 Temperature Pulse Rate 99 H 100 H 102 H Pulse Rate [ Anterior Bilateral Throughout] Pulse Rate [ From Monitor] Respiratory 22 20 25 H Rate Respiratory Rate [Anterior Bilateral Throughout] Blood Pressure 131/65 116/63 123/66 O2 Sat by Pulse 100 100 100 Oximetry 01/31/19 01/31/19 01/31/19 06:10 06:20 06:30 Temperature Pulse Rate 102 H 104 H 103 H Pulse Rate [ Anterior Bilateral Throughout] Pulse Rate [ From Monitor] Respiratory 25 H 22 22 Rate Respiratory Rate [Anterior Bilateral Throughout] Blood Pressure 123/66 128/65 119/71 O2 Sat by Pulse 100 100 100 Oximetry 01/31/19 01/31/19 01/31/19 06:40 06:50 07:00 Temperature Pulse Rate 103 H 104 H 103 H Pulse Rate [ Anterior Bilateral Throughout] Pulse Rate [ From Monitor] Respiratory 23 24 23 Rate Respiratory Rate [Anterior Bilateral Throughout] Blood Pressure 119/71 124/73 124/73 O2 Sat by Pulse 100 100 100 Oximetry 01/31/19 01/31/19 01/31/19 07:10 07:20 08:29 Temperature Pulse Rate 102 H 102 H 102 H Pulse Rate [ Anterior Bilateral Throughout] Pulse Rate [ From Monitor] Respiratory 23 23 Rate Respiratory Rate [Anterior Bilateral Throughout] Blood Pressure 124/73 124/74 130/70 O2 Sat by Pulse 100 100 100 Oximetry 01/31/19 08:33 Temperature Pulse Rate Pulse Rate [ 104 H Anterior Bilateral Throughout] Pulse Rate [ From Monitor] Respiratory Rate Respiratory 22 Rate [Anterior Bilateral Throughout] Blood Pressure O2 Sat by Pulse Oximetry Constitutional: no acute distress Eyes: non-icteric ENT: other (orally intubated, ) Neck: supple Effort: normal Ascultation: Bilateral: clear Cardiovascular: regular rate and rhythm Gastrointestinal: normoactive bowel sounds Extremities: no edema Neurologic: other (weakness of right) CBC and BMP: 01/31/19 04:07 01/31/19 04:07 ABG, PT/INR, D-dimer: ABG POC ABG pH 7.455 (7.35-7.45) H 01/31/19 04:21 POC ABG pCO2 37.9 (35-45) 01/31/19 04:21 POC ABG pO2 138 (80-105) H 01/31/19 04:21 POC ABG HCO3 26.7 (22-26 mml/L) 01/31/19 04:21 POC ABG Total CO2 28 (23-27mmol/L) 01/31/19 04:21 POC ABG O2 Sat 99 01/31/19 04:21 PT/INR, D-dimer PT 15.5 Sec. (12.2-14.9) H 01/18/19 19:14 INR 1.16 (0.87-1.13) H 01/18/19 19:14 Abnormal lab findings: Abnormal Labs 01/18/19 01/18/19 01/18/19 19:14 19:14 19:14 WBC 17.2 H RBC Hgb Hct MCV 96 H RDW 15.5 H Lymph % (Auto) 7.9 L Walsh % (Auto) 7.9 H Lymph # Walsh # 1.4 H Seg Neutrophils % 83.5 H Seg Neutrophils # 14.3 H PT 15.5 H INR 1.16 H POC ABG pH POC ABG pCO2 POC ABG pO2 Sodium 153 H Potassium 3.4 L Chloride Carbon Dioxide BUN 24 H Creatinine Glucose 159 H POC Glucose Calcium 10.3 H Total Creatine Kinase Troponin T 0.368 H* HDL Cholesterol 35 L 01/18/19 01/19/19 01/19/19 22:33 00:15 05:07 WBC RBC Hgb Hct MCV RDW Lymph % (Auto) Walsh % (Auto) Lymph # Walsh # Seg Neutrophils % Seg Neutrophils # PT INR POC ABG pH POC ABG pCO2 POC ABG pO2 Sodium 151 H Potassium 3.2 L Chloride Carbon Dioxide BUN 25 H Creatinine Glucose 130 H POC Glucose Calcium Total Creatine Kinase 491 H 419 H Troponin T 0.291 H* D 0.273 H* HDL Cholesterol 01/22/19 01/22/19 01/23/19 05:16 05:16 04:27 WBC 12.5 H 13.9 H RBC Hgb Hct MCV 96 H 95 H RDW 15.6 H 15.5 H Lymph % (Auto) 8.6 L 6.2 L Walsh % (Auto) 9.1 H 9.1 H Lymph # 1.1 L 0.9 L Walsh # 1.1 H 1.3 H Seg Neutrophils % 80.0 H 83.2 H Seg Neutrophils # 10.0 H 11.6 H PT INR POC ABG pH POC ABG pCO2 POC ABG pO2 Sodium 156 H Potassium 2.8 L* Chloride 118.5 H Carbon Dioxide BUN Creatinine Glucose 159 H POC Glucose Calcium Total Creatine Kinase Troponin T HDL Cholesterol 01/23/19 01/23/19 01/23/19 04:27 13:11 14:59 WBC RBC Hgb Hct MCV RDW Lymph % (Auto) Walsh % (Auto) Lymph # Walsh # Seg Neutrophils % Seg Neutrophils # PT INR POC ABG pH POC ABG pCO2 POC ABG pO2 282 H 205 H Sodium 151 H Potassium 3.5 L D Chloride 113.8 H Carbon Dioxide BUN Creatinine Glucose 163 H POC Glucose Calcium Total Creatine Kinase Troponin T HDL Cholesterol 01/23/19 01/24/19 01/24/19 18:36 04:17 07:41 WBC RBC Hgb Hct MCV RDW Lymph % (Auto) Walsh % (Auto) Lymph # Walsh # Seg Neutrophils % Seg Neutrophils # PT INR POC ABG pH POC ABG pCO2 POC ABG pO2 148 H Sodium 149 H Potassium Chloride 113.5 H Carbon Dioxide BUN Creatinine Glucose 153 H POC Glucose 141 H Calcium Total Creatine Kinase Troponin T HDL Cholesterol 01/24/19 01/25/19 01/25/19 23:40 04:07 04:07 WBC RBC 3.46 L Hgb 10.8 L Hct 32.7 L MCV 95 H RDW 15.3 H Lymph % (Auto) 9.0 L Walsh % (Auto) 10.5 H Lymph # 1.0 L Walsh # 1.1 H Seg Neutrophils % 77.7 H Seg Neutrophils # 8.3 H PT INR POC ABG pH POC ABG pCO2 POC ABG pO2 Sodium 147 H Potassium Chloride 111.1 H Carbon Dioxide BUN Creatinine Glucose 150 H POC Glucose 130 H Calcium Total Creatine Kinase Troponin T HDL Cholesterol 01/25/19 01/25/19 01/25/19 04:34 05:36 11:53 WBC RBC Hgb Hct MCV RDW Lymph % (Auto) Walsh % (Auto) Lymph # Walsh # Seg Neutrophils % Seg Neutrophils # PT INR POC ABG pH POC ABG pCO2 34.3 L POC ABG pO2 110 H Sodium Potassium Chloride Carbon Dioxide BUN Creatinine Glucose POC Glucose 147 H 162 H Calcium Total Creatine Kinase Troponin T HDL Cholesterol 01/25/19 01/25/19 01/26/19 18:12 23:44 04:13 WBC RBC Hgb Hct MCV RDW Lymph % (Auto) Walsh % (Auto) Lymph # Walsh # Seg Neutrophils % Seg Neutrophils # PT INR POC ABG pH POC ABG pCO2 33.6 L POC ABG pO2 Sodium Potassium Chloride Carbon Dioxide BUN Creatinine Glucose POC Glucose 211 H 210 H Calcium Total Creatine Kinase Troponin T HDL Cholesterol 01/26/19 01/26/19 01/26/19 04:40 04:40 05:27 WBC RBC 3.27 L Hgb 10.2 L Hct 30.9 L MCV RDW Lymph % (Auto) 6.4 L Walsh % (Auto) Lymph # 0.7 L Walsh # Seg Neutrophils % 87.5 H Seg Neutrophils # 9.5 H PT INR POC ABG pH POC ABG pCO2 POC ABG pO2 Sodium Potassium Chloride 107.4 H Carbon Dioxide 21 L BUN Creatinine Glucose 251 H POC Glucose 230 H Calcium Total Creatine Kinase Troponin T HDL Cholesterol 01/26/19 01/26/19 01/27/19 11:50 20:38 01:05 WBC RBC Hgb Hct MCV RDW Lymph % (Auto) Walsh % (Auto) Lymph # Walsh # Seg Neutrophils % Seg Neutrophils # PT INR POC ABG pH POC ABG pCO2 POC ABG pO2 Sodium Potassium Chloride Carbon Dioxide BUN Creatinine Glucose POC Glucose 219 H 166 H 161 H Calcium Total Creatine Kinase Troponin T HDL Cholesterol 01/27/19 01/27/19 01/27/19 04:39 05:57 12:46 WBC RBC Hgb Hct MCV RDW Lymph % (Auto) Walsh % (Auto) Lymph # Walsh # Seg Neutrophils % Seg Neutrophils # PT INR POC ABG pH POC ABG pCO2 POC ABG pO2 Sodium Potassium Chloride 108.0 H Carbon Dioxide 20 L BUN Creatinine 0.7 L Glucose 165 H POC Glucose 160 H 196 H Calcium Total Creatine Kinase Troponin T HDL Cholesterol 01/27/19 01/28/19 01/28/19 18:22 02:12 06:21 WBC RBC Hgb Hct MCV RDW Lymph % (Auto) Walsh % (Auto) Lymph # Walsh # Seg Neutrophils % Seg Neutrophils # PT INR POC ABG pH POC ABG pCO2 POC ABG pO2 Sodium Potassium Chloride Carbon Dioxide BUN Creatinine Glucose POC Glucose 168 H 183 H 211 H Calcium Total Creatine Kinase Troponin T HDL Cholesterol 01/28/19 01/28/19 01/28/19 12:13 19:08 21:54 WBC RBC Hgb Hct MCV RDW Lymph % (Auto) Walsh % (Auto) Lymph # Walsh # Seg Neutrophils % Seg Neutrophils # PT INR POC ABG pH POC ABG pCO2 POC ABG pO2 Sodium Potassium Chloride Carbon Dioxide BUN Creatinine Glucose POC Glucose 203 H 214 H 208 H Calcium Total Creatine Kinase Troponin T HDL Cholesterol 01/29/19 01/29/19 01/29/19 04:56 11:59 18:14 WBC RBC Hgb Hct MCV RDW Lymph % (Auto) Walsh % (Auto) Lymph # Walsh # Seg Neutrophils % Seg Neutrophils # PT INR POC ABG pH POC ABG pCO2 POC ABG pO2 Sodium Potassium Chloride Carbon Dioxide BUN Creatinine Glucose POC Glucose 251 H 231 H 225 H Calcium Total Creatine Kinase Troponin T HDL Cholesterol 01/29/19 01/30/19 01/30/19 23:53 06:02 12:10 WBC RBC Hgb Hct MCV RDW Lymph % (Auto) Walsh % (Auto) Lymph # Walsh # Seg Neutrophils % Seg Neutrophils # PT INR POC ABG pH POC ABG pCO2 POC ABG pO2 Sodium Potassium Chloride Carbon Dioxide BUN Creatinine Glucose POC Glucose 198 H 229 H 286 H Calcium Total Creatine Kinase Troponin T HDL Cholesterol 01/30/19 01/30/19 01/31/19 17:31 20:37 04:07 WBC 15.1 H RBC 2.94 L Hgb 9.0 L Hct 27.5 L MCV RDW 15.4 H Lymph % (Auto) Walsh % (Auto) Lymph # Walsh # Seg Neutrophils % Seg Neutrophils # PT INR POC ABG pH 7.529 H POC ABG pCO2 32.4 L POC ABG pO2 183 H Sodium Potassium Chloride Carbon Dioxide BUN Creatinine Glucose POC Glucose 238 H Calcium Total Creatine Kinase Troponin T HDL Cholesterol 01/31/19 01/31/19 01/31/19 04:07 04:21 05:11 WBC RBC Hgb Hct MCV RDW Lymph % (Auto) Walsh % (Auto) Lymph # Walsh # Seg Neutrophils % Seg Neutrophils # PT INR POC ABG pH 7.455 H POC ABG pCO2 POC ABG pO2 138 H Sodium 147 H Potassium Chloride 108.7 H Carbon Dioxide BUN 32 H Creatinine Glucose 176 H POC Glucose 172 H Calcium Total Creatine Kinase Troponin T HDL Cholesterol Chest x-ray: report reviewed, image reviewed CT scan - chest: report reviewed
[2019-01-31] MEDS: ASPIRIN PO SCH (10:02)
[2019-01-31] MEDS: SODIUM CHLORIDE FLUSH SYRINGE 10 ML IV SCH ×2 (10:03→22:26)
[2019-01-31] MEDS: PEPCID PO SCH ×2 (10:03→22:26)
[2019-01-31] MEDS: HumaLOG SUB-Q SCH ×5 (14:31→23:35)
--- NOTE | 2019-01-31 14:55 | Progress Note ---
Assessment and Plan 63 year old male with left MCA stroke, resultant aphasia and right hemiparesis. Intubated in pm yesterday and resting comfortably. Plan - Repeat CT in the next day or two. Subjective Date of service: 01/31/19 Principal diagnosis: stroke, respiratory failure Interval history: This 63-year-old -[place] male is seen in follow-up from previous neurologist, Dr. Ruiz, for moderate size left middle cerebral artery territory frontotemporal stroke. MRI shows no significant edema. Most recent CT (01/23/19) showed no progression of the stroke nor increased edema. There was no sign of petechial hemorrhage. The patient most recently has been having respiratory difficulty. He is aphasic and unable to communicate. The patient was intubated yesterday and stabilized. No sign of aspiration pneumonia. Seems much more comfortable today. Objective - Exam Narrative Exam: Resting comfortably on the ventilator, eyes open. Neurological exam - Not following commands. 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 Left gaze preference. mild facial asymmetry Motor - right plegia left - moves spontaneously. Not moving left hand much. Sensory - not withdrawing to pain on the right. - Vital Sign Vital Signs - 12hr 01/31/19 01/31/19 01/31/19 03:00 03:10 03:20 Temperature Pulse Rate 100 H 100 H 101 H Pulse Rate [ Anterior Bilateral Throughout] Pulse Rate [ From Monitor] Respiratory 24 25 H 23 Rate Respiratory Rate [Anterior Bilateral Throughout] Blood Pressure 127/69 127/69 127/76 O2 Sat by Pulse 100 100 100 Oximetry 01/31/19 01/31/19 01/31/19 03:30 03:35 03:40 Temperature Pulse Rate 101 H 105 H 101 H Pulse Rate [ Anterior Bilateral Throughout] Pulse Rate [ From Monitor] Respiratory 25 H 23 Rate Respiratory Rate [Anterior Bilateral Throughout] Blood Pressure 128/76 138/76 127/76 O2 Sat by Pulse 100 100 100 Oximetry 01/31/19 01/31/19 01/31/19 03:50 04:00 04:10 Temperature 98.9 F Pulse Rate 103 H 104 H 105 H Pulse Rate [ Anterior Bilateral Throughout] Pulse Rate [ 105 H From Monitor] Respiratory 23 24 25 H Rate Respiratory Rate [Anterior Bilateral Throughout] Blood Pressure 132/74 138/76 138/76 O2 Sat by Pulse 100 100 100 Oximetry 01/31/19 01/31/19 01/31/19 04:20 04:30 04:40 Temperature Pulse Rate 106 H 107 H 108 H Pulse Rate [ Anterior Bilateral Throughout] Pulse Rate [ From Monitor] Respiratory 30 H 25 H 26 H Rate Respiratory Rate [Anterior Bilateral Throughout] Blood Pressure 142/78 142/78 142/78 O2 Sat by Pulse 100 100 100 Oximetry 01/31/19 01/31/19 01/31/19 04:50 05:00 05:10 Temperature Pulse Rate 105 H 107 H 106 H Pulse Rate [ Anterior Bilateral Throughout] Pulse Rate [ From Monitor] Respiratory 23 19 22 Rate Respiratory Rate [Anterior Bilateral Throughout] Blood Pressure 142/76 135/78 135/78 O2 Sat by Pulse 100 100 100 Oximetry 01/31/19 01/31/19 01/31/19 05:20 05:30 05:40 Temperature Pulse Rate 106 H 101 H 99 H Pulse Rate [ Anterior Bilateral Throughout] Pulse Rate [ From Monitor] Respiratory 24 20 22 Rate Respiratory Rate [Anterior Bilateral Throughout] Blood Pressure 132/79 131/65 131/65 O2 Sat by Pulse 100 100 100 Oximetry 01/31/19 01/31/19 01/31/19 05:50 06:00 06:10 Temperature Pulse Rate 100 H 102 H 102 H Pulse Rate [ Anterior Bilateral Throughout] Pulse Rate [ From Monitor] Respiratory 20 25 H 25 H Rate Respiratory Rate [Anterior Bilateral Throughout] Blood Pressure 116/63 123/66 123/66 O2 Sat by Pulse 100 100 100 Oximetry 01/31/19 01/31/19 01/31/19 06:20 06:30 06:40 Temperature Pulse Rate 104 H 103 H 103 H Pulse Rate [ Anterior Bilateral Throughout] Pulse Rate [ From Monitor] Respiratory 22 22 23 Rate Respiratory Rate [Anterior Bilateral Throughout] Blood Pressure 128/65 119/71 119/71 O2 Sat by Pulse 100 100 100 Oximetry 01/31/19 01/31/19 01/31/19 06:50 07:00 07:10 Temperature Pulse Rate 104 H 103 H 102 H Pulse Rate [ Anterior Bilateral Throughout] Pulse Rate [ From Monitor] Respiratory 24 23 23 Rate Respiratory Rate [Anterior Bilateral Throughout] Blood Pressure 124/73 124/73 124/73 O2 Sat by Pulse 100 100 100 Oximetry 01/31/19 01/31/19 01/31/19 07:20 07:30 07:40 Temperature Pulse Rate 102 H 103 H 101 H Pulse Rate [ Anterior Bilateral Throughout] Pulse Rate [ From Monitor] Respiratory 23 18 24 Rate Respiratory Rate [Anterior Bilateral Throughout] Blood Pressure 124/74 124/77 124/77 O2 Sat by Pulse 100 100 100 Oximetry 01/31/19 01/31/19 01/31/19 07:50 08:00 08:10 Temperature 101.4 F H Pulse Rate 99 H 101 H 101 H Pulse Rate [ Anterior Bilateral Throughout] Pulse Rate [ From Monitor] Respiratory 24 25 H 25 H Rate Respiratory Rate [Anterior Bilateral Throughout] Blood Pressure 122/72 125/70 125/70 O2 Sat by Pulse 100 100 100 Oximetry 01/31/19 01/31/19 01/31/19 08:20 08:29 08:30 Temperature Pulse Rate 102 H 102 H 103 H Pulse Rate [ Anterior Bilateral Throughout] Pulse Rate [ From Monitor] Respiratory 22 17 Rate Respiratory Rate [Anterior Bilateral Throughout] Blood Pressure 127/72 130/70 130/70 O2 Sat by Pulse 100 100 100 Oximetry 01/31/19 01/31/19 01/31/19 08:33 08:40 08:43 Temperature Pulse Rate 103 H Pulse Rate [ 104 H 105 H Anterior Bilateral Throughout] Pulse Rate [ From Monitor] Respiratory 23 Rate Respiratory 22 22 Rate [Anterior Bilateral Throughout] Blood Pressure 130/70 O2 Sat by Pulse 100 Oximetry 01/31/19 01/31/19 01/31/19 08:50 09:00 09:10 Temperature Pulse Rate 103 H 101 H 102 H Pulse Rate [ Anterior Bilateral Throughout] Pulse Rate [ From Monitor] Respiratory 25 H 21 24 Rate Respiratory Rate [Anterior Bilateral Throughout] Blood Pressure 127/72 127/69 127/69 O2 Sat by Pulse 100 100 100 Oximetry 01/31/19 01/31/19 01/31/19 09:20 09:30 09:40 Temperature Pulse Rate 102 H 102 H 101 H Pulse Rate [ Anterior Bilateral Throughout] Pulse Rate [ From Monitor] Respiratory 23 24 24 Rate Respiratory Rate [Anterior Bilateral Throughout] Blood Pressure 123/70 126/77 126/77 O2 Sat by Pulse 100 100 100 Oximetry 01/31/19 01/31/19 01/31/19 09:50 10:00 10:10 Temperature Pulse Rate 103 H 101 H 103 H Pulse Rate [ Anterior Bilateral Throughout] Pulse Rate [ From Monitor] Respiratory 24 18 22 Rate Respiratory Rate [Anterior Bilateral Throughout] Blood Pressure 123/70 139/74 139/74 O2 Sat by Pulse 100 100 100 Oximetry 01/31/19 01/31/19 01/31/19 10:20 10:30 10:40 Temperature Pulse Rate 102 H 101 H 102 H Pulse Rate [ Anterior Bilateral Throughout] Pulse Rate [ From Monitor] Respiratory 25 H 16 29 H Rate Respiratory Rate [Anterior Bilateral Throughout] Blood Pressure 126/77 134/77 134/77 O2 Sat by Pulse 100 100 100 Oximetry 01/31/19 01/31/19 01/31/19 10:50 11:00 11:10 Temperature Pulse Rate 104 H 102 H 103 H Pulse Rate [ Anterior Bilateral Throughout] Pulse Rate [ From Monitor] Respiratory 24 21 27 H Rate Respiratory Rate [Anterior Bilateral Throughout] Blood Pressure 134/77 143/75 143/75 O2 Sat by Pulse 100 100 100 Oximetry 01/31/19 01/31/19 01/31/19 11:20 11:30 11:40 Temperature Pulse Rate 103 H 102 H 100 H Pulse Rate [ Anterior Bilateral Throughout] Pulse Rate [ From Monitor] Respiratory 27 H 20 27 H Rate Respiratory Rate [Anterior Bilateral Throughout] Blood Pressure 133/76 137/77 137/77 O2 Sat by Pulse 100 100 100 Oximetry 01/31/19 01/31/19 01/31/19 11:50 12:00 12:10 Temperature 98.6 F Pulse Rate 100 H 102 H 99 H Pulse Rate [ Anterior Bilateral Throughout] Pulse Rate [ From Monitor] Respiratory 24 21 18 Rate Respiratory Rate [Anterior Bilateral Throughout] Blood Pressure 142/76 142/76 122/80 O2 Sat by Pulse 100 100 100 Oximetry 01/31/19 01/31/19 01/31/19 12:20 12:30 12:40 Temperature Pulse Rate 100 H 96 H 102 H Pulse Rate [ Anterior Bilateral Throughout] Pulse Rate [ From Monitor] Respiratory 23 19 24 Rate Respiratory Rate [Anterior Bilateral Throughout] Blood Pressure 131/71 149/119 149/119 O2 Sat by Pulse 100 100 100 Oximetry 01/31/19 01/31/19 01/31/19 12:46 12:50 13:00 Temperature Pulse Rate 101 H 100 H 99 H Pulse Rate [ Anterior Bilateral Throughout] Pulse Rate [ From Monitor] Respiratory 14 23 19 Rate Respiratory Rate [Anterior Bilateral Throughout] Blood Pressure 136/75 136/75 143/76 O2 Sat by Pulse 100 100 100 Oximetry 04/12/2001/31/19 01/31/19 13:10 13:20 13:28 Temperature Pulse Rate 99 H 97 H Pulse Rate [ 101 H Anterior Bilateral Throughout] Pulse Rate [ From Monitor] Respiratory 23 25 H Rate Respiratory 18 Rate [Anterior Bilateral Throughout] Blood Pressure 143/76 139/79 O2 Sat by Pulse 100 100 Oximetry 01/31/19 01/31/19 13:30 14:05 Temperature Pulse Rate 100 H Pulse Rate [ 101 H Anterior Bilateral Throughout] Pulse Rate [ From Monitor] Respiratory 23 Rate Respiratory 20 Rate [Anterior Bilateral Throughout] Blood Pressure 134/72 O2 Sat by Pulse 100 Oximetry - Laboratory Findings CBC and BMP: 01/31/19 04:07 01/31/19 04:07 Abnormal Lab Findings: Abnormal Labs 01/18/19 01/18/19 01/18/19 19:14 19:14 19:14 WBC 17.2 H RBC Hgb Hct MCV 96 H RDW 15.5 H Lymph % (Auto) 7.9 L [place] % (Auto) 7.9 H Lymph # [place] # 1.4 H Seg Neutrophils % 83.5 H Seg Neutrophils # 14.3 H PT 15.5 H INR 1.16 H POC ABG pH POC ABG pCO2 POC ABG pO2 Sodium 153 H Potassium 3.4 L Chloride Carbon Dioxide BUN 24 H Creatinine Glucose 159 H POC Glucose Calcium 10.3 H Total Creatine Kinase Troponin T 0.368 H* HDL Cholesterol 35 L 01/18/19 01/19/19 01/19/19 22:33 00:15 05:07 WBC RBC Hgb Hct MCV RDW Lymph % (Auto) [place] % (Auto) Lymph # [place] # Seg Neutrophils % Seg Neutrophils # PT INR POC ABG pH POC ABG pCO2 POC ABG pO2 Sodium 151 H Potassium 3.2 L Chloride Carbon Dioxide BUN 25 H Creatinine Glucose 130 H POC Glucose Calcium Total Creatine Kinase 491 H 419 H Troponin T 0.291 H* D 0.273 H* HDL Cholesterol 01/22/19 01/22/19 01/23/19 05:16 05:16 04:27 WBC 12.5 H 13.9 H RBC Hgb Hct MCV 96 H 95 H RDW 15.6 H 15.5 H Lymph % (Auto) 8.6 L 6.2 L [place] % (Auto) 9.1 H 9.1 H Lymph # 1.1 L 0.9 L [place] # 1.1 H 1.3 H Seg Neutrophils % 80.0 H 83.2 H Seg Neutrophils # 10.0 H 11.6 H PT INR POC ABG pH POC ABG pCO2 POC ABG pO2 Sodium 156 H Potassium 2.8 L* Chloride 118.5 H Carbon Dioxide BUN Creatinine Glucose 159 H POC Glucose Calcium Total Creatine Kinase Troponin T HDL Cholesterol 01/23/19 01/23/19 01/23/19 04:27 13:11 14:59 WBC RBC Hgb Hct MCV RDW Lymph % (Auto) [place] % (Auto) Lymph # [place] # Seg Neutrophils % Seg Neutrophils # PT INR POC ABG pH POC ABG pCO2 POC ABG pO2 282 H 205 H Sodium 151 H Potassium 3.5 L D Chloride 113.8 H Carbon Dioxide BUN Creatinine Glucose 163 H POC Glucose Calcium Total Creatine Kinase Troponin T HDL Cholesterol 01/23/19 01/24/19 01/24/19 18:36 04:17 07:41 WBC RBC Hgb Hct MCV RDW Lymph % (Auto) [place] % (Auto) Lymph # [place] # Seg Neutrophils % Seg Neutrophils # PT INR POC ABG pH POC ABG pCO2 POC ABG pO2 148 H Sodium 149 H Potassium Chloride 113.5 H Carbon Dioxide BUN Creatinine Glucose 153 H POC Glucose 141 H Calcium Total Creatine Kinase Troponin T HDL Cholesterol 01/24/19 01/25/19 01/25/19 23:40 04:07 04:07 WBC RBC 3.46 L Hgb 10.8 L Hct 32.7 L MCV 95 H RDW 15.3 H Lymph % (Auto) 9.0 L [place] % (Auto) 10.5 H Lymph # 1.0 L [place] # 1.1 H Seg Neutrophils % 77.7 H Seg Neutrophils # 8.3 H PT INR POC ABG pH POC ABG pCO2 POC ABG pO2 Sodium 147 H Potassium Chloride 111.1 H Carbon Dioxide BUN Creatinine Glucose 150 H POC Glucose 130 H Calcium Total Creatine Kinase Troponin T HDL Cholesterol 01/25/19 01/25/19 01/25/19 04:34 05:36 11:53 WBC RBC Hgb Hct MCV RDW Lymph % (Auto) [place] % (Auto) Lymph # [place] # Seg Neutrophils % Seg Neutrophils # PT INR POC ABG pH POC ABG pCO2 34.3 L POC ABG pO2 110 H Sodium Potassium Chloride Carbon Dioxide BUN Creatinine Glucose POC Glucose 147 H 162 H Calcium Total Creatine Kinase Troponin T HDL Cholesterol 01/25/19 01/25/19 01/26/19 18:12 23:44 04:13 WBC RBC Hgb Hct MCV RDW Lymph % (Auto) [place] % (Auto) Lymph # [place] # Seg Neutrophils % Seg Neutrophils # PT INR POC ABG pH POC ABG pCO2 33.6 L POC ABG pO2 Sodium Potassium Chloride Carbon Dioxide BUN Creatinine Glucose POC Glucose 211 H 210 H Calcium Total Creatine Kinase Troponin T HDL Cholesterol 01/26/19 01/26/19 01/26/19 04:40 04:40 05:27 WBC RBC 3.27 L Hgb 10.2 L Hct 30.9 L MCV RDW Lymph % (Auto) 6.4 L [place] % (Auto) Lymph # 0.7 L [place] # Seg Neutrophils % 87.5 H Seg Neutrophils # 9.5 H PT INR POC ABG pH POC ABG pCO2 POC ABG pO2 Sodium Potassium Chloride 107.4 H Carbon Dioxide 21 L BUN Creatinine Glucose 251 H POC Glucose 230 H Calcium Total Creatine Kinase Troponin T HDL Cholesterol 01/26/19 01/26/19 01/27/19 11:50 20:38 01:05 WBC RBC Hgb Hct MCV RDW Lymph % (Auto) [place] % (Auto) Lymph # [place] # Seg Neutrophils % Seg Neutrophils # PT INR POC ABG pH POC ABG pCO2 POC ABG pO2 Sodium Potassium Chloride Carbon Dioxide BUN Creatinine Glucose POC Glucose 219 H 166 H 161 H Calcium Total Creatine Kinase Troponin T HDL Cholesterol 01/27/19 01/27/19 01/27/19 04:39 05:57 12:46 WBC RBC Hgb Hct MCV RDW Lymph % (Auto) [place] % (Auto) Lymph # [place] # Seg Neutrophils % Seg Neutrophils # PT INR POC ABG pH POC ABG pCO2 POC ABG pO2 Sodium Potassium Chloride 108.0 H Carbon Dioxide 20 L BUN Creatinine 0.7 L Glucose 165 H POC Glucose 160 H 196 H Calcium Total Creatine Kinase Troponin T HDL Cholesterol 01/27/19 01/28/19 01/28/19 18:22 02:12 06:21 WBC RBC Hgb Hct MCV RDW Lymph % (Auto) [place] % (Auto) Lymph # [place] # Seg Neutrophils % Seg Neutrophils # PT INR POC ABG pH POC ABG pCO2 POC ABG pO2 Sodium Potassium Chloride Carbon Dioxide BUN Creatinine Glucose POC Glucose 168 H 183 H 211 H Calcium Total Creatine Kinase Troponin T HDL Cholesterol 01/28/19 01/28/19 01/28/19 12:13 19:08 21:54 WBC RBC Hgb Hct MCV RDW Lymph % (Auto) [place] % (Auto) Lymph # [place] # Seg Neutrophils % Seg Neutrophils # PT INR POC ABG pH POC ABG pCO2 POC ABG pO2 Sodium Potassium Chloride Carbon Dioxide BUN Creatinine Glucose POC Glucose 203 H 214 H 208 H Calcium Total Creatine Kinase Troponin T HDL Cholesterol 01/29/19 01/29/19 01/29/19 04:56 11:59 18:14 WBC RBC Hgb Hct MCV RDW Lymph % (Auto) [place] % (Auto) Lymph # [place] # Seg Neutrophils % Seg Neutrophils # PT INR POC ABG pH POC ABG pCO2 POC ABG pO2 Sodium Potassium Chloride Carbon Dioxide BUN Creatinine Glucose POC Glucose 251 H 231 H 225 H Calcium Total Creatine Kinase Troponin T HDL Cholesterol 01/29/19 01/30/19 01/30/19 23:53 06:02 12:10 WBC RBC Hgb Hct MCV RDW Lymph % (Auto) [place] % (Auto) Lymph # [place] # Seg Neutrophils % Seg Neutrophils # PT INR POC ABG pH POC ABG pCO2 POC ABG pO2 Sodium Potassium Chloride Carbon Dioxide BUN Creatinine Glucose POC Glucose 198 H 229 H 286 H Calcium Total Creatine Kinase Troponin T HDL Cholesterol 01/30/19 01/30/19 01/31/19 17:31 20:37 04:07 WBC 15.1 H RBC 2.94 L Hgb 9.0 L Hct 27.5 L MCV RDW 15.4 H Lymph % (Auto) [place] % (Auto) Lymph # [place] # Seg Neutrophils % Seg Neutrophils # PT INR POC ABG pH 7.529 H POC ABG pCO2 32.4 L POC ABG pO2 183 H Sodium Potassium Chloride Carbon Dioxide BUN Creatinine Glucose POC Glucose 238 H Calcium Total Creatine Kinase Troponin T HDL Cholesterol 01/31/19 01/31/19 01/31/19 04:07 04:21 05:11 WBC RBC Hgb Hct MCV RDW Lymph % (Auto) [place] % (Auto) Lymph # [place] # Seg Neutrophils % Seg Neutrophils # PT INR POC ABG pH 7.455 H POC ABG pCO2 POC ABG pO2 138 H Sodium 147 H Potassium Chloride 108.7 H Carbon Dioxide BUN 32 H Creatinine Glucose 176 H POC Glucose 172 H Calcium Total Creatine Kinase Troponin T HDL Cholesterol 01/31/19 11:50 WBC RBC Hgb Hct MCV RDW Lymph % (Auto) [place] % (Auto) Lymph # [place] # Seg Neutrophils % Seg Neutrophils # PT INR POC ABG pH POC ABG pCO2 POC ABG pO2 Sodium Potassium Chloride Carbon Dioxide BUN Creatinine Glucose POC Glucose 176 H Calcium Total Creatine Kinase Troponin T HDL Cholesterol
--- NOTE | 2019-01-31 14:55 | Progress Note ---
Assessment and Plan - Patient Problems (1) CVA (cerebral vascular accident) Current Visit: Yes Status: Acute Plan to address problem: Continue supportive management, medical therapy for heart failure and cardiomyopathy. Subjective Date of service: 01/31/19 Principal diagnosis: stroke, respiratory failure Interval history: Patient is sedated, on the vent. Objective Vital Signs Temp Pulse Pulse Pulse Pulse Resp Resp 01/31/19 14:05 101 H 20 01/31/19 13:30 100 H 23 01/31/19 13:28 101 H 18 01/31/19 13:20 97 H 25 H 01/31/19 13:10 99 H 23 01/31/19 13:00 99 H 19 01/31/19 12:50 100 H 23 01/31/19 12:46 101 H 14 01/31/19 12:40 102 H 24 01/31/19 12:30 96 H 01/31/19 12:20 100 H 23 01/31/19 12:10 99 H 18 01/31/19 12:00 98.6 F 102 H 01/31/19 11:50 100 H 24 01/31/19 11:40 100 H 27 H 01/31/19 11:30 102 H 20 01/31/19 11:20 103 H 27 H 01/31/19 11:10 103 H 27 H 01/31/19 11:00 102 H 01/31/19 10:50 104 H 24 01/31/19 10:40 102 H 29 H 01/31/19 10:30 101 H 16 01/31/19 10:20 102 H 25 H 01/31/19 10:10 103 H 01/31/19 10:00 101 H 18 01/31/19 09:50 103 H 24 01/31/19 09:40 101 H 24 01/31/19 09:30 102 H 24 01/31/19 09:20 102 H 23 01/31/19 09:10 102 H 24 01/31/19 09:00 101 H 21 01/31/19 08:50 103 H 25 H 01/31/19 08:43 105 H 22 01/31/19 08:40 103 H 23 01/31/19 08:33 104 H 22 01/31/19 08:30 103 H 17 01/31/19 08:29 102 H 01/31/19 08:20 102 H 22 01/31/19 08:10 101 H 25 H 01/31/19 08:00 101.4 F H 101 H 25 H 01/31/19 07:50 99 H 24 01/31/19 07:40 101 H 24 01/31/19 07:30 103 H 18 01/31/19 07:20 102 H 23 01/31/19 07:10 102 H 23 01/31/19 07:00 103 H 23 01/31/19 06:50 104 H 24 01/31/19 06:40 103 H 23 01/31/19 06:30 103 H 22 01/31/19 06:20 104 H 22 01/31/19 06:10 102 H 25 H 01/31/19 06:00 102 H 25 H 01/31/19 05:50 100 H 20 01/31/19 05:40 99 H 22 01/31/19 05:30 101 H 20 01/31/19 05:20 106 H 24 01/31/19 05:10 106 H 22 01/31/19 05:00 107 H 19 01/31/19 04:50 105 H 23 01/31/19 04:40 108 H 26 H 01/31/19 04:30 107 H 25 H 01/31/19 04:20 106 H 30 H 01/31/19 04:10 105 H 25 H 01/31/19 04:00 98.9 F 104 H 105 H 24 01/31/19 03:50 103 H 23 01/31/19 03:40 101 H 23 01/31/19 03:35 105 H 01/31/19 03:30 101 H 25 H 01/31/19 03:20 101 H 23 01/31/19 03:10 100 H 25 H 01/31/19 03:00 100 H 24 01/31/19 02:50 100 H 24 01/31/19 02:43 100 H 23 01/31/19 02:40 99 H 25 H 01/31/19 02:30 98 H 23 01/31/19 02:28 98 H 23 01/31/19 02:20 102 H 19 01/31/19 02:10 103 H 18 01/31/19 02:00 107 H 26 H 01/31/19 01:50 109 H 26 H 01/31/19 01:40 111 H 28 H 01/31/19 01:30 113 H 29 H 01/31/19 01:20 120 H 33 H 01/31/19 01:10 118 H 27 H 01/31/19 01:00 117 H 33 H 01/31/19 00:55 117 H 30 H 01/31/19 00:00 107 H 23 01/30/19 23:19 121 H 01/30/19 23:14 102.5 F H 01/30/19 22:00 122 H 01/30/19 20:22 107 H 24 01/30/19 20:07 106 H 105 H 24 01/30/19 20:00 98.1 F 120 H 19 01/30/19 18:30 103 H 01/30/19 18:20 103 H 19 01/30/19 18:10 109 H 13 01/30/19 18:00 101 H 14 01/30/19 17:50 109 H 29 H 01/30/19 17:40 115 H 36 H 01/30/19 17:30 115 H 35 H 01/30/19 17:23 115 H 39 H 01/30/19 17:20 115 H 34 H 01/30/19 17:10 116 H 40 H 01/30/19 17:00 114 H 40 H 01/30/19 16:50 113 H 41 H 01/30/19 16:40 108 H 38 H 01/30/19 16:30 112 H 34 H 01/30/19 16:20 112 H 40 H 01/30/19 16:10 116 H 41 H 01/30/19 16:00 99.8 F H 114 H 120 H 120 H 43 H 01/30/19 15:50 112 H 47 H 01/30/19 15:40 113 H 38 H 01/30/19 15:30 110 H 40 H 01/30/19 15:20 114 H 45 H 01/30/19 15:10 112 H 40 H 01/30/19 15:00 110 H 37 H BP Pulse Ox 01/31/19 14:05 01/31/19 13:30 134/72 100 01/31/19 13:28 01/31/19 13:20 139/79 100 01/31/19 13:10 143/76 100 01/31/19 13:00 143/76 100 01/31/19 12:50 136/75 100 01/31/19 12:46 136/75 100 01/31/19 12:40 149/119 100 01/31/19 12:30 149/119 100 01/31/19 12:20 131/71 100 01/31/19 12:10 122/80 100 01/31/19 12:00 142/76 100 01/31/19 11:50 142/76 100 01/31/19 11:40 137/77 100 01/31/19 11:30 137/77 100 01/31/19 11:20 133/76 100 01/31/19 11:10 143/75 100 01/31/19 11:00 143/75 100 01/31/19 10:50 134/77 100 01/31/19 10:40 134/77 100 01/31/19 10:30 134/77 100 01/31/19 10:20 126/77 100 01/31/19 10:10 139/74 100 01/31/19 10:00 139/74 100 01/31/19 09:50 123/70 100 01/31/19 09:40 126/77 100 01/31/19 09:30 126/77 100 01/31/19 09:20 123/70 100 01/31/19 09:10 127/69 100 01/31/19 09:00 127/69 100 01/31/19 08:50 127/72 100 01/31/19 08:43 01/31/19 08:40 130/70 100 01/31/19 08:33 01/31/19 08:30 130/70 100 01/31/19 08:29 130/70 100 01/31/19 08:20 127/72 100 01/31/19 08:10 125/70 100 01/31/19 08:00 125/70 100 01/31/19 07:50 122/72 100 01/31/19 07:40 124/77 100 01/31/19 07:30 124/77 100 01/31/19 07:20 124/74 100 01/31/19 07:10 124/73 100 01/31/19 07:00 124/73 100 01/31/19 06:50 124/73 100 01/31/19 06:40 119/71 100 01/31/19 06:30 119/71 100 01/31/19 06:20 128/65 100 01/31/19 06:10 123/66 100 01/31/19 06:00 123/66 100 01/31/19 05:50 116/63 100 01/31/19 05:40 131/65 100 01/31/19 05:30 131/65 100 01/31/19 05:20 132/79 100 01/31/19 05:10 135/78 100 01/31/19 05:00 135/78 100 01/31/19 04:50 142/76 100 01/31/19 04:40 142/78 100 01/31/19 04:30 142/78 100 01/31/19 04:20 142/78 100 01/31/19 04:10 138/76 100 01/31/19 04:00 138/76 100 01/31/19 03:50 132/74 100 01/31/19 03:40 127/76 100 01/31/19 03:35 138/76 100 01/31/19 03:30 128/76 100 01/31/19 03:20 127/76 100 01/31/19 03:10 127/69 100 01/31/19 03:00 127/69 100 01/31/19 02:50 124/74 100 01/31/19 02:43 01/31/19 02:40 116/69 100 01/31/19 02:30 123/68 100 01/31/19 02:28 01/31/19 02:20 139/72 100 01/31/19 02:10 139/72 01/31/19 02:00 116/69 100 01/31/19 01:50 139/72 100 01/31/19 01:40 112/70 100 01/31/19 01:30 145/74 100 01/31/19 01:20 145/79 100 01/31/19 01:10 100 01/31/19 01:00 111/69 100 01/31/19 00:55 111/69 100 01/31/19 00:00 100 01/30/19 23:19 142/76 100 01/30/19 23:14 01/30/19 22:00 01/30/19 20:22 04 20:07 136/72 100 01/30/19 20:00 100 01/30/19 18:30 120/74 100 01/30/19 18:20 130/75 100 01/30/19 18:10 130/75 100 01/30/19 18:00 130/75 100 01/30/19 17:50 146/68 100 01/30/19 17:40 146/68 100 01/30/19 17:30 146/68 100 01/30/19 17:23 146/68 99 01/30/19 17:20 146/68 100 01/30/19 17:10 146/68 98 01/30/19 17:00 149/80 97 01/30/19 16:50 149/80 99 01/30/19 16:40 149/80 98 01/30/19 16:30 149/80 97 01/30/19 16:20 149/80 94 01/30/19 16:10 149/80 98 01/30/19 16:00 125/83 98 01/30/19 15:50 125/83 99 01/30/19 15:40 125/83 99 01/30/19 15:30 125/83 98 01/30/19 15:20 125/83 98 01/30/19 15:10 125/83 99 01/30/19 15:00 125/83 100 - Physical Examination General: Other (sedate on event) HEENT: Positive: PERRL Neck: Positive: trachea midline Cardiac: Positive: Reg Rate and Rhythm Lungs: Positive: Decreased Breath Sounds Neuro: Positive: Other (right hemiplegia) Abdomen: Positive: Unremarkable, Active Bowel Sounds Skin: Positive: Clear Extremities: Absent: edema - Labs and Meds CBC 01/31/19 Range/Units 04:07 WBC 15.1 H (4.5-11.0) K/mm3 RBC 2.94 L (3.65-5.03) M/mm3 Hgb 9.0 L (11.8-15.2) gm/dl Hct 27.5 L (35.5-45.6) % Plt Count 394 (140-440) K/mm3 Comprehensive Metabolic Panel 01/31/19 Range/Units 04:07 Sodium 147 H (137-145) mmol/L Potassium 4.3 (3.6-5.0) mmol/L Chloride 108.7 H (98-107) mmol/L Carbon Dioxide 26 (22-30) mmol/L BUN 32 H (9-20) mg/dL Creatinine 0.8 (0.8-1.5) mg/dL Glucose 176 H (75-100) mg/dL Calcium 9.4 (8.4-10.2) mg/dL
--- NOTE | 2019-01-31 15:08 | Progress Note ---
Assessment and Plan Assessment and plan: 63 year old male with left MCA stroke, resultant aphasia and right hemiparesis. Intubated in pm yesterday and resting comfortably. * Reintubated, 01/30/19 due to impending respiratory failure with rapid shallow breathing * Noted elevated Leukocytes, ?aspiration, resume anbx, check cultures, Aspiration precaution and VAP bundles * Repeat CT mentions evolving CVA * Repeat CT head as recommended by Neurology in a day or two. * Continue ASA AND statin THERAPY Acute Encephalopathy? metabolic secondary to CVA Acute hypoxic respiratory failure. Patient reintubated intubated secondary to labored respirations/airway protection. Pulmonary consultation. Aspiration Vs mucus plug. Mucus plugging. Continue frequent suction. 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 CT scan reveals subacute left fr ontal lobe infarct. Neurology following. MRI head reveals subacute left MCA infarct with evidence of petechial hemorrhage. Echocardiogram shows enlarged left ventricle with only 25-30% ejection fraction but negative bubble study. CT angiogram of the neck showed ulceration in the right internal carotid artery with elongated artery and left ICA showed just elongated artery. CT angiogram head is negative or normal. PT/OT/ST. repeat CT head pending. Dilated cardiomyopathy with severe left ventricular global hypokinesis. EF 25- 30% as noted above. No anticoagulation given increased risk for hemorrhagic conversion with CVA. Accelerated hypertension. Increase hydralazine to 100 mg 3 times a day. Bilateral lower extremity DVT. IVC filter placement. No anticoagulation given increased risk for hemorrhagic conversion with CVA. SIRS. No evidence of obvious infection. Cultures negative so far. Antibiotics discontinued Hypernatremia; treated and resolved Hypokalemia. Replete potassium as noted above. Elevated troponin. Cardiology following Difficult dubhoof placement; GI placed Dubhoof and currently on tube feeding. Patient failed swallow evaluation. dvt prophy with SCD due to possible evaluating stroke Disposition; continue IMCU care. Discussed with associate theatre professor The high probability of a clinically significant, sudden or life threatening deterioration of the [pulmonary, neurol] system(s) required my full and direct attention, intervention and personal management. The aggregate critical care time was [55] minutes. This time is in addition to time spent performing reported procedures but includes the following: [x] Data Review and interpretation [x] Patient assessment and monitoring of vital signs [x] Documentation [x] Medication orders and management History Interval history: Patient seen and examined today, remains on full mechanical ventilation, no adverse event reported by nursing staff. Hospitalist Physical - Physical exam Narrative exam: Patient was extubated on 01/26/19, reintubated 01/30/19. On NG tube feeding The patient appeared well nourished and normally developed. Vital signs as documented. Head exam is unremarkable. No scleral icterus . Neck is without jugular venous distension, thyromegaly, or carotid bruits. Lungs are clear to auscultation.tacypnea and shallow Cardiac exam reveals regular rate and Rhythm. Abdominal exam reveals normal bowel sounds. Extremities are nonedematous. LABEL TACKER: Alert. 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 awake today and moves left upper ext on command - Constitutional Vitals: Temp Pulse Resp BP Pulse Ox 98.6 F 101 H 20 134/72 100 01/31/19 12:00 01/31/19 14:05 01/31/19 14:05 01/31/19 13:30 01/31/19 13:30 General appearance: Present: severe distress, well-nourished, other (accessory muscle use with respirations) Results - Labs CBC & Chem 7: 01/31/19 04:07 01/31/19 04:07 Labs: Laboratory Last Values WBC 15.1 K/mm3 (4.5-11.0) H 01/31/19 04:07 RBC 2.94 M/mm3 (3.65-5.03) L 01/31/19 04:07 Hgb 9.0 gm/dl (11.8-15.2) L 01/31/19 04:07 Hct 27.5 % (35.5-45.6) L 01/31/19 04:07 MCV 94 fl (84-94) 01/31/19 04:07 MCH 31 pg (28-32) 01/31/19 04:07 MCHC 33 % (32-34) 01/31/19 04:07 RDW 15.4 % (13.2-15.2) H 01/31/19 04:07 Plt Count 394 K/mm3 (140-440) 01/31/19 04:07 Lymph % (Auto) 6.4 % (13.4-35.0) L 01/26/19 04:40 [place] % (Auto) 5.8 % (0.0-7.3) 01/26/19 04:40 Eos % (Auto) 0.0 % (0.0-4.3) 01/26/19 04:40 Baso % (Auto) 0.3 % (0.0-1.8) 01/26/19 04:40 Lymph # 0.7 K/mm3 (1.2-5.4) L 01/26/19 04:40 [place] # 0.6 K/mm3 (0.0-0.8) 01/26/19 04:40 Eos # 0.0 K/mm3 (0.0-0.4) 01/26/19 04:40 Baso # 0.0 K/mm3 (0.0-0.1) 01/26/19 04:40 Seg Neutrophils % 87.5 % (40.0-70.0) H 01/26/19 04:40 Seg Neutrophils # 9.5 K/mm3 (1.8-7.7) H 01/26/19 04:40 PT 15.5 Sec. (12.2-14.9) H 01/18/19 19:14 INR 1.16 (0.87-1.13) H 01/18/19 19:14 APTT 31.7 Sec. (24.2-36.6) 01/18/19 19:14 Thrombin Time 16.2 Sec. (15.1-19.6) 01/18/19 19:14 POC ABG pH 7.455 (7.35-7.45) H 01/31/19 04:21 POC ABG pCO2 37.9 (35-45) 01/31/19 04:21 POC ABG pO2 138 (80-105) H 01/31/19 04:21 POC ABG HCO3 26.7 (22-26 mml/L) 01/31/19 04:21 POC ABG Total CO2 28 (23-27mmol/L) 01/31/19 04:21 POC ABG O2 Sat 99 01/31/19 04:21 POC ABG Base Excess 3 ((-2) - (+3)mmol/L) 01/31/19 04:21 FiO2 35 % 01/31/19 04:21 Sodium 147 mmol/L (137-145) H 01/31/19 04:07 Potassium 4.3 mmol/L (3.6-5.0) 01/31/19 04:07 Chloride 108.7 mmol/L (98-107) H 01/31/19 04:07 Carbon Dioxide 26 mmol/L (22-30) 01/31/19 04:07 Anion Gap 17 mmol/L 01/31/19 04:07 BUN 32 mg/dL (9-20) H 01/31/19 04:07 Creatinine 0.8 mg/dL (0.8-1.5) 01/31/19 04:07 Estimated GFR > 60 ml/min 01/31/19 04:07 BUN/Creatinine Ratio 40 % 01/31/19 04:07 Glucose 176 mg/dL (75-100) H 01/31/19 04:07 POC Glucose 176 (70-105) H 01/31/19 11:50 Lactic Acid 1.10 mmol/L (0.7-2.0) 01/28/19 18:10 Calcium 9.4 mg/dL (8.4-10.2) 01/31/19 04:07 Total Creatine Kinase 419 units/L (55-170) H 01/19/19 05:07 CK-MB (CK-2) 3.2 ng/mL (0.0-4.0) 01/19/19 05:07 CK-MB (CK-2) Rel Index 0.7 (0-4) 01/19/19 05:07 Troponin T 0.273 ng/mL (0.00-0.029) H* 01/19/19 05:07 Triglycerides 140 mg/dL (2-149) 01/18/19 19:14 Cholesterol 157 mg/dL (50-199) 01/18/19 19:14 LDL Cholesterol Direct 98 mg/dL (50-130) 01/18/19 19:14 HDL Cholesterol 35 mg/dL (40-59) L 01/18/19 19:14 Cholesterol/HDL Ratio 4.48 % 01/18/19 19:14 Active Medications - Current Medications Current Medications: Generic Name Dose Route Start Last Admin Trade Name Freq PRN Reason Stop Dose Admin Acetaminophen 650 mg 01/18/19 22:08 01/31/19 00:28 Tylenol AL 650 mg Q4H PRN Administration Pain MILD(1-3)/Fever >100.5/PEARL Albuterol 2.5 mg 03/31/19 14:00 01/31/19 13:28 Proventil IH 2.5 mg Q6HRT YESICA Administration Lipase/Protease/Amylase 1 each 01/24/19 15:00 Leoncio Dorado 10,500 Unit FEEDTUBE PRN PRN For Clogged Feeding Tube Aspirin 325 mg 01/27/19 10:00 01/31/19 10:02 Aspirin PO 325 mg QDAY YESICA Administration Atorvastatin Calcium 40 mg 01/24/19 22:00 01/30/19 21:46 Lipitor PO 40 mg QHS YESICA Administration Famotidine 20 mg 01/30/19 22:00 01/31/19 10:03 Pepcid PO 20 mg BID YESICA Administration Fentanyl 50 mcg 01/30/19 17:36 Sublimaze IV Q10MIN PRN ANALGESIA Hydralazine HCl 5 mg 01/18/19 22:13 01/23/19 19:15 Apresoline IV 5 mg Q6H PRN Administration Hypertension Hydralazine HCl 100 mg 01/21/19 14:00 01/31/19 13:06 Apresoline PO 100 mg Q8HR YESICA Administration Hydrophilic Ointment 1 applic 01/30/19 17:36 Vaseline Lip Therapy TP Q2HR PRN Dry Lips Fentanyl Citrate 2,000 mcg in 100 mls @ 3.89 mls/hr 01/30/19 18:00 01/31/19 09:00 Fentanyl Drip Premix IV 0 mcg/kg/hr TITR YESICA 0 mls/hr Titration Protocol 1 MCG/KG/HR Propofol 1,000 mg in 100 mls @ 2.334 mls/hr 01/30/19 18:00 Diprivan 10 Mg/Ml IV TITR YESICA Protocol 5 MCG/KG/MIN Insulin Human Lispro 0 unit 01/26/19 18:00 01/31/19 14:31 Humalog SUB-Q 2 unit Q6HR YESICA Administration Protocol Multi-Ingred Cream/Lotion/Oil/Oint 1 applic 01/30/19 17:36 Artificial Tears Ophth Oint OU Q4HR PRN Dry Eye(s) Ondansetron HCl 4 mg 01/18/19 22:08 Zofran IV Q4H PRN Nausea And Vomiting Simple Syrup 15 ml 01/24/19 15:00 Simple Syrup FEEDTUBE PRN PRN Hypoglycemia Simple Syrup 30 ml 01/24/19 15:00 Simple Syrup FEEDTUBE PRN PRN Hypoglycemia Sodium Bicarbonate 325 mg 01/24/19 15:00 Sodium Bicarbonate FEEDTUBE PRN PRN For Clogged Feeding Tube Sodium Chloride 10 ml 01/19/19 10:00 01/31/19 10:03 Sodium Chloride Flush Syringe 10 Ml IV 10 ml BID YESICA Administration Sodium Chloride 10 ml 01/18/19 22:08 01/24/19 14:17 Sodium Chloride Flush Syringe 10 Ml IV 10 ml PRN PRN Administration LINE FLUSH Nutrition/Malnutrition Assess - Dietary Evaluation Nutrition/Malnutrition Findings: Nutrition Notes Start: 01/19/19 13:52 Freq: Status: Active Protocol: Document 01/31/19 10:33 RM (Rec: 01/31/19 11:00 RM [id number]) Nutrition Notes Initial or Follow up Reassessment Current Diagnosis Diabetes,Hypertension, Respiratory Failure,Stroke, Hyperlipidemia Current Diet Vital AF at 65mL/hr Labs/Tests Na 147 Pertinent Medications Reviewed Height 5 ft 10 in Weight 73.8 kg [place] Body Weight (kg) 75.45 BMI 23.3 Subjective/Other Information Consulted for evaluate nutritional intake. Pt already being followed for TF. X-ray did not show aspiration. MD plans to resume TF today. Burn Absent Trauma Absent #1 Nutrition Diagnosis Inadequate oral intake Diagnosis Progress(for reassessment Continues documentation) Is patient on ventilator? No Is Patient Ambulatory and/or Out of Bed No REE-([facility]-confined to bed) [phone] Calculation Used for Recommendations [facility] Additional Notes Pro needs 1.2-1.5/k-117g/ day Fluid needs 1ml/kcal Nutrition Intervention Nutrition Support: Vital AF at 65 mL/hr. 100mL flush q4h or per MD Kcal 1,872 Protein (gm) 117 Fluid (mL) 1,265 Goal #1 TF tolerance Goal #2 Meet at least 80% of calorie and protein needs via TF Anticipated Discharge Needs: Unable to identify at this time Follow-Up By: 02/03/19 Additional Comments Follow for TF tolerance
[2019-02-01] MEDS: PROVENTIL IH SCH ×4 (03:14→20:27)
[2019-02-01 05:31] LABS: Hematocrit 25.6 % (35.5-45.6); Hemoglobin 8.2 gm/dl (11.8-15.2); Mean Corpuscular HGB Conc 32 % (32-34); Mean Corpuscular Volume 94 fl (84-94); Platelet Count 402 K/mm3 (140-440); Red Blood Count 2.71 M/mm3 (3.65-5.03); Red Cell Distribution Width 15.8 % (13.2-15.2)
[2019-02-01] MEDS: HumaLOG SUB-Q SCH ×4 (06:05→23:29)
[2019-02-01] MEDS: APRESOLINE PO SCH ×3 (06:06→21:48)
[2019-02-01 06:10] LABS: BUN/Creatinine Ratio 47; Blood Urea Nitrogen 33 mg/dL (9-20); Calcium 9.3 mg/dL (8.4-10.2); Hemolysis Index 0
--- NOTE | 2019-02-01 08:45 | Progress Note ---
Assessment and Plan Acute respiratory failure . Deteriorated last evening requiring intubation and mechanical ventilation support. Concerns for aspiration noted but no evidence of tenderness on chest x-rays Stroke. Evolving per head CT scan report AMS Leukocytosis, cause unknown. Patient not on steroids Recommendations Plan is to keep off sedation today, initiate spontaneous breathing trial and wean as tolerated Check neurology follow-up recommendations, neuro checks DVT prophylaxis Physical therapy Critical care time was 31 minutes of [id number] evaluation and coordination of care Subjective Date of service: 02/01/19 Principal diagnosis: stroke, respiratory failure Interval history: Intubated Objective Vital Signs - 12hr 01/31/19 01/31/19 01/31/19 20:50 21:00 21:10 Temperature Pulse Rate 94 H 98 H 99 H Pulse Rate [ Anterior Bilateral Throughout] Pulse Rate [ From Monitor] Respiratory 28 H 29 H 22 Rate Respiratory Rate [Anterior Bilateral Throughout] Blood Pressure 134/73 140/78 134/73 O2 Sat by Pulse 100 100 100 Oximetry 01/31/19 01/31/19 01/31/19 21:20 21:30 21:40 Temperature Pulse Rate 100 H 97 H 99 H Pulse Rate [ Anterior Bilateral Throughout] Pulse Rate [ From Monitor] Respiratory 25 H 26 H 25 H Rate Respiratory Rate [Anterior Bilateral Throughout] Blood Pressure 148/78 138/75 138/75 O2 Sat by Pulse 100 100 100 Oximetry 01/31/19 01/31/19 01/31/19 21:50 22:00 22:10 Temperature Pulse Rate 100 H 99 H 102 H Pulse Rate [ Anterior Bilateral Throughout] Pulse Rate [ From Monitor] Respiratory 28 H 25 H 25 H Rate Respiratory Rate [Anterior Bilateral Throughout] Blood Pressure 145/77 145/77 138/75 O2 Sat by Pulse 100 100 100 Oximetry 01/31/19 01/31/19 01/31/19 22:20 22:30 22:40 Temperature Pulse Rate 99 H 97 H 99 H Pulse Rate [ Anterior Bilateral Throughout] Pulse Rate [ From Monitor] Respiratory 27 H 25 H 25 H Rate Respiratory Rate [Anterior Bilateral Throughout] Blood Pressure 140/81 141/73 145/77 O2 Sat by Pulse 100 100 100 Oximetry 01/31/19 01/31/19 01/31/19 22:50 23:00 23:10 Temperature Pulse Rate 98 H 105 H 107 H Pulse Rate [ Anterior Bilateral Throughout] Pulse Rate [ From Monitor] Respiratory 26 H 28 H 30 H Rate Respiratory Rate [Anterior Bilateral Throughout] Blood Pressure 145/76 136/79 141/73 O2 Sat by Pulse 100 100 100 Oximetry 01/31/19 01/31/19 01/31/19 23:20 23:26 23:30 Temperature Pulse Rate 105 H 100 H 101 H Pulse Rate [ Anterior Bilateral Throughout] Pulse Rate [ From Monitor] Respiratory 27 H 26 H Rate Respiratory Rate [Anterior Bilateral Throughout] Blood Pressure 134/79 134/79 134/72 O2 Sat by Pulse 100 100 100 Oximetry 01/31/19 01/31/19 01/31/19 23:40 23:42 23:50 Temperature Pulse Rate 102 H 103 H 103 H Pulse Rate [ Anterior Bilateral Throughout] Pulse Rate [ From Monitor] Respiratory 25 H 25 H 23 Rate Respiratory Rate [Anterior Bilateral Throughout] Blood Pressure 134/79 134/79 142/74 O2 Sat by Pulse 100 100 100 Oximetry 02/01/19 02/01/19 02/01/19 00:00 00:10 00:20 Temperature 99.6 F Pulse Rate 104 H 104 H 106 H Pulse Rate [ Anterior Bilateral Throughout] Pulse Rate [ 100 H From Monitor] Respiratory 28 H 29 H 25 H Rate Respiratory Rate [Anterior Bilateral Throughout] Blood Pressure 142/74 142/74 134/69 O2 Sat by Pulse 100 100 100 Oximetry 02/01/19 02/01/19 02/01/19 00:30 00:40 00:50 Temperature Pulse Rate 104 H 107 H 108 H Pulse Rate [ Anterior Bilateral Throughout] Pulse Rate [ From Monitor] Respiratory 29 H 29 H 32 H Rate Respiratory Rate [Anterior Bilateral Throughout] Blood Pressure 136/73 139/77 145/78 O2 Sat by Pulse 100 100 100 Oximetry 02/01/19 02/01/19 02/01/19 01:00 01:10 01:20 Temperature Pulse Rate 106 H 100 H 105 H Pulse Rate [ Anterior Bilateral Throughout] Pulse Rate [ From Monitor] Respiratory 30 H 26 H 28 H Rate Respiratory Rate [Anterior Bilateral Throughout] Blood Pressure 142/81 142/81 140/62 O2 Sat by Pulse 100 100 100 Oximetry 02/01/19 02/01/19 02/01/19 01:30 01:40 01:50 Temperature Pulse Rate 104 H 103 H 103 H Pulse Rate [ Anterior Bilateral Throughout] Pulse Rate [ From Monitor] Respiratory 29 H 28 H 26 H Rate Respiratory Rate [Anterior Bilateral Throughout] Blood Pressure 136/80 136/80 140/76 O2 Sat by Pulse 100 100 100 Oximetry 02/01/19 02/01/19 02/01/19 02:00 02:10 02:20 Temperature Pulse Rate 103 H 103 H 101 H Pulse Rate [ 97 H Anterior Bilateral Throughout] Pulse Rate [ From Monitor] Respiratory 27 H 28 H 30 H Rate Respiratory 20 Rate [Anterior Bilateral Throughout] Blood Pressure 140/76 137/79 140/79 O2 Sat by Pulse 100 100 100 Oximetry 02/01/19 02/01/19 02/01/19 02:30 02:40 02:50 Temperature Pulse Rate 100 H 102 H 101 H Pulse Rate [ Anterior Bilateral Throughout] Pulse Rate [ From Monitor] Respiratory 24 29 H 26 H Rate Respiratory Rate [Anterior Bilateral Throughout] Blood Pressure 141/76 141/76 140/82 O2 Sat by Pulse 100 100 100 Oximetry 02/01/19 02/01/19 02/01/19 03:00 03:10 03:16 Temperature Pulse Rate 101 H 101 H 99 H Pulse Rate [ Anterior Bilateral Throughout] Pulse Rate [ From Monitor] Respiratory 28 H 28 H Rate Respiratory Rate [Anterior Bilateral Throughout] Blood Pressure 142/79 142/79 141/81 O2 Sat by Pulse 100 100 100 Oximetry 02/01/19 02/01/19 02/01/19 03:20 03:30 03:40 Temperature Pulse Rate 99 H 101 H 103 H Pulse Rate [ Anterior Bilateral Throughout] Pulse Rate [ From Monitor] Respiratory 28 H 28 H 26 H Rate Respiratory Rate [Anterior Bilateral Throughout] Blood Pressure 141/81 142/79 142/79 O2 Sat by Pulse 100 100 100 Oximetry 02/01/19 02/01/19 02/01/19 03:50 04:00 04:10 Temperature 99.0 F Pulse Rate 104 H 105 H 102 H Pulse Rate [ Anterior Bilateral Throughout] Pulse Rate [ 102 H From Monitor] Respiratory 31 H 31 H 28 H Rate Respiratory Rate [Anterior Bilateral Throughout] Blood Pressure 136/85 146/81 146/81 O2 Sat by Pulse 100 100 100 Oximetry 02/01/19 02/01/19 02/01/19 04:20 04:30 04:40 Temperature Pulse Rate 100 H 101 H 103 H Pulse Rate [ Anterior Bilateral Throughout] Pulse Rate [ From Monitor] Respiratory 26 H 28 H 29 H Rate Respiratory Rate [Anterior Bilateral Throughout] Blood Pressure 142/79 143/79 143/79 O2 Sat by Pulse 100 100 100 Oximetry 02/01/19 02/01/19 02/01/19 04:50 05:00 05:10 Temperature Pulse Rate 100 H 101 H 93 H Pulse Rate [ Anterior Bilateral Throughout] Pulse Rate [ From Monitor] Respiratory 29 H 26 H 21 Rate Respiratory Rate [Anterior Bilateral Throughout] Blood Pressure 137/79 137/76 137/76 O2 Sat by Pulse 100 100 100 Oximetry 02/01/19 02/01/19 02/01/19 05:20 05:30 05:40 Temperature Pulse Rate 94 H 95 H 92 H Pulse Rate [ Anterior Bilateral Throughout] Pulse Rate [ From Monitor] Respiratory 24 24 21 Rate Respiratory Rate [Anterior Bilateral Throughout] Blood Pressure 137/76 137/76 137/76 O2 Sat by Pulse 98 Oximetry 02/01/19 02/01/19 02/01/19 05:50 06:00 06:10 Temperature Pulse Rate 94 H 90 95 H Pulse Rate [ Anterior Bilateral Throughout] Pulse Rate [ From Monitor] Respiratory 19 19 19 Rate Respiratory Rate [Anterior Bilateral Throughout] Blood Pressure 137/76 137/77 137/77 O2 Sat by Pulse 100 100 100 Oximetry 02/01/19 02/01/19 02/01/19 06:20 06:30 06:40 Temperature Pulse Rate 99 H 103 H 100 H Pulse Rate [ Anterior Bilateral Throughout] Pulse Rate [ From Monitor] Respiratory 18 14 26 H Rate Respiratory Rate [Anterior Bilateral Throughout] Blood Pressure 132/69 141/73 141/73 O2 Sat by Pulse 100 100 100 Oximetry 02/01/19 02/01/19 02/01/19 06:50 07:00 07:08 Temperature Pulse Rate 99 H 97 H 99 H Pulse Rate [ Anterior Bilateral Throughout] Pulse Rate [ From Monitor] Respiratory 21 15 Rate Respiratory Rate [Anterior Bilateral Throughout] Blood Pressure 147/78 139/73 139/73 O2 Sat by Pulse 100 100 100 Oximetry 02/01/19 02/01/19 02/01/19 07:10 07:15 07:20 Temperature Pulse Rate 97 H 95 H Pulse Rate [ 96 H Anterior Bilateral Throughout] Pulse Rate [ From Monitor] Respiratory 22 22 Rate Respiratory 18 Rate [Anterior Bilateral Throughout] Blood Pressure 139/73 139/73 O2 Sat by Pulse 100 100 Oximetry 02/01/19 02/01/19 02/01/19 07:30 07:40 07:50 Temperature Pulse Rate 98 H 97 H 99 H Pulse Rate [ Anterior Bilateral Throughout] Pulse Rate [ From Monitor] Respiratory 21 26 H 17 Rate Respiratory Rate [Anterior Bilateral Throughout] Blood Pressure 141/81 141/81 150/78 O2 Sat by Pulse 100 100 100 Oximetry 02/01/19 02/01/19 02/01/19 08:00 08:05 08:10 Temperature 99.3 F Pulse Rate 98 H 96 H Pulse Rate [ 98 H Anterior Bilateral Throughout] Pulse Rate [ From Monitor] Respiratory 19 22 Rate Respiratory 24 Rate [Anterior Bilateral Throughout] Blood Pressure 148/82 148/82 O2 Sat by Pulse 100 100 Oximetry 02/01/19 08:20 Temperature Pulse Rate 99 H Pulse Rate [ Anterior Bilateral Throughout] Pulse Rate [ From Monitor] Respiratory 17 Rate Respiratory Rate [Anterior Bilateral Throughout] Blood Pressure 137/77 O2 Sat by Pulse 100 Oximetry Constitutional: no acute distress, alert Eyes: non-icteric ENT: other (orally intubated, ) Neck: supple, no JVD Effort: normal Ascultation: Bilateral: clear Percussion: Bilateral: not dull Cardiovascular: regular rate and rhythm Gastrointestinal: normoactive bowel sounds Extremities: no edema Neurologic: other (weakness of right) CBC and BMP: 02/01/19 04:48 02/01/19 04:48 ABG, PT/INR, D-dimer: ABG POC ABG pH 7.456 (7.35-7.45) H 02/01/19 05:41 POC ABG pCO2 37.9 (35-45) 02/01/19 05:41 POC ABG pO2 90 (80-105) 02/01/19 05:41 POC ABG HCO3 26.7 (22-26 mml/L) 02/01/19 05:41 POC ABG Total CO2 28 (23-27mmol/L) 02/01/19 05:41 POC ABG O2 Sat 97 02/01/19 05:41 PT/INR, D-dimer PT 15.5 Sec. (12.2-14.9) H 01/18/19 19:14 INR 1.16 (0.87-1.13) H 01/18/19 19:14 Abnormal lab findings: Abnormal Labs 01/18/19 01/18/19 01/18/19 19:14 19:14 19:14 WBC 17.2 H RBC Hgb Hct MCV 96 H RDW 15.5 H Lymph % (Auto) 7.9 L [place] % (Auto) 7.9 H Lymph # [place] # 1.4 H Seg Neutrophils % 83.5 H Seg Neutrophils # 14.3 H PT 15.5 H INR 1.16 H POC ABG pH POC ABG pCO2 POC ABG pO2 Sodium 153 H Potassium 3.4 L Chloride Carbon Dioxide BUN 24 H Creatinine Glucose 159 H POC Glucose Calcium 10.3 H Total Creatine Kinase Troponin T 0.368 H* HDL Cholesterol 35 L 01/18/19 01/19/19 01/19/19 22:33 00:15 05:07 WBC RBC Hgb Hct MCV RDW Lymph % (Auto) [place] % (Auto) Lymph # [place] # Seg Neutrophils % Seg Neutrophils # PT INR POC ABG pH POC ABG pCO2 POC ABG pO2 Sodium 151 H Potassium 3.2 L Chloride Carbon Dioxide BUN 25 H Creatinine Glucose 130 H POC Glucose Calcium Total Creatine Kinase 491 H 419 H Troponin T 0.291 H* D 0.273 H* HDL Cholesterol 01/22/19 01/22/19 01/23/19 05:16 05:16 04:27 WBC 12.5 H 13.9 H RBC Hgb Hct MCV 96 H 95 H RDW 15.6 H 15.5 H Lymph % (Auto) 8.6 L 6.2 L [place] % (Auto) 9.1 H 9.1 H Lymph # 1.1 L 0.9 L [place] # 1.1 H 1.3 H Seg Neutrophils % 80.0 H 83.2 H Seg Neutrophils # 10.0 H 11.6 H PT INR POC ABG pH POC ABG pCO2 POC ABG pO2 Sodium 156 H Potassium 2.8 L* Chloride 118.5 H Carbon Dioxide BUN Creatinine Glucose 159 H POC Glucose Calcium Total Creatine Kinase Troponin T HDL Cholesterol 01/23/19 01/23/19 01/23/19 04:27 13:11 14:59 WBC RBC Hgb Hct MCV RDW Lymph % (Auto) [place] % (Auto) Lymph # [place] # Seg Neutrophils % Seg Neutrophils # PT INR POC ABG pH POC ABG pCO2 POC ABG pO2 282 H 205 H Sodium 151 H Potassium 3.5 L D Chloride 113.8 H Carbon Dioxide BUN Creatinine Glucose 163 H POC Glucose Calcium Total Creatine Kinase Troponin T HDL Cholesterol 01/23/19 01/24/19 01/24/19 18:36 04:17 07:41 WBC RBC Hgb Hct MCV RDW Lymph % (Auto) [place] % (Auto) Lymph # [place] # Seg Neutrophils % Seg Neutrophils # PT INR POC ABG pH POC ABG pCO2 POC ABG pO2 148 H Sodium 149 H Potassium Chloride 113.5 H Carbon Dioxide BUN Creatinine Glucose 153 H POC Glucose 141 H Calcium Total Creatine Kinase Troponin T HDL Cholesterol 01/24/19 01/25/19 01/25/19 23:40 04:07 04:07 WBC RBC 3.46 L Hgb 10.8 L Hct 32.7 L MCV 95 H RDW 15.3 H Lymph % (Auto) 9.0 L [place] % (Auto) 10.5 H Lymph # 1.0 L [place] # 1.1 H Seg Neutrophils % 77.7 H Seg Neutrophils # 8.3 H PT INR POC ABG pH POC ABG pCO2 POC ABG pO2 Sodium 147 H Potassium Chloride 111.1 H Carbon Dioxide BUN Creatinine Glucose 150 H POC Glucose 130 H Calcium Total Creatine Kinase Troponin T HDL Cholesterol 01/25/19 01/25/19 01/25/19 04:34 05:36 11:53 WBC RBC Hgb Hct MCV RDW Lymph % (Auto) [place] % (Auto) Lymph # [place] # Seg Neutrophils % Seg Neutrophils # PT INR POC ABG pH POC ABG pCO2 34.3 L POC ABG pO2 110 H Sodium Potassium Chloride Carbon Dioxide BUN Creatinine Glucose POC Glucose 147 H 162 H Calcium Total Creatine Kinase Troponin T HDL Cholesterol 01/25/19 01/25/19 01/26/19 18:12 23:44 04:13 WBC RBC Hgb Hct MCV RDW Lymph % (Auto) [place] % (Auto) Lymph # [place] # Seg Neutrophils % Seg Neutrophils # PT INR POC ABG pH POC ABG pCO2 33.6 L POC ABG pO2 Sodium Potassium Chloride Carbon Dioxide BUN Creatinine Glucose POC Glucose 211 H 210 H Calcium Total Creatine Kinase Troponin T HDL Cholesterol 01/26/19 01/26/19 01/26/19 04:40 04:40 05:27 WBC RBC 3.27 L Hgb 10.2 L Hct 30.9 L MCV RDW Lymph % (Auto) 6.4 L [place] % (Auto) Lymph # 0.7 L [place] # Seg Neutrophils % 87.5 H Seg Neutrophils # 9.5 H PT INR POC ABG pH POC ABG pCO2 POC ABG pO2 Sodium Potassium Chloride 107.4 H Carbon Dioxide 21 L BUN Creatinine Glucose 251 H POC Glucose 230 H Calcium Total Creatine Kinase Troponin T HDL Cholesterol 01/26/19 01/26/19 01/27/19 11:50 20:38 01:05 WBC RBC Hgb Hct MCV RDW Lymph % (Auto) [place] % (Auto) Lymph # [place] # Seg Neutrophils % Seg Neutrophils # PT INR POC ABG pH POC ABG pCO2 POC ABG pO2 Sodium Potassium Chloride Carbon Dioxide BUN Creatinine Glucose POC Glucose 219 H 166 H 161 H Calcium Total Creatine Kinase Troponin T HDL Cholesterol 01/27/19 01/27/19 01/27/19 04:39 05:57 12:46 WBC RBC Hgb Hct MCV RDW Lymph % (Auto) [place] % (Auto) Lymph # [place] # Seg Neutrophils % Seg Neutrophils # PT INR POC ABG pH POC ABG pCO2 POC ABG pO2 Sodium Potassium Chloride 108.0 H Carbon Dioxide 20 L BUN Creatinine 0.7 L Glucose 165 H POC Glucose 160 H 196 H Calcium Total Creatine Kinase Troponin T HDL Cholesterol 01/27/19 01/28/19 01/28/19 18:22 02:12 06:21 WBC RBC Hgb Hct MCV RDW Lymph % (Auto) [place] % (Auto) Lymph # [place] # Seg Neutrophils % Seg Neutrophils # PT INR POC ABG pH POC ABG pCO2 POC ABG pO2 Sodium Potassium Chloride Carbon Dioxide BUN Creatinine Glucose POC Glucose 168 H 183 H 211 H Calcium Total Creatine Kinase Troponin T HDL Cholesterol 01/28/19 01/28/19 01/28/19 12:13 19:08 21:54 WBC RBC Hgb Hct MCV RDW Lymph % (Auto) [place] % (Auto) Lymph # [place] # Seg Neutrophils % Seg Neutrophils # PT INR POC ABG pH POC ABG pCO2 POC ABG pO2 Sodium Potassium Chloride Carbon Dioxide BUN Creatinine Glucose POC Glucose 203 H 214 H 208 H Calcium Total Creatine Kinase Troponin T HDL Cholesterol 01/29/19 01/29/19 01/29/19 04:56 11:59 18:14 WBC RBC Hgb Hct MCV RDW Lymph % (Auto) [place] % (Auto) Lymph # [place] # Seg Neutrophils % Seg Neutrophils # PT INR POC ABG pH POC ABG pCO2 POC ABG pO2 Sodium Potassium Chloride Carbon Dioxide BUN Creatinine Glucose POC Glucose 251 H 231 H 225 H Calcium Total Creatine Kinase Troponin T HDL Cholesterol 01/29/19 01/30/19 01/30/19 23:53 06:02 12:10 WBC RBC Hgb Hct MCV RDW Lymph % (Auto) [place] % (Auto) Lymph # [place] # Seg Neutrophils % Seg Neutrophils # PT INR POC ABG pH POC ABG pCO2 POC ABG pO2 Sodium Potassium Chloride Carbon Dioxide BUN Creatinine Glucose POC Glucose 198 H 229 H 286 H Calcium Total Creatine Kinase Troponin T HDL Cholesterol 01/30/19 01/30/19 01/31/19 17:31 20:37 04:07 WBC 15.1 H RBC 2.94 L Hgb 9.0 L Hct 27.5 L MCV RDW 15.4 H Lymph % (Auto) [place] % (Auto) Lymph # [place] # Seg Neutrophils % Seg Neutrophils # PT INR POC ABG pH 7.529 H POC ABG pCO2 32.4 L POC ABG pO2 183 H Sodium Potassium Chloride Carbon Dioxide BUN Creatinine Glucose POC Glucose 238 H Calcium Total Creatine Kinase Troponin T HDL Cholesterol 01/31/19 01/31/19 01/31/19 04:07 04:21 05:11 WBC RBC Hgb Hct MCV RDW Lymph % (Auto) [place] % (Auto) Lymph # [place] # Seg Neutrophils % Seg Neutrophils # PT INR POC ABG pH 7.455 H POC ABG pCO2 POC ABG pO2 138 H Sodium 147 H Potassium Chloride 108.7 H Carbon Dioxide BUN 32 H Creatinine Glucose 176 H POC Glucose 172 H Calcium Total Creatine Kinase Troponin T HDL Cholesterol 01/31/19 01/31/19 01/31/19 11:50 18:23 23:23 WBC RBC Hgb Hct MCV RDW Lymph % (Auto) [place] % (Auto) Lymph # [place] # Seg Neutrophils % Seg Neutrophils # PT INR POC ABG pH POC ABG pCO2 POC ABG pO2 Sodium Potassium Chloride Carbon Dioxide BUN Creatinine Glucose POC Glucose 176 H 217 H 221 H Calcium Total Creatine Kinase Troponin T HDL Cholesterol 02/01/19 02/01/19 02/01/19 04:48 04:48 05:23 WBC 13.7 H RBC 2.71 L Hgb 8.2 L Hct 25.6 L MCV RDW 15.8 H Lymph % (Auto) [place] % (Auto) Lymph # [place] # Seg Neutrophils % Seg Neutrophils # PT INR POC ABG pH POC ABG pCO2 POC ABG pO2 Sodium Potassium Chloride Carbon Dioxide BUN 33 H Creatinine 0.7 L Glucose 265 H POC Glucose 267 H Calcium Total Creatine Kinase Troponin T HDL Cholesterol 02/01/19 05:41 WBC RBC Hgb Hct MCV RDW Lymph % (Auto) [place] % (Auto) Lymph # [place] # Seg Neutrophils % Seg Neutrophils # PT INR POC ABG pH 7.456 H POC ABG pCO2 POC ABG pO2 Sodium Potassium Chloride Carbon Dioxide BUN Creatinine Glucose POC Glucose Calcium Total Creatine Kinase Troponin T HDL Cholesterol
[2019-02-01] MEDS: PEPCID PO SCH ×2 (10:17→21:48)
[2019-02-01] MEDS: ASPIRIN PO SCH (10:18)
[2019-02-01] MEDS: SODIUM CHLORIDE FLUSH SYRINGE 10 ML IV SCH ×2 (10:18→21:48)
--- NOTE | 2019-02-01 11:26 | Progress Note ---
Assessment and Plan 63 year old male with left MCA stroke, 01/18/19, resultant aphasia and right hemiparesis. Intubated in pm 01/30/19 and resting comfortably. Plan - Repeat CT in the next day or two. Subjective Date of service: 02/01/19 Principal diagnosis: stroke, respiratory failure Interval history: This 63-year-old -Citizen Of [place] male is seen in follow-up from previous neurologist, Dr. Ruiz, for moderate size left middle cerebral artery territory frontotemporal stroke. MRI shows no significant edema. Most recent CT (01/23/19) showed no progression of the stroke nor increased edema. There was no sign of petechial hemorrhage. The patient most recently has been having respiratory difficulty. He is aphasic and unable to communicate. The patient was intubated 01/30/19 and stabilized. No sign of aspiration pneumonia. Seems comfortable. Objective - Exam Narrative Exam: Resting comfortably on the ventilator, eyes open. Neurological exam - Follows simple commands. 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 Left gaze preference. mild facial asymmetry Motor - right plegia left - moves spontaneously. 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 Sensory - not withdrawing to pain on the right. - Vital Sign Vital Signs - 12hr 01/31/19 01/31/19 01/31/19 23:26 23:30 23:40 Temperature Pulse Rate 100 H 101 H 102 H Pulse Rate [ Anterior Bilateral Throughout] Pulse Rate [ From Monitor] Respiratory 26 H 25 H Rate Respiratory Rate [Anterior Bilateral Throughout] Blood Pressure 134/79 134/72 134/79 O2 Sat by Pulse 100 100 100 Oximetry 01/31/19 01/31/19 02/01/19 23:42 23:50 00:00 Temperature 99.6 F Pulse Rate 103 H 103 H 104 H Pulse Rate [ Anterior Bilateral Throughout] Pulse Rate [ 100 H From Monitor] Respiratory 25 H 23 28 H Rate Respiratory Rate [Anterior Bilateral Throughout] Blood Pressure 134/79 142/74 142/74 O2 Sat by Pulse 100 100 100 Oximetry 02/01/19 02/01/19 02/01/19 00:10 00:20 00:30 Temperature Pulse Rate 104 H 106 H 104 H Pulse Rate [ Anterior Bilateral Throughout] Pulse Rate [ From Monitor] Respiratory 29 H 25 H 29 H Rate Respiratory Rate [Anterior Bilateral Throughout] Blood Pressure 142/74 134/69 136/73 O2 Sat by Pulse 100 100 100 Oximetry 02/01/19 02/01/19 02/01/19 00:40 00:50 01:00 Temperature Pulse Rate 107 H 108 H 106 H Pulse Rate [ Anterior Bilateral Throughout] Pulse Rate [ From Monitor] Respiratory 29 H 32 H 30 H Rate Respiratory Rate [Anterior Bilateral Throughout] Blood Pressure 139/77 145/78 142/81 O2 Sat by Pulse 100 100 100 Oximetry 02/01/19 02/01/19 02/01/19 01:10 01:20 01:30 Temperature Pulse Rate 100 H 105 H 104 H Pulse Rate [ Anterior Bilateral Throughout] Pulse Rate [ From Monitor] Respiratory 26 H 28 H 29 H Rate Respiratory Rate [Anterior Bilateral Throughout] Blood Pressure 142/81 140/62 136/80 O2 Sat by Pulse 100 100 100 Oximetry 02/01/19 02/01/19 02/01/19 01:40 01:50 02:00 Temperature Pulse Rate 103 H 103 H 103 H Pulse Rate [ 97 H Anterior Bilateral Throughout] Pulse Rate [ From Monitor] Respiratory 28 H 26 H 27 H Rate Respiratory 20 Rate [Anterior Bilateral Throughout] Blood Pressure 136/80 140/76 140/76 O2 Sat by Pulse 100 100 100 Oximetry 02/01/19 02/01/19 02/01/19 02:10 02:20 02:30 Temperature Pulse Rate 103 H 101 H 100 H Pulse Rate [ Anterior Bilateral Throughout] Pulse Rate [ From Monitor] Respiratory 28 H 30 H 24 Rate Respiratory Rate [Anterior Bilateral Throughout] Blood Pressure 137/79 140/79 141/76 O2 Sat by Pulse 100 100 100 Oximetry 02/01/19 02/01/19 02/01/19 02:40 02:50 03:00 Temperature Pulse Rate 102 H 101 H 101 H Pulse Rate [ Anterior Bilateral Throughout] Pulse Rate [ From Monitor] Respiratory 29 H 26 H 28 H Rate Respiratory Rate [Anterior Bilateral Throughout] Blood Pressure 141/76 140/82 142/79 O2 Sat by Pulse 100 100 100 Oximetry 02/01/19 02/01/19 02/01/19 03:10 03:16 03:20 Temperature Pulse Rate 101 H 99 H 99 H Pulse Rate [ Anterior Bilateral Throughout] Pulse Rate [ From Monitor] Respiratory 28 H 28 H Rate Respiratory Rate [Anterior Bilateral Throughout] Blood Pressure 142/79 141/81 141/81 O2 Sat by Pulse 100 100 100 Oximetry 02/01/19 02/01/19 02/01/19 03:30 03:40 03:50 Temperature Pulse Rate 101 H 103 H 104 H Pulse Rate [ Anterior Bilateral Throughout] Pulse Rate [ From Monitor] Respiratory 28 H 26 H 31 H Rate Respiratory Rate [Anterior Bilateral Throughout] Blood Pressure 142/79 142/79 136/85 O2 Sat by Pulse 100 100 100 Oximetry 02/01/19 02/01/19 02/01/19 04:00 04:10 04:20 Temperature 99.0 F Pulse Rate 105 H 102 H 100 H Pulse Rate [ Anterior Bilateral Throughout] Pulse Rate [ 102 H From Monitor] Respiratory 31 H 28 H 26 H Rate Respiratory Rate [Anterior Bilateral Throughout] Blood Pressure 146/81 146/81 142/79 O2 Sat by Pulse 100 100 100 Oximetry 02/01/19 02/01/19 02/01/19 04:30 04:40 04:50 Temperature Pulse Rate 101 H 103 H 100 H Pulse Rate [ Anterior Bilateral Throughout] Pulse Rate [ From Monitor] Respiratory 28 H 29 H 29 H Rate Respiratory Rate [Anterior Bilateral Throughout] Blood Pressure 143/79 143/79 137/79 O2 Sat by Pulse 100 100 100 Oximetry 02/01/19 02/01/19 02/01/19 05:00 05:10 05:20 Temperature Pulse Rate 101 H 93 H 94 H Pulse Rate [ Anterior Bilateral Throughout] Pulse Rate [ From Monitor] Respiratory 26 H 21 24 Rate Respiratory Rate [Anterior Bilateral Throughout] Blood Pressure 137/76 137/76 137/76 O2 Sat by Pulse 100 100 Oximetry 02/01/19 02/01/19 02/01/19 05:30 05:40 05:50 Temperature Pulse Rate 95 H 92 H 94 H Pulse Rate [ Anterior Bilateral Throughout] Pulse Rate [ From Monitor] Respiratory 24 21 19 Rate Respiratory Rate [Anterior Bilateral Throughout] Blood Pressure 137/76 137/76 137/76 O2 Sat by Pulse 98 100 Oximetry 02/01/19 02/01/19 02/01/19 06:00 06:10 06:20 Temperature Pulse Rate 90 95 H 99 H Pulse Rate [ Anterior Bilateral Throughout] Pulse Rate [ From Monitor] Respiratory 19 19 18 Rate Respiratory Rate [Anterior Bilateral Throughout] Blood Pressure 137/77 137/77 132/69 O2 Sat by Pulse 100 100 100 Oximetry 02/01/19 02/01/19 02/01/19 06:30 06:40 06:50 Temperature Pulse Rate 103 H 100 H 99 H Pulse Rate [ Anterior Bilateral Throughout] Pulse Rate [ From Monitor] Respiratory 14 26 H 21 Rate Respiratory Rate [Anterior Bilateral Throughout] Blood Pressure 141/73 141/73 147/78 O2 Sat by Pulse 100 100 100 Oximetry 02/01/19 02/01/19 02/01/19 07:00 07:08 07:10 Temperature Pulse Rate 97 H 99 H 97 H Pulse Rate [ Anterior Bilateral Throughout] Pulse Rate [ From Monitor] Respiratory 15 22 Rate Respiratory Rate [Anterior Bilateral Throughout] Blood Pressure 139/73 139/73 139/73 O2 Sat by Pulse 100 100 100 Oximetry 02/01/19 02/01/19 02/01/19 07:15 07:20 07:30 Temperature Pulse Rate 95 H 98 H Pulse Rate [ 96 H Anterior Bilateral Throughout] Pulse Rate [ From Monitor] Respiratory 22 21 Rate Respiratory 18 Rate [Anterior Bilateral Throughout] Blood Pressure 139/73 141/81 O2 Sat by Pulse 100 100 Oximetry 02/01/19 02/01/19 02/01/19 07:40 07:50 08:00 Temperature 99.3 F Pulse Rate 97 H 99 H 98 H Pulse Rate [ Anterior Bilateral Throughout] Pulse Rate [ From Monitor] Respiratory 26 H 17 19 Rate Respiratory Rate [Anterior Bilateral Throughout] Blood Pressure 141/81 150/78 148/82 O2 Sat by Pulse 100 100 100 Oximetry 02/01/19 02/01/19 02/01/19 08:05 08:10 08:20 Temperature Pulse Rate 96 H 99 H Pulse Rate [ 98 H Anterior Bilateral Throughout] Pulse Rate [ From Monitor] Respiratory 22 17 Rate Respiratory 24 Rate [Anterior Bilateral Throughout] Blood Pressure 148/82 137/77 O2 Sat by Pulse 100 100 Oximetry 02/01/19 10:37 Temperature Pulse Rate 94 H Pulse Rate [ Anterior Bilateral Throughout] Pulse Rate [ From Monitor] Respiratory 22 Rate Respiratory Rate [Anterior Bilateral Throughout] Blood Pressure 138/86 O2 Sat by Pulse 100 Oximetry - Laboratory Findings CBC and BMP: 02/01/19 04:48 02/01/19 04:48 Abnormal Lab Findings: Abnormal Labs 01/18/19 01/18/19 01/18/19 19:14 19:14 19:14 WBC 17.2 H RBC Hgb Hct MCV 96 H RDW 15.5 H Lymph % (Auto) 7.9 L Burt % (Auto) 7.9 H Lymph # Burt # 1.4 H Seg Neutrophils % 83.5 H Seg Neutrophils # 14.3 H PT 15.5 H INR 1.16 H POC ABG pH POC ABG pCO2 POC ABG pO2 Sodium 153 H Potassium 3.4 L Chloride Carbon Dioxide BUN 24 H Creatinine Glucose 159 H POC Glucose Calcium 10.3 H Total Creatine Kinase Troponin T 0.368 H* HDL Cholesterol 35 L 01/18/19 01/19/19 01/19/19 22:33 00:15 05:07 WBC RBC Hgb Hct MCV RDW Lymph % (Auto) Burt % (Auto) Lymph # Burt # Seg Neutrophils % Seg Neutrophils # PT INR POC ABG pH POC ABG pCO2 POC ABG pO2 Sodium 151 H Potassium 3.2 L Chloride Carbon Dioxide BUN 25 H Creatinine Glucose 130 H POC Glucose Calcium Total Creatine Kinase 491 H 419 H Troponin T 0.291 H* D 0.273 H* HDL Cholesterol 01/22/19 01/22/19 01/23/19 05:16 05:16 04:27 WBC 12.5 H 13.9 H RBC Hgb Hct MCV 96 H 95 H RDW 15.6 H 15.5 H Lymph % (Auto) 8.6 L 6.2 L Burt % (Auto) 9.1 H 9.1 H Lymph # 1.1 L 0.9 L Burt # 1.1 H 1.3 H Seg Neutrophils % 80.0 H 83.2 H Seg Neutrophils # 10.0 H 11.6 H PT INR POC ABG pH POC ABG pCO2 POC ABG pO2 Sodium 156 H Potassium 2.8 L* Chloride 118.5 H Carbon Dioxide BUN Creatinine Glucose 159 H POC Glucose Calcium Total Creatine Kinase Troponin T HDL Cholesterol 01/23/19 01/23/19 01/23/19 04:27 13:11 14:59 WBC RBC Hgb Hct MCV RDW Lymph % (Auto) Burt % (Auto) Lymph # Burt # Seg Neutrophils % Seg Neutrophils # PT INR POC ABG pH POC ABG pCO2 POC ABG pO2 282 H 205 H Sodium 151 H Potassium 3.5 L D Chloride 113.8 H Carbon Dioxide BUN Creatinine Glucose 163 H POC Glucose Calcium Total Creatine Kinase Troponin T HDL Cholesterol 01/23/19 01/24/19 01/24/19 18:36 04:17 07:41 WBC RBC Hgb Hct MCV RDW Lymph % (Auto) Burt % (Auto) Lymph # Burt # Seg Neutrophils % Seg Neutrophils # PT INR POC ABG pH POC ABG pCO2 POC ABG pO2 148 H Sodium 149 H Potassium Chloride 113.5 H Carbon Dioxide BUN Creatinine Glucose 153 H POC Glucose 141 H Calcium Total Creatine Kinase Troponin T HDL Cholesterol 01/24/19 01/25/19 01/25/19 23:40 04:07 04:07 WBC RBC 3.46 L Hgb 10.8 L Hct 32.7 L MCV 95 H RDW 15.3 H Lymph % (Auto) 9.0 L Burt % (Auto) 10.5 H Lymph # 1.0 L Burt # 1.1 H Seg Neutrophils % 77.7 H Seg Neutrophils # 8.3 H PT INR POC ABG pH POC ABG pCO2 POC ABG pO2 Sodium 147 H Potassium Chloride 111.1 H Carbon Dioxide BUN Creatinine Glucose 150 H POC Glucose 130 H Calcium Total Creatine Kinase Troponin T HDL Cholesterol 01/25/19 01/25/19 01/25/19 04:34 05:36 11:53 WBC RBC Hgb Hct MCV RDW Lymph % (Auto) Burt % (Auto) Lymph # Burt # Seg Neutrophils % Seg Neutrophils # PT INR POC ABG pH POC ABG pCO2 34.3 L POC ABG pO2 110 H Sodium Potassium Chloride Carbon Dioxide BUN Creatinine Glucose POC Glucose 147 H 162 H Calcium Total Creatine Kinase Troponin T HDL Cholesterol 01/25/19 01/25/19 01/26/19 18:12 23:44 04:13 WBC RBC Hgb Hct MCV RDW Lymph % (Auto) Burt % (Auto) Lymph # Burt # Seg Neutrophils % Seg Neutrophils # PT INR POC ABG pH POC ABG pCO2 33.6 L POC ABG pO2 Sodium Potassium Chloride Carbon Dioxide BUN Creatinine Glucose POC Glucose 211 H 210 H Calcium Total Creatine Kinase Troponin T HDL Cholesterol 01/26/19 01/26/19 01/26/19 04:40 04:40 05:27 WBC RBC 3.27 L Hgb 10.2 L Hct 30.9 L MCV RDW Lymph % (Auto) 6.4 L Burt % (Auto) Lymph # 0.7 L Burt # Seg Neutrophils % 87.5 H Seg Neutrophils # 9.5 H PT INR POC ABG pH POC ABG pCO2 POC ABG pO2 Sodium Potassium Chloride 107.4 H Carbon Dioxide 21 L BUN Creatinine Glucose 251 H POC Glucose 230 H Calcium Total Creatine Kinase Troponin T HDL Cholesterol 01/26/19 01/26/19 01/27/19 11:50 20:38 01:05 WBC RBC Hgb Hct MCV RDW Lymph % (Auto) Burt % (Auto) Lymph # Burt # Seg Neutrophils % Seg Neutrophils # PT INR POC ABG pH POC ABG pCO2 POC ABG pO2 Sodium Potassium Chloride Carbon Dioxide BUN Creatinine Glucose POC Glucose 219 H 166 H 161 H Calcium Total Creatine Kinase Troponin T HDL Cholesterol 01/27/19 01/27/19 01/27/19 04:39 05:57 12:46 WBC RBC Hgb Hct MCV RDW Lymph % (Auto) Burt % (Auto) Lymph # Burt # Seg Neutrophils % Seg Neutrophils # PT INR POC ABG pH POC ABG pCO2 POC ABG pO2 Sodium Potassium Chloride 108.0 H Carbon Dioxide 20 L BUN Creatinine 0.7 L Glucose 165 H POC Glucose 160 H 196 H Calcium Total Creatine Kinase Troponin T HDL Cholesterol 01/27/19 01/28/19 01/28/19 18:22 02:12 06:21 WBC RBC Hgb Hct MCV RDW Lymph % (Auto) Burt % (Auto) Lymph # Burt # Seg Neutrophils % Seg Neutrophils # PT INR POC ABG pH POC ABG pCO2 POC ABG pO2 Sodium Potassium Chloride Carbon Dioxide BUN Creatinine Glucose POC Glucose 168 H 183 H 211 H Calcium Total Creatine Kinase Troponin T HDL Cholesterol 01/28/19 01/28/19 01/28/19 12:13 19:08 21:54 WBC RBC Hgb Hct MCV RDW Lymph % (Auto) Burt % (Auto) Lymph # Burt # Seg Neutrophils % Seg Neutrophils # PT INR POC ABG pH POC ABG pCO2 POC ABG pO2 Sodium Potassium Chloride Carbon Dioxide BUN Creatinine Glucose POC Glucose 203 H 214 H 208 H Calcium Total Creatine Kinase Troponin T HDL Cholesterol 01/29/19 01/29/19 01/29/19 04:56 11:59 18:14 WBC RBC Hgb Hct MCV RDW Lymph % (Auto) Burt % (Auto) Lymph # Burt # Seg Neutrophils % Seg Neutrophils # PT INR POC ABG pH POC ABG pCO2 POC ABG pO2 Sodium Potassium Chloride Carbon Dioxide BUN Creatinine Glucose POC Glucose 251 H 231 H 225 H Calcium Total Creatine Kinase Troponin T HDL Cholesterol 01/29/19 01/30/19 01/30/19 23:53 06:02 12:10 WBC RBC Hgb Hct MCV RDW Lymph % (Auto) Burt % (Auto) Lymph # Burt # Seg Neutrophils % Seg Neutrophils # PT INR POC ABG pH POC ABG pCO2 POC ABG pO2 Sodium Potassium Chloride Carbon Dioxide BUN Creatinine Glucose POC Glucose 198 H 229 H 286 H Calcium Total Creatine Kinase Troponin T HDL Cholesterol 01/30/19 01/30/19 01/31/19 17:31 20:37 04:07 WBC 15.1 H RBC 2.94 L Hgb 9.0 L Hct 27.5 L MCV RDW 15.4 H Lymph % (Auto) Burt % (Auto) Lymph # Burt # Seg Neutrophils % Seg Neutrophils # PT INR POC ABG pH 7.529 H POC ABG pCO2 32.4 L POC ABG pO2 183 H Sodium Potassium Chloride Carbon Dioxide BUN Creatinine Glucose POC Glucose 238 H Calcium Total Creatine Kinase Troponin T HDL Cholesterol 01/31/19 01/31/19 01/31/19 04:07 04:21 05:11 WBC RBC Hgb Hct MCV RDW Lymph % (Auto) Burt % (Auto) Lymph # Burt # Seg Neutrophils % Seg Neutrophils # PT INR POC ABG pH 7.455 H POC ABG pCO2 POC ABG pO2 138 H Sodium 147 H Potassium Chloride 108.7 H Carbon Dioxide BUN 32 H Creatinine Glucose 176 H POC Glucose 172 H Calcium Total Creatine Kinase Troponin T HDL Cholesterol 01/31/19 01/31/19 01/31/19 11:50 18:23 23:23 WBC RBC Hgb Hct MCV RDW Lymph % (Auto) Burt % (Auto) Lymph # Burt # Seg Neutrophils % Seg Neutrophils # PT INR POC ABG pH POC ABG pCO2 POC ABG pO2 Sodium Potassium Chloride Carbon Dioxide BUN Creatinine Glucose POC Glucose 176 H 217 H 221 H Calcium Total Creatine Kinase Troponin T HDL Cholesterol 02/01/19 02/01/19 02/01/19 04:48 04:48 05:23 WBC 13.7 H RBC 2.71 L Hgb 8.2 L Hct 25.6 L MCV RDW 15.8 H Lymph % (Auto) Burt % (Auto) Lymph # Burt # Seg Neutrophils % Seg Neutrophils # PT INR POC ABG pH POC ABG pCO2 POC ABG pO2 Sodium Potassium Chloride Carbon Dioxide BUN 33 H Creatinine 0.7 L Glucose 265 H POC Glucose 267 H Calcium Total Creatine Kinase Troponin T HDL Cholesterol 02/01/19 05:41 WBC RBC Hgb Hct MCV RDW Lymph % (Auto) Burt % (Auto) Lymph # Burt # Seg Neutrophils % Seg Neutrophils # PT INR POC ABG pH 7.456 H POC ABG pCO2 POC ABG pO2 Sodium Potassium Chloride Carbon Dioxide BUN Creatinine Glucose POC Glucose Calcium Total Creatine Kinase Troponin T HDL Cholesterol
--- NOTE | 2019-02-01 14:26 | Progress Note ---
Assessment and Plan - Patient Problems (1) CVA (cerebral vascular accident) Current Visit: Yes Status: Acute Plan to address problem: Continue supportive management, medical therapy for heart failure and cardiomyopathy. Subjective Date of service: 02/01/19 Principal diagnosis: stroke, respiratory failure Interval history: Patient remains on the Vent, currently awake, the process of weaning is in progress. Objective Vital Signs Temp Pulse Pulse Pulse Resp Resp BP 02/01/19 14:00 93 H 25 H 136/76 02/01/19 13:51 90 19 140/75 02/01/19 13:41 94 H 24 134/78 02/01/19 13:30 90 22 134/78 02/01/19 13:21 90 12 132/79 02/01/19 13:10 91 H 14 132/79 02/01/19 13:00 90 23 132/79 02/01/19 12:50 93 H 27 H 131/80 02/01/19 12:40 93 H 30 H 146/78 02/01/19 12:33 02/01/19 12:30 96 H 29 H 146/78 02/01/19 12:20 97 H 28 H 143/83 02/01/19 12:10 92 H 19 136/82 02/01/19 12:09 96 H 23 136/82 02/01/19 12:00 98.1 F 94 H 26 H 136/82 02/01/19 11:50 92 H 25 H 141/76 02/01/19 11:40 96 H 20 139/86 02/01/19 11:30 97 H 23 139/86 02/01/19 11:20 93 H 24 133/72 02/01/19 11:10 94 H 21 146/75 02/01/19 11:00 96 H 27 H 146/75 02/01/19 10:50 98 H 20 141/78 02/01/19 10:40 96 H 30 H 138/86 02/01/19 10:37 94 H 22 138/86 02/01/19 10:30 98 H 21 138/86 02/01/19 10:20 99 H 21 143/79 02/01/19 10:10 98 H 19 136/75 02/01/19 10:00 95 H 22 136/75 02/01/19 09:50 94 H 21 146/76 02/01/19 09:40 93 H 22 143/77 02/01/19 09:30 93 H 22 143/77 02/01/19 09:20 98 H 20 142/79 02/01/19 09:10 93 H 21 137/77 02/01/19 09:00 95 H 22 137/77 02/01/19 08:50 94 H 22 143/75 02/01/19 08:40 96 H 18 136/81 02/01/19 08:30 101 H 27 H 136/81 02/01/19 08:20 99 H 17 137/77 02/01/19 08:10 96 H 22 148/82 02/01/19 08:05 98 H 24 02/01/19 08:00 99.3 F 98 H 19 148/82 02/01/19 07:50 99 H 17 150/78 02/01/19 07:40 97 H 26 H 141/81 02/01/19 07:30 98 H 21 141/81 02/01/19 07:20 95 H 22 139/73 02/01/19 07:15 96 H 18 02/01/19 07:10 97 H 22 139/73 02/01/19 07:08 99 H 139/73 02/01/19 07:00 97 H 15 139/73 02/01/19 06:50 99 H 21 147/78 02/01/19 06:40 100 H 26 H 141/73 02/01/19 06:30 103 H 14 141/73 02/01/19 06:20 99 H 18 132/69 02/01/19 06:10 95 H 19 137/77 02/01/19 06:00 90 19 137/77 02/01/19 05:50 94 H 19 137/76 02/01/19 05:40 92 H 21 137/76 02/01/19 05:30 95 H 24 137/76 02/01/19 05:20 94 H 24 137/76 02/01/19 05:10 93 H 21 137/76 02/01/19 05:00 101 H 26 H 137/76 02/01/19 04:50 100 H 29 H 137/79 02/01/19 04:40 103 H 29 H 143/79 02/01/19 04:30 101 H 28 H 143/79 02/01/19 04:20 100 H 26 H 142/79 02/01/19 04:10 102 H 28 H 146/81 02/01/19 04:00 99.0 F 105 H 102 H 31 H 146/81 02/01/19 03:50 104 H 31 H 136/85 02/01/19 03:40 103 H 26 H 142/79 02/01/19 03:30 101 H 28 H 142/79 02/01/19 03:20 99 H 28 H 141/81 02/01/19 03:16 99 H 141/81 02/01/19 03:10 101 H 28 H 142/79 02/01/19 03:00 101 H 28 H 142/79 02/01/19 02:50 101 H 26 H 140/82 02/01/19 02:40 102 H 29 H 141/76 02/01/19 02:30 100 H 24 141/76 02/01/19 02:20 101 H 30 H 140/79 02/01/19 02:10 103 H 28 H 137/79 02/01/19 02:00 103 H 97 H 27 H 20 140/76 02/01/19 01:50 103 H 26 H 140/76 02/01/19 01:40 103 H 28 H 136/80 02/01/19 01:30 104 H 29 H 136/80 02/01/19 01:20 105 H 28 H 140/62 02/01/19 01:10 100 H 26 H 142/81 02/01/19 01:00 106 H 30 H 142/81 02/01/19 00:50 108 H 32 H 145/78 02/01/19 00:40 107 H 29 H 139/77 02/01/19 00:30 104 H 29 H 136/73 03 00:20 106 H 25 H 134/69 03 00:10 104 H 29 H 142/74 03 00:00 99.6 F 104 H 100 H 28 H 142/74 01/31/19 23:50 103 H 23 142/74 01/31/19 23:42 103 H 25 H 134/79 01/31/19 23:40 102 H 25 H 134/79 01/31/19 23:30 101 H 26 H 134/72 01/31/19 23:26 100 H 134/79 02 23:20 105 H 27 H 134/79 04/02/19 23:10 107 H 30 H 141/73 01/31/19 23:00 105 H 28 H 136/79 01/31/19 22:50 98 H 26 H 145/76 01/31/19 22:40 99 H 25 H 145/77 01/31/19 22:30 97 H 25 H 141/73 01/31/19 22:20 99 H 27 H 140/81 01/31/19 22:10 102 H 25 H 138/75 01/31/19 22:00 99 H 25 H 145/77 01/31/19 21:50 100 H 28 H 145/77 01/31/19 21:40 99 H 25 H 138/75 01/31/19 21:30 97 H 26 H 138/75 01/31/19 21:20 100 H 25 H 148/78 01/31/19 21:10 99 H 22 134/73 01/31/19 21:00 98 H 29 H 140/78 01/31/19 20:50 94 H 28 H 134/73 01/31/19 20:40 96 H 28 H 142/72 01/31/19 20:30 97 H 26 H 142/72 01/31/19 20:20 100 H 30 H 140/80 01/31/19 20:10 98 H 28 H 141/71 01/31/19 20:00 99.8 F H 93 H 96 H 98 H 23 20 133/68 01/31/19 19:50 100 H 22 137/72 01/31/19 19:40 96 H 22 130/74 01/31/19 19:30 96 H 19 141/71 01/31/19 19:20 93 H 20 140/72 01/31/19 19:10 94 H 24 127/72 01/31/19 19:00 95 H 23 130/74 01/31/19 18:50 92 H 19 130/75 01/31/19 18:40 94 H 23 148/79 01/31/19 18:30 92 H 22 127/72 01/31/19 18:20 94 H 15 148/79 01/31/19 18:10 97 H 25 H 146/82 01/31/19 18:00 96 H 19 146/82 01/31/19 17:50 94 H 23 139/76 01/31/19 17:40 95 H 13 151/82 01/31/19 17:30 98 H 24 151/82 01/31/19 17:20 98 H 23 143/82 01/31/19 17:10 100 H 23 146/84 01/31/19 17:00 100 H 21 146/84 01/31/19 16:50 98 H 19 138/84 01/31/19 16:40 98 H 19 143/79 01/31/19 16:30 96 H 20 143/79 01/31/19 16:20 101 H 23 139/84 01/31/19 16:10 100 H 22 131/74 01/31/19 16:00 99 F 95 H 23 131/74 01/31/19 15:50 96 H 17 128/74 01/31/19 15:40 98 H 22 139/74 01/31/19 15:30 100 H 19 129/74 01/31/19 15:20 98 H 28 H 129/74 01/31/19 15:10 94 H 22 124/70 01/31/19 15:00 92 H 18 124/70 01/31/19 14:50 93 H 21 128/70 01/31/19 14:40 97 H 22 136/75 01/31/19 14:30 99 H 28 H 136/75 Pulse Ox 02/01/19 14:00 100 02/01/19 13:51 100 02/01/19 13:41 98 02/01/19 13:30 100 02/01/19 13:21 100 02/01/19 13:10 100 02/01/19 13:00 100 02/01/19 12:50 100 02/01/19 12:40 100 02/01/19 12:33 100 02/01/19 12:30 100 02/01/19 12:20 100 02/01/19 12:10 100 02/01/19 12:09 100 02/01/19 12:00 100 02/01/19 11:50 100 02/01/19 11:40 100 02/01/19 11:30 100 02/01/19 11:20 100 02/01/19 11:10 100 02/01/19 11:00 100 02/01/19 10:50 100 02/01/19 10:40 100 02/01/19 10:37 100 02/01/19 10:30 100 02/01/19 10:20 100 02/01/19 10:10 100 02/01/19 10:00 100 02/01/19 09:50 100 02/01/19 09:40 100 02/01/19 09:30 100 02/01/19 09:20 100 02/01/19 09:10 100 02/01/19 09:00 100 02/01/19 08:50 100 02/01/19 08:40 100 02/01/19 08:30 100 02/01/19 08:20 100 02/01/19 08:10 100 02/01/19 08:05 02/01/19 08:00 100 02/01/19 07:50 100 02/01/19 07:40 100 02/01/19 07:30 100 02/01/19 07:20 100 02/01/19 07:15 02/01/19 07:10 100 02/01/19 07:08 100 02/01/19 07:00 100 02/01/19 06:50 100 02/01/19 06:40 100 02/01/19 06:30 100 02/01/19 06:20 100 02/01/19 06:10 100 02/01/19 06:00 100 02/01/19 05:50 100 02/01/19 05:40 98 02/01/19 05:30 02/01/19 05:20 02/01/19 05:10 100 02/01/19 05:00 100 02/01/19 04:50 100 02/01/19 04:40 100 02/01/19 04:30 100 02/01/19 04:20 100 02/01/19 04:10 100 02/01/19 04:00 100 02/01/19 03:50 100 02/01/19 03:40 100 02/01/19 03:30 100 02/01/19 03:20 100 02/01/19 03:16 100 02/01/19 03:10 100 02/01/19 03:00 100 02/01/19 02:50 100 02/01/19 02:40 100 02/01/19 02:30 100 02/01/19 02:20 100 02/01/19 02:10 100 02/01/19 02:00 100 02/01/19 01:50 100 02/01/19 01:40 100 02/01/19 01:30 100 02/01/19 01:20 100 02/01/19 01:10 100 02/01/19 01:00 100 02/01/19 00:50 100 02/01/19 00:40 100 02/01/19 00:30 100 02/01/19 00:20 100 02/01/19 00:10 100 02/01/19 00:00 100 01/31/19 23:50 100 01/31/19 23:42 100 01/31/19 23:40 100 01/31/19 23:30 100 01/31/19 23:26 100 01/31/19 23:20 100 01/31/19 23:10 100 01/31/19 23:00 100 01/31/19 22:50 100 01/31/19 22:40 100 01/31/19 22:30 100 01/31/19 22:20 100 01/31/19 22:10 100 01/31/19 22:00 100 01/31/19 21:50 100 01/31/19 21:40 100 01/31/19 21:30 100 01/31/19 21:20 100 01/31/19 21:10 100 01/31/19 21:00 100 01/31/19 20:50 100 01/31/19 20:40 100 01/31/19 20:30 100 01/31/19 20:20 100 01/31/19 20:10 100 01/31/19 20:00 100 01/31/19 19:50 100 01/31/19 19:40 100 01/31/19 19:30 100 01/31/19 19:20 100 01/31/19 19:10 100 01/31/19 19:00 100 01/31/19 18:50 100 01/31/19 18:40 100 01/31/19 18:30 100 01/31/19 18:20 100 01/31/19 18:10 100 01/31/19 18:00 100 01/31/19 17:50 100 01/31/19 17:40 100 01/31/19 17:30 100 01/31/19 17:20 100 01/31/19 17:10 100 01/31/19 17:00 01/31/19 16:50 01/31/19 16:40 01/31/19 16:30 01/31/19 16:20 01/31/19 16:10 01/31/19 16:00 01/31/19 15:50 01/31/19 15:40 01/31/19 15:30 01/31/19 15:20 01/31/19 15:10 01/31/19 15:00 01/31/19 14:50 01/31/19 14:40 01/31/19 14:30 100 - Physical Examination General: Other (awake, on the vent) HEENT: Positive: PERRL Neck: Positive: trachea midline Cardiac: Positive: Reg Rate and Rhythm Lungs: Positive: Decreased Breath Sounds Neuro: Positive: Other (right hemiplegia) Abdomen: Positive: Unremarkable, Active Bowel Sounds Skin: Positive: Clear Extremities: Absent: edema - Labs and Meds CBC 02/01/19 Range/Units 04:48 WBC 13.7 H (4.5-11.0) K/mm3 RBC 2.71 L (3.65-5.03) M/mm3 Hgb 8.2 L (11.8-15.2) gm/dl Hct 25.6 L (35.5-45.6) % Plt Count 402 (140-440) K/mm3 Comprehensive Metabolic Panel 02/01/19 Range/Units 04:48 Sodium 143 (137-145) mmol/L Potassium 4.0 (3.6-5.0) mmol/L Chloride 106.9 (98-107) mmol/L Carbon Dioxide 25 (22-30) mmol/L BUN 33 H (9-20) mg/dL Creatinine 0.7 L (0.8-1.5) mg/dL Glucose 265 H (75-100) mg/dL Calcium 9.3 (8.4-10.2) mg/dL
--- NOTE | 2019-02-01 17:58 | Progress Note ---
Assessment and Plan Assessment and plan: 63 year old male with left MCA stroke, resultant aphasia and right hemiparesis. Intubated in pm yesterday and resting comfortably. * Reintubated, 01/30/19 due to impending respiratory failure with rapid shallow breathing and extubated 02/01/19 * Noted elevated Leukocytes, ?aspiration, resume anbx, check cultures, Aspiration precaution and VAP bundles * Repeat CT mentions evolving CVA * Repeat CT head as recommended by Neurology itomorrow * Continue aggressive pulmonary toliet to prevent need for re-intubation. * Continue ASA AND statin THERAPY Acute Encephalopathy? metabolic secondary to CVA Acute hypoxic respiratory failure. Patient reintubated intubated secondary to labored respirations/airway protection. Pulmonary consultation. Aspiration Vs mucus plug. Mucus plugging. Continue frequent suction. 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 CT scan reveals subacute left frontal lobe infarct. Neurology following. MRI head reveals subacute left MCA infarct with evidence of petechial hemorrhage. Echocardiogram shows enlarged left ventricle with only 25-30% ejection fraction but negative bubble study. CT angiogram of the neck showed ulceration in the right internal carotid artery with elongated artery and left ICA showed just elongated artery. CT angiogram head is negative or normal. PT/OT/ST. repeat CT head pending. Dilated cardiomyopathy with severe left ventricular global hypokinesis. EF 25- 30% as noted above. No anticoagulation given increased risk for hemorrhagic conversion with CVA. Accelerated hypertension. Increase hydralazine to 100 mg 3 times a day. Bilateral lower extremity DVT. IVC filter placement. No anticoagulation given increased risk for hemorrhagic conversion with CVA. SIRS. No evidence of obvious infection. Cultures negative so far. Antibiotics discontinued Hypernatremia; treated and resolved Hypokalemia. Replete potassium as noted above. Elevated troponin. Cardiology following Difficult dubhoof placement; GI placed Dubhoof and currently on tube feeding. Patient failed swallow evaluation. dvt prophy with SCD due to possible evaluating stroke Disposition; continue IMCU care. Discussed with char conveyor tender The high probability of a clinically significant, sudden or life threatening deterioration of the [pulmonary, neurol] system(s) required my full and direct attention, intervention and personal management. The aggregate critical care time was [55] minutes. This time is in addition to time spent performing report ed procedures but includes the following: [x] Data Review and interpretation [x] Patient assessment and monitoring of vital signs [x] Documentation [x] Medication orders and management History Interval history: Patient seen and examined today, extubated today but still noted to have increased suctioning requirement, no other adverse events reported Hospitalist Physical - Physical exam Narrative exam: Patient was extubated on 01/26/19, reintubated 01/30/19.extubated 02/01/19 The patient appeared well nourished and normally developed. Vital signs as documented. Head exam is unremarkable. No scleral icterus . Neck is without jugular venous distension, thyromegaly, or carotid bruits. Lungs are clear to auscultation.tacypnea and shallow Cardiac exam reveals regular rate and Rhythm. Abdominal exam reveals normal bowel sounds. Extremities are nonedematous. COMMUNICATIONS REPRESENTATIVE: Alert. 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 awake today and moves left upper ext - Constitutional Vitals: Temp Pulse Resp BP Pulse Ox 97.7 F 85 21 136/76 100 02/01/19 15:56 02/01/19 14:55 02/01/19 14:55 02/01/19 14:00 02/01/19 14:00 General appearance: Present: severe distress, well-nourished, other (accessory muscle use with respirations) Results - Labs CBC & Chem 7: 02/01/19 04:48 02/01/19 04:48 Labs: Laboratory Last Values WBC 13.7 K/mm3 (4.5-11.0) H 02/01/19 04:48 RBC 2.71 M/mm3 (3.65-5.03) L 02/01/19 04:48 Hgb 8.2 gm/dl (11.8-15.2) L 02/01/19 04:48 Hct 25.6 % (35.5-45.6) L 02/01/19 04:48 MCV 94 fl (84-94) 02/01/19 04:48 MCH 30 pg (28-32) 02/01/19 04:48 MCHC 32 % (32-34) 02/01/19 04:48 RDW 15.8 % (13.2-15.2) H 02/01/19 04:48 Plt Count 402 K/mm3 (140-440) 02/01/19 04:48 Lymph % (Auto) 6.4 % (13.4-35.0) L 01/26/19 04:40 [place] % (Auto) 5.8 % (0.0-7.3) 01/26/19 04:40 Eos % (Auto) 0.0 % (0.0-4.3) 01/26/19 04:40 Baso % (Auto) 0.3 % (0.0-1.8) 01/26/19 04:40 Lymph # 0.7 K/mm3 (1.2-5.4) L 01/26/19 04:40 [place] # 0.6 K/mm3 (0.0-0.8) 01/26/19 04:40 Eos # 0.0 K/mm3 (0.0-0.4) 01/26/19 04:40 Baso # 0.0 K/mm3 (0.0-0.1) 01/26/19 04:40 Seg Neutrophils % 87.5 % (40.0-70.0) H 01/26/19 04:40 Seg Neutrophils # 9.5 K/mm3 (1.8-7.7) H 01/26/19 04:40 PT 15.5 Sec. (12.2-14.9) H 01/18/19 19:14 INR 1.16 (0.87-1.13) H 01/18/19 19:14 APTT 31.7 Sec. (24.2-36.6) 01/18/19 19:14 Thrombin Time 16.2 Sec. (15.1-19.6) 01/18/19 19:14 POC ABG pH 7.497 (7.35-7.45) H 02/01/19 12:10 POC ABG pCO2 34.6 (35-45) L 02/01/19 12:10 POC ABG pO2 101 (80-105) 02/01/19 12:10 POC ABG HCO3 26.8 (22-26 mml/L) 02/01/19 12:10 POC ABG Total CO2 28 (23-27mmol/L) 02/01/19 12:10 POC ABG O2 Sat 98 02/01/19 12:10 POC ABG Base Excess 4 ((-2) - (+3)mmol/L) 02/01/19 12:10 FiO2 25 % 02/01/19 12:10 Sodium 143 mmol/L (137-145) 02/01/19 04:48 Potassium 4.0 mmol/L (3.6-5.0) 02/01/19 04:48 Chloride 106.9 mmol/L (98-107) 02/01/19 04:48 Carbon Dioxide 25 mmol/L (22-30) 02/01/19 04:48 Anion Gap 15 mmol/L 02/01/19 04:48 BUN 33 mg/dL (9-20) H 02/01/19 04:48 Creatinine 0.7 mg/dL (0.8-1.5) L 02/01/19 04:48 Estimated GFR > 60 ml/min 02/01/19 04:48 BUN/Creatinine Ratio 47 % 02/01/19 04:48 Glucose 265 mg/dL (75-100) H 02/01/19 04:48 POC Glucose 264 (70-105) H 02/01/19 11:39 Lactic Acid 1.10 mmol/L (0.7-2.0) 01/28/19 18:10 Calcium 9.3 mg/dL (8.4-10.2) 02/01/19 04:48 Total Creatine Kinase 419 units/L (55-170) H 01/19/19 05:07 CK-MB (CK-2) 3.2 ng/mL (0.0-4.0) 01/19/19 05:07 CK-MB (CK-2) Rel Index 0.7 (0-4) 01/19/19 05:07 Troponin T 0.273 ng/mL (0.00-0.029) H* 01/19/19 05:07 Triglycerides 140 mg/dL (2-149) 01/18/19 19:14 Cholesterol 157 mg/dL (50-199) 01/18/19 19:14 LDL Cholesterol Direct 98 mg/dL (50-130) 01/18/19 19:14 HDL Cholesterol 35 mg/dL (40-59) L 01/18/19 19:14 Cholesterol/HDL Ratio 4.48 % 01/18/19 19:14 Active Medications - Current Medications Current Medications: Generic Name Dose Route Start Last Admin Trade Name Freq PRN Reason Stop Dose Admin Acetaminophen 650 mg 01/18/19 22:08 01/31/19 00:28 Tylenol NM 650 mg Q4H PRN Administration Pain MILD(1-3)/Fever >100.5/PEARL Albuterol 2.5 mg 01/29/19 14:00 02/01/19 14:45 Proventil IH 2.5 mg Q6HRT YESICA Administration Lipase/Protease/Amylase 1 each 01/24/19 15:00 Leoncio Dorado 10,500 Unit FEEDTUBE PRN PRN For Clogged Feeding Tube Aspirin 325 mg 01/27/19 10:00 02/01/19 10:18 Aspirin PO 325 mg QDAY YESICA Administration Atorvastatin Calcium 40 mg 01/24/19 22:00 01/31/19 22:26 Lipitor PO 40 mg QHS YESICA Administration Famotidine 20 mg 01/30/19 22:00 02/01/19 10:17 Pepcid PO 20 mg BID YESICA Administration Fentanyl 50 mcg 01/30/19 17:36 Sublimaze IV Q10MIN PRN ANALGESIA Hydralazine HCl 5 mg 01/18/19 22:13 01/23/19 19:15 Apresoline IV 5 mg Q6H PRN Administration Hypertension Hydralazine HCl 100 mg 01/21/19 14:00 02/01/19 13:26 Apresoline PO 100 mg Q8HR YESICA Administration Hydrophilic Ointment 1 applic 01/30/19 17:36 Vaseline Lip Therapy TP Q2HR PRN Dry Lips Fentanyl Citrate 2,000 mcg in 100 mls @ 3.89 mls/hr 01/30/19 18:00 02/01/19 07:13 Fentanyl Drip Premix IV 0 mcg/kg/hr TITR YESICA 0 mls/hr Titration Protocol 1 MCG/KG/HR Propofol 1,000 mg in 100 mls @ 2.334 mls/hr 01/30/19 18:00 Diprivan 10 Mg/Ml IV TITR YESICA Protocol 5 MCG/KG/MIN Insulin Human Lispro 0 unit 01/26/19 18:00 02/01/19 13:10 Humalog SUB-Q 4 unit Q6HR YESICA Administration Protocol Multi-Ingred Cream/Lotion/Oil/Oint 1 applic 01/30/19 17:36 Artificial Tears Ophth Oint OU Q4HR PRN Dry Eye(s) Ondansetron HCl 4 mg 01/18/19 22:08 Zofran IV Q4H PRN Nausea And Vomiting Simple Syrup 15 ml 01/24/19 15:00 Simple Syrup FEEDTUBE PRN PRN Hypoglycemia Simple Syrup 30 ml 01/24/19 15:00 Simple Syrup FEEDTUBE PRN PRN Hypoglycemia Sodium Bicarbonate 325 mg 01/24/19 15:00 Sodium Bicarbonate FEEDTUBE PRN PRN For Clogged Feeding Tube Sodium Chloride 10 ml 01/19/19 10:00 02/01/19 10:18 Sodium Chloride Flush Syringe 10 Ml IV 10 ml BID YESICA Administration Sodium Chloride 10 ml 01/18/19 22:08 01/24/19 14:17 Sodium Chloride Flush Syringe 10 Ml IV 10 ml PRN PRN Administration LINE FLUSH Nutrition/Malnutrition Assess - Dietary Evaluation Nutrition/Malnutrition Findings: Nutrition Notes Start: 01/19/19 13:52 Freq: Status: Active Protocol: Document 01/31/19 10:33 RM (Rec: 01/31/19 11:00 RM [id number]) Nutrition Notes Initial or Follow up Reassessment Current Diagnosis Diabetes,Hypertension, Respiratory Failure,Stroke, Hyperlipidemia Current Diet Vital AF at 65mL/hr Labs/Tests Na 147 Pertinent Medications Reviewed Height 5 ft 10 in Weight 73.8 kg [place] Body Weight (kg) 75.45 BMI 23.3 Subjective/Other Information Consulted for evaluate nutritional intake. Pt already being followed for TF. X-ray did not show aspiration. MD plans to resume TF today. Burn Absent Trauma Absent #1 Nutrition Diagnosis Inadequate oral intake Diagnosis Progress(for reassessment Continues documentation) Is patient on ventilator? No Is Patient Ambulatory and/or Out of Bed No REE-([facility]-confined to bed) [phone] Calculation Used for Recommendations [facility] Additional Notes Pro needs 1.2-1.5/k-117g/ day Fluid needs 1ml/kcal Nutrition Intervention Nutrition Support: Vital AF at 65 mL/hr. 100mL flush q4h or per MD Kcal 1,872 Protein (gm) 117 Fluid (mL) 1,265 Goal #1 TF tolerance Goal #2 Meet at least 80% of calorie and protein needs via TF Anticipated Discharge Needs: Unable to identify at this time Follow-Up By: 02/03/19 Additional Comments Follow for TF tolerance
[2019-02-01] MEDS: HEPARIN SUB-Q SCH (21:48)
[2019-02-02] MEDS: PROVENTIL IH SCH ×4 (01:29→19:22)
[2019-02-02] MEDS: HumaLOG SUB-Q SCH ×5 (02:12→23:20)
[2019-02-02] MEDS: APRESOLINE PO SCH ×3 (05:11→22:14)
[2019-02-02 05:23] LABS: Hematocrit 24.6 % (35.5-45.6); Mean Corpuscular HGB Conc 32 % (32-34); Mean Corpuscular Volume 94 fl (84-94); Platelet Count 440 K/mm3 (140-440); Red Blood Count 2.62 M/mm3 (3.65-5.03); Red Cell Distribution Width 15.6 % (13.2-15.2)
[2019-02-02 05:46] LABS: BUN/Creatinine Ratio 58; Blood Urea Nitrogen 35 mg/dL (9-20); Calcium 9.5 mg/dL (8.4-10.2); Hemolysis Index 0
[2019-02-02] MEDS: ASPIRIN PO SCH (09:08)
[2019-02-02] MEDS: PEPCID PO SCH ×2 (09:08→22:14)
[2019-02-02] MEDS: SODIUM CHLORIDE FLUSH SYRINGE 10 ML IV SCH ×2 (09:09→22:22)
[2019-02-02] MEDS: HEPARIN SUB-Q SCH ×2 (09:09→22:14)
--- NOTE | 2019-02-02 11:20 | Progress Note ---
Assessment and Plan Acute respiratory failure . Currently in no distress but still showing signs of having some difficulty fully clearing secretions Stroke. Evolving per head CT scan report AMS. Significantly improved today Leukocytosis, cause unknown. Patient not on steroids Recommendations Stimulate cough and deep breathing Called RT for suctioning Periodic neuro checks DVT prophylaxis Physical therapy Subjective Date of service: 02/02/19 Principal diagnosis: stroke, respiratory failure Interval history: Apparently no breathing complaints at this time. Found awake and alone in room Objective Vital Signs - 12hr 02/02/19 02/02/19 02/02/19 00:00 01:23 01:29 Temperature 98.4 F Pulse Rate 100 H Pulse Rate [ 101 H Anterior Bilateral Throughout] Pulse Rate [ 97 H From Monitor] Respiratory 24 17 Rate Respiratory 23 Rate [Anterior Bilateral Throughout] Blood Pressure 154/83 O2 Sat by Pulse 100 Oximetry 02/02/19 02/02/19 02/02/19 01:36 04:00 04:14 Temperature Pulse Rate 97 H Pulse Rate [ 100 H Anterior Bilateral Throughout] Pulse Rate [ 97 H From Monitor] Respiratory 24 17 Rate Respiratory 20 Rate [Anterior Bilateral Throughout] Blood Pressure O2 Sat by Pulse 100 Oximetry 02/02/19 02/02/19 02/02/19 04:22 04:31 04:40 Temperature Pulse Rate 96 H 95 H 95 H Pulse Rate [ Anterior Bilateral Throughout] Pulse Rate [ From Monitor] Respiratory 17 14 21 Rate Respiratory Rate [Anterior Bilateral Throughout] Blood Pressure 155/83 O2 Sat by Pulse 100 100 100 Oximetry 02/02/19 02/02/19 02/02/19 04:51 05:01 05:11 Temperature Pulse Rate 96 H 96 H 96 H Pulse Rate [ Anterior Bilateral Throughout] Pulse Rate [ From Monitor] Respiratory 16 18 20 Rate Respiratory Rate [Anterior Bilateral Throughout] Blood Pressure 155/83 155/83 155/83 O2 Sat by Pulse 100 100 100 Oximetry 02/02/19 02/02/19 02/02/19 05:21 05:31 05:41 Temperature Pulse Rate 98 H 100 H 100 H Pulse Rate [ Anterior Bilateral Throughout] Pulse Rate [ From Monitor] Respiratory 24 11 L 13 Rate Respiratory Rate [Anterior Bilateral Throughout] Blood Pressure 155/83 155/83 155/83 O2 Sat by Pulse 100 100 100 Oximetry 02/02/19 02/02/19 02/02/19 05:51 06:00 06:11 Temperature Pulse Rate 104 H 106 H 107 H Pulse Rate [ Anterior Bilateral Throughout] Pulse Rate [ From Monitor] Respiratory 17 14 21 Rate Respiratory Rate [Anterior Bilateral Throughout] Blood Pressure 155/83 157/82 157/82 O2 Sat by Pulse 100 100 100 Oximetry 02/02/19 02/02/19 02/02/19 06:21 06:31 06:41 Temperature Pulse Rate 105 H 107 H 106 H Pulse Rate [ Anterior Bilateral Throughout] Pulse Rate [ From Monitor] Respiratory 17 21 15 Rate Respiratory Rate [Anterior Bilateral Throughout] Blood Pressure 157/82 157/82 157/82 O2 Sat by Pulse 100 100 100 Oximetry 02/02/19 02/02/19 02/02/19 06:51 07:01 07:11 Temperature Pulse Rate 107 H 106 H 107 H Pulse Rate [ Anterior Bilateral Throughout] Pulse Rate [ From Monitor] Respiratory 12 17 19 Rate Respiratory Rate [Anterior Bilateral Throughout] Blood Pressure 157/82 157/82 157/82 O2 Sat by Pulse 100 100 100 Oximetry 02/02/19 02/02/19 02/02/19 07:21 07:27 07:31 Temperature 97.8 F Pulse Rate 103 H 105 H Pulse Rate [ Anterior Bilateral Throughout] Pulse Rate [ From Monitor] Respiratory 18 13 Rate Respiratory Rate [Anterior Bilateral Throughout] Blood Pressure 157/82 157/82 O2 Sat by Pulse 100 100 Oximetry 02/02/19 02/02/19 02/02/19 07:41 08:00 09:00 Temperature Pulse Rate 102 H 102 H 106 H Pulse Rate [ Anterior Bilateral Throughout] Pulse Rate [ From Monitor] Respiratory 14 21 31 H Rate Respiratory Rate [Anterior Bilateral Throughout] Blood Pressure 157/82 148/80 155/81 O2 Sat by Pulse 100 100 100 Oximetry 02/02/19 02/02/19 09:07 10:00 Temperature Pulse Rate 111 H Pulse Rate [ 106 H Anterior Bilateral Throughout] Pulse Rate [ From Monitor] Respiratory 27 H Rate Respiratory 20 Rate [Anterior Bilateral Throughout] Blood Pressure 155/81 O2 Sat by Pulse 100 100 Oximetry Constitutional: no acute distress, alert Eyes: non-icteric Neck: supple, no JVD Effort: normal Ascultation: Bilateral: clear, rhonchi (occasional noted when coughing) Percussion: Bilateral: not dull Cardiovascular: regular rate and rhythm Gastrointestinal: normoactive bowel sounds Extremities: no edema Neurologic: other (alert, aphasic but able to follow most of my questions. Weakness of right) CBC and BMP: 02/02/19 04:39 02/02/19 04:39 ABG, PT/INR, D-dimer: ABG POC ABG pH 7.497 (7.35-7.45) H 02/01/19 12:10 POC ABG pCO2 34.6 (35-45) L 02/01/19 12:10 POC ABG pO2 101 (80-105) 02/01/19 12:10 POC ABG HCO3 26.8 (22-26 mml/L) 02/01/19 12:10 POC ABG Total CO2 28 (23-27mmol/L) 02/01/19 12:10 POC ABG O2 Sat 98 02/01/19 12:10 PT/INR, D-dimer PT 15.5 Sec. (12.2-14.9) H 01/18/19 19:14 INR 1.16 (0.87-1.13) H 01/18/19 19:14 Abnormal lab findings: Abnormal Labs 01/18/19 01/18/19 01/18/19 19:14 19:14 19:14 WBC 17.2 H RBC Hgb Hct MCV 96 H RDW 15.5 H Lymph % (Auto) 7.9 L [place] % (Auto) 7.9 H Lymph # [place] # 1.4 H Seg Neutrophils % 83.5 H Seg Neutrophils # 14.3 H PT 15.5 H INR 1.16 H POC ABG pH POC ABG pCO2 POC ABG pO2 Sodium 153 H Potassium 3.4 L Chloride Carbon Dioxide BUN 24 H Creatinine Glucose 159 H POC Glucose Calcium 10.3 H Total Creatine Kinase Troponin T 0.368 H* HDL Cholesterol 35 L 01/18/19 01/19/19 01/19/19 22:33 00:15 05:07 WBC RBC Hgb Hct MCV RDW Lymph % (Auto) [place] % (Auto) Lymph # [place] # Seg Neutrophils % Seg Neutrophils # PT INR POC ABG pH POC ABG pCO2 POC ABG pO2 Sodium 151 H Potassium 3.2 L Chloride Carbon Dioxide BUN 25 H Creatinine Glucose 130 H POC Glucose Calcium Total Creatine Kinase 491 H 419 H Troponin T 0.291 H* D 0.273 H* HDL Cholesterol 01/22/19 01/22/19 01/23/19 05:16 05:16 04:27 WBC 12.5 H 13.9 H RBC Hgb Hct MCV 96 H 95 H RDW 15.6 H 15.5 H Lymph % (Auto) 8.6 L 6.2 L [place] % (Auto) 9.1 H 9.1 H Lymph # 1.1 L 0.9 L [place] # 1.1 H 1.3 H Seg Neutrophils % 80.0 H 83.2 H Seg Neutrophils # 10.0 H 11.6 H PT INR POC ABG pH POC ABG pCO2 POC ABG pO2 Sodium 156 H Potassium 2.8 L* Chloride 118.5 H Carbon Dioxide BUN Creatinine Glucose 159 H POC Glucose Calcium Total Creatine Kinase Troponin T HDL Cholesterol 01/23/19 01/23/19 01/23/19 04:27 13:11 14:59 WBC RBC Hgb Hct MCV RDW Lymph % (Auto) [place] % (Auto) Lymph # [place] # Seg Neutrophils % Seg Neutrophils # PT INR POC ABG pH POC ABG pCO2 POC ABG pO2 282 H 205 H Sodium 151 H Potassium 3.5 L D Chloride 113.8 H Carbon Dioxide BUN Creatinine Glucose 163 H POC Glucose Calcium Total Creatine Kinase Troponin T HDL Cholesterol 01/23/19 01/24/19 01/24/19 18:36 04:17 07:41 WBC RBC Hgb Hct MCV RDW Lymph % (Auto) [place] % (Auto) Lymph # [place] # Seg Neutrophils % Seg Neutrophils # PT INR POC ABG pH POC ABG pCO2 POC ABG pO2 148 H Sodium 149 H Potassium Chloride 113.5 H Carbon Dioxide BUN Creatinine Glucose 153 H POC Glucose 141 H Calcium Total Creatine Kinase Troponin T HDL Cholesterol 01/24/19 01/25/19 01/25/19 23:40 04:07 04:07 WBC RBC 3.46 L Hgb 10.8 L Hct 32.7 L MCV 95 H RDW 15.3 H Lymph % (Auto) 9.0 L [place] % (Auto) 10.5 H Lymph # 1.0 L [place] # 1.1 H Seg Neutrophils % 77.7 H Seg Neutrophils # 8.3 H PT INR POC ABG pH POC ABG pCO2 POC ABG pO2 Sodium 147 H Potassium Chloride 111.1 H Carbon Dioxide BUN Creatinine Glucose 150 H POC Glucose 130 H Calcium Total Creatine Kinase Troponin T HDL Cholesterol 01/25/19 01/25/19 01/25/19 04:34 05:36 11:53 WBC RBC Hgb Hct MCV RDW Lymph % (Auto) [place] % (Auto) Lymph # [place] # Seg Neutrophils % Seg Neutrophils # PT INR POC ABG pH POC ABG pCO2 34.3 L POC ABG pO2 110 H Sodium Potassium Chloride Carbon Dioxide BUN Creatinine Glucose POC Glucose 147 H 162 H Calcium Total Creatine Kinase Troponin T HDL Cholesterol 01/25/19 01/25/19 01/26/19 18:12 23:44 04:13 WBC RBC Hgb Hct MCV RDW Lymph % (Auto) [place] % (Auto) Lymph # [place] # Seg Neutrophils % Seg Neutrophils # PT INR POC ABG pH POC ABG pCO2 33.6 L POC ABG pO2 Sodium Potassium Chloride Carbon Dioxide BUN Creatinine Glucose POC Glucose 211 H 210 H Calcium Total Creatine Kinase Troponin T HDL Cholesterol 01/26/19 01/26/19 01/26/19 04:40 04:40 05:27 WBC RBC 3.27 L Hgb 10.2 L Hct 30.9 L MCV RDW Lymph % (Auto) 6.4 L [place] % (Auto) Lymph # 0.7 L [place] # Seg Neutrophils % 87.5 H Seg Neutrophils # 9.5 H PT INR POC ABG pH POC ABG pCO2 POC ABG pO2 Sodium Potassium Chloride 107.4 H Carbon Dioxide 21 L BUN Creatinine Glucose 251 H POC Glucose 230 H Calcium Total Creatine Kinase Troponin T HDL Cholesterol 01/26/19 01/26/19 01/27/19 11:50 20:38 01:05 WBC RBC Hgb Hct MCV RDW Lymph % (Auto) [place] % (Auto) Lymph # [place] # Seg Neutrophils % Seg Neutrophils # PT INR POC ABG pH POC ABG pCO2 POC ABG pO2 Sodium Potassium Chloride Carbon Dioxide BUN Creatinine Glucose POC Glucose 219 H 166 H 161 H Calcium Total Creatine Kinase Troponin T HDL Cholesterol 01/27/19 01/27/19 01/27/19 04:39 05:57 12:46 WBC RBC Hgb Hct MCV RDW Lymph % (Auto) [place] % (Auto) Lymph # [place] # Seg Neutrophils % Seg Neutrophils # PT INR POC ABG pH POC ABG pCO2 POC ABG pO2 Sodium Potassium Chloride 108.0 H Carbon Dioxide 20 L BUN Creatinine 0.7 L Glucose 165 H POC Glucose 160 H 196 H Calcium Total Creatine Kinase Troponin T HDL Cholesterol 01/27/19 01/28/19 01/28/19 18:22 02:12 06:21 WBC RBC Hgb Hct MCV RDW Lymph % (Auto) [place] % (Auto) Lymph # [place] # Seg Neutrophils % Seg Neutrophils # PT INR POC ABG pH POC ABG pCO2 POC ABG pO2 Sodium Potassium Chloride Carbon Dioxide BUN Creatinine Glucose POC Glucose 168 H 183 H 211 H Calcium Total Creatine Kinase Troponin T HDL Cholesterol 01/28/19 01/28/19 01/28/19 12:13 19:08 21:54 WBC RBC Hgb Hct MCV RDW Lymph % (Auto) [place] % (Auto) Lymph # [place] # Seg Neutrophils % Seg Neutrophils # PT INR POC ABG pH POC ABG pCO2 POC ABG pO2 Sodium Potassium Chloride Carbon Dioxide BUN Creatinine Glucose POC Glucose 203 H 214 H 208 H Calcium Total Creatine Kinase Troponin T HDL Cholesterol 01/29/19 01/29/19 01/29/19 04:56 11:59 18:14 WBC RBC Hgb Hct MCV RDW Lymph % (Auto) [place] % (Auto) Lymph # [place] # Seg Neutrophils % Seg Neutrophils # PT INR POC ABG pH POC ABG pCO2 POC ABG pO2 Sodium Potassium Chloride Carbon Dioxide BUN Creatinine Glucose POC Glucose 251 H 231 H 225 H Calcium Total Creatine Kinase Troponin T HDL Cholesterol 01/29/19 01/30/19 01/30/19 23:53 06:02 12:10 WBC RBC Hgb Hct MCV RDW Lymph % (Auto) [place] % (Auto) Lymph # [place] # Seg Neutrophils % Seg Neutrophils # PT INR POC ABG pH POC ABG pCO2 POC ABG pO2 Sodium Potassium Chloride Carbon Dioxide BUN Creatinine Glucose POC Glucose 198 H 229 H 286 H Calcium Total Creatine Kinase Troponin T HDL Cholesterol 01/30/19 01/30/19 01/31/19 17:31 20:37 04:07 WBC 15.1 H RBC 2.94 L Hgb 9.0 L Hct 27.5 L MCV RDW 15.4 H Lymph % (Auto) [place] % (Auto) Lymph # [place] # Seg Neutrophils % Seg Neutrophils # PT INR POC ABG pH 7.529 H POC ABG pCO2 32.4 L POC ABG pO2 183 H Sodium Potassium Chloride Carbon Dioxide BUN Creatinine Glucose POC Glucose 238 H Calcium Total Creatine Kinase Troponin T HDL Cholesterol 01/31/19 01/31/19 01/31/19 04:07 04:21 05:11 WBC RBC Hgb Hct MCV RDW Lymph % (Auto) [place] % (Auto) Lymph # [place] # Seg Neutrophils % Seg Neutrophils # PT INR POC ABG pH 7.455 H POC ABG pCO2 POC ABG pO2 138 H Sodium 147 H Potassium Chloride 108.7 H Carbon Dioxide BUN 32 H Creatinine Glucose 176 H POC Glucose 172 H Calcium Total Creatine Kinase Troponin T HDL Cholesterol 01/31/19 01/31/19 01/31/19 11:50 18:23 23:23 WBC RBC Hgb Hct MCV RDW Lymph % (Auto) [place] % (Auto) Lymph # [place] # Seg Neutrophils % Seg Neutrophils # PT INR POC ABG pH POC ABG pCO2 POC ABG pO2 Sodium Potassium Chloride Carbon Dioxide BUN Creatinine Glucose POC Glucose 176 H 217 H 221 H Calcium Total Creatine Kinase Troponin T HDL Cholesterol 02/01/19 02/01/19 02/01/19 04:48 04:48 05:23 WBC 13.7 H RBC 2.71 L Hgb 8.2 L Hct 25.6 L MCV RDW 15.8 H Lymph % (Auto) [place] % (Auto) Lymph # [place] # Seg Neutrophils % Seg Neutrophils # PT INR POC ABG pH POC ABG pCO2 POC ABG pO2 Sodium Potassium Chloride Carbon Dioxide BUN 33 H Creatinine 0.7 L Glucose 265 H POC Glucose 267 H Calcium Total Creatine Kinase Troponin T HDL Cholesterol 02/01/19 02/01/19 02/01/19 05:41 11:39 12:10 WBC RBC Hgb Hct MCV RDW Lymph % (Auto) [place] % (Auto) Lymph # [place] # Seg Neutrophils % Seg Neutrophils # PT INR POC ABG pH 7.456 H 7.497 H POC ABG pCO2 34.6 L POC ABG pO2 Sodium Potassium Chloride Carbon Dioxide BUN Creatinine Glucose POC Glucose 264 H Calcium Total Creatine Kinase Troponin T HDL Cholesterol 02/01/19 02/02/19 02/02/19 17:28 01:54 04:39 WBC 15.9 H RBC 2.62 L Hgb 8.0 L Hct 24.6 L MCV RDW 15.6 H Lymph % (Auto) [place] % (Auto) Lymph # [place] # Seg Neutrophils % Seg Neutrophils # PT INR POC ABG pH POC ABG pCO2 POC ABG pO2 Sodium Potassium Chloride Carbon Dioxide BUN Creatinine Glucose POC Glucose 210 H 235 H Calcium Total Creatine Kinase Troponin T HDL Cholesterol 02/02/19 02/02/19 04:39 05:05 WBC RBC Hgb Hct MCV RDW Lymph % (Auto) [place] % (Auto) Lymph # [place] # Seg Neutrophils % Seg Neutrophils # PT INR POC ABG pH POC ABG pCO2 POC ABG pO2 Sodium 148 H Potassium Chloride 107.5 H Carbon Dioxide BUN 35 H Creatinine 0.6 L Glucose 220 H POC Glucose 287 H Calcium Total Creatine Kinase Troponin T HDL Cholesterol
--- NOTE | 2019-02-02 17:11 | Progress Note ---
Assessment and Plan Assessment and plan: 63 year old male with left MCA stroke, resultant aphasia and right hemiparesis. Intubated in pm yesterday and resting comfortably. * Reintubated, 01/30/19 due to impending respiratory failure with rapid shallow breathing and extubated 02/01/19 * Noted elevated Leukocytes, ?aspiration, follow cultures, started on levaquin * Repeat CT mentions evolving CVA * Repeat CT head as recommended by Neurology itomorrow * Continue aggressive pulmonary toliet to prevent need for re-intubation. * Continue ASA AND statin THERAPY * add chest PT * Keep HOB >45DEG Acute Encephalopathy? metabolic secondary to CVA Acute hypoxic respiratory failure. Patient reintubated intubated secondary to labored respirations/airway protection. Pulmonary consultation. Aspiration Vs mucus plug. Mucus plugging. Continue frequent suction. 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 CT scan reveals subacute left frontal lobe infarct. Neurology following. MRI head reveals subacute left MCA infarct with evidence of petechial hemorrhage. Echocardiogram shows enlarged left ventricle with only 25-30% ejection fraction but negative bubble study. CT angiogram of the neck showed ulceration in the right internal carotid artery with elongated artery and left ICA showed just elongated artery. CT angiogram head is negative or normal. PT/OT/ST. repeat CT head pending. Dilated cardiomyopathy with severe left ventricular global hypokinesis. EF 25- 30% as noted above. No anticoagulation given increased risk for hemorrhagic conversion with CVA. Accelerated hypertension. Increase hydralazine to 100 mg 3 times a day. Bilateral lower extremity DVT. IVC filter placement. No anticoagulation given increased risk for hemorrhagic conversion with CVA. SIRS. No evidence of obvious infection. Cultures negative so far. Antibiotics discontinued Hypernatremia; treated and resolved Hypokalemia. Replete potassium as noted above. Elevated troponin. Cardiology following Difficult dubhoof placement; GI placed [place] and currently on tube feeding. Patient failed swallow evaluation. dvt prophy with SCD due to possible evaluating stroke Disposition; continue IMCU care. Discussed with cash grain grower The high probability of a clinically significant, sudden or life threatening deterioration of the [pulmonary, neurol] system(s) required my full and direct attention, intervention and personal management. The aggregate critical care time was [55] minutes. This time is in addition to time spent performing repor nicho procedures but includes the following: [x] Data Review and interpretation [x] Patient assessment and monitoring of vital signs [x] Documentation [x] Medication orders and management History Interval history: Patient seen and examined today, still with need for aggressive pulmonary toliet and secretion mobilization. No new complaints. HOB elevated Hospitalist Physical - Physical exam Narrative exam: Patient was extubated on 01/26/19, reintubated 01/30/19.extubated 02/01/19 The patient appeared well nourished and normally developed although critically ill Vital signs as documented. Head exam is unremarkable. No scleral icterus . Neck is without jugular venous distension, thyromegaly, or carotid bruits. Lungs are clear to auscultation. but congested upper airway sounds Cardiac exam reveals regular rate and Rhythm. Abdominal exam reveals normal bowel sounds. Extremities are nonedematous. MEDIA LIBRARIAN: Alert. 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 awake today and moves left upper ext - Constitutional Vitals: Temp Pulse Resp BP Pulse Ox 98.2 F 30 L 39 H 146/86 100 02/02/19 16:42 02/02/19 14:00 02/02/19 12:00 02/02/19 12:00 02/02/19 12:00 General appearance: Present: severe distress, well-nourished, other (accessory muscle use with respirations) Results - Labs CBC & Chem 7: 02/02/19 04:39 02/02/19 04:39 Labs: Laboratory Last Values WBC 15.9 K/mm3 (4.5-11.0) H 02/02/19 04:39 RBC 2.62 M/mm3 (3.65-5.03) L 02/02/19 04:39 Hgb 8.0 gm/dl (11.8-15.2) L 02/02/19 04:39 Hct 24.6 % (35.5-45.6) L 02/02/19 04:39 MCV 94 fl (84-94) 02/02/19 04:39 MCH 30 pg (28-32) 02/02/19 04:39 MCHC 32 % (32-34) 02/02/19 04:39 RDW 15.6 % (13.2-15.2) H 02/02/19 04:39 Plt Count 440 K/mm3 (140-440) 02/02/19 04:39 Lymph % (Auto) 6.4 % (13.4-35.0) L 01/26/19 04:40 [place] % (Auto) 5.8 % (0.0-7.3) 01/26/19 04:40 Eos % (Auto) 0.0 % (0.0-4.3) 01/26/19 04:40 Baso % (Auto) 0.3 % (0.0-1.8) 01/26/19 04:40 Lymph # 0.7 K/mm3 (1.2-5.4) L 01/26/19 04:40 [place] # 0.6 K/mm3 (0.0-0.8) 01/26/19 04:40 Eos # 0.0 K/mm3 (0.0-0.4) 01/26/19 04:40 Baso # 0.0 K/mm3 (0.0-0.1) 01/26/19 04:40 Seg Neutrophils % 87.5 % (40.0-70.0) H 01/26/19 04:40 Seg Neutrophils # 9.5 K/mm3 (1.8-7.7) H 01/26/19 04:40 PT 15.5 Sec. (12.2-14.9) H 01/18/19 19:14 INR 1.16 (0.87-1.13) H 01/18/19 19:14 APTT 31.7 Sec. (24.2-36.6) 01/18/19 19:14 Thrombin Time 16.2 Sec. (15.1-19.6) 01/18/19 19:14 POC ABG pH 7.497 (7.35-7.45) H 02/01/19 12:10 POC ABG pCO2 34.6 (35-45) L 02/01/19 12:10 POC ABG pO2 101 (80-105) 02/01/19 12:10 POC ABG HCO3 26.8 (22-26 mml/L) 02/01/19 12:10 POC ABG Total CO2 28 (23-27mmol/L) 02/01/19 12:10 POC ABG O2 Sat 98 02/01/19 12:10 POC ABG Base Excess 4 ((-2) - (+3)mmol/L) 02/01/19 12:10 FiO2 25 % 02/01/19 12:10 Sodium 148 mmol/L (137-145) H 02/02/19 04:39 Potassium 4.2 mmol/L (3.6-5.0) 02/02/19 04:39 Chloride 107.5 mmol/L (98-107) H 02/02/19 04:39 Carbon Dioxide 26 mmol/L (22-30) 02/02/19 04:39 Anion Gap 19 mmol/L 02/02/19 04:39 BUN 35 mg/dL (9-20) H 02/02/19 04:39 Creatinine 0.6 mg/dL (0.8-1.5) L 02/02/19 04:39 Estimated GFR > 60 ml/min 02/02/19 04:39 BUN/Creatinine Ratio 58 % 02/02/19 04:39 Glucose 220 mg/dL (75-100) H 02/02/19 04:39 POC Glucose 267 (70-105) H 02/02/19 11:21 Lactic Acid 1.10 mmol/L (0.7-2.0) 01/28/19 18:10 Calcium 9.5 mg/dL (8.4-10.2) 02/02/19 04:39 Total Creatine Kinase 419 units/L (55-170) H 01/19/19 05:07 CK-MB (CK-2) 3.2 ng/mL (0.0-4.0) 01/19/19 05:07 CK-MB (CK-2) Rel Index 0.7 (0-4) 01/19/19 05:07 Troponin T 0.273 ng/mL (0.00-0.029) H* 01/19/19 05:07 Triglycerides 140 mg/dL (2-149) 01/18/19 19:14 Cholesterol 157 mg/dL (50-199) 01/18/19 19:14 LDL Cholesterol Direct 98 mg/dL (50-130) 01/18/19 19:14 HDL Cholesterol 35 mg/dL (40-59) L 01/18/19 19:14 Cholesterol/HDL Ratio 4.48 % 01/18/19 19:14 Active Medications - Current Medications Current Medications: Generic Name Dose Route Start Last Admin Trade Name Freq PRN Reason Stop Dose Admin Acetaminophen 650 mg 01/18/19 22:08 01/31/19 00:28 Tylenol MD 650 mg Q4H PRN Administration Pain MILD(1-3)/Fever >100.5/PEARL Albuterol 2.5 mg 01/29/19 14:00 02/02/19 15:21 Proventil IH 2.5 mg Q6HRT YESICA Administration Lipase/Protease/Amylase 1 each 01/24/19 15:00 Leoncio Dorado 10,500 Unit FEEDTUBE PRN PRN For Clogged Feeding Tube Aspirin 325 mg 01/27/19 10:00 02/02/19 09:08 Aspirin PO 325 mg QDAY YESICA Administration Atorvastatin Calcium 40 mg 01/24/19 22:00 02/01/19 21:48 Lipitor PO 40 mg [facility]HS [facility] Administration Famotidine 20 mg 01/30/19 22:00 02/02/19 09:08 Pepcid PO 20 mg BID EYSICA Administration Heparin Sodium (Porcine) 5,000 unit 02/01/19 22:00 02/02/19 09:09 Heparin SUB-Q 5,000 unit Q12HR YESICA Administration Hydralazine HCl 5 mg 01/18/19 22:13 01/23/19 19:15 Apresoline IV 5 mg Q6H PRN Administration Hypertension Hydralazine HCl 100 mg 01/21/19 14:00 02/02/19 05:11 Apresoline PO 100 mg Q8HR YESICA Administration Hydrophilic Ointment 1 applic 01/30/19 17:36 Vaseline Lip Therapy TP Q2HR PRN Dry Lips Insulin Glargine 12 units 02/02/19 22:00 Lantus SUB-Q [facility]HS [facility] Insulin Human Lispro 0 unit 01/26/19 18:00 02/02/19 13:35 Humalog SUB-Q 6 unit Q6HR [facility] Administration Protocol Multi-Ingred Cream/Lotion/Oil/Oint 1 applic 01/30/19 17:36 Artificial Tears Ophth Oint OU Q4HR PRN Dry Eye(s) Ondansetron HCl 4 mg 01/18/19 22:08 Zofran IV Q4H PRN Nausea And Vomiting Simple Syrup 15 ml 01/24/19 15:00 Simple Syrup FEEDTUBE PRN PRN Hypoglycemia Simple Syrup 30 ml 01/24/19 15:00 Simple Syrup FEEDTUBE PRN PRN Hypoglycemia Sodium Bicarbonate 325 mg 01/24/19 15:00 Sodium Bicarbonate FEEDTUBE PRN PRN For Clogged Feeding Tube Sodium Chloride 10 ml 01/19/19 10:00 02/02/19 09:09 Sodium Chloride Flush Syringe 10 Ml IV 10 ml BID YESICA Administration Sodium Chloride 10 ml 01/18/19 22:08 01/24/19 14:17 Sodium Chloride Flush Syringe 10 Ml IV 10 ml PRN PRN Administration LINE FLUSH Nutrition/Malnutrition Assess - Dietary Evaluation Nutrition/Malnutrition Findings: Nutrition Notes Start: 01/19/19 13:52 Freq: Status: Active Protocol: Document 01/31/19 10:33 RM (Rec: 01/31/19 11:00 RM [id number]) Nutrition Notes Initial or Follow up Reassessment Current Diagnosis Diabetes,Hypertension, Respiratory Failure,Stroke, Hyperlipidemia Current Diet Vital AF at 65mL/hr Labs/Tests Na 147 Pertinent Medications Reviewed Height 5 ft 10 in Weight 73.8 kg [place] Body Weight (kg) 75.45 BMI 23.3 Subjective/Other Information Consulted for evaluate nutritional intake. Pt already being followed for TF. X-ray did not show aspiration. MD plans to resume TF today. Burn Absent Trauma Absent #1 Nutrition Diagnosis Inadequate oral intake Diagnosis Progress(for reassessment Continues documentation) Is patient on ventilator? No Is Patient Ambulatory and/or Out of Bed No REE-([facility] [place]-confined to bed) [phone] Calculation Used for Recommendations [facility] Additional Notes Pro needs 1.2-1.5/k-117g/ day Fluid needs 1ml/kcal Nutrition Intervention Nutrition Support: Vital AF at 65 mL/hr. 100mL flush q4h or per MD Kcal 1,872 Protein (gm) 117 Fluid (mL) 1,265 Goal #1 TF tolerance Goal #2 Meet at least 80% of calorie and protein needs via TF Anticipated Discharge Needs: Unable to identify at this time Follow-Up By: 02/03/19 Additional Comments Follow for TF tolerance
--- NOTE | 2019-02-02 17:55 | Progress Note ---
Assessment and Plan 63 year old male with left MCA stroke, 01/18/19, resultant aphasia and right hemiparesis. Extubated and resting comfortably. Plan - Repeat CT itomorrow. Subjective Date of service: 02/02/19 Principal diagnosis: stroke, respiratory failure Interval history: This 63-year-old -[place] male is seen in follow-up from previous neurologist, Dr. Ruiz, for moderate size left middle cerebral artery territory frontotemporal stroke. MRI shows no significant edema. Most recent CT (01/23/19) showed no progression of the stroke nor increased edema. There was no sign of petechial hemorrhage. The patient most recently has been having respiratory difficulty. He is aphasic and unable to communicate. The patient was intubated 01/30/19 and stabilized. No sign of aspiration pneumonia. He has been extubated and is comfortable. Objective - Exam Narrative Exam: Resting comfortably off ventilator. Neurological exam - Follows commands. mandrel press hand - EOMs full, no nystagmus. mild facial asymmetry Motor - right hemiparesis. able to move right lower extremity. left - moves spontaneously. 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 5/5. Sensory - not withdrawing to pain on the right. - Vital Sign Vital Signs - 12hr 02/02/19 02/02/19 02/02/19 06:00 06:11 06:21 Temperature Pulse Rate 106 H 107 H 105 H Pulse Rate [ Anterior Bilateral Throughout] Respiratory 14 21 17 Rate Respiratory Rate [Anterior Bilateral Throughout] Blood Pressure 157/82 157/82 157/82 O2 Sat by Pulse 100 100 100 Oximetry 02/02/19 02/02/19 02/02/19 06:31 06:41 06:51 Temperature Pulse Rate 107 H 106 H 107 H Pulse Rate [ Anterior Bilateral Throughout] Respiratory 21 15 12 Rate Respiratory Rate [Anterior Bilateral Throughout] Blood Pressure 157/82 157/82 157/82 O2 Sat by Pulse 100 100 100 Oximetry 02/02/19 02/02/19 02/02/19 07:01 07:11 07:21 Temperature Pulse Rate 106 H 107 H 103 H Pulse Rate [ Anterior Bilateral Throughout] Respiratory 17 19 18 Rate Respiratory Rate [Anterior Bilateral Throughout] Blood Pressure 157/82 157/82 157/82 O2 Sat by Pulse 100 100 100 Oximetry 02/02/19 02/02/19 02/02/19 07:27 07:31 07:41 Temperature 97.8 F Pulse Rate 105 H 102 H Pulse Rate [ Anterior Bilateral Throughout] Respiratory 13 14 Rate Respiratory Rate [Anterior Bilateral Throughout] Blood Pressure 157/82 157/82 O2 Sat by Pulse 100 100 Oximetry 02/02/19 02/02/19 02/02/19 08:00 09:00 09:07 Temperature Pulse Rate 102 H 106 H Pulse Rate [ 106 H Anterior Bilateral Throughout] Respiratory 21 31 H Rate Respiratory 20 Rate [Anterior Bilateral Throughout] Blood Pressure 148/80 155/81 O2 Sat by Pulse 100 100 100 Oximetry 02/02/19 02/02/19 02/02/19 10:00 11:00 11:41 Temperature 99.1 F Pulse Rate 111 H 115 H Pulse Rate [ Anterior Bilateral Throughout] Respiratory 27 H 37 H Rate Respiratory Rate [Anterior Bilateral Throughout] Blood Pressure 155/81 146/86 O2 Sat by Pulse 100 100 Oximetry 02/02/19 02/02/19 02/02/19 12:00 13:00 14:00 Temperature Pulse Rate 115 H 112 H 104 H Pulse Rate [ 30 L Anterior Bilateral Throughout] Respiratory 39 H 38 H 37 H Rate Respiratory Rate [Anterior Bilateral Throughout] Blood Pressure 146/86 137/83 123/79 O2 Sat by Pulse 100 100 100 Oximetry 02/02/19 02/02/19 02/02/19 15:00 16:00 16:42 Temperature 98.2 F Pulse Rate 109 H 110 H Pulse Rate [ Anterior Bilateral Throughout] Respiratory 34 H 39 H Rate Respiratory Rate [Anterior Bilateral Throughout] Blood Pressure 132/84 148/76 O2 Sat by Pulse 100 100 Oximetry 02/02/19 17:00 Temperature Pulse Rate 112 H Pulse Rate [ Anterior Bilateral Throughout] Respiratory 37 H Rate Respiratory Rate [Anterior Bilateral Throughout] Blood Pressure 133/86 O2 Sat by Pulse 100 Oximetry - Laboratory Findings CBC and BMP: 02/02/19 04:39 02/02/19 04:39 Abnormal Lab Findings: Abnormal Labs 01/18/19 01/18/19 01/18/19 19:14 19:14 19:14 WBC 17.2 H RBC Hgb Hct MCV 96 H RDW 15.5 H Lymph % (Auto) 7.9 L [place] % (Auto) 7.9 H Lymph # [place] # 1.4 H Seg Neutrophils % 83.5 H Seg Neutrophils # 14.3 H PT 15.5 H INR 1.16 H POC ABG pH POC ABG pCO2 POC ABG pO2 Sodium 153 H Potassium 3.4 L Chloride Carbon Dioxide BUN 24 H Creatinine Glucose 159 H POC Glucose Calcium 10.3 H Total Creatine Kinase Troponin T 0.368 H* HDL Cholesterol 35 L 01/18/19 01/19/19 01/19/19 22:33 00:15 05:07 WBC RBC Hgb Hct MCV RDW Lymph % (Auto) [place] % (Auto) Lymph # [place] # Seg Neutrophils % Seg Neutrophils # PT INR POC ABG pH POC ABG pCO2 POC ABG pO2 Sodium 151 H Potassium 3.2 L Chloride Carbon Dioxide BUN 25 H Creatinine Glucose 130 H POC Glucose Calcium Total Creatine Kinase 491 H 419 H Troponin T 0.291 H* D 0.273 H* HDL Cholesterol 01/22/19 01/22/19 01/23/19 05:16 05:16 04:27 WBC 12.5 H 13.9 H RBC Hgb Hct MCV 96 H 95 H RDW 15.6 H 15.5 H Lymph % (Auto) 8.6 L 6.2 L [place] % (Auto) 9.1 H 9.1 H Lymph # 1.1 L 0.9 L [place] # 1.1 H 1.3 H Seg Neutrophils % 80.0 H 83.2 H Seg Neutrophils # 10.0 H 11.6 H PT INR POC ABG pH POC ABG pCO2 POC ABG pO2 Sodium 156 H Potassium 2.8 L* Chloride 118.5 H Carbon Dioxide BUN Creatinine Glucose 159 H POC Glucose Calcium Total Creatine Kinase Troponin T HDL Cholesterol 01/23/19 01/23/19 01/23/19 04:27 13:11 14:59 WBC RBC Hgb Hct MCV RDW Lymph % (Auto) [place] % (Auto) Lymph # [place] # Seg Neutrophils % Seg Neutrophils # PT INR POC ABG pH POC ABG pCO2 POC ABG pO2 282 H 205 H Sodium 151 H Potassium 3.5 L D Chloride 113.8 H Carbon Dioxide BUN Creatinine Glucose 163 H POC Glucose Calcium Total Creatine Kinase Troponin T HDL Cholesterol 01/23/19 01/24/19 01/24/19 18:36 04:17 07:41 WBC RBC Hgb Hct MCV RDW Lymph % (Auto) [place] % (Auto) Lymph # [place] # Seg Neutrophils % Seg Neutrophils # PT INR POC ABG pH POC ABG pCO2 POC ABG pO2 148 H Sodium 149 H Potassium Chloride 113.5 H Carbon Dioxide BUN Creatinine Glucose 153 H POC Glucose 141 H Calcium Total Creatine Kinase Troponin T HDL Cholesterol 01/24/19 01/25/19 01/25/19 23:40 04:07 04:07 WBC RBC 3.46 L Hgb 10.8 L Hct 32.7 L MCV 95 H RDW 15.3 H Lymph % (Auto) 9.0 L [place] % (Auto) 10.5 H Lymph # 1.0 L [place] # 1.1 H Seg Neutrophils % 77.7 H Seg Neutrophils # 8.3 H PT INR POC ABG pH POC ABG pCO2 POC ABG pO2 Sodium 147 H Potassium Chloride 111.1 H Carbon Dioxide BUN Creatinine Glucose 150 H POC Glucose 130 H Calcium Total Creatine Kinase Troponin T HDL Cholesterol 01/25/19 01/25/19 01/25/19 04:34 05:36 11:53 WBC RBC Hgb Hct MCV RDW Lymph % (Auto) [place] % (Auto) Lymph # [place] # Seg Neutrophils % Seg Neutrophils # PT INR POC ABG pH POC ABG pCO2 34.3 L POC ABG pO2 110 H Sodium Potassium Chloride Carbon Dioxide BUN Creatinine Glucose POC Glucose 147 H 162 H Calcium Total Creatine Kinase Troponin T HDL Cholesterol 01/25/19 01/25/19 01/26/19 18:12 23:44 04:13 WBC RBC Hgb Hct MCV RDW Lymph % (Auto) [place] % (Auto) Lymph # [place] # Seg Neutrophils % Seg Neutrophils # PT INR POC ABG pH POC ABG pCO2 33.6 L POC ABG pO2 Sodium Potassium Chloride Carbon Dioxide BUN Creatinine Glucose POC Glucose 211 H 210 H Calcium Total Creatine Kinase Troponin T HDL Cholesterol 01/26/19 01/26/19 01/26/19 04:40 04:40 05:27 WBC RBC 3.27 L Hgb 10.2 L Hct 30.9 L MCV RDW Lymph % (Auto) 6.4 L [place] % (Auto) Lymph # 0.7 L [place] # Seg Neutrophils % 87.5 H Seg Neutrophils # 9.5 H PT INR POC ABG pH POC ABG pCO2 POC ABG pO2 Sodium Potassium Chloride 107.4 H Carbon Dioxide 21 L BUN Creatinine Glucose 251 H POC Glucose 230 H Calcium Total Creatine Kinase Troponin T HDL Cholesterol 01/26/19 01/26/19 01/27/19 11:50 20:38 01:05 WBC RBC Hgb Hct MCV RDW Lymph % (Auto) [place] % (Auto) Lymph # [place] # Seg Neutrophils % Seg Neutrophils # PT INR POC ABG pH POC ABG pCO2 POC ABG pO2 Sodium Potassium Chloride Carbon Dioxide BUN Creatinine Glucose POC Glucose 219 H 166 H 161 H Calcium Total Creatine Kinase Troponin T HDL Cholesterol 01/27/19 01/27/19 01/27/19 04:39 05:57 12:46 WBC RBC Hgb Hct MCV RDW Lymph % (Auto) [place] % (Auto) Lymph # [place] # Seg Neutrophils % Seg Neutrophils # PT INR POC ABG pH POC ABG pCO2 POC ABG pO2 Sodium Potassium Chloride 108.0 H Carbon Dioxide 20 L BUN Creatinine 0.7 L Glucose 165 H POC Glucose 160 H 196 H Calcium Total Creatine Kinase Troponin T HDL Cholesterol 01/27/19 01/28/19 01/28/19 18:22 02:12 06:21 WBC RBC Hgb Hct MCV RDW Lymph % (Auto) [place] % (Auto) Lymph # [place] # Seg Neutrophils % Seg Neutrophils # PT INR POC ABG pH POC ABG pCO2 POC ABG pO2 Sodium Potassium Chloride Carbon Dioxide BUN Creatinine Glucose POC Glucose 168 H 183 H 211 H Calcium Total Creatine Kinase Troponin T HDL Cholesterol 01/28/19 01/28/19 01/28/19 12:13 19:08 21:54 WBC RBC Hgb Hct MCV RDW Lymph % (Auto) [place] % (Auto) Lymph # [place] # Seg Neutrophils % Seg Neutrophils # PT INR POC ABG pH POC ABG pCO2 POC ABG pO2 Sodium Potassium Chloride Carbon Dioxide BUN Creatinine Glucose POC Glucose 203 H 214 H 208 H Calcium Total Creatine Kinase Troponin T HDL Cholesterol 01/29/19 01/29/19 01/29/19 04:56 11:59 18:14 WBC RBC Hgb Hct MCV RDW Lymph % (Auto) [place] % (Auto) Lymph # [place] # Seg Neutrophils % Seg Neutrophils # PT INR POC ABG pH POC ABG pCO2 POC ABG pO2 Sodium Potassium Chloride Carbon Dioxide BUN Creatinine Glucose POC Glucose 251 H 231 H 225 H Calcium Total Creatine Kinase Troponin T HDL Cholesterol 01/29/19 01/30/19 01/30/19 23:53 06:02 12:10 WBC RBC Hgb Hct MCV RDW Lymph % (Auto) [place] % (Auto) Lymph # [place] # Seg Neutrophils % Seg Neutrophils # PT INR POC ABG pH POC ABG pCO2 POC ABG pO2 Sodium Potassium Chloride Carbon Dioxide BUN Creatinine Glucose POC Glucose 198 H 229 H 286 H Calcium Total Creatine Kinase Troponin T HDL Cholesterol 01/30/19 01/30/19 01/31/19 17:31 20:37 04:07 WBC 15.1 H RBC 2.94 L Hgb 9.0 L Hct 27.5 L MCV RDW 15.4 H Lymph % (Auto) [place] % (Auto) Lymph # [place] # Seg Neutrophils % Seg Neutrophils # PT INR POC ABG pH 7.529 H POC ABG pCO2 32.4 L POC ABG pO2 183 H Sodium Potassium Chloride Carbon Dioxide BUN Creatinine Glucose POC Glucose 238 H Calcium Total Creatine Kinase Troponin T HDL Cholesterol 01/31/19 01/31/19 01/31/19 04:07 04:21 05:11 WBC RBC Hgb Hct MCV RDW Lymph % (Auto) [place] % (Auto) Lymph # [place] # Seg Neutrophils % Seg Neutrophils # PT INR POC ABG pH 7.455 H POC ABG pCO2 POC ABG pO2 138 H Sodium 147 H Potassium Chloride 108.7 H Carbon Dioxide BUN 32 H Creatinine Glucose 176 H POC Glucose 172 H Calcium Total Creatine Kinase Troponin T HDL Cholesterol 01/31/19 01/31/19 01/31/19 11:50 18:23 23:23 WBC RBC Hgb Hct MCV RDW Lymph % (Auto) [place] % (Auto) Lymph # [place] # Seg Neutrophils % Seg Neutrophils # PT INR POC ABG pH POC ABG pCO2 POC ABG pO2 Sodium Potassium Chloride Carbon Dioxide BUN Creatinine Glucose POC Glucose 176 H 217 H 221 H Calcium Total Creatine Kinase Troponin T HDL Cholesterol 02/01/19 02/01/19 02/01/19 04:48 04:48 05:23 WBC 13.7 H RBC 2.71 L Hgb 8.2 L Hct 25.6 L MCV RDW 15.8 H Lymph % (Auto) [place] % (Auto) Lymph # [place] # Seg Neutrophils % Seg Neutrophils # PT INR POC ABG pH POC ABG pCO2 POC ABG pO2 Sodium Potassium Chloride Carbon Dioxide BUN 33 H Creatinine 0.7 L Glucose 265 H POC Glucose 267 H Calcium Total Creatine Kinase Troponin T HDL Cholesterol 02/01/19 02/01/19 02/01/19 05:41 11:39 12:10 WBC RBC Hgb Hct MCV RDW Lymph % (Auto) [place] % (Auto) Lymph # [place] # Seg Neutrophils % Seg Neutrophils # PT INR POC ABG pH 7.456 H 7.497 H POC ABG pCO2 34.6 L POC ABG pO2 Sodium Potassium Chloride Carbon Dioxide BUN Creatinine Glucose POC Glucose 264 H Calcium Total Creatine Kinase Troponin T HDL Cholesterol 02/01/19 02/02/19 02/02/19 17:28 01:54 04:39 WBC 15.9 H RBC 2.62 L Hgb 8.0 L Hct 24.6 L MCV RDW 15.6 H Lymph % (Auto) [place] % (Auto) Lymph # [place] # Seg Neutrophils % Seg Neutrophils # PT INR POC ABG pH POC ABG pCO2 POC ABG pO2 Sodium Potassium Chloride Carbon Dioxide BUN Creatinine Glucose POC Glucose 210 H 235 H Calcium Total Creatine Kinase Troponin T HDL Cholesterol 02/02/19 02/02/19 02/02/19 04:39 05:05 11:21 WBC RBC Hgb Hct MCV RDW Lymph % (Auto) [place] % (Auto) Lymph # [place] # Seg Neutrophils % Seg Neutrophils # PT INR POC ABG pH POC ABG pCO2 POC ABG pO2 Sodium 148 H Potassium Chloride 107.5 H Carbon Dioxide BUN 35 H Creatinine 0.6 L Glucose 220 H POC Glucose 287 H 267 H Calcium Total Creatine Kinase Troponin T HDL Cholesterol 02/02/19 17:19 WBC RBC Hgb Hct MCV RDW Lymph % (Auto) [place] % (Auto) Lymph # [place] # Seg Neutrophils % Seg Neutrophils # PT INR POC ABG pH POC ABG pCO2 POC ABG pO2 Sodium Potassium Chloride Carbon Dioxide BUN Creatinine Glucose POC Glucose 242 H Calcium Total Creatine Kinase Troponin T HDL Cholesterol
[2019-02-02] MEDS: LEVAQUIN 750MG/150ML 750 MG/150 ML BAG IV SCH (18:27)
[2019-02-02] MEDS ORDERED: LANTUS SUB-Q SCH (22:00)
[2019-02-02] MEDS: TYLENOL PR PRN (22:17)
--- NOTE | 2019-02-02 22:22 | Cat Scan Report ---
PROCEDURE: CT HEAD/BRAIN WO CON TECHNIQUE: Computerized tomography of the head was performed without contrast material. CT DOSE LENGTH PRODUCT: mGycm HISTORY: Evaluate for swelling post MCA stroke COMPARISONS: January 30, 2019 . FINDINGS: Skull and scalp: Normal . Paranasal sinuses: Normal . Ventricles and subarachnoid spaces: Normal . Cerebrum: Subcortical gliosis with cortical laminar necrosis in the left frontal lobe again noted co nsistent with old ischemic injury. No acute ischemic injury is seen. There is no hemorrhage, edema, m ass, mass effect or midline shift. . Cerebellum and brainstem: No evidence of hemorrhage, acute infarction or mass . Vasculature: Normal . IMPRESSION: Subcortical gliosis with cortical laminar necrosis in the left frontal lobe again noted consistent wi th old ischemic injury. No acute ischemic injury is seen. There is no hemorrhage, edema, mass, mass e ffect or midline shift. . . This document is electronically signed by Waylon Tolliver MD., February 02 2019 10:20:07 PM ET
[2019-02-03] MEDS: PROVENTIL IH SCH ×4 (02:59→20:07)
[2019-02-03] MEDS: APRESOLINE PO SCH ×3 (05:19→21:34)
[2019-02-03 06:15] LABS: Hematocrit 23.1 % (35.5-45.6); Hemoglobin 7.4 gm/dl (11.8-15.2); Mean Corpuscular HGB Conc 32 % (32-34); Mean Corpuscular Volume 95 fl (84-94); Platelet Count 439 K/mm3 (140-440); Red Blood Count 2.44 M/mm3 (3.65-5.03); Red Cell Distribution Width 15.8 % (13.2-15.2)
[2019-02-03] MEDS: HumaLOG SUB-Q SCH ×4 (06:20→23:18)
[2019-02-03 06:21] LABS: BUN/Creatinine Ratio 56; Blood Urea Nitrogen 50 mg/dL (9-20); Calcium 9.2 mg/dL (8.4-10.2); Hemolysis Index 16
[2019-02-03] MEDS ORDERED: KIONEX PO NR (08:03)
[2019-02-03] MEDS: PEPCID PO SCH ×2 (09:14→21:33)
[2019-02-03] MEDS: ASPIRIN PO SCH (09:15)
[2019-02-03] MEDS: LEVAQUIN 750MG/150ML 750 MG/150 ML BAG IV SCH (09:15)
[2019-02-03] MEDS: SODIUM CHLORIDE FLUSH SYRINGE 10 ML IV SCH ×2 (09:16→21:34)
[2019-02-03] MEDS: HEPARIN SUB-Q SCH ×2 (09:16→21:33)
--- NOTE | 2019-02-03 09:29 | Progress Note ---
Assessment and Plan Acute respiratory failure . Currently in no distress, some minimal chest congestion. Able to follow some of my commands for deep breathing when I ask him to but, in very limited fashion Stroke. Evolving per head CT scan report AMS. Improved Leukocytosis, cause unknown. No fever. Patient not on steroids Recommendations Chest x-ray update Stimulate cough and deep breathing Mobilizing if possible, physical therapy Periodic neuro checks DVT prophylaxis No family available for take discussion Subjective Principal diagnosis: stroke, respiratory failure Interval history: No apparent respiratory complaints but aphasic Objective Vital Signs - 12hr 02/02/19 02/02/19 02/02/19 22:00 23:00 23:10 Temperature Pulse Rate 123 H 120 H 118 H Pulse Rate [ Anterior Bilateral Throughout] Pulse Rate [ From Monitor] Respiratory 58 H 50 H 28 H Rate Respiratory Rate [Anterior Bilateral Throughout] Blood Pressure 121/74 122/77 O2 Sat by Pulse 100 100 100 Oximetry 02/02/19 02/03/19 02/03/19 23:13 00:00 01:00 Temperature 98.9 F Pulse Rate 120 H 119 H 114 H Pulse Rate [ Anterior Bilateral Throughout] Pulse Rate [ 113 H From Monitor] Respiratory 51 H 25 H 46 H Rate Respiratory Rate [Anterior Bilateral Throughout] Blood Pressure 122/77 117/70 112/71 O2 Sat by Pulse 100 99 100 Oximetry 02/03/19 02/03/19 02/03/19 02:00 02:59 03:00 Temperature Pulse Rate 111 H 110 H Pulse Rate [ 109 H Anterior Bilateral Throughout] Pulse Rate [ From Monitor] Respiratory 44 H 51 H Rate Respiratory 29 H Rate [Anterior Bilateral Throughout] Blood Pressure 111/72 112/70 O2 Sat by Pulse 100 100 Oximetry 02/03/19 02/03/19 02/03/19 03:04 03:06 04:00 Temperature 99.0 F Pulse Rate 108 H 106 H Pulse Rate [ 108 H Anterior Bilateral Throughout] Pulse Rate [ 107 H From Monitor] Respiratory 29 H 28 H Rate Respiratory 30 H Rate [Anterior Bilateral Throughout] Blood Pressure 112/70 113/80 O2 Sat by Pulse 100 99 Oximetry 02/03/19 02/03/19 02/03/19 05:00 06:00 07:00 Temperature Pulse Rate 105 H 102 H 100 H Pulse Rate [ Anterior Bilateral Throughout] Pulse Rate [ From Monitor] Respiratory 33 H 27 H 29 H Rate Respiratory Rate [Anterior Bilateral Throughout] Blood Pressure 115/82 114/79 113/79 O2 Sat by Pulse 100 100 100 Oximetry 02/03/19 02/03/19 02/03/19 08:00 08:45 08:54 Temperature 97.7 F Pulse Rate 100 H Pulse Rate [ 96 H 98 H Anterior Bilateral Throughout] Pulse Rate [ 97 H From Monitor] Respiratory 40 H Rate Respiratory 22 22 Rate [Anterior Bilateral Throughout] Blood Pressure 119/73 O2 Sat by Pulse 100 Oximetry 02/03/19 09:17 Temperature Pulse Rate Pulse Rate [ Anterior Bilateral Throughout] Pulse Rate [ From Monitor] Respiratory Rate Respiratory Rate [Anterior Bilateral Throughout] Blood Pressure O2 Sat by Pulse 100 Oximetry Constitutional: no acute distress, alert Eyes: non-icteric Neck: supple, no JVD Effort: normal Ascultation: Bilateral: clear, rhonchi (occasional) Percussion: Bilateral: not dull Cardiovascular: regular rate and rhythm Gastrointestinal: normoactive bowel sounds Extremities: no edema Neurologic: other (alert, aphasic but able to follow most of my questions. Weakness of right) CBC and BMP: 02/03/19 05:05 02/03/19 05:05 ABG, PT/INR, D-dimer: ABG POC ABG pH 7.497 (7.35-7.45) H 02/01/19 12:10 POC ABG pCO2 34.6 (35-45) L 02/01/19 12:10 POC ABG pO2 101 (80-105) 02/01/19 12:10 POC ABG HCO3 26.8 (22-26 mml/L) 02/01/19 12:10 POC ABG Total CO2 28 (23-27mmol/L) 02/01/19 12:10 POC ABG O2 Sat 98 02/01/19 12:10 PT/INR, D-dimer PT 15.5 Sec. (12.2-14.9) H 01/18/19 19:14 INR 1.16 (0.87-1.13) H 01/18/19 19:14 Abnormal lab findings: Abnormal Labs 01/18/19 01/18/19 01/18/19 19:14 19:14 19:14 WBC 17.2 H RBC Hgb Hct MCV 96 H RDW 15.5 H Lymph % (Auto) 7.9 L [place] % (Auto) 7.9 H Lymph # [place] # 1.4 H Seg Neutrophils % 83.5 H Seg Neutrophils # 14.3 H PT 15.5 H INR 1.16 H POC ABG pH POC ABG pCO2 POC ABG pO2 Sodium 153 H Potassium 3.4 L Chloride Carbon Dioxide BUN 24 H Creatinine Glucose 159 H POC Glucose Calcium 10.3 H Total Creatine Kinase Troponin T 0.368 H* HDL Cholesterol 35 L 01/18/19 01/19/19 01/19/19 22:33 00:15 05:07 WBC RBC Hgb Hct MCV RDW Lymph % (Auto) [place] % (Auto) Lymph # [place] # Seg Neutrophils % Seg Neutrophils # PT INR POC ABG pH POC ABG pCO2 POC ABG pO2 Sodium 151 H Potassium 3.2 L Chloride Carbon Dioxide BUN 25 H Creatinine Glucose 130 H POC Glucose Calcium Total Creatine Kinase 491 H 419 H Troponin T 0.291 H* D 0.273 H* HDL Cholesterol 01/22/19 01/22/19 01/23/19 05:16 05:16 04:27 WBC 12.5 H 13.9 H RBC Hgb Hct MCV 96 H 95 H RDW 15.6 H 15.5 H Lymph % (Auto) 8.6 L 6.2 L [place] % (Auto) 9.1 H 9.1 H Lymph # 1.1 L 0.9 L [place] # 1.1 H 1.3 H Seg Neutrophils % 80.0 H 83.2 H Seg Neutrophils # 10.0 H 11.6 H PT INR POC ABG pH POC ABG pCO2 POC ABG pO2 Sodium 156 H Potassium 2.8 L* Chloride 118.5 H Carbon Dioxide BUN Creatinine Glucose 159 H POC Glucose Calcium Total Creatine Kinase Troponin T HDL Cholesterol 01/23/19 01/23/19 01/23/19 04:27 13:11 14:59 WBC RBC Hgb Hct MCV RDW Lymph % (Auto) [place] % (Auto) Lymph # [place] # Seg Neutrophils % Seg Neutrophils # PT INR POC ABG pH POC ABG pCO2 POC ABG pO2 282 H 205 H Sodium 151 H Potassium 3.5 L D Chloride 113.8 H Carbon Dioxide BUN Creatinine Glucose 163 H POC Glucose Calcium Total Creatine Kinase Troponin T HDL Cholesterol 01/23/19 01/24/19 01/24/19 18:36 04:17 07:41 WBC RBC Hgb Hct MCV RDW Lymph % (Auto) [place] % (Auto) Lymph # [place] # Seg Neutrophils % Seg Neutrophils # PT INR POC ABG pH POC ABG pCO2 POC ABG pO2 148 H Sodium 149 H Potassium Chloride 113.5 H Carbon Dioxide BUN Creatinine Glucose 153 H POC Glucose 141 H Calcium Total Creatine Kinase Troponin T HDL Cholesterol 01/24/19 01/25/19 01/25/19 23:40 04:07 04:07 WBC RBC 3.46 L Hgb 10.8 L Hct 32.7 L MCV 95 H RDW 15.3 H Lymph % (Auto) 9.0 L [place] % (Auto) 10.5 H Lymph # 1.0 L [place] # 1.1 H Seg Neutrophils % 77.7 H Seg Neutrophils # 8.3 H PT INR POC ABG pH POC ABG pCO2 POC ABG pO2 Sodium 147 H Potassium Chloride 111.1 H Carbon Dioxide BUN Creatinine Glucose 150 H POC Glucose 130 H Calcium Total Creatine Kinase Troponin T HDL Cholesterol 01/25/19 01/25/19 01/25/19 04:34 05:36 11:53 WBC RBC Hgb Hct MCV RDW Lymph % (Auto) [place] % (Auto) Lymph # [place] # Seg Neutrophils % Seg Neutrophils # PT INR POC ABG pH POC ABG pCO2 34.3 L POC ABG pO2 110 H Sodium Potassium Chloride Carbon Dioxide BUN Creatinine Glucose POC Glucose 147 H 162 H Calcium Total Creatine Kinase Troponin T HDL Cholesterol 01/25/19 01/25/19 01/26/19 18:12 23:44 04:13 WBC RBC Hgb Hct MCV RDW Lymph % (Auto) [place] % (Auto) Lymph # [place] # Seg Neutrophils % Seg Neutrophils # PT INR POC ABG pH POC ABG pCO2 33.6 L POC ABG pO2 Sodium Potassium Chloride Carbon Dioxide BUN Creatinine Glucose POC Glucose 211 H 210 H Calcium Total Creatine Kinase Troponin T HDL Cholesterol 01/26/19 01/26/19 01/26/19 04:40 04:40 05:27 WBC RBC 3.27 L Hgb 10.2 L Hct 30.9 L MCV RDW Lymph % (Auto) 6.4 L [place] % (Auto) Lymph # 0.7 L [place] # Seg Neutrophils % 87.5 H Seg Neutrophils # 9.5 H PT INR POC ABG pH POC ABG pCO2 POC ABG pO2 Sodium Potassium Chloride 107.4 H Carbon Dioxide 21 L BUN Creatinine Glucose 251 H POC Glucose 230 H Calcium Total Creatine Kinase Troponin T HDL Cholesterol 01/26/19 01/26/19 01/27/19 11:50 20:38 01:05 WBC RBC Hgb Hct MCV RDW Lymph % (Auto) [place] % (Auto) Lymph # [place] # Seg Neutrophils % Seg Neutrophils # PT INR POC ABG pH POC ABG pCO2 POC ABG pO2 Sodium Potassium Chloride Carbon Dioxide BUN Creatinine Glucose POC Glucose 219 H 166 H 161 H Calcium Total Creatine Kinase Troponin T HDL Cholesterol 01/27/19 01/27/19 01/27/19 04:39 05:57 12:46 WBC RBC Hgb Hct MCV RDW Lymph % (Auto) [place] % (Auto) Lymph # [place] # Seg Neutrophils % Seg Neutrophils # PT INR POC ABG pH POC ABG pCO2 POC ABG pO2 Sodium Potassium Chloride 108.0 H Carbon Dioxide 20 L BUN Creatinine 0.7 L Glucose 165 H POC Glucose 160 H 196 H Calcium Total Creatine Kinase Troponin T HDL Cholesterol 01/27/19 01/28/19 01/28/19 18:22 02:12 06:21 WBC RBC Hgb Hct MCV RDW Lymph % (Auto) [place] % (Auto) Lymph # [place] # Seg Neutrophils % Seg Neutrophils # PT INR POC ABG pH POC ABG pCO2 POC ABG pO2 Sodium Potassium Chloride Carbon Dioxide BUN Creatinine Glucose POC Glucose 168 H 183 H 211 H Calcium Total Creatine Kinase Troponin T HDL Cholesterol 01/28/19 01/28/19 01/28/19 12:13 19:08 21:54 WBC RBC Hgb Hct MCV RDW Lymph % (Auto) [place] % (Auto) Lymph # [place] # Seg Neutrophils % Seg Neutrophils # PT INR POC ABG pH POC ABG pCO2 POC ABG pO2 Sodium Potassium Chloride Carbon Dioxide BUN Creatinine Glucose POC Glucose 203 H 214 H 208 H Calcium Total Creatine Kinase Troponin T HDL Cholesterol 01/29/19 01/29/19 01/29/19 04:56 11:59 18:14 WBC RBC Hgb Hct MCV RDW Lymph % (Auto) [place] % (Auto) Lymph # [place] # Seg Neutrophils % Seg Neutrophils # PT INR POC ABG pH POC ABG pCO2 POC ABG pO2 Sodium Potassium Chloride Carbon Dioxide BUN Creatinine Glucose POC Glucose 251 H 231 H 225 H Calcium Total Creatine Kinase Troponin T HDL Cholesterol 01/29/19 01/30/19 01/30/19 23:53 06:02 12:10 WBC RBC Hgb Hct MCV RDW Lymph % (Auto) [place] % (Auto) Lymph # [place] # Seg Neutrophils % Seg Neutrophils # PT INR POC ABG pH POC ABG pCO2 POC ABG pO2 Sodium Potassium Chloride Carbon Dioxide BUN Creatinine Glucose POC Glucose 198 H 229 H 286 H Calcium Total Creatine Kinase Troponin T HDL Cholesterol 01/30/19 01/30/19 01/31/19 17:31 20:37 04:07 WBC 15.1 H RBC 2.94 L Hgb 9.0 L Hct 27.5 L MCV RDW 15.4 H Lymph % (Auto) [place] % (Auto) Lymph # [place] # Seg Neutrophils % Seg Neutrophils # PT INR POC ABG pH 7.529 H POC ABG pCO2 32.4 L POC ABG pO2 183 H Sodium Potassium Chloride Carbon Dioxide BUN Creatinine Glucose POC Glucose 238 H Calcium Total Creatine Kinase Troponin T HDL Cholesterol 01/31/19 01/31/19 01/31/19 04:07 04:21 05:11 WBC RBC Hgb Hct MCV RDW Lymph % (Auto) [place] % (Auto) Lymph # [place] # Seg Neutrophils % Seg Neutrophils # PT INR POC ABG pH 7.455 H POC ABG pCO2 POC ABG pO2 138 H Sodium 147 H Potassium Chloride 108.7 H Carbon Dioxide BUN 32 H Creatinine Glucose 176 H POC Glucose 172 H Calcium Total Creatine Kinase Troponin T HDL Cholesterol 01/31/19 01/31/19 01/31/19 11:50 18:23 23:23 WBC RBC Hgb Hct MCV RDW Lymph % (Auto) [place] % (Auto) Lymph # [place] # Seg Neutrophils % Seg Neutrophils # PT INR POC ABG pH POC ABG pCO2 POC ABG pO2 Sodium Potassium Chloride Carbon Dioxide BUN Creatinine Glucose POC Glucose 176 H 217 H 221 H Calcium Total Creatine Kinase Troponin T HDL Cholesterol 02/01/19 02/01/19 02/01/19 04:48 04:48 05:23 WBC 13.7 H RBC 2.71 L Hgb 8.2 L Hct 25.6 L MCV RDW 15.8 H Lymph % (Auto) [place] % (Auto) Lymph # [place] # Seg Neutrophils % Seg Neutrophils # PT INR POC ABG pH POC ABG pCO2 POC ABG pO2 Sodium Potassium Chloride Carbon Dioxide BUN 33 H Creatinine 0.7 L Glucose 265 H POC Glucose 267 H Calcium Total Creatine Kinase Troponin T HDL Cholesterol 02/01/19 02/01/19 02/01/19 05:41 11:39 12:10 WBC RBC Hgb Hct MCV RDW Lymph % (Auto) [place] % (Auto) Lymph # [place] # Seg Neutrophils % Seg Neutrophils # PT INR POC ABG pH 7.456 H 7.497 H POC ABG pCO2 34.6 L POC ABG pO2 Sodium Potassium Chloride Carbon Dioxide BUN Creatinine Glucose POC Glucose 264 H Calcium Total Creatine Kinase Troponin T HDL Cholesterol 02/01/19 02/02/19 02/02/19 17:28 01:54 04:39 WBC 15.9 H RBC 2.62 L Hgb 8.0 L Hct 24.6 L MCV RDW 15.6 H Lymph % (Auto) [place] % (Auto) Lymph # [place] # Seg Neutrophils % Seg Neutrophils # PT INR POC ABG pH POC ABG pCO2 POC ABG pO2 Sodium Potassium Chloride Carbon Dioxide BUN Creatinine Glucose POC Glucose 210 H 235 H Calcium Total Creatine Kinase Troponin T HDL Cholesterol 02/02/19 02/02/19 02/02/19 04:39 05:05 11:21 WBC RBC Hgb Hct MCV RDW Lymph % (Auto) [place] % (Auto) Lymph # [place] # Seg Neutrophils % Seg Neutrophils # PT INR POC ABG pH POC ABG pCO2 POC ABG pO2 Sodium 148 H Potassium Chloride 107.5 H Carbon Dioxide BUN 35 H Creatinine 0.6 L Glucose 220 H POC Glucose 287 H 267 H Calcium Total Creatine Kinase Troponin T HDL Cholesterol 02/02/19 02/02/19 02/03/19 17:19 23:15 05:05 WBC 16.7 H RBC 2.44 L Hgb 7.4 L Hct 23.1 L MCV 95 H RDW 15.8 H Lymph % (Auto) [place] % (Auto) Lymph # [place] # Seg Neutrophils % Seg Neutrophils # PT INR POC ABG pH POC ABG pCO2 POC ABG pO2 Sodium Potassium Chloride Carbon Dioxide BUN Creatinine Glucose POC Glucose 242 H 241 H Calcium Total Creatine Kinase Troponin T HDL Cholesterol 02/03/19 02/03/19 05:05 06:17 WBC RBC Hgb Hct MCV RDW Lymph % (Auto) [place] % (Auto) Lymph # [place] # Seg Neutrophils % Seg Neutrophils # PT INR POC ABG pH POC ABG pCO2 POC ABG pO2 Sodium 146 H Potassium 5.1 H D Chloride 111.5 H Carbon Dioxide 21 L BUN 50 H Creatinine Glucose 393 H POC Glucose 442 H Calcium Total Creatine Kinase Troponin T HDL Cholesterol
--- NOTE | 2019-02-03 10:36 | XRay Report ---
PORTABLE CHEST INDICATION: Stroke, leukocytosis. COMPARISON: 01/30/2019 FINDINGS: Portable, frontal chest radiograph demonstrates interval extubation. Stable Dobbhoff tube tip extending into the stomach and beyond the inferior radiographic margin. Stable cardiomediastinal silhouette and clear lungs. Intact bones. EKG leads. CONCLUSION: No acute chest process with interval extubation, as described. Thank you for the opportunity to participate in this patient's care.
--- NOTE | 2019-02-03 14:41 | Progress Note ---
Assessment and Plan Assessment and plan: 63 year old male with left MCA stroke, resultant aphasia and right hemiparesis. Intubated in pm yesterday and resting comfortably. * Reintubated, 01/30/19 due to impending respiratory failure with rapid shallow breathing and extubated 02/01/19 * Noted elevated Leukocytes, ?aspiration, follow cultures, started on levaquin, will complete 7 day therapy * Repeat CT mentions evolving CVA * Repeat CT head as recommended by Neurology itomorrow * Continue aggressive pulmonary toliet to prevent need for re-intubation. * Continue ASA AND statin THERAPY * add chest PT * Keep HOB >45DEG * trail of some anxiolytics if ok with neuro and pulmonary Acute Encephalopathy? metabolic secondary to CVA Acute hypoxic respiratory failure. Patient reintubated intubated secondary to labored respirations/airway protection. Pulmonary consultation. Aspiration Vs mucus plug. Mucus plugging. Continue frequent suction. 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 CT scan reveals subacute left frontal lobe infarct. Neurology following. MRI head reveals subacute left MCA infarct with evidence of petechial hemorrhage. Echocardiogram shows enlarged left ventricle with only 25-30% ejection fraction but negative bubble study. CT angiogram of the neck showed ulceration in the right internal carotid artery with elongated artery and left ICA showed just elongated artery. CT angiogram head is negative or normal. PT/OT/ST. repeat CT head pending. Dilated cardiomyopathy with severe left ventricular global hypokinesis. EF 25- 30% as noted above. No anticoagulation given increased risk for hemorrhagic conversion with CVA. Accelerated hypertension. Increase hydralazine to 100 mg 3 times a day. Bilateral lower extremity DVT. IVC filter placement. No anticoagulation given increased risk for hemorrhagic conversion with CVA. SIRS. No evidence of obvious infection. Cultures negative so far. Antibiotics discontinued Hypernatremia; treated and resolved Hypokalemia. Replete potassium as noted above. Elevated troponin. Cardiology following Difficult dubhoof placement; GI placed Dubhoof and currently on tube feeding. Patient failed swallow evaluation. dvt prophy with SCD due to possible evaluating stroke Disposition; continue IMCU care. Discussed with negative checker Poor prognosis The high probability of a clinically significant, sudden or life threatening deterioration of the [pulmonary, neurol] system(s) required my full and direct attention, intervention and personal management. The aggregate critical care time was [55] minutes. This time is in addition to time spent performing rep orted procedures but includes the following: [x] Data Review and interpretation [x] Patient assessment and monitoring of vital signs [x] Documentation [x] Medication orders and management History Interval history: Patient seen and examined today, still with need for aggressive pulmonary toilet and secretion mobilization. No new complaints. HOB elevated Hospitalist Physical - Physical exam Narrative exam: Patient was extubated on 01/26/19, reintubated 01/30/19.extubated 02/01/19 The patient appeared well nourished and normally developed although critically ill Vital signs as documented. Head exam is unremarkable. No scleral icterus . Neck is without jugular venous distension, thyromegaly, or carotid bruits. Lungs are clear to auscultation. but congested upper airway sounds Cardiac exam reveals regular rate and Rhythm. Abdominal exam reveals normal bowel sounds. Extremities are nonedematous. RIB PULLER: Alert. 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 aphasia, awake today and moves left upper ext - Constitutional Vitals: Temp Pulse Resp BP Pulse Ox 97.8 F 101 H 47 H 104/70 100 02/03/19 12:00 02/03/19 14:00 02/03/19 14:00 02/03/19 14:00 02/03/19 14:00 General appearance: Present: severe distress, well-nourished, other (accessory muscle use with respirations) Results - Labs CBC & Chem 7: 02/03/19 05:05 02/03/19 05:05 Labs: Laboratory Last Values WBC 16.7 K/mm3 (4.5-11.0) H 02/03/19 05:05 RBC 2.44 M/mm3 (3.65-5.03) L 02/03/19 05:05 Hgb 7.4 gm/dl (11.8-15.2) L 02/03/19 05:05 Hct 23.1 % (35.5-45.6) L 02/03/19 05:05 MCV 95 fl (84-94) H 02/03/19 05:05 MCH 30 pg (28-32) 02/03/19 05:05 MCHC 32 % (32-34) 02/03/19 05:05 RDW 15.8 % (13.2-15.2) H 02/03/19 05:05 Plt Count 439 K/mm3 (140-440) 02/03/19 05:05 Lymph % (Auto) 6.4 % (13.4-35.0) L 01/26/19 04:40 [place] % (Auto) 5.8 % (0.0-7.3) 01/26/19 04:40 Eos % (Auto) 0.0 % (0.0-4.3) 01/26/19 04:40 Baso % (Auto) 0.3 % (0.0-1.8) 01/26/19 04:40 Lymph # 0.7 K/mm3 (1.2-5.4) L 01/26/19 04:40 [place] # 0.6 K/mm3 (0.0-0.8) 01/26/19 04:40 Eos # 0.0 K/mm3 (0.0-0.4) 01/26/19 04:40 Baso # 0.0 K/mm3 (0.0-0.1) 01/26/19 04:40 Seg Neutrophils % 87.5 % (40.0-70.0) H 01/26/19 04:40 Seg Neutrophils # 9.5 K/mm3 (1.8-7.7) H 01/26/19 04:40 PT 15.5 Sec. (12.2-14.9) H 01/18/19 19:14 INR 1.16 (0.87-1.13) H 01/18/19 19:14 APTT 31.7 Sec. (24.2-36.6) 01/18/19 19:14 Thrombin Time 16.2 Sec. (15.1-19.6) 01/18/19 19:14 POC ABG pH 7.497 (7.35-7.45) H 02/01/19 12:10 POC ABG pCO2 34.6 (35-45) L 02/01/19 12:10 POC ABG pO2 101 (80-105) 02/01/19 12:10 POC ABG HCO3 26.8 (22-26 mml/L) 02/01/19 12:10 POC ABG Total CO2 28 (23-27mmol/L) 02/01/19 12:10 POC ABG O2 Sat 98 02/01/19 12:10 POC ABG Base Excess 4 ((-2) - (+3)mmol/L) 02/01/19 12:10 FiO2 25 % 02/01/19 12:10 Sodium 146 mmol/L (137-145) H 02/03/19 05:05 Potassium 5.1 mmol/L (3.6-5.0) H D 02/03/19 05:05 Chloride 111.5 mmol/L (98-107) H 02/03/19 05:05 Carbon Dioxide 21 mmol/L (22-30) L 02/03/19 05:05 Anion Gap 19 mmol/L 02/03/19 05:05 BUN 50 mg/dL (9-20) H 02/03/19 05:05 Creatinine 0.9 mg/dL (0.8-1.5) 02/03/19 05:05 Estimated GFR > 60 ml/min 02/03/19 05:05 BUN/Creatinine Ratio 56 % 02/03/19 05:05 Glucose 393 mg/dL (75-100) H 02/03/19 05:05 POC Glucose 358 (70-105) H 02/03/19 12:10 Lactic Acid 1.10 mmol/L (0.7-2.0) 01/28/19 18:10 Calcium 9.2 mg/dL (8.4-10.2) 02/03/19 05:05 Total Creatine Kinase 419 units/L (55-170) H 01/19/19 05:07 CK-MB (CK-2) 3.2 ng/mL (0.0-4.0) 01/19/19 05:07 CK-MB (CK-2) Rel Index 0.7 (0-4) 01/19/19 05:07 Troponin T 0.273 ng/mL (0.00-0.029) H* 01/19/19 05:07 Triglycerides 140 mg/dL (2-149) 01/18/19 19:14 Cholesterol 157 mg/dL (50-199) 01/18/19 19:14 LDL Cholesterol Direct 98 mg/dL (50-130) 01/18/19 19:14 HDL Cholesterol 35 mg/dL (40-59) L 01/18/19 19:14 Cholesterol/HDL Ratio 4.48 % 01/18/19 19:14 Active Medications - Current Medications Current Medications: Generic Name Dose Route Start Last Admin Trade Name Freq PRN Reason Stop Dose Admin Acetaminophen 650 mg 01/18/19 22:08 02/02/19 22:17 Tylenol OR 650 mg Q4H PRN Administration Pain MILD(1-3)/Fever >100.5/PEARL Albuterol 2.5 mg 01/29/19 14:00 02/03/19 08:45 Proventil IH 2.5 mg Q6HRT YESICA Administration Lipase/Protease/Amylase 1 each 01/24/19 15:00 Pancreaze 10,500 Unit FEEDTUBE PRN PRN For Clogged Feeding Tube Aspirin 325 mg 01/27/19 10:00 02/03/19 09:15 Aspirin PO 325 mg QDAY YESICA Administration Atorvastatin Calcium 40 mg 01/24/19 22:00 02/02/19 22:14 Lipitor PO 40 mg QHS YESICA Administration Famotidine 20 mg 01/30/19 22:00 02/03/19 09:14 Pepcid PO 20 mg BID YESICA Administration Heparin Sodium (Porcine) 5,000 unit 02/01/19 22:00 02/03/19 09:16 Heparin SUB-Q 5,000 unit Q12HR YESICA Administration Hydralazine HCl 5 mg 01/18/19 22:13 01/23/19 19:15 Apresoline IV 5 mg Q6H PRN Administration Hypertension Hydralazine HCl 100 mg 01/21/19 14:00 02/03/19 05:19 Apresoline PO 100 mg Q8HR YESICA Administration Hydrophilic Ointment 1 applic 01/30/19 17:36 Vaseline Lip Therapy TP Q2HR PRN Dry Lips Levofloxacin/Dextrose 750 mg in 150 mls @ 100 mls/hr 02/02/19 18:00 02/03/19 09:15 Levaquin 750mg/150ml IV 100 mls/hr Q24HR YESICA Administration Protocol Insulin Glargine 15 units 02/03/19 22:00 Lantus SUB-Q QHS [facility] Insulin Human Lispro 0 unit 01/26/19 18:00 02/03/19 06:20 Humalog SUB-Q 10 unit Q6HR YESICA Administration Protocol Multi-Ingred Cream/Lotion/Oil/Oint 1 applic 01/30/19 17:36 Artificial Tears Ophth Oint OU Q4HR PRN Dry Eye(s) Ondansetron HCl 4 mg 01/18/19 22:08 Zofran IV Q4H PRN Nausea And Vomiting Simple Syrup 15 ml 01/24/19 15:00 Simple Syrup FEEDTUBE PRN PRN Hypoglycemia Simple Syrup 30 ml 01/24/19 15:00 Simple Syrup FEEDTUBE PRN PRN Hypoglycemia Sodium Bicarbonate 325 mg 01/24/19 15:00 Sodium Bicarbonate FEEDTUBE PRN PRN For Clogged Feeding Tube Sodium Chloride 10 ml 01/19/19 10:00 02/03/19 09:16 Sodium Chloride Flush Syringe 10 Ml IV 10 ml BID YESICA Administration Sodium Chloride 10 ml 01/18/19 22:08 01/24/19 14:17 Sodium Chloride Flush Syringe 10 Ml IV 10 ml PRN PRN Administration LINE FLUSH Nutrition/Malnutrition Assess - Dietary Evaluation Nutrition/Malnutrition Findings: Nutrition Notes Start: 01/19/19 13:52 Freq: Status: Active Protocol: Document 02/03/19 10:36 EB (Rec: 02/03/19 10:45 EB [id number]) Co-Sign 02/03/19 10:36 LP Nutrition Notes Initial or Follow up Reassessment Current Diagnosis Diabetes,Hypertension, Respiratory Failure,Stroke, Hyperlipidemia Current Diet Vital AF at 65mL/hr Labs/Tests K 5.1 BG 393 Pertinent Medications Reviewed Height 5 ft 10 in Weight 74.3 kg [place] Body Weight (kg) 75.45 BMI 23.5 Subjective/Other Information F/u for TF tolerance. TF paused at time of visit while RN changes out tubing. Per RN, pt tolerating well with no residuals. Percent of energy/protein needs met: 100%/100% Burn Absent Trauma Absent #1 Nutrition Diagnosis Inadequate oral intake Diagnosis Progress(for reassessment Continues documentation) Is patient on ventilator? No Is Patient Ambulatory and/or Out of Bed No REE-([facility]-confined to bed) [phone] Calculation Used for Recommendations [facility] Additional Notes Pro needs 1.2-1.5/k-117g/ day Fluid needs 1ml/kcal Nutrition Intervention Nutrition Support: Vital AF at 65 mL/hr. 100mL flush q4h or per MD Kcal 1,872 Protein (gm) 117 Fluid (mL) 1,265 Goal #1 TF tolerance Goal #2 Meet at least 80% of calorie and protein needs via TF Anticipated Discharge Needs: Unable to identify at this time Follow-Up By: 02/07/19 Additional Comments Follow for TF tolerance
[2019-02-03] MEDS ORDERED: LANTUS SUB-Q SCH (22:00)
[2019-02-04] MEDS: PROVENTIL IH SCH ×3 (01:44→14:50)
[2019-02-04 05:35] LABS: Hematocrit 21.6 % (35.5-45.6); Hemoglobin 6.9 gm/dl (11.8-15.2); Mean Corpuscular HGB Conc 32 % (32-34); Mean Corpuscular Volume 95 fl (84-94); Platelet Count 441 K/mm3 (140-440); Red Blood Count 2.28 M/mm3 (3.65-5.03); Red Cell Distribution Width 15.8 % (13.2-15.2)
[2019-02-04] MEDS: APRESOLINE PO SCH (07:34)
[2019-02-04] MEDS: HumaLOG SUB-Q SCH (07:43)
[2019-02-04] MEDS ORDERED: PROVENTIL IH ONE ×2 (08:08→08:35)
[2019-02-04] MEDS ORDERED: KIONEX PO ONE (08:35)
[2019-02-04] MEDS ORDERED: LANTUS SUB-Q SCH ×2 (08:35→08:39)
[2019-02-04] MEDS ORDERED: NACL 0.9% 500 ML 500 ML IV ONE (08:36)
[2019-02-04] MEDS ORDERED: NACL 0.9% 1000 ML 1,000 ML IV SCH (09:00)
--- NOTE | 2019-02-04 09:16 | Progress Note ---
Assessment and Plan 1. Chronic combined systolic and diastolic heart failure 2. Dilated cardiomyopathy 3. 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 Type 2 diabetes mellitus 5. Essential hypertension 6. Hyperlipidemia Plan. Cardiac-meza stable continue present management Subjective Date of service: 02/04/19 Principal diagnosis: stroke, respiratory failure Interval history: Non verbal or communicative Objective Vital Signs Temp Pulse Pulse Pulse Resp Resp BP 02/04/19 06:00 93 H 17 109/72 02/04/19 05:00 95 H 40 H 109/72 02/04/19 04:00 93 H 98 H 23 103/67 02/04/19 03:44 99.4 F 02/04/19 03:00 93 H 34 H 108/68 02/04/19 02:00 96 H 41 H 111/66 02/04/19 01:57 96 H 23 02/04/19 01:44 95 H 27 H 02/04/19 01:00 98 H 47 H 103/65 02/04/19 00:23 02/04/19 00:00 101 H 98 H 18 105/70 02/03/19 23:16 98.7 F 02/03/19 23:00 98 H 54 H 105/61 02/03/19 22:09 102 H 57 H 105/67 02/03/19 22:00 103 H 42 H 105/67 02/03/19 21:00 103 H 57 H 108/63 02/03/19 20:17 104 H 50 H 02/03/19 20:12 02/03/19 20:09 106 H 55 H 02/03/19 20:00 106 H 103 H 46 H 110/69 02/03/19 19:52 98.6 F 02/03/19 19:00 104 H 41 H 100/63 02/03/19 18:00 105 H 33 H 103/65 02/03/19 17:00 105 H 43 H 118/65 02/03/19 16:00 98.5 F 105 H 102 H 40 H 109/72 02/03/19 15:00 102 H 33 H 106/68 02/03/19 14:43 101 H 28 H 02/03/19 14:00 101 H 47 H 104/70 02/03/19 13:00 101 H 39 H 107/70 02/03/19 12:00 97.8 F 100 H 101 H 41 H 107/70 02/03/19 11:00 99 H 39 H 104/66 02/03/19 10:00 99 H 35 H 111/76 02/03/19 09:17 Pulse Ox 02/04/19 06:00 100 02/04/19 05:00 100 02/04/19 04:00 100 02/04/19 03:44 02/04/19 03:00 100 02/04/19 02:00 100 02/04/19 01:57 02/04/19 01:44 02/04/19 01:00 100 02/04/19 00:23 100 02/04/19 00:00 100 02/03/19 23:16 02/03/19 23:00 99 02/03/19 22:09 99 02/03/19 22:00 98 02/03/19 21:00 99 02/03/19 20:17 02/03/19 20:12 100 02/03/19 20:09 02/03/19 20:00 100 02/03/19 19:52 02/03/19 19:00 100 02/03/19 18:00 100 02/03/19 17:00 100 02/03/19 16:00 100 02/03/19 15:00 100 02/03/19 14:43 02/03/19 14:00 100 02/03/19 13:00 100 02/03/19 12:00 100 02/03/19 11:00 100 02/03/19 10:00 100 02/03/19 09:17 100 - Physical Examination General: Other (awake, on the vent) HEENT: Positive: PERRL Neck: Positive: trachea midline Cardiac: Positive: Reg Rate and Rhythm, S1/S2, S3, S4, PMI, Laterally Displaced Lungs: Positive: Normal Breath Sounds, No Wheeze, Rales, Rhonchi Neuro: Positive: Other (right hemiplegia) Abdomen: Positive: Unremarkable, Active Bowel Sounds Skin: Positive: Clear Extremities: Absent: edema - Labs and Meds CBC 02/04/19 Range/Units 05:00 WBC 18.9 H (4.5-11.0) K/mm3 RBC 2.28 L (3.65-5.03) M/mm3 Hgb 6.9 L (11.8-15.2) gm/dl Hct 21.6 L (35.5-45.6) % Plt Count 441 H (140-440) K/mm3 Comprehensive Metabolic Panel 02/04/19 Range/Units 05:00 Sodium 145 (137-145) mmol/L Potassium 5.2 H (3.6-5.0) mmol/L Chloride 106.7 (98-107) mmol/L Carbon Dioxide 21 L (22-30) mmol/L BUN 74 H (9-20) mg/dL Creatinine 1.6 H D (0.8-1.5) mg/dL Glucose 389 H (75-100) mg/dL Calcium 9.0 (8.4-10.2) mg/dL - Telemetry EKG Rhythm: Sinus Rhythm
--- NOTE | 2019-02-04 09:27 | XRay Report ---
EXAM: XR CHEST 1V AP HISTORY: aspiration TECHNIQUE: AP chest x-ray dated February 04, 2019 at 8:53 AM. COMPARISON: None available. FINDINGS: There is a shallow inspiratory effort with mild prominence of the bronchopulmonary markings, especial ly in the perihilar regions, left greater than right; while the findings may represent artifactual ch omid from shallow inspiratory effort, mild noncardiogenic (or cardiogenic) pulmonary congestion, bron chitis, and early bronchopneumonia cannot be excluded in the appropriate clinical setting. Clinical correlation is advised. No focal consolidative lung infiltrate, pleural effusion, or pneumothorax is seen. The heart size and mediastinum are within normal limits. The visualized bony structures are wit hin normal limits. IMPRESSION: 1. Shallow inspiratory effort with mild prominence of the perihilar bronchopulmonary markings; DDX i ncludes artifactual change from shallow inspiratory effort, mild noncardiogenic (or cardiogenic) pulm onary congestion, bronchitis, and early bronchopneumonia in the appropriate clinical setting. Recomm end clinical correlation and appropriate follow evaluation as clinically warranted. 2. No focal consolidative lung infiltrate, pleural effusion, or pneumothorax seen. This document is electronically signed by Byron Strickland MD., February 04 2019 09:25:15 AM ET
[2019-02-04] MEDS: SODIUM CHLORIDE FLUSH SYRINGE 10 ML IV SCH (10:22)
[2019-02-04] MEDS: LEVAQUIN 750MG/150ML 750 MG/150 ML BAG IV SCH (10:22)
--- NOTE | 2019-02-04 11:55 | Progress Note ---
Subjective Date of service: 02/05/19 Principal diagnosis: stroke, respiratory failure Interval history: Evaluated after code blue in called ta the IMCU,pt bradycardic>>> PEA.CPR started, and Adriane present .Intubated by ED physician and transferred to ICU. Vent initiated but repeated PEA, resuscitation x 3. BS treated,CXR w/o pneumothorax or collapse.H/H check fluid resuscitation give. Affter talking to family ( see note ) further resuscitation deemed unsuccessful,patient was pronounced and family informed. Objective Vital Signs - 12hr 02/04/19 02/04/19 02/04/19 00:00 00:23 01:00 Temperature Pulse Rate 101 H 98 H Pulse Rate [ Anterior Bilateral Throughout] Pulse Rate [ 98 H From Monitor] Respiratory 18 47 H Rate Respiratory Rate [Anterior Bilateral Throughout] Blood Pressure 105/70 103/65 O2 Sat by Pulse 100 100 100 Oximetry 02/04/19 02/04/19 02/04/19 01:44 01:57 02:00 Temperature Pulse Rate 96 H Pulse Rate [ 95 H 96 H Anterior Bilateral Throughout] Pulse Rate [ From Monitor] Respiratory 41 H Rate Respiratory 27 H 23 Rate [Anterior Bilateral Throughout] Blood Pressure 111/66 O2 Sat by Pulse 100 Oximetry 02/04/19 02/04/19 02/04/19 03:00 03:44 04:00 Temperature 99.4 F Pulse Rate 93 H 93 H Pulse Rate [ Anterior Bilateral Throughout] Pulse Rate [ 98 H From Monitor] Respiratory 34 H 23 Rate Respiratory Rate [Anterior Bilateral Throughout] Blood Pressure 108/68 103/67 O2 Sat by Pulse 100 100 Oximetry 02/04/19 02/04/19 02/04/19 05:00 06:00 07:00 Temperature Pulse Rate 95 H 93 H 93 H Pulse Rate [ Anterior Bilateral Throughout] Pulse Rate [ From Monitor] Respiratory 40 H 17 49 H Rate Respiratory Rate [Anterior Bilateral Throughout] Blood Pressure 109/72 109/72 102/66 O2 Sat by Pulse 100 100 99 Oximetry 02/04/19 02/04/19 02/04/19 08:00 08:10 09:00 Temperature 98.6 F Pulse Rate 93 H 95 H Pulse Rate [ 98 H 95 H Anterior Bilateral Throughout] Pulse Rate [ 92 H From Monitor] Respiratory 53 H 40 H Rate Respiratory 30 H 28 H Rate [Anterior Bilateral Throughout] Blood Pressure 103/50 110/69 O2 Sat by Pulse 99 100 Oximetry 02/04/19 02/04/19 09:46 10:00 Temperature Pulse Rate 92 H Pulse Rate [ Anterior Bilateral Throughout] Pulse Rate [ From Monitor] Respiratory 36 H Rate Respiratory Rate [Anterior Bilateral Throughout] Blood Pressure 99/66 O2 Sat by Pulse 100 100 Oximetry Constitutional: no acute distress, alert Eyes: non-icteric ENT: other (orally intubated, ) Neck: supple, no JVD Effort: normal Ascultation: Bilateral: clear, rhonchi (occasional) Percussion: Bilateral: not dull Cardiovascular: regular rate and rhythm Gastrointestinal: normoactive bowel sounds Extremities: no edema Neurologic: other (alert, aphasic but able to follow most of my questions. Weakness of right) CBC and BMP: 02/04/19 05:00 02/04/19 05:00 ABG, PT/INR, D-dimer: ABG POC ABG pH 7.497 (7.35-7.45) H 02/01/19 12:10 POC ABG pCO2 34.6 (35-45) L 02/01/19 12:10 POC ABG pO2 101 (80-105) 02/01/19 12:10 POC ABG HCO3 26.8 (22-26 mml/L) 02/01/19 12:10 POC ABG Total CO2 28 (23-27mmol/L) 02/01/19 12:10 POC ABG O2 Sat 98 02/01/19 12:10 PT/INR, D-dimer PT 15.5 Sec. (12.2-14.9) H 01/18/19 19:14 INR 1.16 (0.87-1.13) H 01/18/19 19:14 Abnormal lab findings: Abnormal Labs 01/18/19 01/18/19 01/18/19 19:14 19:14 19:14 WBC 17.2 H RBC Hgb Hct MCV 96 H RDW 15.5 H Plt Count Lymph % (Auto) 7.9 L Miller % (Auto) 7.9 H Lymph # Miller # 1.4 H Seg Neutrophils % 83.5 H Seg Neutrophils # 14.3 H PT 15.5 H INR 1.16 H POC ABG pH POC ABG pCO2 POC ABG pO2 Sodium 153 H Potassium 3.4 L Chloride Carbon Dioxide BUN 24 H Creatinine Glucose 159 H POC Glucose Calcium 10.3 H Total Creatine Kinase Troponin T 0.368 H* HDL Cholesterol 35 L Crossmatch 01/18/19 01/19/19 01/19/19 22:33 00:15 05:07 WBC RBC Hgb Hct MCV RDW Plt Count Lymph % (Auto) Miller % (Auto) Lymph # Miller # Seg Neutrophils % Seg Neutrophils # PT INR POC ABG pH POC ABG pCO2 POC ABG pO2 Sodium 151 H Potassium 3.2 L Chloride Carbon Dioxide BUN 25 H Creatinine Glucose 130 H POC Glucose Calcium Total Creatine Kinase 491 H 419 H Troponin T 0.291 H* D 0.273 H* HDL Cholesterol Crossmatch 01/22/19 01/22/19 01/23/19 05:16 05:16 04:27 WBC 12.5 H 13.9 H RBC Hgb Hct MCV 96 H 95 H RDW 15.6 H 15.5 H Plt Count Lymph % (Auto) 8.6 L 6.2 L Miller % (Auto) 9.1 H 9.1 H Lymph # 1.1 L 0.9 L Miller # 1.1 H 1.3 H Seg Neutrophils % 80.0 H 83.2 H Seg Neutrophils # 10.0 H 11.6 H PT INR POC ABG pH POC ABG pCO2 POC ABG pO2 Sodium 156 H Potassium 2.8 L* Chloride 118.5 H Carbon Dioxide BUN Creatinine Glucose 159 H POC Glucose Calcium Total Creatine Kinase Troponin T HDL Cholesterol Crossmatch 01/23/19 01/23/19 01/23/19 04:27 13:11 14:59 WBC RBC Hgb Hct MCV RDW Plt Count Lymph % (Auto) Miller % (Auto) Lymph # Miller # Seg Neutrophils % Seg Neutrophils # PT INR POC ABG pH POC ABG pCO2 POC ABG pO2 282 H 205 H Sodium 151 H Potassium 3.5 L D Chloride 113.8 H Carbon Dioxide BUN Creatinine Glucose 163 H POC Glucose Calcium Total Creatine Kinase Troponin T HDL Cholesterol Crossmatch 01/23/19 01/24/19 01/24/19 18:36 04:17 07:41 WBC RBC Hgb Hct MCV RDW Plt Count Lymph % (Auto) Miller % (Auto) Lymph # Miller # Seg Neutrophils % Seg Neutrophils # PT INR POC ABG pH POC ABG pCO2 POC ABG pO2 148 H Sodium 149 H Potassium Chloride 113.5 H Carbon Dioxide BUN Creatinine Glucose 153 H POC Glucose 141 H Calcium Total Creatine Kinase Troponin T HDL Cholesterol Crossmatch 01/24/19 01/25/19 01/25/19 23:40 04:07 04:07 WBC RBC 3.46 L Hgb 10.8 L Hct 32.7 L MCV 95 H RDW 15.3 H Plt Count Lymph % (Auto) 9.0 L Miller % (Auto) 10.5 H Lymph # 1.0 L Miller # 1.1 H Seg Neutrophils % 77.7 H Seg Neutrophils # 8.3 H PT INR POC ABG pH POC ABG pCO2 POC ABG pO2 Sodium 147 H Potassium Chloride 111.1 H Carbon Dioxide BUN Creatinine Glucose 150 H POC Glucose 130 H Calcium Total Creatine Kinase Troponin T HDL Cholesterol Crossmatch 01/25/19 01/25/19 01/25/19 04:34 05:36 11:53 WBC RBC Hgb Hct MCV RDW Plt Count Lymph % (Auto) Miller % (Auto) Lymph # Miller # Seg Neutrophils % Seg Neutrophils # PT INR POC ABG pH POC ABG pCO2 34.3 L POC ABG pO2 110 H Sodium Potassium Chloride Carbon Dioxide BUN Creatinine Glucose POC Glucose 147 H 162 H Calcium Total Creatine Kinase Troponin T HDL Cholesterol Crossmatch 01/25/19 01/25/19 01/26/19 18:12 23:44 04:13 WBC RBC Hgb Hct MCV RDW Plt Count Lymph % (Auto) Miller % (Auto) Lymph # Miller # Seg Neutrophils % Seg Neutrophils # PT INR POC ABG pH POC ABG pCO2 33.6 L POC ABG pO2 Sodium Potassium Chloride Carbon Dioxide BUN Creatinine Glucose POC Glucose 211 H 210 H Calcium Total Creatine Kinase Troponin T HDL Cholesterol Crossmatch 01/26/19 01/26/19 01/26/19 04:40 04:40 05:27 WBC RBC 3.27 L Hgb 10.2 L Hct 30.9 L MCV RDW Plt Count Lymph % (Auto) 6.4 L Miller % (Auto) Lymph # 0.7 L Miller # Seg Neutrophils % 87.5 H Seg Neutrophils # 9.5 H PT INR POC ABG pH POC ABG pCO2 POC ABG pO2 Sodium Potassium Chloride 107.4 H Carbon Dioxide 21 L BUN Creatinine Glucose 251 H POC Glucose 230 H Calcium Total Creatine Kinase Troponin T HDL Cholesterol Crossmatch 01/26/19 01/26/19 01/27/19 11:50 20:38 01:05 WBC RBC Hgb Hct MCV RDW Plt Count Lymph % (Auto) Miller % (Auto) Lymph # Miller # Seg Neutrophils % Seg Neutrophils # PT INR POC ABG pH POC ABG pCO2 POC ABG pO2 Sodium Potassium Chloride Carbon Dioxide BUN Creatinine Glucose POC Glucose 219 H 166 H 161 H Calcium Total Creatine Kinase Troponin T HDL Cholesterol Crossmatch 01/27/19 01/27/19 01/27/19 04:39 05:57 12:46 WBC RBC Hgb Hct MCV RDW Plt Count Lymph % (Auto) Miller % (Auto) Lymph # Miller # Seg Neutrophils % Seg Neutrophils # PT INR POC ABG pH POC ABG pCO2 POC ABG pO2 Sodium Potassium Chloride 108.0 H Carbon Dioxide 20 L BUN Creatinine 0.7 L Glucose 165 H POC Glucose 160 H 196 H Calcium Total Creatine Kinase Troponin T HDL Cholesterol Crossmatch 01/27/19 01/28/19 01/28/19 18:22 02:12 06:21 WBC RBC Hgb Hct MCV RDW Plt Count Lymph % (Auto) Miller % (Auto) Lymph # Miller # Seg Neutrophils % Seg Neutrophils # PT INR POC ABG pH POC ABG pCO2 POC ABG pO2 Sodium Potassium Chloride Carbon Dioxide BUN Creatinine Glucose POC Glucose 168 H 183 H 211 H Calcium Total Creatine Kinase Troponin T HDL Cholesterol Crossmatch 01/28/19 01/28/19 01/28/19 12:13 19:08 21:54 WBC RBC Hgb Hct MCV RDW Plt Count Lymph % (Auto) Miller % (Auto) Lymph # Miller # Seg Neutrophils % Seg Neutrophils # PT INR POC ABG pH POC ABG pCO2 POC ABG pO2 Sodium Potassium Chloride Carbon Dioxide BUN Creatinine Glucose POC Glucose 203 H 214 H 208 H Calcium Total Creatine Kinase Troponin T HDL Cholesterol Crossmatch 01/29/19 01/29/19 01/29/19 04:56 11:59 18:14 WBC RBC Hgb Hct MCV RDW Plt Count Lymph % (Auto) Miller % (Auto) Lymph # Miller # Seg Neutrophils % Seg Neutrophils # PT INR POC ABG pH POC ABG pCO2 POC ABG pO2 Sodium Potassium Chloride Carbon Dioxide BUN Creatinine Glucose POC Glucose 251 H 231 H 225 H Calcium Total Creatine Kinase Troponin T HDL Cholesterol Crossmatch 01/29/19 01/30/19 01/30/19 23:53 06:02 12:10 WBC RBC Hgb Hct MCV RDW Plt Count Lymph % (Auto) Miller % (Auto) Lymph # Miller # Seg Neutrophils % Seg Neutrophils # PT INR POC ABG pH POC ABG pCO2 POC ABG pO2 Sodium Potassium Chloride Carbon Dioxide BUN Creatinine Glucose POC Glucose 198 H 229 H 286 H Calcium Total Creatine Kinase Troponin T HDL Cholesterol Crossmatch 01/30/19 01/30/19 01/31/19 17:31 20:37 04:07 WBC 15.1 H RBC 2.94 L Hgb 9.0 L Hct 27.5 L MCV RDW 15.4 H Plt Count Lymph % (Auto) Miller % (Auto) Lymph # Miller # Seg Neutrophils % Seg Neutrophils # PT INR POC ABG pH 7.529 H POC ABG pCO2 32.4 L POC ABG pO2 183 H Sodium Potassium Chloride Carbon Dioxide BUN Creatinine Glucose POC Glucose 238 H Calcium Total Creatine Kinase Troponin T HDL Cholesterol Crossmatch 01/31/19 01/31/19 01/31/19 04:07 04:21 05:11 WBC RBC Hgb Hct MCV RDW Plt Count Lymph % (Auto) Miller % (Auto) Lymph # Miller # Seg Neutrophils % Seg Neutrophils # PT INR POC ABG pH 7.455 H POC ABG pCO2 POC ABG pO2 138 H Sodium 147 H Potassium Chloride 108.7 H Carbon Dioxide BUN 32 H Creatinine Glucose 176 H POC Glucose 172 H Calcium Total Creatine Kinase Troponin T HDL Cholesterol Crossmatch 01/31/19 01/31/19 01/31/19 11:50 18:23 23:23 WBC RBC Hgb Hct MCV RDW Plt Count Lymph % (Auto) Miller % (Auto) Lymph # Miller # Seg Neutrophils % Seg Neutrophils # PT INR POC ABG pH POC ABG pCO2 POC ABG pO2 Sodium Potassium Chloride Carbon Dioxide BUN Creatinine Glucose POC Glucose 176 H 217 H 221 H Calcium Total Creatine Kinase Troponin T HDL Cholesterol Crossmatch 02/01/19 02/01/19 02/01/19 04:48 04:48 05:23 WBC 13.7 H RBC 2.71 L Hgb 8.2 L Hct 25.6 L MCV RDW 15.8 H Plt Count Lymph % (Auto) Miller % (Auto) Lymph # Miller # Seg Neutrophils % Seg Neutrophils # PT INR POC ABG pH POC ABG pCO2 POC ABG pO2 Sodium Potassium Chloride Carbon Dioxide BUN 33 H Creatinine 0.7 L Glucose 265 H POC Glucose 267 H Calcium Total Creatine Kinase Troponin T HDL Cholesterol Crossmatch 02/01/19 02/01/19 02/01/19 05:41 11:39 12:10 WBC RBC Hgb Hct MCV RDW Plt Count Lymph % (Auto) Miller % (Auto) Lymph # Miller # Seg Neutrophils % Seg Neutrophils # PT INR POC ABG pH 7.456 H 7.497 H POC ABG pCO2 34.6 L POC ABG pO2 Sodium Potassium Chloride Carbon Dioxide BUN Creatinine Glucose POC Glucose 264 H Calcium Total Creatine Kinase Troponin T HDL Cholesterol Crossmatch 02/01/19 02/02/19 02/02/19 17:28 01:54 04:39 WBC 15.9 H RBC 2.62 L Hgb 8.0 L Hct 24.6 L MCV RDW 15.6 H Plt Count Lymph % (Auto) Miller % (Auto) Lymph # Miller # Seg Neutrophils % Seg Neutrophils # PT INR POC ABG pH POC ABG pCO2 POC ABG pO2 Sodium Potassium Chloride Carbon Dioxide BUN Creatinine Glucose POC Glucose 210 H 235 H Calcium Total Creatine Kinase Troponin T HDL Cholesterol Crossmatch 02/02/19 02/02/19 02/02/19 04:39 05:05 11:21 WBC RBC Hgb Hct MCV RDW Plt Count Lymph % (Auto) Miller % (Auto) Lymph # Miller # Seg Neutrophils % Seg Neutrophils # PT INR POC ABG pH POC ABG pCO2 POC ABG pO2 Sodium 148 H Potassium Chloride 107.5 H Carbon Dioxide BUN 35 H Creatinine 0.6 L Glucose 220 H POC Glucose 287 H 267 H Calcium Total Creatine Kinase Troponin T HDL Cholesterol Crossmatch 02/02/19 02/02/19 02/03/19 17:19 23:15 05:05 WBC 16.7 H RBC 2.44 L Hgb 7.4 L Hct 23.1 L MCV 95 H RDW 15.8 H Plt Count Lymph % (Auto) Miller % (Auto) Lymph # Miller # Seg Neutrophils % Seg Neutrophils # PT INR POC ABG pH POC ABG pCO2 POC ABG pO2 Sodium Potassium Chloride Carbon Dioxide BUN Creatinine Glucose POC Glucose 242 H 241 H Calcium Total Creatine Kinase Troponin T HDL Cholesterol Crossmatch 02/03/19 02/03/19 02/03/19 05:05 06:17 12:10 WBC RBC Hgb Hct MCV RDW Plt Count Lymph % (Auto) Miller % (Auto) Lymph # Miller # Seg Neutrophils % Seg Neutrophils # PT INR POC ABG pH POC ABG pCO2 POC ABG pO2 Sodium 146 H Potassium 5.1 H D Chloride 111.5 H Carbon Dioxide 21 L BUN 50 H Creatinine Glucose 393 H POC Glucose 442 H 358 H Calcium Total Creatine Kinase Troponin T HDL Cholesterol Crossmatch 02/03/19 02/03/19 02/04/19 18:33 21:46 05:00 WBC 18.9 H RBC 2.28 L Hgb 6.9 L Hct 21.6 L MCV 95 H RDW 15.8 H Plt Count 441 H Lymph % (Auto) Miller % (Auto) Lymph # Miller # Seg Neutrophils % Seg Neutrophils # PT INR POC ABG pH POC ABG pCO2 POC ABG pO2 Sodium Potassium Chloride Carbon Dioxide BUN Creatinine Glucose POC Glucose 322 H 245 H Calcium Total Creatine Kinase Troponin T HDL Cholesterol Crossmatch 02/04/19 02/04/19 02/04/19 05:00 05:34 08:49 WBC RBC Hgb Hct MCV RDW Plt Count Lymph % (Auto) Miller % (Auto) Lymph # Miller # Seg Neutrophils % Seg Neutrophils # PT INR POC ABG pH POC ABG pCO2 POC ABG pO2 Sodium Potassium 5.2 H Chloride Carbon Dioxide 21 L BUN 74 H Creatinine 1.6 H D Glucose 389 H POC Glucose 398 H Calcium Total Creatine Kinase Troponin T HDL Cholesterol Crossmatch See Detail
[2019-02-04] MEDS ORDERED: ADRENALIN 8 MG in NACL 0.9% 250ML 242 ML IV ONE (12:03)
[2019-02-04] MEDS ORDERED: LEVOPHED DRIP 4 MG/NS 250 ML 4 MG/250 ML BAG IV ONE (12:11)
--- NOTE | 2019-02-04 12:18 | Event Note ---
Date: 02/04/19 63-year-old male in the intensive care unit. I am responding to a CODE BLUE. Patient fell with CPR in progress. Dr. FOWLER presented to the bedside shortly after me as well as a pulmonary physician. Patient was not intubated. Respiratory therapy with 1 unsuccessful attempt at intubation. Procedure note Endotracheal intubation Under direct laryngoscopy is 7.5 Japanese endotracheal tube was placed. There was copious secretions but the glottis was in the anatomically predictable position. After one attempt at intubation good breath sounds were noted bilaterally. End tidal CO2 was positive. The endotracheal tube was secured at 24 cm with good bilateral breath sounds. Note Further care management per above physicians.
--- NOTE | 2019-02-04 12:28 | Progress Note ---
Assessment and Plan Assessment and plan: 63 year old male with left MCA stroke, resultant aphasia and right hemiparesis. Intubated in pm yesterday and resting comfortably. * Reintubated, 01/30/19 due to impending respiratory failure with rapid shallow breathing and extubated 02/01/19 * Noted elevated Leukocytes, ?aspiration, follow cultures, started on levaquin, will complete 7 day therapy * Repeat CT mentions evolving CVA * Repeat CT head as recommended by Neurology tomorrow * Continue aggressive pulmonary toliet to prevent need for re-intubation. * Continue ASA AND statin THERAPY * add chest PT * Keep HOB >45DEG * trail of some anxiolytics if ok with neuro and pulmonary Significant event: * Patient had 3 CODE BLUE EPSIODE WITHIN 5 MINS OF EACH OTHER, initial rhythm was bradycardia patient received atropine and then pulseless electrical activi ty with multiple rounds of epinephrine please refer to code sheet. Following the first CODE BLUE event patient was intubated and returned to sinus rhythm with strong bowel impulse was transferred to the ICU and unfortunately 5 minutes later had a repeat episode requiring about 2 extra doses of epin ephrine. * Patient is not responsive to stimuli. Family has been called and currently arrived at bedside following resuscitation. * School Psychology Specialist was present during code and also the ED assessment with i ntubation. * Insulin 5 units was given due to elevated blood sugar fluids is better on wide open * Blood pressure was noted to be in the 120s * Patient sister at the bedside as the patient was going to be coded again wanted DNR but on calling the POA Adelaida she wanted us to try one more time. Unfortunately paient remained in PEA and then Asystole * Our condolence was offered to family * Acute Encephalopathy PRESUMED metabolic secondary to CVA Acute hypoxic respiratory failure. Patient reintubated intubated secondary to labored respirations/airway protection. Pulmonary consultation. Aspiration Vs mucus plug. Mucus plugging. Continue frequent suction. 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 CT scan reveals subacute left frontal lobe infarct. Neurology following. MRI head reveals subacute left MCA infarct with evidence of petechial hemorrhage. Echocardiogram shows enlarged left ventricle with only 25-30% ejection fraction but negative bubble study. CT angiogram of the neck showed ulceration in the right internal carotid artery with elongated artery and left ICA showed just elongated artery. CT angiogram head is negative or normal. PT/OT/ST. repeat CT head pending. Dilated cardiomyopathy with severe left ventricular global hypokinesis. EF 25- 30% as noted above. No anticoagulation given increased risk for hemorrhagic conversion with CVA. Accelerated hypertension. Increase hydralazine to 100 mg 3 times a day. Bilateral lower extremity DVT. IVC filter placement. No anticoagulation given increased risk for hemorrhagic conversion with CVA. SIRS. No evidence of obvious infection. Cultures negative so far. Antibiotics discontinued Hypernatremia; treated and resolved Hypokalemia. Replete potassium as noted above. Elevated troponin. Cardiology following Difficult dubhoof placement; GI placed Dubhoof and currently on tube feeding. Patient failed swallow evaluation. dvt prophy with SCD due to possible evaluating stroke Disposition; continue IMCU care. Discussed with duty manager Poor prognosis The high probability of a clinically significant, sudden or life threatening deterioration of the [pulmonary, neurol] system(s) required my full and direct attention, intervention and personal management. The aggregate critical care time was [55] minutes. This time is in addition to time spent performing reported procedures but includes the following: [x] Data Review and interpretation [x] Patient assessment and monitoring of vital signs [x] Documentation [x] Medication orders and management History Interval history: Patient seen and examined today, a CODE BLUE was called due to bradycardia and then pulseless electrical activity. Hospitalist Physical - Physical exam Narrative exam: Patient was extubated on 01/26/19, reintubated 01/30/19.extubated 02/01/19 The patient appeared clinically ill ongoing code process going on. Vital signs as documented. Head exam is unremarkable. No scleral icterus . Neck is without jugular venous distension, thyromegaly, or carotid bruits. Lungs are clear to auscultation. but congested upper airway sounds Cardiac exam pulseless electrical activity and later returned sinus rhythm Abdominal exam reveals normal bowel sounds. Extremities are nonedematous. ESTIMATOR: Alert. 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 aphasia, awake today and moves left upper ext - Constitutional Vitals: Temp Pulse Resp BP Pulse Ox 98.6 F 92 H 36 H 99/66 100 02/04/19 08:00 02/04/19 10:00 02/04/19 10:00 02/04/19 10:00 02/04/19 10:00 General appearance: Present: severe distress, well-nourished, other (accessory muscle use with respirations) Results - Labs CBC & Chem 7: 02/04/19 05:00 02/04/19 05:00 Labs: Laboratory Last Values WBC 18.9 K/mm3 (4.5-11.0) H 02/04/19 05:00 RBC 2.28 M/mm3 (3.65-5.03) L 02/04/19 05:00 Hgb 6.9 gm/dl (11.8-15.2) L 02/04/19 05:00 Hct 21.6 % (35.5-45.6) L 02/04/19 05:00 MCV 95 fl (84-94) H 02/04/19 05:00 MCH 30 pg (28-32) 02/04/19 05:00 MCHC 32 % (32-34) 02/04/19 05:00 RDW 15.8 % (13.2-15.2) H 02/04/19 05:00 Plt Count 441 K/mm3 (140-440) H 02/04/19 05:00 Lymph % (Auto) 6.4 % (13.4-35.0) L 01/26/19 04:40 [place] % (Auto) 5.8 % (0.0-7.3) 01/26/19 04:40 Eos % (Auto) 0.0 % (0.0-4.3) 01/26/19 04:40 Baso % (Auto) 0.3 % (0.0-1.8) 01/26/19 04:40 Lymph # 0.7 K/mm3 (1.2-5.4) L 01/26/19 04:40 [place] # 0.6 K/mm3 (0.0-0.8) 01/26/19 04:40 Eos # 0.0 K/mm3 (0.0-0.4) 01/26/19 04:40 Baso # 0.0 K/mm3 (0.0-0.1) 01/26/19 04:40 Seg Neutrophils % 87.5 % (40.0-70.0) H 01/26/19 04:40 Seg Neutrophils # 9.5 K/mm3 (1.8-7.7) H 01/26/19 04:40 PT 15.5 Sec. (12.2-14.9) H 01/18/19 19:14 INR 1.16 (0.87-1.13) H 01/18/19 19:14 APTT 31.7 Sec. (24.2-36.6) 01/18/19 19:14 Thrombin Time 16.2 Sec. (15.1-19.6) 01/18/19 19:14 POC ABG pH 7.497 (7.35-7.45) H 02/01/19 12:10 POC ABG pCO2 34.6 (35-45) L 02/01/19 12:10 POC ABG pO2 101 (80-105) 02/01/19 12:10 POC ABG HCO3 26.8 (22-26 mml/L) 02/01/19 12:10 POC ABG Total CO2 28 (23-27mmol/L) 02/01/19 12:10 POC ABG O2 Sat 98 02/01/19 12:10 POC ABG Base Excess 4 ((-2) - (+3)mmol/L) 02/01/19 12:10 FiO2 25 % 02/01/19 12:10 Sodium 145 mmol/L (137-145) 02/04/19 05:00 Potassium 5.2 mmol/L (3.6-5.0) H 02/04/19 05:00 Chloride 106.7 mmol/L (98-107) 02/04/19 05:00 Carbon Dioxide 21 mmol/L (22-30) L 02/04/19 05:00 Anion Gap 23 mmol/L 02/04/19 05:00 BUN 74 mg/dL (9-20) H 02/04/19 05:00 Creatinine 1.6 mg/dL (0.8-1.5) H D 02/04/19 05:00 Estimated GFR 53 ml/min 02/04/19 05:00 BUN/Creatinine Ratio 46 % 02/04/19 05:00 Glucose 389 mg/dL (75-100) H 02/04/19 05:00 POC Glucose 398 (70-105) H 02/04/19 05:34 Lactic Acid 1.10 mmol/L (0.7-2.0) 01/28/19 18:10 Calcium 9.0 mg/dL (8.4-10.2) 02/04/19 05:00 Total Creatine Kinase 419 units/L (55-170) H 01/19/19 05:07 CK-MB (CK-2) 3.2 ng/mL (0.0-4.0) 01/19/19 05:07 CK-MB (CK-2) Rel Index 0.7 (0-4) 01/19/19 05:07 Troponin T 0.273 ng/mL (0.00-0.029) H* 01/19/19 05:07 Triglycerides 140 mg/dL (2-149) 01/18/19 19:14 Cholesterol 157 mg/dL (50-199) 01/18/19 19:14 LDL Cholesterol Direct 98 mg/dL (50-130) 01/18/19 19:14 HDL Cholesterol 35 mg/dL (40-59) L 01/18/19 19:14 Cholesterol/HDL Ratio 4.48 % 01/18/19 19:14 Blood Type AB POSITIVE 02/04/19 08:49 Antibody Screen Negative 02/04/19 08:49 Crossmatch See Detail 02/04/19 08:49 Active Medications - Current Medications Current Medications: Generic Name Dose Route Start Last Admin Trade Name Freq PRN Reason Stop Dose Admin Acetaminophen 650 mg 01/18/19 22:08 02/02/19 22:17 Tylenol RI 650 mg Q4H PRN Administration Pain MILD(1-3)/Fever >100.5/PEARL Albuterol 2.5 mg 01/29/19 14:00 02/04/19 08:07 Proventil IH Not Given Q6HRT [facility] Lipase/Protease/Amylase 1 each 01/24/19 15:00 Leoncio Dorado 10,500 Unit FEEDTUBE PRN PRN For Clogged Feeding Tube Aspirin 325 mg 01/27/19 10:00 02/03/19 09:15 Aspirin PO 325 mg QDAY YESICA Administration Atorvastatin Calcium 40 mg 01/24/19 22:00 02/03/19 21:33 Lipitor PO 40 mg QHS YESICA Administration Famotidine 20 mg 01/30/19 22:00 02/03/19 21:33 Pepcid PO 20 mg BID YESICA Administration Hydralazine HCl 5 mg 01/18/19 22:13 01/23/19 19:15 Apresoline IV 5 mg Q6H PRN Administration Hypertension Hydralazine HCl 100 mg 01/21/19 14:00 02/04/19 07:34 Apresoline PO Not Given Q8HR YESICA Hydrophilic Ointment 1 applic 01/30/19 17:36 Vaseline Lip Therapy TP Q2HR PRN Dry Lips Levofloxacin/Dextrose 750 mg in 150 mls @ 100 mls/hr 02/02/19 18:00 02/04/19 10:22 Levaquin 750mg/150ml IV 100 mls/hr Q24HR YESICA Administration Protocol Sodium Chloride 1,000 mls @ 125 mls/hr 02/04/19 09:00 Nacl 0.9% 1000 Ml IV DIRECT YESICA Epinephrine 8 mg/ Sodium 250 mls @ 3.75 mls/hr 02/04/19 12:03 Chloride IV 02/07/19 06:42 TITR ONE Protocol 2 MCG/MIN Insulin Glargine 22 units 02/04/19 08:39 Lantus SUB-Q QHS [facility] Insulin Human Lispro 0 unit 01/26/19 18:00 02/04/19 07:43 Humalog SUB-Q 10 unit Q6HR YESICA Administration Protocol Multi-Ingred Cream/Lotion/Oil/Oint 1 applic 01/30/19 17:36 Artificial Tears Ophth Oint OU Q4HR PRN Dry Eye(s) Ondansetron HCl 4 mg 01/18/19 22:08 Zofran IV Q4H PRN Nausea And Vomiting Simple Syrup 15 ml 01/24/19 15:00 Simple Syrup FEEDTUBE PRN PRN Hypoglycemia Simple Syrup 30 ml 01/24/19 15:00 Simple Syrup FEEDTUBE PRN PRN Hypoglycemia Sodium Bicarbonate 325 mg 01/24/19 15:00 Sodium Bicarbonate FEEDTUBE PRN PRN For Clogged Feeding Tube Sodium Chloride 10 ml 01/19/19 10:00 02/04/19 10:22 Sodium Chloride Flush Syringe 10 Ml IV 10 ml BID YESICA Administration Sodium Chloride 10 ml 01/18/19 22:08 01/24/19 14:17 Sodium Chloride Flush Syringe 10 Ml IV 10 ml PRN PRN Administration LINE FLUSH Nutrition/Malnutrition Assess - Dietary Evaluation Nutrition/Malnutrition Findings: Nutrition Notes Start: 01/19/19 13:52 Freq: Status: Active Protocol: Document 02/03/19 10:36 EB (Rec: 02/03/19 10:45 EB [id number]) Co-Sign 02/03/19 10:36 LP Nutrition Notes Initial or Follow up Reassessment Current Diagnosis Diabetes,Hypertension, Respiratory Failure,Stroke, Hyperlipidemia Current Diet Vital AF at 65mL/hr Labs/Tests K 5.1 BG 393 Pertinent Medications Reviewed Height 5 ft 10 in Weight 74.3 kg [place] Body Weight (kg) 75.45 BMI 23.5 Subjective/Other Information F/u for TF tolerance. TF paused at time of visit while RN changes out tubing. Per RN, pt tolerating well with no residuals. Percent of energy/protein needs met: 100%/100% Burn Absent Trauma Absent #1 Nutrition Diagnosis Inadequate oral intake Diagnosis Progress(for reassessment Continues documentation) Is patient on ventilator? No Is Patient Ambulatory and/or Out of Bed No REE-([place]-St. Jeor-confined to bed) [phone] Calculation Used for Recommendations [place]-St Jeor Additional Notes Pro needs 1.2-1.5/k-117g/ day Fluid needs 1ml/kcal Nutrition Intervention Nutrition Support: Vital AF at 65 mL/hr. 100mL flush q4h or per MD Kcal 1,872 Protein (gm) 117 Fluid (mL) 1,265 Goal #1 TF tolerance Goal #2 Meet at least 80% of calorie and protein needs via TF Anticipated Discharge Needs: Unable to identify at this time Follow-Up By: 02/07/19 Additional Comments Follow for TF tolerance
--- NOTE | 2019-02-04 12:29 | Event Note ---
Date: 02/04/19 SEE PROGRESS NOTE-HOSPITALIST BELOW. Code blue
--- NOTE | 2019-02-04 13:02 | Death Summary ---
Summary - Providers Date of service: 02/04/19 Consults: 01/18/19 22:08 Consult to Physician [CONS] Routine Comment: Consulting Provider: JUAN JOSÉ COY Physician Instructions: Reason For Exam: cva Occupational Therapy Evaluate and Treat [CONS] Routine Comment: Reason For Exam: Neuro deficits Physical Therapy Evaluation and Treat [CONS] Routine Comment: Reason For Exam: Neuro deficits 01/18/19 22:11 Speech Therapy Evaluation and Treat [CONS] Routine Reason For Exam: swallow eval 01/18/19 22:37 Speech Therapy Evaluation and Treat [CONS] Routine Reason For Exam: Failed swallow screen 01/19/19 15:06 Consult to Physician [CONS] Routine Comment: Consulting Provider: BLAIR PEREZ Physician Instructions: Reason For Exam: elevated troponin 01/20/19 13:00 Consult to Physician [CONS] Routine Comment: Consulting Provider: JUAN JOSÉ HUBER Physician Instructions: Reason For Exam: ivc filter 01/24/19 12:43 Consult to Dietitian/Nutrition [CONS] Routine Physician Instructions: Reason For Exam: Reason for Consult: Write/Manage Tube Feeding 01/25/19 08:33 Consult to Physician [CONS] Routine Comment: discussed with Dr Mercado Consulting Provider: JUAN JOSÉ MERCADO Physician Instructions: Reason For Exam: OG tube placement 01/25/19 10:42 Consult to Physician [CONS] Urgent Comment: Consulting Provider: VINNIE CALI Physician Instructions: Reason For Exam: Possible obstruction 01/27/19 07:54 Speech Therapy Evaluation and Treat [CONS] Routine Reason For Exam: CVA, s/P extubation 01/30/19 17:36 Consult to Dietitian/Nutrition [CONS] Routine Physician Instructions: Reason For Exam: Reason for Consult: Evaluate nutritional intake Attending: HELENA FOWLER MD - summary Date of admission: 01/18/19 22:08 Date of : 02/04/19 Reason for admission: CVA Significant findings: 63 year old male with left MCA stroke, resultant aphasia and right hemiparesis. * On admission imaging studies revealed Embolic left MCA CVA with right hemiplegia. CT scan reveals subacute left frontal lobe infarct. Neurology following. MRI head reveals subacute left MCA infarct with evidence of petechial hemorrhage. Echocardiogram shows enlarged left ventricle with only 25-30% ejection fraction but negative bubble study. CT angiogram of the neck showed ulceration in the right internal carotid artery with elongated artery and left ICA showed just elongated artery * He was also in Acute Respiratory failure requiring intubation * Accelerated Hypertension was treated * He found to have bilateral lower ext DVT and IVC filter was placed since he could not be anticoagulated * Acute Encephalopathy PRESUMED metabolic secondary to CVA * Initially placed on abx but considering no obvious source of infection, this was discontinued and again following re-intubation he was treated again with antibiotics Reintubated, 01/30/19 due to impending respiratory failure with rapid shallow breathing and extubated 02/01/19 * Noted elevated Leukocytes, ?aspiration,, started on levaquin, [facility] plan to 7 day therapy * Repeat CT mentions evolving CVA * Repeat CT head as recommended by Neurology could not be done due to patients clinically condition * Patient was started on aggressive pulmonary toilet in order to . * Continue ASA AND statin THERAPY * Keep HOB >45DEG * trail of some anxiolytics if ok with neuro and pulmonary Significant event:02/04/19 * Patient had 3 CODE BLUE EPSIODE WITHIN 5 MINS OF EACH OTHER, initial rhythm was bradycardia patient received atropine and then pulseless electrical activ ity with multiple rounds of epinephrine please refer to code sheet. Following the first CODE BLUE event patient was intubated and returned to sinus rhythm with strong bowel impulse was transferred to the ICU and unfortunately 5 minutes later had a repeat episode requiring about 2 extra doses of epinephrine. * Patient is not responsive to stimuli. Family has been called and currently arrived at bedside following resuscitation. * Teacher Industrial Arts was present during code and also the ED assessment with intubation. * Insulin 5 units was given due to elevated blood sugar fluids is better on wide open * Blood pressure was noted to be in the 120s * unfortnately patient revereted back to PEA and a 3rd code was done. * Patient sister at the bedside as the patient was going to be coded again wanted DNR but on calling the POA Adelaida she wanted us to try one more time. Unfortunately patient remained in PEA and then Asystole * Every attempt was made to continue the code till the daughter of the patient arrived the hospital. * Our condolence was offered to family * Intial code today started at 12:04 * Time of 12:52 Exam: Non responsive Pupil fixed and dilated No spontaneous breathing No palpable or auscultated heart beat Diagnosis Acute hypoxic respiratory failure. 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 Accelerated hypertension. Bilateral lower extremity DVT. IVC filter placement SIRS with organ dysfunction Hypernatremia Hyperkalemia NSTEMI TYPE 2 * *
[2019-02-04 14:04] VITALS: BP 100/64
--- NOTE | 2019-02-05 10:54 | XRay Report ---
PROCEDURE: XR CHEST 1V AP TECHNIQUE: Portable AP chest HISTORY: ET TUBE PLACEMENT COMPARISONS: Chest x-ray February 04, 2019 FINDINGS: Endotracheal tube tip 3.7 cm above the car. Right lung is not entirely included [id number] Low lung volume. No pneumothorax. No sizable effusion. No acute airspace disease. IMPRESSION: Endotracheal tube placed as above.. This document is electronically signed by Roberto Carlos Brown MD., February 05 2019 10:52:12 AM ET
[2019-02-06] MEDS ORDERED: NACL 0.9% 1000 ML ONE (09:43)
== END 2019-02-04 14:00 | DRG 40 ==
LOC: ED 18:49 → IMCU 22:08 → CC1 01-23 13:42 → IMCU 01-26 17:01 → CC1 01-30 17:49 → IMCU 02-01 19:33 → CC1 02-04 11:57
PROVIDERS: ADMIT Internal Medicine; ATTEND Internal Medicine
PROC: 06H03DZ Insertion of Intraluminal Device into Inferior Vena Cava, Percutaneous Approach (ICD-10-PCS; 2019-01-20)
PROC: B5191ZA Fluoroscopy of Inferior Vena Cava using Low Osmolar Contrast, Guidance (ICD-10-PCS; 2019-01-20)
PROC: B543ZZA Ultrasonography of Right Jugular Veins, Guidance (ICD-10-PCS; 2019-01-20)
PROC: 4A033R1 Measurement of Arterial Saturation, Peripheral, Percutaneous Approach (ICD-10-PCS; 2019-01-23)
PROC: 5A1945Z Respiratory Ventilation, 24-96 Consecutive Hours (ICD-10-PCS; 2019-01-23)
PROC: 0BH17EZ Insertion of Endotracheal Airway into Trachea, Via Natural or Artificial Opening (ICD-10-PCS; 2019-01-23)
PROC: 0DH68UZ Insertion of Feeding Device into Stomach, Via Natural or Artificial Opening Endoscopic (ICD-10-PCS; principal; 2019-01-25)
PROC: 5A09457 Assistance with Respiratory Ventilation, 24-96 Consecutive Hours, Continuous Positive Airway Pressure (ICD-10-PCS; 2019-01-28)
PROC: 0BH17EZ Insertion of Endotracheal Airway into Trachea, Via Natural or Artificial Opening (ICD-10-PCS; 2019-01-30)
PROC: 5A1945Z Respiratory Ventilation, 24-96 Consecutive Hours (ICD-10-PCS; 2019-01-30)
PROC: 5A09457 Assistance with Respiratory Ventilation, 24-96 Consecutive Hours, Continuous Positive Airway Pressure (ICD-10-PCS; 2019-02-02)
PROC: 0BH17EZ Insertion of Endotracheal Airway into Trachea, Via Natural or Artificial Opening (ICD-10-PCS; 2019-02-04)
PROC: 5A1935Z Respiratory Ventilation, Less than 24 Consecutive Hours (ICD-10-PCS; 2019-02-04)
PROC: 5A12012 Performance of Cardiac Output, Single, Manual (ICD-10-PCS; 2019-02-04)
DX: I63.412 Cerebral infarction due to embolism of left middle cerebral artery (principal); R65.11 Systemic inflammatory response syndrome (SIRS) of non-infectious origin with acute organ dysfunction; J96.01 Acute respiratory failure with hypoxia; I21.A1 Myocardial infarction type 2; I61.1 Nontraumatic intracerebral hemorrhage in hemisphere, cortical; E87.0 Hyperosmolality and hypernatremia; G81.91 Hemiplegia, unspecified affecting right dominant side; G93.40 Encephalopathy, unspecified; I42.0 Dilated cardiomyopathy; I82.403 Acute embolism and thrombosis of unspecified deep veins of lower extremity, bilateral; I50.42 Chronic combined systolic (congestive) and diastolic (congestive) heart failure; I25.10 Atherosclerotic heart disease of native coronary artery without angina pectoris; R13.19 Other dysphagia; I46.9 Cardiac arrest, cause unspecified; E87.5 Hyperkalemia; E86.0 Dehydration; E11.9 Type 2 diabetes mellitus without complications; R47.1 Dysarthria and anarthria; F17.200 Nicotine dependence, unspecified, uncomplicated; E78.5 Hyperlipidemia, unspecified; R47.01 Aphasia; I11.0 Hypertensive heart disease with heart failure; Z82.49 Family history of ischemic heart disease and other diseases of the circulatory system
CPT/HCPCS: 31500; 31720; 36415; 36600; 37191; 70450; 70496; 70498; 70551; 71045; 74018; 80048; 80061; 82140; 82550; 82553; 82803; 82962; 84484; 85025; 85027; 85610; 85670; 85730; 86850; 86900; 86901; 86920; 87040; 87070; 87205; 93005; 93010; 93306; 93970; 94002; 94003; 94640; 94660; 94667; 94760; 99285; 99406; G0378; A9270-GY; C1769; C1880; J0171; J0330; J0360; J0690; J1644; J1650; J1815; J1956; J2250; J2405; J2543; J2704; J3010; J3480; J7030; J7040; J7050; J7070; Q9967